=== PATIENT | female | born 1955 | race Caucasian/White ===

== ENCOUNTER → 2016-11-14 | Outpatient (CLI) | payer OTHER ==
[~2016-11-14] MED LIST: ACET-1256 PO; ASPEC81 PO; DICL1GEL12 EXT; DICL1GEL28 EXT; DIPH-416 PO; DOXY50CA PO; EST1 PO; ESTCR PV; FLV1 PO; IMD/2 PO; IPRA1AER2 INH; LPT40 PO; LSN25 PO; MELO15TA4 PO; METH1INJ89 SC; POLY1DRO2 OPB; POLYSOL OPB; POLYSOL4 OPB; POTA10CA28 PO; PRED-301 PO; PRLSR20 PO; STELARA SC; TRAM-10 PO; [UNRECOGNIZED DRUG - CODE] SQ
== END | disposition home or self-care (01) ==
LOC: C.LAB 07:36
PROVIDERS: ATTEND Family Medicine
DX: E55.9 Vitamin D deficiency, unspecified (principal); L40.50 Arthropathic psoriasis, unspecified; Z79.899 Other long term (current) drug therapy

== ENCOUNTER → 2016-11-19 | Outpatient (CLI) | payer OTHER ==
--- NOTE | 2016-11-19 12:20 | DIAGNOSTIC IMAGING REPORT ---
RIGHT HAND 3 VIEWS CLINICAL HISTORY: Psoriatic arthropathy. FINDINGS: 3 views of the right hand are compared to study dated 07/02/2007. The skeletal structures are osteopenic. No fracture is seen. Advanced erosive arthropathy is present involving the interphalangeal joints. This is greatest in the second and third digits, where there is partial bony fusion and subluxation seen at the proximal interphalangeal joints. Mild arthritic change is present at the first and second metacarpophalangeal joints as well as at the first carpal metacarpal articulation. There is degenerative narrowing at the radiocarpal joint. Mild soft tissue edema is present throughout the fingers. IMPRESSION: 1. Osteopenia with advanced erosive osteoarthritic change involving the interphalangeal joints as detailed above. This has significantly progressed from the 2006 examination. 2. Soft tissue swelling is noted in the fingers. 3. No fracture is identified. Electronically signed by: Jame Lopez M.D. 11/19/2016 12:19 PM Dictated Date/Time: 11/19/2016 12:17 PM
--- NOTE | 2016-11-19 12:51 | DIAGNOSTIC IMAGING REPORT ---
LEFT KNEE 3 VIEWS CLINICAL HISTORY: Psoriatic arthropathy. High risk medication. COMPARISON: None FINDINGS: A 2 cm chondroid lesion within the proximal left fibula is likely benign. No fracture or suspicious lesion is present. There is marked narrowing of the patellofemoral compartment, greater laterally. There is minimal narrowing of the medial compartment. There is a possible left knee joint effusion. IMPRESSION: 1. Marked narrowing of the patellofemoral joint space. 2. 2 cm chondroid lesion within the proximal left fibula which is likely benign. 3. Suspected left knee joint effusion. Electronically signed by: Trev Mercado M.D. 11/19/2016 12:50 PM Dictated Date/Time: 11/19/2016 12:48 PM
== END | disposition home or self-care (01) ==
LOC: C.RAD1850 11:16
PROVIDERS: ATTEND Internal Medicine Rheumatology
DX: L40.50 Arthropathic psoriasis, unspecified (principal); M17.9 Osteoarthritis of knee, unspecified; M84.30XA Stress fracture, unspecified site, initial encounter for fracture; Z79.899 Other long term (current) drug therapy; X58.XXXA Exposure to other specified factors, initial encounter; M85.80 Other specified disorders of bone density and structure, unspecified site

== ENCOUNTER → 2017-01-01 | Outpatient (CLI) | payer OTHER ==
--- NOTE | 2017-01-01 15:23 | DIAGNOSTIC IMAGING REPORT ---
LEFT FIFTH TOE 3 VIEWS HISTORY: Left fifth toe pain. COMPARISON: None. FINDINGS: Suboptimal evaluation on the AP and oblique views due to the flexed position of the fifth toe. No definite fracture or dislocation. Soft tissue swelling. No radiopaque foreign bodies. IMPRESSION: Soft tissue swelling. No definite fracture or dislocation within the left fifth toe. Electronically signed by: Yossi Aparicio M.D. 01/01/2017 3:22 PM Dictated Date/Time: 01/01/2017 3:20 PM
--- NOTE | 2017-01-01 15:25 | DIAGNOSTIC IMAGING REPORT ---
LEFT SHOULDER MIN 2 VIEWS ROUTINE CLINICAL HISTORY: Left shoulder pain TRAUMA COMPARISON: None. DISCUSSION: No fractures or dislocations are visualized. There are no visible particular calcifications. There are no erosive or destructive changes. There is mild joint space narrowing. IMPRESSION: No fractures or dislocations identified. Electronically signed by: Dandre Lindsey M.D. 01/01/2017 3:24 PM Dictated Date/Time: 01/01/2017 3:23 PM
--- NOTE | 2017-01-01 15:26 | DIAGNOSTIC IMAGING REPORT ---
SACRUM COCCYX MIN 2 VIEWS CLINICAL HISTORY: Fall with tailbone pain. COMPARISON STUDY: Pelvis 04/03/2016. FINDINGS: No fracture or subluxation within the sacrum or coccyx. Mild degenerative changes within the bilateral sacroiliac joints, unchanged. Presacral soft tissues are intact. IMPRESSION: No fracture or subluxation within the sacrum/coccyx. Electronically signed by: Yossi Aparicio M.D. 01/01/2017 3:25 PM Dictated Date/Time: 01/01/2017 3:23 PM
--- NOTE | 2017-01-01 15:38 | DIAGNOSTIC IMAGING REPORT ---
LUMBAR SPINE 5 VIEWS HISTORY: Fall with low back pain. COMPARISON: None. FINDINGS: There is no fracture. Mild facet degenerative changes. 4 mm of anterolisthesis of L4 on L5. Moderate disc space narrowing at L4-L5. Severe disc space narrowing at L5-S1. Mild facet degenerative changes within the lower lumbar spine. IMPRESSION: No fracture or subluxation within the lumbar spine. Degenerative changes as described above. Electronically signed by: Yossi Aparicio M.D. 01/01/2017 3:36 PM Dictated Date/Time: 01/01/2017 3:34 PM
== END | disposition home or self-care (01) ==
LOC: C.RAD 14:26
PROVIDERS: ATTEND Family Medicine
DX: M54.5 Low back pain (principal); M25.572 Pain in left ankle and joints of left foot; M25.512 Pain in left shoulder

== ENCOUNTER → 2017-03-31 | Outpatient (CLI) | payer OTHER ==
[2017-03-31 09:53] LABS: BLOOD UREA NITROGEN 18 mg/dl (7-18); BUN/CREATININE RATIO 20.5 (10-20); CARBON DIOXIDE 27 mmol/L (21-32); CHLORIDE 108 mmol/L (98-107); CREATININE 0.86 mg/dl (0.60-1.20); GLUCOSE 83 mg/dl (70-99); POTASSIUM 3.8 mmol/L (3.5-5.1); SODIUM 142 mmol/L (136-145)
[2017-03-31 09:56] LABS: ALKALINE PHOSPHATASE 88 U/L (45-117); ALT/SGPT 39 U/L (12-78); AST/SGOT 32 U/L (15-37)
[2017-03-31 10:08] LABS: CALCIUM 8.6 mg/dl (8.5-10.1)
== END | disposition home or self-care (01) ==
LOC: C.LAB 07:45
PROVIDERS: ATTEND Family Medicine
DX: E34.9 Endocrine disorder, unspecified (principal); E87.6 Hypokalemia

== ENCOUNTER → 2017-04-30 | Outpatient (CLI) | payer OTHER ==
--- NOTE | 2017-04-30 14:05 | DIAGNOSTIC IMAGING REPORT ---
LEFT HIP UNILATERAL 2 VIEWS CLINICAL HISTORY: L40.50 Psoriatic [id number] Long-term use of immunosuppressor LEFT HIP PAIN COMPARISON: None. DISCUSSION: No fractures or dislocations are visualized. There are no erosive or destructive changes. The joint space appears well-preserved for age. IMPRESSION: Normal conventional radiographic evaluation of the left hip for age Electronically signed by: Dandre Lindsey M.D. 04/30/2017 2:03 PM Dictated Date/Time: 04/30/2017 2:03 PM
--- NOTE | 2017-04-30 14:05 | DIAGNOSTIC IMAGING REPORT ---
RIGHT HIP UNILATERAL 2 VIEWS CLINICAL HISTORY: L40.50 Psoriatic [id number] Long-term use of immunosuppress Right pain COMPARISON: None. DISCUSSION: Moderate degenerative narrowing right hip joint space. Old healed fracture right pubic ring. Cortical margins appear intact. No evidence for bony destructive process. There is no evidence for soft tissue swelling. IMPRESSION: Findings consistent with moderate degenerative and old posttraumatic change. No acute process. The above report was generated using voice recognition software. It may contain grammatical, syntax or spelling errors. Electronically signed by: eJmal Manning M.D. 04/30/2017 2:04 PM Dictated Date/Time: 04/30/2017 2:03 PM
== END | disposition home or self-care (01) ==
LOC: C.RAD 13:16
PROVIDERS: ATTEND Internal Medicine Rheumatology
DX: L40.50 Arthropathic psoriasis, unspecified (principal); Z79.899 Other long term (current) drug therapy

== ENCOUNTER → 2017-05-19 | Outpatient (CLI) | payer OTHER ==
--- NOTE | 2017-05-20 07:44 | MAMMOGRAPHY REPORT ---
BILATERAL DIGITAL SCREENING MAMMOGRAM TOMOSYNTHESIS WITH CAD: 05/19/2017 CLINICAL HISTORY: Routine screening. Patient has no complaints. TECHNIQUE: Breast tomosynthesis in addition to standard 2D mammography was performed. Current study was also evaluated with a Computer Aided Detection (CAD) system. COMPARISON: Comparison is made to exams dated: 05/16/2016 ultrasound, 05/16/2016 mammogram, 05/03/2015 ma mmogram, 05/02/2014 mammogram, 01/14/2012 mammogram, and 06/19/2010 mammogram - [facility] er. BREAST COMPOSITION: The tissue of both breasts is heterogeneously dense, which may obscure small mas ses. FINDINGS: No new suspicious mass, architectural distortion or cluster of microcalcifications is seen . IMPRESSION: ACR BI-RADS CATEGORY 1: NEGATIVE There is no mammographic evidence of malignancy. A 1 year screening mammogram is recommended. The pa tient will receive written notification of the results. Approximately 10% of breast cancers are not detected with mammography. A negative mammographic report should not delay biopsy if a clinically suggestive mass is present. Wendi Bowers M.D. ay/:05/19/2017 17:48:03 [employer] Worker: Katheryn Gu, [facility] letter sent: Normal 1/2 BI-RADS Code: ACR BI-RADS Category 1: Negative
== END | disposition home or self-care (01) ==
LOC: C.MAMM 12:50
PROVIDERS: ATTEND Obstetrics & Gynecology
DX: Z12.31 Encounter for screening mammogram for malignant neoplasm of breast (principal)

== ENCOUNTER 2017-05-20 08:20 | Inpatient (IN) | payer OTHER ==
[~2017-05-20] VITALS: Ht 165.1 cm; Wt 98.3 kg
[~2017-05-20 08:20] MED LIST changes: -ACET-1256 PO; -ASPEC81 PO; -DICL1GEL12 EXT; -IMD/2 PO; -LPT40 PO; -LSN25 PO; -POLY1DRO2 OPB; -[UNRECOGNIZED DRUG - CODE] SQ
--- NOTE | 2017-05-20 08:47 | DIAGNOSTIC IMAGING REPORT ---
HEAD WITHOUT CONTRAST (CT) CT DOSE: 638.56 mGycm HISTORY: Mental status change rule out stroke TECHNIQUE: Multiaxial CT images of the head were performed without the use of intravenous contrast. A dose lowering technique was utilized adhering to the principles of ALARA. Comparison: None. Findings: The paranasal sinuses and mastoid air cells are clear. The calvarium and skull base are intact. The ventricles and sulci are within normal limits. There is no mass, hematoma, midline shift, or acute infarct. Impression: No acute intracranial abnormality. The above report was generated using voice recognition software. It may contain grammatical, syntax or spelling errors. Electronically signed by: Jemal Manning M.D. 05/20/2017 8:45 AM Dictated Date/Time: 05/20/2017 8:44 AM
[2017-05-20 08:48] LABS: ISTAT CREATININE 0.8 mg/dl (0.6-1.3); ISTAT IONIZED CALCIUM 1.16 mmol/l (1.12-1.32)
[2017-05-20] MEDS ORDERED: SODIUM CHLORIDE 0.9% 1000ML 1,000 ML IV STA (08:49)
[2017-05-20] MEDS ORDERED: ASPIRIN 81 MG CHEW PO STA (08:49)
[2017-05-20 09:14] LABS: INR 0.9 (0.9-1.1); PARTIAL THROMBOPLASTIN RATIO 0.9; PROTHROMBIN TIME (PATIENT) 9.5 SECONDS (9.0-12.0)
[2017-05-20 09:24] LABS: BUN/CREATININE RATIO 22.4 (10-20); CALCIUM 9.1 mg/dl (8.5-10.1); CREATININE 0.84 mg/dl (0.60-1.20); POTASSIUM 3.9 mmol/L (3.5-5.1)
[2017-05-20 09:44] LABS: HEMATOCRIT 46.4 % (37-47); MEAN CELL VOLUME 94.5 fL (80-100); MEAN CORPUSCULAR HGB CONC 33.8 g/dl (32-36); MEAN PLATELET VOLUME 10.1 fL (7.4-10.4); PLATELET COUNT 188 K/uL (130-400); RED BLOOD COUNT 4.91 M/uL (4.2-5.4); WHITE BLOOD COUNT 8.29 K/uL (4.8-10.8)
[2017-05-20] MEDS ORDERED: ESTCR PV (09:46)
[2017-05-20] MEDS ORDERED: [UNRECOGNIZED DRUG - CODE] SQ (09:46)
[2017-05-20] MEDS ORDERED: IMD/2 PO (09:47)
[2017-05-20] MEDS ORDERED: ACET-1256 PO (09:47)
[2017-05-20] MEDS ORDERED: POLY1DRO2 OPB (09:47)
[2017-05-20] MEDS ORDERED: DICL1GEL12 EXT (09:47)
[2017-05-20 10:56] VITALS: O2SAT 99
[2017-05-20 11:30] VITALS: BP 170/103; PULSE 87; TEMP 36.8; Ht 165.1 cm; Wt 98.3 kg
[2017-05-20] MEDS ORDERED: PHARMACIST DISCHARGE MED REC CONSULT PRN (11:30)
[2017-05-20] MEDS ORDERED: ONDANSETRON INJ 2 MG/ML 2 ML VIAL IV PRN (11:30)
--- NOTE | 2017-05-20 13:50 | EMERGENCY ROOM VISIT NOTE ---
History Report prepared by Keri: Sebastien Camacho Under the Supervision of: Dr. Medhat Chaves D.O. First contact with patient: 08:31 Chief Complaint: STROKE SYMPTOMS Stated Complaint: LEG PAIN History of Present Illness The patient is a 61 year old female who presents to the Emergency Room with complaints of resolved right leg weakness starting around 0810 this morning. The patient states that she was at an appointment, and when she went to stand up she could not put any weight on her leg, and she could not stand. The patient states that it felt like a weight, though there was no numbness. She states that she feels like her strength has come back, and it did not feel like it was asleep. The patient states that this has never happened before. The patient denies any headache, though she states that her head did not feel right. The patient states that she has a history of psoriatic arthritis, and sarcoidosis. The patient denies any history of strokes, hypertension, or high cholesterol. The patient additionally states that a few months ago she lost vision in her right eye, though it was from a migraine. Pt denies, change in vision, fevers, chest pain, shortness of breath, nausea, vomiting, new diarrhea , pain with urination, and melena. Source of History: patient Onset: 0810 Position: leg (right) Quality: other (weakness) Timing: resolved Associated Symptoms: No headache, No numbness Review of Systems See HPI for pertinent positives & negatives. A total of 10 systems reviewed and were otherwise negative. Past Medical & Surgical Medical Problems: (1) Asthma, Unspecified (2) Calculus Of Kidney (3) GERD (gastroesophageal reflux disease) (4) H/O hyperparathyroidism (5) Hx of fracture of right hip (6) Hyperparathyroidism, Unspecified (7) Hypertension Nos (8) Idiopathic Scoliosis (9) Leg weakness (10) Lymphedema (11) Migraine (12) Osteoarthritis (13) Pleurisy (14) Psoriatic arthropathy (15) Psoriatic Arthropathy (16) Sarcoidosis (17) Sarcoidosis Surgical Problems: (1) H/O total hysterectomy (2) History of parathyroid surgery (3) S/P appendectomy (4) S/P foot surgery (5) S/P rotator cuff repair Family History Patient reports no known family medical history. Social History Smoking Status: Never Smoker Drug Use: none Marital Status: single Housing Status: unknown Occupation Status: employed Current/Historical Medications Scheduled Acetaminophen (Tylenol), 1,000 MG PO HS Doxycycline Hyclate (Vibramycin), 50 MG PO DAILY AT LUNCH Estradiol (Estradiol), 1 MG PO QAM Estradiol Vaginal (Estrace), 1 APPLN PV 3XWK Folic Acid (Folic Acid), 1 MG PO 6XWK Meloxicam (Mobic), 15 MG PO QPM Methotrexate Sodium (Methotrexate Sodium), 0.7 ML SQ WK Omeprazole (Prilosec), 20 MG PO HS Polyethylene Glycol-Propylene (Systane Gel), 1 DROP OPB HS Potassium Chloride (Micro-K Ext Rel), 20 MEQ PO BID Prednisone (Prednisone), 10 MG PO QAM [Stelara], 1 DOSE SC MONTHLY Scheduled PRN Diclofenac Sodium (Topical) (Voltaren 1% Top Gel), 1 APPLN EXT DAILY PRN for Pain Ipratropium-Albuterol (Combivent Respimat), 1-2 PUFFS INH QID PRN for Shortness of Breath Loperamide Hcl (Imodium), 2 MG PO DIRECTED PRN for PRN Polyethylene Glycol-Propylene (Systane), 1 DROPS OPB TID PRN for PRN Tramadol (Ultram), 50 MG PO Q8H PRN for Pain Allergies Coded Allergies: Adhesives (Verified Allergy, Unknown, ADHESIVE TAPE, 05/20/17) BEE STING (Verified Allergy, Unknown, 05/20/17) Bacitracin (Verified Allergy, Unknown, 05/20/17) Brimonidine (Verified Allergy, Unknown, CONTACT DERMATITIS, 05/20/17) Cyclosporine (Verified Allergy, Unknown, CONTACT DERMATITIS, 05/20/17) Ibuprofen (Verified Allergy, Unknown, 05/20/17) Piroxicam (Verified Allergy, Unknown, 05/20/17) Spironolactone (Verified Allergy, Unknown, 05/20/17) Terfenadine (Verified Allergy, Unknown, 05/20/17) Tobramycin (Verified Allergy, Unknown, 05/20/17) Cefaclor (Verified Adverse Reaction, Intermediate, MOUTH ULCERS- CAN TAKE KEFLEX W/O PROBLEM, 05/20/17) Physical Exam Vital Signs Date Time Temp Pulse Resp B/P (MAP) Pulse Ox O2 Delivery O2 Flow Rate FiO2 05/20/17 09:21 86 16 167/102 98 05/20/17 09:14 91 14 181/105 98 Room Air 05/20/17 08:42 100 05/20/17 08:42 97 23 208/135 100 Room Air 05/20/17 08:24 95 05/20/17 08:23 36.8 93 20 190/103 98 Room Air Physical Exam GENERAL: alert, well appearing, well nourished, no distress, non-toxic EYE EXAM: normal conjunctiva, PERRL and EOM's grossly intact OROPHARYNX: no exudate, no erythema, lips, buccal mucosa, and tongue normal and mucous membranes are moist NECK: supple, no nuchal rigidity, no adenopathy, non-tender LUNGS: Clear to auscultation. Normal chest wall mechanics HEART: no murmurs, S1 normal and S2 normal ABDOMEN: abdomen soft, non-tender, normo-active bowel sounds, no masses, no rebound or guarding. BACK: Back is symmetrical on inspection and there is no deformity, no midline tenderness, no CVA tenderness. SKIN: no rashes and no bruising UPPER EXTREMITIES: upper extremities are grossly normal. LOWER EXTREMITIES: No pitting edema. NEURO EXAM: Normal sensorium, cranial nerves II-XII intact, normal speech, no weakness of arms, no weakness of legs. No drift. Finger to nose intact. Gross sensation intact. Medical Decision & Procedures ER Provider Diagnostic Interpretation: Radiology results as stated below per my review and the radiologist's interpretation: HEAD WITHOUT CONTRAST (CT) CT DOSE: 638.56 mGycm HISTORY: Mental status change rule out stroke TECHNIQUE: Multiaxial CT images of the head were performed without the use of intravenous contrast. A dose lowering technique was utilized adhering to the principles of ALARA. Comparison: None. Findings: The paranasal sinuses and mastoid air cells are clear. The calvarium and skull base are intact. The ventricles and sulci are within normal limits. There is no mass, hematoma, midline shift, or acute infarct. Impression: No acute intracranial abnormality. The above report was generated using voice recognition software. It may contain grammatical, syntax or spelling errors. Electronically signed by: Jemal Manning M.D. 05/20/2017 8:45 AM Dictated Date/Time: 05/20/2017 8:44 AM Laboratory Results 05/20/17 08:25 05/20/17 08:25 Test 05/20/17 08:25 05/20/17 08:26 05/20/17 08:35 Red Blood Count 4.91 M/uL (4.2-5.4) Mean Corpuscular Volume 94.5 fL (80-100) Mean Corpuscular Hemoglobin 32.0 pg (25-34) Mean Corpuscular Hemoglobin Concent 33.8 g/dl (32-36) RDW Standard Deviation 46.2 fL (36.4-46.3) RDW Coefficient of Variation 13.5 % (11.5-14.5) Mean Platelet Volume 10.1 fL (7.4-10.4) Prothrombin Time 9.5 SECONDS (9.0-12.0) Prothromb Time International Ratio 0.9 (0.9-1.1) Activated Partial Thromboplast Time 23.5 SECONDS (21.0-31.0) Partial Thromboplastin Ratio 0.9 Est Creatinine Clear Calc Drug Dose 83.2 ml/min Estimated GFR () 87.6 Estimated GFR (Non- 75.5 BUN/Creatinine Ratio 22.4 (10-20) Calcium Level 9.1 mg/dl (8.5-10.1) Total Bilirubin 0.5 mg/dl (0.2-1) Aspartate Amino Transf (AST/SGOT) 35 U/L (15-37) Alanine Aminotransferase (ALT/SGPT) 41 U/L (12-78) Alkaline Phosphatase 96 U/L (45-117) Total Protein 7.1 gm/dl (6.4-8.2) Albumin 3.5 gm/dl (3.4-5.0) Globulin 3.6 gm/dl (2.5-4.0) Albumin/Globulin Ratio 1.0 (0.9-2) Bedside Glucose 74 mg/dl (70-90) Bedside Hemoglobin 16.0 g/dl (12.0-16.0) Bedside Hematocrit 47 % (37-47) Bedside Sodium 141 mEq/L (135-144) Bedside Potassium 4.0 mEq/L (3.3-5.0) Bedside Chloride 101 mEq/L (101-112) Bedside Total CO2 25 mEq/l (24-31) Anion Gap 19.0 mmol/L (16-25) Bedside Blood Urea Nitrogen 20 mg/dl (7-18) Bedside Creatinine 0.8 mg/dl (0.6-1.3) Bedside Glucose (other) 85 mg/dl (70-99) Bedside Ionized Calcium (Efrain) 1.16 mmol/l (1.12-1.32) Laboratory results per my review. Medications Administered Medications (Trade) Dose Ordered Sig/Joselin Route Start Time Stop Time Status Last Admin Dose Admin Sodium Chloride 1,000 ml @ 999 mls/hr Q1H1M STAT IV 05/20/17 08:49 05/20/17 09:49 DC 05/20/17 08:49 999 MLS/HR Aspirin (Aspirin Chew) 81 mg NOW STAT PO 05/20/17 08:49 05/20/17 08:50 DC 05/20/17 09:10 81 MG ECG Indication: weakness (right leg) Rate (beats per minute): 85 Rhythm: sinus rhythm Findings: no ectopy, other (normal axis) ED Course ED COURSE: Vital signs were reviewed and showed hypertension The patients medical record was reviewed The above diagnostic studies were performed and reviewed. ED treatments and interventions as stated above. 0831: The patient was evaluated in room A10. A complete history and physical examination was performed. 0849: Aspirin Chew 81mg PO, Sodium Chloride 1000 ml @ 999 mls/hr IV 0852: I reevaluated the patient, and I updated her at bedside. She had no focal deficits on reevaluations. 0918: The patient's repeat systolic pressure was 180 0953: I reviewed the patient's case with Dr. Bergman. She will evaluate the patient for further management. 0956: Upon reevaluation, the patient is resting.I discussed my findings with the patient and she understands and agrees with the treatment plan. Based on the patients age, coexisting illnesses, exam and lab findings the decision to treat as an inpatient was made. The patient remained stable while under my care. The patient will be evaluated for further management. Medical Decision Differential Diagnosis includes but is not limited to ischemic Stroke, hemorrhagic stroke, bells palsy, mass, neoplasm, migraine headache, seizure, subarachnoid hemorrhage, TIA, and transient global amnesia. Patient is a 61-year-old female who presents the ER for some onset of right lower extremity weakness without paresthesias. She notes she was unable to ambulate. 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 On my evaluation foreign CT there is no focal deficit. No back pain to explain symptoms. Nursing staff had evaluated her previously and there was a drift in her right lower extremity. Patient notes that the leg feels back to normal. When this event occurred she felt odd in the head. CT head was unremarkable. Remainder labs were benign. On multiple re-evaluations she was at baseline. Allowed permissive hypertension with recent TIA. Aspirin was given. Patient made to internal medicine following updating at bedside. Medication Reconcilliation Current Medication List: was personally reviewed by me Blood Pressure Screening Patient's blood pressure: Elevated blood pressure Blood pressure disposition: Elevated BP felt to be situational Consults Time Called: [phone] Consulting Physician: Dr. Bergman Returned Call: [phone] I reviewed the patient's case with Dr. Bergman. She will evaluate the patient for further management. Impression Primary Impression: TIA (transient ischemic attack) Scribe Attestation The scribe's documentation has been prepared under my direction and personally reviewed by me in its entirety. I confirm that the note above accurately reflects all work, treatment, procedures, and medical decision making performed by me. Departure Information Dispostion Being Evaluated By Hospitalist Referrals Sathya West D.O. (PCP) Patient Instructions My [facility] Problem Qualifiers Primary Impression: TIA (transient ischemic attack) Transient cerebral ischemia type: unspecified Qualified Codes: G45.9 - Transient cerebral ischemic attack, unspecified
[2017-05-20] MEDS ORDERED: METHOTREXATE SODIUM SQ SCH (14:15)
[2017-05-20] MEDS ORDERED: LOPERAMIDE HCL 2 MG CAP PO PRN (14:15)
[2017-05-20] MEDS ORDERED: DICLOFENAC SOD 1% GEL 100 GM TUBE EXT PRN (14:15)
[2017-05-20] MEDS ORDERED: NON-FORMULARY MEDICATION (Polyethylene Glycol-Propylene (Systane) 1 DROPS) OPB PRN (14:15)
[2017-05-20] MEDS ORDERED: IPRATROPIUM BROMIDE/ALBUTEROL respimat INH INH PRN (14:15)
[2017-05-20] MEDS ORDERED: TRAMADOL HCL 50 MG TAB PO PRN (14:15)
--- NOTE | 2017-05-20 15:44 | History and Physical ---
History & Physical Date & Time of Service: May 20, 2017 at 15:15 Chief Complaint: Leg Weakness Primary Care Physician: Sathya West D.O. History of Present Illness This is a 61yo F with a PMH of sarcoidosis, psoriatic arthritis and lymphedema who presented with resolved R leg weakness starting this morning. Patient went to work this morning in a normal state of health for the first few hours. When she stood up from her desk, she noticed a sudden sense of "heaviness" in her R leg and was unable to put weight on her leg without feeling unstable. Denies any pain or paresthesias in the the R leg, just weakness. At this time, patient also endorsed a "funny feeling" in her head that she was unable to explain. Denies headache, lightheadedness, dizziness or confusion, just that her head did not feel normal. After resting for 45 minutes, her R leg weakness completely resolved and she was able to stand up from chair and ambulate to the restroom on her own. Denies any visual changes, facial droop, difficulty speaking, CP, SOB, N/V or weakness of other extremities during the episode. Has never experienced an episode like this before. Denies any personal history of HTN, CVA, HLD or DVT/PE. Patient's mother has a h/o of TIAs and CVA. Of note , patient states that she did experience a temporary episode of complete loss of vision in R eye while at work earlier this year. Went to special events coordinator and was diagnosed with an ocular migraine. Has not happened again since then. Past Medical/Surgical History Medical Problems: (1) Asthma, Unspecified Status: Chronic (2) Calculus Of Kidney Status: Resolved (3) GERD (gastroesophageal reflux disease) Status: Chronic (4) H/O hyperparathyroidism Status: Chronic (5) Hx of fracture of right hip Status: Chronic (6) Hyperparathyroidism, Unspecified Status: Resolved (7) Hypertension Nos Status: Chronic (8) Idiopathic Scoliosis Status: Chronic (9) Lymphedema Status: Chronic (10) Migraine Status: Chronic (11) Osteoarthritis Status: Chronic (12) Pleurisy Status: Resolved (13) Psoriatic arthropathy Status: Chronic (14) Psoriatic Arthropathy Status: Chronic (15) Sarcoidosis Status: Chronic (16) Sarcoidosis Status: Chronic Surgical Problems: (1) H/O total hysterectomy Status: Chronic (2) History of parathyroid surgery Status: Chronic (3) S/P appendectomy Status: Chronic (4) S/P foot surgery Status: Chronic (5) S/P rotator cuff repair Status: Chronic Family History FH: cancer FATHER BROTHER Hypertension MOTHER Stroke MOTHER Social History Smoking Status: Never Smoker Drug Use: none Marital Status: single Housing status: lives alone Occupational Status: employed Immunizations History of Influenza Vaccine: Unknown History of Tetanus Vaccine?: Unknown History of Pneumococcal: Unknown History of Hepatitis B Vaccine: Unknown Multi-Drug Resistant Organisms History of MDRO: No Allergies Coded Allergies: Adhesives (Verified Allergy, Unknown, ADHESIVE TAPE, 05/20/17) BEE STING (Verified Allergy, Unknown, 05/20/17) Bacitracin (Verified Allergy, Unknown, 05/20/17) Brimonidine (Verified Allergy, Unknown, CONTACT DERMATITIS, 05/20/17) Cyclosporine (Verified Allergy, Unknown, CONTACT DERMATITIS, 05/20/17) Ibuprofen (Verified Allergy, Unknown, 05/20/17) Piroxicam (Verified Allergy, Unknown, 05/20/17) Spironolactone (Verified Allergy, Unknown, 05/20/17) Terfenadine (Verified Allergy, Unknown, 05/20/17) Tobramycin (Verified Allergy, Unknown, 05/20/17) Cefaclor (Verified Adverse Reaction, Intermediate, MOUTH ULCERS- CAN TAKE KEFLEX W/O PROBLEM, 05/20/17) Home Medications Scheduled Acetaminophen (Tylenol), 1,000 MG PO HS Doxycycline Hyclate (Vibramycin), 50 MG PO DAILY AT LUNCH Estradiol (Estradiol), 1 MG PO QAM Estradiol Vaginal (Estrace), 1 APPLN PV 3XWK Folic Acid (Folic Acid), 1 MG PO 6XWK Meloxicam (Mobic), 15 MG PO QPM Methotrexate Sodium (Methotrexate Sodium), 0.7 ML SQ WK Omeprazole (Prilosec), 20 MG PO HS Polyethylene Glycol-Propylene (Systane Gel), 1 DROP OPB HS Potassium Chloride (Micro-K Ext Rel), 20 MEQ PO BID Prednisone (Prednisone), 10 MG PO QAM [Stelara], 1 DOSE SC MONTHLY Scheduled PRN Diclofenac Sodium (Topical) (Voltaren 1% Top Gel), 1 APPLN EXT DAILY PRN for Pain Ipratropium-Albuterol (Combivent Respimat), 1-2 PUFFS INH QID PRN for Shortness of Breath Loperamide Hcl (Imodium), 2 MG PO DIRECTED PRN for PRN Polyethylene Glycol-Propylene (Systane), 1 DROPS OPB TID PRN for PRN Tramadol (Ultram), 50 MG PO Q8H PRN for Pain Review of Systems Constitutional- no fever; no weight loss Eyes- no acute visual changes ENT- no sinus drainage; no pharyngitis Pulmonary- no cough, no wheezing, no shortness of breath Cardiac- no chest pain, no palpitations, no orthopnea, no dependent edema GI- no nausea, no vomiting, no diarrhea, no melena, no hematochezia - no dysuria, no hematuria Musculoskeletal- no arthralgias, no myalgias Derm- no rashes, no new skin lesions, no changing skin lesions Hematologic- no unusual bruising, no unusual bleeding Lymphatics- no adenopathy Endocrine- no polyuria or polydipsia; no heat or cold intolerance Neuro- (+) as noted above Psych- no anxiety, no depression Physical Exam Vital Signs Date Time Temp Pulse Resp B/P (MAP) Pulse Ox O2 Delivery O2 Flow Rate FiO2 05/20/17 11:30 36.8 87 16 170/103 Room Air 05/20/17 10:56 92 16 190/100 99 Room Air 05/20/17 10:26 88 20 185/116 96 Room Air 05/20/17 09:21 86 16 167/102 98 05/20/17 09:14 91 14 181/105 98 Room Air 05/20/17 08:42 100 05/20/17 08:42 97 23 208/135 100 Room Air 05/20/17 08:24 95 05/20/17 08:23 36.8 93 20 190/103 98 Room Air General Appearance: WD/WN, no apparent distress Head: normocephalic, atraumatic Eyes: normal inspection, PERRL, EOMI, sclerae normal ENT: normal ENT inspection, hearing grossly normal Neck: supple, no adenopathy, thyroid normal, trachea midline Respiratory/Chest: chest non-tender, lungs clear, normal breath sounds, no respiratory distress Cardiovascular: regular rate, rhythm, no murmur, normal peripheral pulses Abdomen/GI: normal bowel sounds, non tender, soft, no organomegaly Back: normal inspection Extremities/Musculoskelatal: normal inspection, no calf tenderness, normal capillary refill, non-tender, + swelling (Presence of non-pitting edema bilaterally from the waist down.) 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: 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 No abnormalities with gait or cerebellar tests. ), alert, normal mood/affect, oriented x 3 Skin: normal color, warm/dry, no rash Diagnostics Laboratory Results Results Past 24 Hours Test 05/20/17 08:25 05/20/17 08:26 05/20/17 08:35 05/20/17 11:20 Range/Units White Blood Count 8.29 4.8-10.8 K/uL Red Blood Count 4.91 4.2-5.4 M/uL Hemoglobin 15.7 12.0-16.0 g/dL Hematocrit 46.4 37-47 % Mean Corpuscular Volume 94.5 80-100 fL Mean Corpuscular Hemoglobin 32.0 25-34 pg Mean Corpuscular Hemoglobin Concent 33.8 32-36 g/dl RDW Standard Deviation 46.2 36.4-46.3 fL RDW Coefficient of Variation 13.5 11.5-14.5 % Platelet Count 188 130-400 K/uL Mean Platelet Volume 10.1 7.4-10.4 fL Prothrombin Time 9.5 9.0-12.0 SECONDS Prothromb Time International Ratio 0.9 0.9-1.1 Activated Partial Thromboplast Time 23.5 21.0-31.0 SECONDS Partial Thromboplastin Ratio 0.9 Sodium Level 140 136-145 mmol/L Potassium Level 3.9 3.5-5.1 mmol/L Chloride Level 107 98-107 mmol/L Carbon Dioxide Level 27 21-32 mmol/L Anion Gap 6.0 19.0 16-25 mmol/L Blood Urea Nitrogen 19 7-18 mg/dl Creatinine 0.84 0.60-1.20 mg/dl Est Creatinine Clear Calc Drug Dose 83.2 ml/min Estimated GFR () 87.6 Estimated GFR (Non- 75.5 BUN/Creatinine Ratio 22.4 10-20 Random Glucose 82 70-99 mg/dl Calcium Level 9.1 8.5-10.1 mg/dl Total Bilirubin 0.5 0.2-1 mg/dl Aspartate Amino Transf (AST/SGOT) 35 15-37 U/L Alanine Aminotransferase (ALT/SGPT) 41 12-78 U/L Alkaline Phosphatase 96 45-117 U/L Total Protein 7.1 6.4-8.2 gm/dl Albumin 3.5 3.4-5.0 gm/dl Globulin 3.6 2.5-4.0 gm/dl Albumin/Globulin Ratio 1.0 0.9-2 Bedside Glucose 74 70-90 mg/dl Bedside Hemoglobin 16.0 12.0-16.0 g/dl Bedside Hematocrit 47 37-47 % Bedside Sodium 141 135-144 mEq/L Bedside Potassium 4.0 3.3-5.0 mEq/L Bedside Chloride 101 101-112 mEq/L Bedside Total CO2 25 24-31 mEq/l Bedside Blood Urea Nitrogen 20 7-18 mg/dl Bedside Creatinine 0.8 0.6-1.3 mg/dl Bedside Glucose (other) 85 70-99 mg/dl Bedside Ionized Calcium (Efrain) 1.16 1.12-1.32 mmol/l Diagnostic Radiology Ct Head: No acute intracranial abnormality. Normal EKG Impression Assessment and Plan This is a 61yo F with a PMH of sarcoidosis, psoriatic arthritis and lymphedema who presented with resolved R leg weakness starting this morning. R Lower Extremity Weakness: -Sudden onset this morning with resolution in 45 minutes -Initiated stroke protocol to r/o TIA -CT head without any acute abnormalities -Ordered MRI brain, MRA head and neck, Echo with bubble study, CXR -Neuro consulted for recs -Given aspirin in ED. Started on statin. -Hgb a1c and fasting lipid panel ordered for AM -PT/OT/Speech evals ordered per protocol -Neuro checks, stroke education Hypertensive Urgency: -BP of 190/103 on admission. Decreased to 167/102 without intervention in the ED due to TIA r/o -Denies headache, visual changes, nausea/vomiting -Has a h/o HTN years ago but was able to stop medications with significant weight loss -Since regaining the weight in recent years, has only taken Amiloride-HCTZ 5- 50mg tablet 3x/week -Will monitor and make adjustments Sarcoidosis: stable -Follows with out-patient pulm for annual CXR -States that at baseline she experiences SOB with walking -Continue doxycycline and Combivent inhaler Psoriatic Arthritis: -Follows with out-patient rheum -Continue methotrexate, prednisone, meloxicam, stelara. Tramadol PRN. Bilateral lymphedema: -Chronic non-pitting edema from waist down -Equal bilaterally -Currently at baseline DVT Ppx: SCDs Code status: FULL PCP: Luc Dispo: Plan to return home once medically stable ATTENDING ADDENDUM care coordinated with SONALI Ellington please refer to her notes for full details, I agree with her notes patient seen and examined, records reviewed by myself as well on exam, patient seen resting in bed, comfortable states right lower leg weakness has completely resolved denies any symptoms VS noted and reviewed oriented x 3, not in distress, speaks in sentences with no effort nor accessory muscle use normal rate, regular rhythm, no murmurs clear breath sounds bilaterally non distended, soft, nontender no bipedal edema, erythema, warmth no neuro deficits crea 0.84 CT head: no CVA ASSESSMENT/PLAN> RIGHT LOWER LEG WEAKNESS possible TIA - CT Angio ordered started on Aspirin - ff up echo - appreciate Neuro SVC input HYPERTENSIVE URGENCY - will maintain BP on the higher side for today given possible TIA - PRN Clonidine for syst bp > 180 - patient is asymptomatic other diagnoses and plan of care as per SONALI Ellington's notes Parvez Bergman MD Level of Care Telemetry Advanced Directives Existing Living Will: No Existing Power of Department Store Manager: No Resuscitation Status FULL RESUSCITATION VTE Prophylaxis VTE Risk Assessment Done? Y/N: Yes Risk Level: Moderate Given or contraindicated: SCD's Social Service Consult None Apply
--- NOTE | 2017-05-20 16:12 | Neurology Consultation ---
Neurology Consultation Date of Consultation: May 20, 2017. Attending Physician: Parvez Bergman MD Primary Care Physician: Sathya West D.O. Reason for Consultation: TIA History of Present Illness Source: patient Alessandra is a 61 year old female- PMH of sarcoidosis, psoriatic arthritis and lymphedema who presented with resolved R leg weakness starting this morning. She went to work this morning in a normal state of health for the first few hours. When she stood up from her desk, she noticed a sudden sense of "heaviness " in her R leg and was unable to put weight on her leg without feeling unstable. Denies any pain or paresthesias in the the R leg, just weakness a "funny feeling" in her head that she was unable to explain. Denies headache, lightheadedness, dizziness or confusion. After resting for 45 minutes, her R leg weakness completely resolved and she was able to stand up from chair and ambulate to the restroom on her own. Denies any visual changes, facial droop, difficulty speaking, CP, SOB, N/V or weakness of other extremities during the episode. Her mother has a h/o of TIAs and CVA. She states that she did experience a temporary episode of complete loss of vision in R eye while at work earlier this year. Went to electron microscopist and was diagnosed with an ocular migraine. Has not happened again since then. She does states she has some SOB with ambulation on stairs from her sarcoidosis. Past Medical/Surgical History Medical Problems: (1) Asthma, Unspecified Status: Chronic (2) Finger pain, right Status: Acute (3) Hypertension Nos Status: Chronic (4) Idiopathic Scoliosis Status: Chronic (5) Psoriatic Arthropathy Status: Chronic (6) Sarcoidosis Status: Chronic (7) TIA (transient ischemic attack) Status: Acute Social History Drug Use: none Marital Status: single Housing Status: unknown Occupation Status: employed Allergies Coded Allergies: Adhesives (Verified Allergy, Unknown, ADHESIVE TAPE, 05/20/17) BEE STING (Verified Allergy, Unknown, 05/20/17) Bacitracin (Verified Allergy, Unknown, 05/20/17) Brimonidine (Verified Allergy, Unknown, CONTACT DERMATITIS, 05/20/17) Cyclosporine (Verified Allergy, Unknown, CONTACT DERMATITIS, 05/20/17) Ibuprofen (Verified Allergy, Unknown, 05/20/17) Piroxicam (Verified Allergy, Unknown, 05/20/17) Spironolactone (Verified Allergy, Unknown, 05/20/17) Terfenadine (Verified Allergy, Unknown, 05/20/17) Tobramycin (Verified Allergy, Unknown, 05/20/17) Cefaclor (Verified Adverse Reaction, Intermediate, MOUTH ULCERS- CAN TAKE KEFLEX W/O PROBLEM, 05/20/17) Current Inpatient Medications Current Inpatient Medications Medications (Trade) Dose Ordered Sig/Joselin Route Start Time Stop Time Status Last Admin Dose Admin Atorvastatin Calcium (Lipitor Tab) 40 mg QPM PO 05/20/17 21:00 06/19/17 20:59 Aspirin (Ecotrin Tab) 81 mg QAM PO 05/21/17 09:00 06/20/17 08:59 Miscellaneous Information (Pharmacist Discharge Med Rec Consult) 1 ea UD PRN N/A 05/20/17 11:30 06/19/17 11:29 Acetaminophen (Tylenol Tab) 650 mg Q4H PRN PO 05/20/17 11:30 06/19/17 11:29 Ondansetron HCl (Zofran Inj) 4 mg Q6H PRN IV 05/20/17 11:30 06/19/17 11:29 Diclofenac Sodium (Voltaren 1% Top Gel) 1 appln DAILY PRN EXT 05/20/17 14:15 06/19/17 14:14 Doxycycline Hyclate (Vibramycin Cap) 50 mg DAILY PO 05/21/17 09:00 06/20/17 08:59 Estradiol (Estrace Tab) 1 mg QAM PO 05/21/17 09:00 06/20/17 08:59 Folic Acid (Folvite Tab) 1 mg SuMoTuThFrSa@0900 PO 05/21/17 09:00 06/20/17 08:59 Albuterol/ Ipratropium (Combivent Respimat Inh) USE DIRECTED QID PRN INH 05/20/17 14:15 06/19/17 14:14 Loperamide HCl (Imodium Cap) 2 mg 4XDQ3H PRN PO 05/20/17 14:15 06/19/17 14:14 Meloxicam (Mobic Tab) 15 mg QPM PO 05/20/17 21:00 06/19/17 20:59 Potassium Chloride (Klor-Con M10) 20 meq BID PO 05/20/17 21:00 06/19/17 20:59 Prednisone (PredniSONE TAB) 10 mg QAM PO 05/21/17 09:00 06/20/17 08:59 Tramadol HCl (Ultram Tab) 50 mg Q8H PRN PO 05/20/17 14:15 06/19/17 14:14 Pantoprazole Sodium (Protonix Tab) 40 mg HS PO 05/20/17 21:00 06/19/17 20:59 Miscellaneous Information (Order Awaiting Action) 1 ea QS N/A 05/20/17 16:00 06/19/17 15:59 Methotrexate Sodium 17.5 mg/ Syringe 0.7 ml @ 0 mls/hr We@0900 IV 05/27/17 09:00 06/26/17 08:59 Physical Exam Vital Signs (Past 24 Hrs): Date Time Temp Pulse Resp B/P (MAP) Pulse Ox O2 Delivery O2 Flow Rate FiO2 05/20/17 11:30 36.8 87 16 170/103 Room Air 05/20/17 10:56 92 16 190/100 99 Room Air 05/20/17 10:26 88 20 185/116 96 Room Air 05/20/17 09:21 86 16 167/102 98 05/20/17 09:14 91 14 181/105 98 Room Air 05/20/17 08:42 100 05/20/17 08:42 97 23 208/135 100 Room Air 05/20/17 08:24 95 05/20/17 08:23 36.8 93 20 190/103 98 Room Air Physical Exam: Constitutional: appearance nourished, healthy and obese Ears, Nose, Mouth and Throat: mucous membranes moist, no injection and skin normal, eyes normal Cardiovascular: normal S-1 and S-2 and regular rate and rhythm Respiratory: clear to auscultation (CTA) and no rales, rhonchi or wheeze Musculoskeletal: no peripheral edema and good distal pulses, bilateral foot deformities, bilaterally ulnar hand deformities Skin: no stigmata of neurocutaneous disease noted and normal and intact Eyes: extraocular muscles intact (EOMI) and pupils equal, round and reactive to light (PERRL) NEUROLOGIC EXAMINATION: Mental status: Alert and interactive Oriented to full date and location Oriented to person Speech fluent with no evidence of aphasia Cranial Nerves smile eye brow raise symmetric, tongue midline Reflexes: Deep tendon reflexes were symmetrical and graded 2/5. Plantar responses were flexor. Sensory: no deficit to cool or vibration Coordination: finger to nose without bi pass or reaching tremor no cog wheeling Gait/Stance: Posture normal. Gait normal: with steady with steps, base, turning, tandem gait. Motor: Negative for pronator drift of out stretched arms with eyes closed. Strength: biceps triceps hand senior attorney intrinsics 5/5 bilaterally, hip flex ext plantar flex ext Laboratory Results Past 24 Hours: 05/20/17 08:25 05/20/17 08:25 Test 05/20/17 08:25 05/20/17 08:26 05/20/17 08:35 05/20/17 11:20 Red Blood Count 4.91 M/uL (4.2-5.4) Mean Corpuscular Volume 94.5 fL (80-100) Mean Corpuscular Hemoglobin 32.0 pg (25-34) Mean Corpuscular Hemoglobin Concent 33.8 g/dl (32-36) RDW Standard Deviation 46.2 fL (36.4-46.3) RDW Coefficient of Variation 13.5 % (11.5-14.5) Mean Platelet Volume 10.1 fL (7.4-10.4) Prothrombin Time 9.5 SECONDS (9.0-12.0) Prothromb Time International Ratio 0.9 (0.9-1.1) Activated Partial Thromboplast Time 23.5 SECONDS (21.0-31.0) Partial Thromboplastin Ratio 0.9 Est Creatinine Clear Calc Drug Dose 83.2 ml/min Estimated GFR () 87.6 Estimated GFR (Non- 75.5 BUN/Creatinine Ratio 22.4 (10-20) Calcium Level 9.1 mg/dl (8.5-10.1) Total Bilirubin 0.5 mg/dl (0.2-1) Aspartate Amino Transf (AST/SGOT) 35 U/L (15-37) Alanine Aminotransferase (ALT/SGPT) 41 U/L (12-78) Alkaline Phosphatase 96 U/L (45-117) Total Protein 7.1 gm/dl (6.4-8.2) Albumin 3.5 gm/dl (3.4-5.0) Globulin 3.6 gm/dl (2.5-4.0) Albumin/Globulin Ratio 1.0 (0.9-2) Bedside Glucose 74 mg/dl (70-90) Bedside Hemoglobin 16.0 g/dl (12.0-16.0) Bedside Hematocrit 47 % (37-47) Bedside Sodium 141 mEq/L (135-144) Bedside Potassium 4.0 mEq/L (3.3-5.0) Bedside Chloride 101 mEq/L (101-112) Bedside Total CO2 25 mEq/l (24-31) Anion Gap 19.0 mmol/L (16-25) Bedside Blood Urea Nitrogen 20 mg/dl (7-18) Bedside Creatinine 0.8 mg/dl (0.6-1.3) Bedside Glucose (other) 85 mg/dl (70-99) Bedside Ionized Calcium (Efrain) 1.16 mmol/l (1.12-1.32) Imaging CT head- No acute intracranial abnormality. Impression 61 year old female with right leg weakness that resolved in 45 minutes Plan 1. no ischemia seen on CT head 2. MRI brain with and without - not resulted but no obvious ischemia 3. MRA neck no vascular issues in neck 4. MRA brain not done and unable to visualize the left anterior cerebral artery - CTA head ordered 5. continue aspirin 81 mg 6. TTE done but not resulted 7. further recommendations once all images are resulted. I have seen and discussed above patient with Dr Arsenio Ramírez, neurology [facility] reviewed see my dictated note Janessa Ramírez mD
[2017-05-20] MEDS: ACETAMINOPHEN 325 MG TAB PO PRN ×2 (16:36→21:22)
--- NOTE | 2017-05-20 16:37 | DIAGNOSTIC IMAGING REPORT ---
MRI OF THE BRAIN WITHOUT CONTRAST CLINICAL HISTORY: Stroke RIGHT LEG NUMBNESS. HEADACHES. FACIAL DROOP. COMPARISON STUDY: Noncontrast head CT dated 05/20/2017 FINDINGS: Sagittal T1, axial diffusion, proton density and T2 weighted axial, coronal FLAIR, and axial T1-weighted images were acquired. No intra or extra-axial mass lesions are visualized Axial diffusion-weighted images reveal no evidence of acute or subacute infarction. There is no evidence of ventricular dilatation. Proton density T2-weighted and FLAIR images reveal no significant intraparenchymal signal abnormalities. There are no abnormal flow voids. There are minimal inflammatory changes within the mastoids. IMPRESSION: 1. No acute intracranial findings 2. No evidence of intracranial mass on this noncontrast study 3. No evidence of acute or subacute infarction Electronically signed by: Dandre Lindsey M.D. 05/20/2017 4:36 PM Dictated Date/Time: 05/20/2017 4:32 PM
--- NOTE | 2017-05-20 16:42 | DIAGNOSTIC IMAGING REPORT ---
MRA NECK COMBO CLINICAL HISTORY: 61 years-old Female with acute strokelike symptoms and right leg numbness with headaches. COMPARISON STUDY: MRI of the brain of same day, CT head 05/20/2017. TECHNIQUE: Axial 3-D [id number] MR angiography of the neck is performed. Subsequently, following the IV administration of 10 cc of Magnevist coronal MR angiogram of the neck was performed to corroborate the findings. 3-D reformats are created and assessed. All measurements were calculated based on NASCET criteria. FINDINGS: Large [id number] localizer images demonstrate no gross abnormality of the head, neck or chest. There is mild convex right curvature of the midthoracic spine. Per the operating room technologist, the venous structures were unable to be imaged secondary to technical difficulties. Normal branching three-vessel aortic arch is present. Imaged subclavian arteries are patent. The bilateral common and internal carotid arteries are patent without high-grade narrowing, occlusion, dissection or aneurysm. The bilateral vertebral arteries are codominant and widely patent. IMPRESSION: Unremarkable MRA of the neck without evidence of high-grade stenosis, proximal branch occlusion or aneurysm. The above report was generated using voice recognition software. It may contain grammatical, syntax or spelling errors. Electronically signed by: Pee Fitzgerald M.D. 05/20/2017 4:40 PM Dictated Date/Time: 05/20/2017 4:33 PM
[2017-05-20 16:48] VITALS: BP_SYST 165; BP_DIAS 102; BP_DIAS 96; PULSE 88; TEMP 36.4; O2SAT 97
[2017-05-20] MEDS ORDERED: OPTIRAY 320 IV PRN (17:00)
--- NOTE | 2017-05-20 19:01 | PROGRESS NOTE ---
DATE: 05/20/2017 Alessandra 61 years old, is right-handed and is followed by Dr. Sathya West. I have reviewed her history today, performed examination and discussed her case with both Dr. Bergman and Elba Mcgill PA-C. I refer the reader to Elba Mcgill's note. She has had two neurologic episodes in the past year; the first a total of loss of vision in the right eye without accompanying headache that was termed retinal migraine which has not recurred and the second occurring today when her right leg suddenly became weak to the point that she was unable to stand. She denied any pain. No numbness, no tingling. The entire episode lasted about 40 minutes and then cleared completely. At some point, during the development of the symptoms, she developed an odd sensation in her head that she does not describe as headaches and has resolved completely as well. All of this occurs in the setting of asthma, renal calculi, GERD, history of hyperparathyroidism, right hip fracture, hypertension, idiopathic scoliosis, lymphedema, possible migraines, osteoarthritis, pleurisy, psoriatic neuropathy, sarcoidosis apparently inactive and in the setting of a total hysterectomy, parathyroid surgery, appendectomy, foot surgery and rotator cuff repair. FAMILY HISTORY: Noncontributory. SOCIAL HISTORY: As outlined reveals her to be single, nonsmoker, not a consumer of ethanol. MEDICATIONS AT HOME: Include; acetaminophen, doxycycline, estradiol 1 mg daily, folic acid, meloxicam, methotrexate, omeprazole, polyethylene glycol, KCl, prednisone, but no aspirin. ALLERGIES: SHE HAS EXTENSIVE ALLERGIES OUTLINED ON THE EMR. REVIEW OF SYSTEMS: As recorded. PHYSICAL EXAMINATION: As recorded. NEUROLOGIC: Today, neurologically she is absolutely normal. She is awake, alert, oriented in 3 spheres and has normal extraocular movements, normal facial motility and strength. Normal facial sensation. Visual mccloud are full. I do not see any nystagmus. Speech is clear. She has no drift, pronation sign, tremor, tics or choreiform activity. Reflexes are 1+ and symmetrical. Toes are down. No Jamia's signs are seen. Strength is absolutely normal and symmetrical in both lower extremities and sensation is intact to all primary modalities. Official MRI reports are not back on the chart. The CT is negative but to my eye, the MRI of the brain shows no acute infarct, nor does it show evidence for any significant prior vascular events of small vessel type. An MRA is done only of the neck. When one traces the vessels up, it is not clear what the status of her intracranial circulation may be. I specifically refer to the A1 segment on the left and the status of the anterior cerebral arteries. An echo has been done, but it is not reported. At this point, I suspect this has to be considered a TIA versus an atypical migraine; I would favor the former in view of her age and the lack of a clear migrainous history in the past. If so, the prior retinal event may have to be in retrospect considered a potential embolization. Plans are to review the echo and to do a CTA of the intracranial vessels; specifically to look at the status of the left A1 segment and the distribution of both anterior cerebral arteries. This could have been an ischemic event localized purely to the left anterior cerebral artery distribution and I think delineation of this vessel is important, at least clinically. For now, I would simply to go on with the aspirin and I will check on her tomorrow morning. JOE
[2017-05-20] MEDS ORDERED: CLONIDINE HCL 0.1 MG TAB PO PRN (20:00)
[2017-05-20 20:16] VITALS: BP 146/86; PULSE 86; TEMP 37; O2SAT 96
--- NOTE | 2017-05-20 20:50 | DIAGNOSTIC IMAGING REPORT ---
CT ANGIOGRAPHY HEAD COMBO CT DOSE: 1078.31 mGycm CLINICAL HISTORY: Right leg weakness TECHNIQUE: Unenhanced images were obtained the brain. CT angiography was then performed through the injection of 120 cc Optiray 320. MIP imaging was performed. A dose lowering technique was utilized adhering to the principles of ALARA. COMPARISON STUDY: CT scan performed earlier in the day, MRI the brain performed earlier in the day. FINDINGS: No intra or extra-axial mass lesions are visualized. There is no CT evidence of acute cortical infarction. There is no midline shift. There is no acute hemorrhage. Postcontrast images reveal no pathologically enhancing lesions. Angiographic images reveal no major intracranial branch occlusions. There are no lesion suspicious for aneurysm. There is no evidence of dural venous sinus thrombosis. IMPRESSION: Unremarkable CT angiography of the brain. Electronically signed by: Dandre Lindsey M.D. 05/20/2017 8:49 PM Dictated Date/Time: 05/20/2017 8:45 PM
[2017-05-20] MEDS ORDERED: PANTOprazole SOD 40 MG TAB PO SCH (21:00)
[2017-05-20] MEDS ORDERED: MELOXICAM 7.5 MG TAB PO SCH (21:00)
[2017-05-20] MEDS ORDERED: ATORVASTATIN 40 MG TAB PO SCH (21:00)
[2017-05-20] MEDS: POTASSIUM CHLORIDE 10 MEQ TABCR PO SCH (21:16)
[2017-05-21] VITALS (8 sets, daily range): BP systolic 123–163; BP diastolic 80–122; PULSE 76–87; TEMP 36.4–37.1; O2SAT 96–99
[2017-05-21 06:07] LABS: BASO % 0.1 %; BASO ABS # 0.01 K/uL (0-0.2); COMPLETE YES; EOS % 2.2 %; HEMATOCRIT 41.5 % (37-47); IG% 0.3 %; LYMPH % 21.4 %; LYMPH ABS # 1.43 K/uL (1.2-3.4); MEAN CELL VOLUME 93.5 fL (80-100); MEAN CORPUSCULAR HEMOGLOBIN 31.5 pg (25-34); MEAN CORPUSCULAR HGB CONC 33.7 g/dl (32-36); MEAN PLATELET VOLUME 9.7 fL (7.4-10.4); MONO % 16.9 %; NEUT % 59.1 %; PLATELET COUNT 153 K/uL (130-400); RED BLOOD COUNT 4.44 M/uL (4.2-5.4); WHITE BLOOD COUNT 6.68 K/uL (4.8-10.8)
[2017-05-21 06:28] LABS: ESTIMATED AVERAGE GLUCOSE 103 mg/dl; HA1C FLAG Normal (Normal)
[2017-05-21 06:47] LABS: BUN/CREATININE RATIO 21.1 (10-20); CALCIUM 8.3 mg/dl (8.5-10.1); CREATININE 0.72 mg/dl (0.60-1.20); POTASSIUM 3.5 mmol/L (3.5-5.1)
[2017-05-21 06:51] LABS: CHOLESTEROL/HDL RATIO 2.9
[2017-05-21] MEDS: POTASSIUM CHLORIDE 10 MEQ TABCR PO SCH (08:22)
[2017-05-21] MEDS ORDERED: ASPIRIN 81 MG ECTAB PO SCH (09:00)
[2017-05-21] MEDS ORDERED: ESTRADIOL 1 MG TAB PO SCH (09:00)
[2017-05-21] MEDS ORDERED: DOXYCYCLINE HYCLATE 50 MG CAP PO SCH (09:00)
[2017-05-21] MEDS ORDERED: SODIUM CHLORIDE 0.9% 1000ML 1,000 ML IV SCH (12:30)
--- NOTE | 2017-05-21 13:04 | Progress Note ---
Medicine Progress Note Date & Time of Visit: May 21, 2017 at 12:52. (Homa Ellington, P.A.-C.) Subjective Patient seen and examined. States that she is feeling back to normal today. Denies any headache, dizziness, confusion, visual changes, weakness of any extremity, CP, SOB, N/V/D. Has been ambulating on her own without problem and has a regular appetite. Would like to go home today. (Homa Ellington, P.A.-C.) Objective Last 8 Hrs Date Time Temp Pulse Resp B/P (MAP) Pulse Ox O2 Delivery O2 Flow Rate FiO2 05/21/17 12:00 Room Air 05/21/17 11:09 36.4 87 18 123/80 (94) 96 Room Air 05/21/17 10:25 84 05/21/17 08:00 Room Air 05/21/17 08:00 36.5 76 18 128/86 (100) 97 Room Air Physical Exam: General Appearance: WD/WN, no apparent distress Head: normocephalic, atraumatic Eyes: normal inspection, PERRL, EOMI, sclerae normal ENT: normal ENT inspection, hearing grossly normal Neck: supple, no adenopathy, thyroid normal, trachea midline Respiratory/Chest: chest non-tender, lungs clear, normal breath sounds, no respiratory distress Cardiovascular: regular rate, rhythm, no murmur, normal peripheral pulses Abdomen/GI: normal bowel sounds, non tender, soft, no organomegaly Back: normal inspection Extremities/Musculoskelatal: normal inspection, no calf tenderness, normal capillary refill, non-tender, + swelling (Presence of non-pitting edema bilaterally from the waist down.) 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: 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, no motor/sensory deficits, alert, normal mood/affect, oriented x 3 Skin: normal color, warm/dry, no rash Laboratory Results: Last 24 Hours Test 05/21/17 05:27 White Blood Count 6.68 K/uL Red Blood Count 4.44 M/uL Hemoglobin 14.0 g/dL Hematocrit 41.5 % Mean Corpuscular Volume 93.5 fL Mean Corpuscular Hemoglobin 31.5 pg Mean Corpuscular Hemoglobin Concent 33.7 g/dl Platelet Count 153 K/uL Mean Platelet Volume 9.7 fL Neutrophils (%) (Auto) 59.1 % Lymphocytes (%) (Auto) 21.4 % Monocytes (%) (Auto) 16.9 % Eosinophils (%) (Auto) 2.2 % Basophils (%) (Auto) 0.1 % Neutrophils # (Auto) 3.94 K/uL Lymphocytes # (Auto) 1.43 K/uL Monocytes # (Auto) 1.13 K/uL Eosinophils # (Auto) 0.15 K/uL Basophils # (Auto) 0.01 K/uL RDW Standard Deviation 45.8 fL RDW Coefficient of Variation 13.4 % Immature Granulocyte % (Auto) 0.3 % Immature Granulocyte # (Auto) 0.02 K/uL Sodium Level 141 mmol/L Potassium Level 3.5 mmol/L Chloride Level 108 mmol/L Carbon Dioxide Level 27 mmol/L Anion Gap 6.0 mmol/L Blood Urea Nitrogen 15 mg/dl Creatinine 0.72 mg/dl Est Creatinine Clear Calc Drug Dose 96.4 ml/min Estimated GFR () 105.5 Estimated GFR (Non- 91.0 BUN/Creatinine Ratio 21.1 Random Glucose 76 mg/dl Estimated Average Glucose 103 mg/dl Hemoglobin A1c 5.2 % Calcium Level 8.3 mg/dl Total Bilirubin 0.5 mg/dl Direct Bilirubin 0.1 mg/dl Aspartate Amino Transf (AST/SGOT) 36 U/L Alanine Aminotransferase (ALT/SGPT) 38 U/L Alkaline Phosphatase 85 U/L Total Protein 6.1 gm/dl Albumin 3.0 gm/dl Triglycerides Level 97 mg/dl Cholesterol Level 213 mg/dl HDL Cholesterol 73 mg/dl LDL Cholesterol, Calculated 121 mg/dl VLDL Cholesterol, Calculated 19 mg/dl Cholesterol/HDL Ratio 2.9 Diagnostic Imaging: CTA of the brain: IMPRESSION: Unremarkable CT angiography of the brain. Brain MRI: IMPRESSION: 1. No acute intracranial findings 2. No evidence of intracranial mass on this noncontrast study 3. No evidence of acute or subacute infarction Neck MRA: IMPRESSION: Unremarkable MRA of the neck without evidence of high- grade stenosis, proximal branch occlusion or aneurysm. (Homa Ellington ., P.A.-C.) Assessment & Plan This is a 61yo F with a PMH of sarcoidosis, psoriatic arthritis and lymphedema who presented with resolved R leg weakness yesterday morning. R Lower Extremity Weakness: resolved -Initiated stroke protocol to r/o TIA -CT head, MRI brain, CTA head, MRA neck all wnl. -Echo results pending -Neuro on board. Per note, weakness was likely caused by a TIA vs. migrainous event -Hgb a1c and fasting lipid panel wnl -PT/OT/Speech evals completed per protocol -Discharge home on baby aspirin and statin Hypertensive Urgency: resolved -BP of 190/103 on admission. Now 128.86 with clonidine 0.1mg PO Q6h for SBP > 180 -Denies headache, visual changes, nausea/vomiting -Has a h/o HTN years ago but was able to stop medications with significant weight loss -Since regaining the weight in recent years, has only taken Amiloride-HCTZ 5- 50mg tablet 3x/week -Plan to discharge home on Lisinopril 5mg daily -PCP to continue management Sarcoidosis: stable -Follows with out-patient pulm for annual CXR -States that at baseline she experiences SOB with walking -Continue doxycycline and Combivent inhaler Psoriatic Arthritis: -Follows with out-patient rheum -Continue methotrexate, prednisone, meloxicam, stelara. Tramadol PRN. Bilateral lymphedema: -Chronic non-pitting edema from waist down -Equal bilaterally -Currently at baseline DVT Ppx: SCDs Code status: FULL PCP: Jenna Dispo: Plan to return home once medically stable Consultants: Neuro Current Inpatient Medications: Current Inpatient Medications Medications (Trade) Dose Ordered Sig/Joselin Route Start Time Stop Time Status Last Admin Dose Admin Atorvastatin Calcium (Lipitor Tab) 40 mg QPM PO 05/20/17 21:00 06/19/17 20:59 05/20/17 21:17 40 MG Aspirin (Ecotrin Tab) 81 mg QAM PO 05/21/17 09:00 06/20/17 08:59 05/21/17 08:22 81 MG Miscellaneous Information (Pharmacist Discharge Med Rec Consult) 1 ea UD PRN N/A 05/20/17 11:30 06/19/17 11:29 Acetaminophen (Tylenol Tab) 650 mg Q4H PRN PO 05/20/17 11:30 06/19/17 11:29 05/20/17 21:22 650 MG Ondansetron HCl (Zofran Inj) 4 mg Q6H PRN IV 05/20/17 11:30 06/19/17 11:29 Diclofenac Sodium (Voltaren 1% Top Gel) 1 appln DAILY PRN EXT 05/20/17 14:15 06/19/17 14:14 Doxycycline Hyclate (Vibramycin Cap) 50 mg DAILY PO 05/21/17 09:00 06/20/17 08:59 05/21/17 08:21 50 MG Estradiol (Estrace Tab) 1 mg QAM PO 05/21/17 09:00 06/20/17 08:59 05/21/17 08:22 1 MG Folic Acid (Folvite Tab) 1 mg SuMoTuThFrSa@0900 PO 05/21/17 09:00 06/20/17 08:59 05/21/17 08:22 1 MG Albuterol/ Ipratropium (Combivent Respimat Inh) USE DIRECTED QID PRN INH 05/20/17 14:15 06/19/17 14:14 Loperamide HCl (Imodium Cap) 2 mg 4XDQ3H PRN PO 05/20/17 14:15 06/19/17 14:14 Meloxicam (Mobic Tab) 15 mg QPM PO 05/20/17 21:00 06/19/17 20:59 05/20/17 21:18 15 MG Potassium Chloride (Klor-Con M10) 20 meq BID PO 05/20/17 21:00 06/19/17 20:59 05/21/17 08:22 20 MEQ Prednisone (PredniSONE TAB) 10 mg QAM PO 05/21/17 09:00 06/20/17 08:59 05/21/17 08:21 10 MG Tramadol HCl (Ultram Tab) 50 mg Q8H PRN PO 05/20/17 14:15 06/19/17 14:14 Pantoprazole Sodium (Protonix Tab) 40 mg HS PO 05/20/17 21:00 06/19/17 20:59 05/20/17 21:17 40 MG Miscellaneous Information (Order Awaiting Action) 1 ea QS N/A 05/20/17 16:00 06/19/17 15:59 05/20/17 23:11 1 EA Methotrexate Sodium 17.5 mg/ Syringe 0.7 ml @ 0 mls/hr We@0900 IV 05/27/17 09:00 06/26/17 08:59 Ioversol (Optiray 320) 125 ml UD PRN IV 05/20/17 17:00 05/24/17 16:59 Clonidine HCl (Catapres Tab) 0.1 mg Q6H PRN PO 05/20/17 20:00 06/19/17 19:59 Sodium Chloride 1,000 ml @ 100 mls/hr Q10H IV 05/21/17 12:30 06/20/17 12:29 05/21/17 12:49 100 MLS/HR (Homa Ellington ., P.A.-C.) ATTENDING ADDENDUM care coordinated with SONALI Ellington please refer to her notes for full details, I agree with her notes patient seen and examined, records reviewed by myself as well on exam, patient seen resting in bed, in good spirits states she feels fine overall, back to baseline no neuro deficits no other symptoms VS noted and reviewed oriented x 3, not in distress, speaks in sentences with no effort nor accessory muscle use normal rate, regular rhythm, no murmurs clear breath sounds bilaterally non distended, soft, nontender no bipedal edema, erythema, warmth no neuro deficits Hg 14 Crea 0.72 ASSESSMENT/PLAN> POSSIBLE TIA - cleared for d/c by Neuro d/c on Aspirin, Lipitor ff up with Neuro in 4-6 weeks HYPERTENSION - BP fluctuating in AM, systolic 120 at noon, 160s - advised to record BPs at home if persistently > 160s, and/or symptomatic, call PCP immediately other diagnoses and plan of care as per SONALI Ellington's notes Parvez Bergman MD (Parvez Bergman MD)
[2017-05-21] MEDS: ACETAMINOPHEN 325 MG TAB PO PRN (15:29)
--- NOTE | 2017-05-21 15:50 | ECHOCARDIOGRAM REPORT ---
*NOTICE TO RECEIVING [employer] This information is strictly Confidential and protected under [place] law. [place] law prohibits you from making any further disclosure of this information unless further disclosure is expressly permitted by the written consent of the person to whom it pertains or is authorized by law. A general authorization for the release of medical or other information is not sufficient for this purpose. Hospital accepts no responsibility if the information is made available to any other person, INCLUDING THE PATIENT. Interpretation Summary * Name: GENARO SIERRA Study Date: 05/20/2017 01:14 PM BP: 170/103 mmHg * Patient Location: C.2T\S\S244\S\1 HR: 82 * : 1955 (M/d/yyyy) Gender: Female Height: 65 in * Age: 61 yrs Ethnicity: CA Weight: 219 lb * Ordering Physician: Homa Ellington * Referring Physician: Self, Referred * Performed By: Delisa Foster RCS * * Reason For Study: STROKE WORK UP * BSA: 2.1 m2 * -- Conclusions -- * Injection of contrast documented no interatrial shunt. * The interatrial septum is intact with no evidence for an atrial septal defect. * The left ventricle is normal in size. * Ejection Fraction = 50-55%. * The right ventricular systolic function is normal. * The left atrial size is normal. * Right atrial size is normal. * No significant valvular pathology. Procedure Details * A complete two-dimensional transthoracic echocardiogram was performed (2D, M-mode, Doppler and color flow Doppler). Left Ventricle * The left ventricle is normal in size. * There is normal left ventricular wall thickness. * Ejection Fraction = 50-55%. * The left ventricular wall motion is normal. Right Ventricle * The right ventricle is normal size. * The right ventricular systolic function is normal. Atria * The left atrial size is normal. * Right atrial size is normal. * The interatrial septum is intact with no evidence for an atrial septal defect. * Injection of contrast documented no interatrial shunt. Mitral Valve * The mitral valve anatomy is normal. * Significant mitral regurgitation is absent. Tricuspid Valve * The tricuspid valve is normal in structure and function. * Significant tricuspid regurgitation is absent. Aortic Valve * The aortic valve is tricuspid. The leaflet thickness if normal. There is no aortic stenosis, and no significant insufficiency. * The aortic valve opens well. * There is no significant aortic regurgitation. Pulmonic Valve * The pulmonic valve is not well visualized. Great Vessels * The aortic root and proximal ascending aorta are normal sized. Pericardium/Pleural * There is no pericardial effusion. MMode 2D Measurements and Calculations Ao root diam 2.8 cm Ao root area 6.0 cm\S\2 ACS 1.8 cm LA dimension 3.2 cm LA/Ao 1.2 LVAd ap4 26.1 cm\S\2 LVLd ap4 6.9 cm EDV(MOD-sp4) 79.6 ml EDV(sp4-el) 83.6 ml LVAs ap4 17.9 cm\S\2 LVLs ap4 6.0 cm ESV(MOD-sp4) 44.5 ml ESV(sp4-el) 45.7 ml EF(MOD-sp4) 44.1 % EF(sp4-el) 45.4 % LVAd ap2 23.3 cm\S\2 LVLd ap2 6.2 cm EDV(MOD-sp2) 71.6 ml EDV(sp2-el) 74.2 ml LVAs ap2 15.5 cm\S\2 LVLs ap2 5.4 cm ESV(MOD-sp2) 36.2 ml ESV(sp2-el) 37.9 ml EF(MOD-sp2) 49.4 % EF(sp2-el) 48.9 % LVLd %diff -11.12 % EDV(MOD-bp) 80.9 ml LVLs %diff -11.13 % ESV(MOD-bp) 41.3 ml EF(MOD-bp) 48.9 % SV(MOD-sp4) 35.1 ml SI(MOD-sp4) 17.1 ml/m\S\2 SV(MOD-sp2) 35.4 ml SI(MOD-sp2) 17.2 ml/m\S\2 SV(MOD-bp) 39.6 ml SI(MOD-bp) 19.2 ml/m\S\2 SV(sp4-el) 38.0 ml SI(sp4-el) 18.5 ml/m\S\2 SV(sp2-el) 36.3 ml SI(sp2-el) 17.7 ml/m\S\2 Doppler Measurements and Calculations MV E max whit 60.9 cm/sec MV A max whit 63.6 cm/sec MV E/A 0.96 MV P1/2t max whit 69.0 cm/sec MV P1/2t 73.3 msec MVA(P1/2t) 3.0 cm\S\2 MV dec slope 276.0 cm/sec\S\2 MV dec time 0.24 sec Ao V2 max 134.8 cm/sec Ao max PG 7.3 mmHg Ao max PG (full) 3.9 mmHg LV V1 max PG 3.4 mmHg LV V1 max 92.2 cm/sec MR max whit 605.9 cm/sec MR max PG 147.6 mmHg TR max whit 266.0 cm/sec
--- NOTE | 2017-05-21 16:34 | PROGRESS NOTE ---
DATE: 05/21/2017 SUBJECTIVE: Alessandra looks fine. She has not had any more episodes of right eg weakness or right monocular visual loss and the CTA of her brain does show an absence of the left A1 segment and filling of both anterior cerebrals from the right internal carotid artery. Both of her possible embolic events there for seem to have occurred through the right internal carotid, but the vessel itself in the neck looks fine. An echo has been done, but I cannot find the result. She is anxious to go home. I see no reason to hold her, but I would send her home on aspirin with some activity restrictions for the next 2 days and she is in need to follow up in neurology in about 4-6 weeks at which point, hopefully will review the echo and make a decision about whether we would want to go ahead with a Zio patch or CardioNet monitored. Here in the hospital, no atrial fibrillation has been noted, but this is one of the causes of paroxysmal neurologic events. In her case; however, we do not have any documented strokes and even the presumptive retinal ischemia in the last year was not associated with any fixed visual deficits. It is possible therefore the both of these events could even migrainous, but I think this should be a diagnosis of exclusion. JOE
[2017-05-21] MEDS ORDERED: LPT40 PO (17:14)
[2017-05-21] MEDS ORDERED: ASPEC81 PO (17:14)
--- NOTE | 2017-05-21 17:26 | Discharge Instructions ---
Discharge Instructions Date of Service May 21, 2017. Admission Reason for Admission: Leg Weakness Discharge Discharge Diagnosis / Problem: POSSIBLE TRANSIENT ISCHEMIC ATTACK Discharge Goals Goal(s): Diagnostic testing, Therapeutic intervention Activity Recommendations Activity Limitations: as noted below (NO HEAVY EXERTION, DRIVING FOR AT LEAST 2 -3 DAYS) Lifting Limitations: until after follow-up appointment Exercise/Sports Limitations: until after follow-up appointment Driving or Machine Use: resume 3 days after discharge . Instructions / Follow-Up Instructions / Follow-Up PLEASE REVIEW YOUR NEW MEDICATION LIST AND FOLLOW INSTRUCTIONS CAREFULLY. CHECK YOUR BLOOD PRESSURE DAILY BEFORE TAKING LISINOPRIL (BLOOD PRESSURE MEDICATION). DO NOT TAKE LISINOPRIL IF THE TOP NUMBER IS 120 OR BELOW. IF WITH SYMPTOMS OF STROKE NOTED BELOW, CALL 911 IMMEDIATELY. FOLLOW UP WITH PRIMARY CARE PHYSICIAN DR. BARTON (ASSOCIATE OF DR. HENRY) ON THURSDAY MAY 25, 2017 AT 12:[address] FO[address] UP WITH [address]. SANCHEZ IN 4-6 WEEKS. PLEASE CALL HIS OFFICE FOR AN APPOINTMENT. TEL NO. Risk Factors for Stroke: You can reduce your chances of stroke by working with your medical provider to adopt a healthy lifestyle. Some specific ways to lower your chance of stroke are: * If you are a smoker, now is the time to stop smoking cigarettes * If you are diabetic, improve the control of your blood sugars * Avoid excessive amounts of alcohol * Control high blood pressure * Lose weight if you are overweight * Be sure to lead an active lifestyle * Eat a healthy diet low in salt, cholesterol and fat You should know about other risk factors for stroke that you are unable to control. These include: * Age 55 years or older * Male gender * Certain racial groups: , or / * Family History of Stroke, Mini stroke or Heart Attack * Sickle Cell Disease Follow Up: It is important for you to keep your follow up appointments with your medical provider. Current Hospital Diet Patient's current hospital diet: AHA Diet (Heart Healthy) Discharge Diet Recommended Diet: AHA Diet (Heart Healthy) Procedures Procedures Performed: BRAIN MRI, MRA; CT HEAD; ECHO Pending Studies Studies pending at discharge: no Laboratory Results Hemoglobin A1c Test 05/21/17 05:27 Range/Units Estimated Average Glucose 103 mg/dl Hemoglobin A1c 5.2 4.5-5.6 % Lipid Panel Test 05/21/17 05:27 Range/Units Triglycerides Level 97 0-150 mg/dl Cholesterol Level 213 H 0-200 mg/dl HDL Cholesterol 73 mg/dl Cholesterol/HDL Ratio 2.9 LDL Cholesterol, Calculated 121 mg/dl Medical Emergencies . Who to Call and When: Medical Emergencies: Call 911 immediately if you experience any of the following warning signs and symptoms of Stroke: * Sudden numbness or weakness of the face, arm or leg, especially on one side of the body * Sudden confusion, trouble speaking or understanding * Sudden trouble seeing in one or both eyes * Sudden trouble walking, dizziness, loss of balance or coordination * Sudden severe headache with no cause Do not delay calling 911 if you experience any warning signs or symptoms of a stroke. Delay in seeking medical attention may affect what treatments can be given to you. . Non-Emergent Contact Non-Emergency issues call your: Primary Care Provider Call Non-Emergent contact if: you have a fever, you have any medication questions . . "Provider Documentation" section prepared by Parvez Bergman. . Stroke Core Measures Reason no t-PA for Stroke: Treatment not indicated Reason no antithrom by day 2: Treatment provided - N/A Reason no antithrom at D/C: Treatment provided - N/A Reason no statin at D/C: Treatment provided - N/A Reason no anticoag w/a fib: Treatment not indicated VTE Core Measure Inpt VTE Proph given/why not?: SCD's
--- NOTE | 2017-05-21 17:34 | Discharge Summary ---
Discharge Summary Date of Service May 21, 2017. Discharge Summary Admission Date: May 20, 2017 at 10:23 Discharge Date: May 21, 2017 Discharge Disposition: Home Principal Diagnosis: R Lower Extremity Weakness, Resolved, possible TIA Secondary Diagnoses/Problems: Please refer to hospital course below. Procedures: MRI OF THE BRAIN WITHOUT CONTRAST CLINICAL HISTORY: Stroke RIGHT LEG NUMBNESS. HEADACHES. FACIAL DROOP. COMPARISON STUDY: Noncontrast head CT dated 05/20/2017 FINDINGS: Sagittal T1, axial diffusion, proton density and T2 weighted axial, coronal FLAIR, and axial T1-weighted images were acquired. No intra or extra-axial mass lesions are visualized Axial diffusion-weighted images reveal no evidence of acute or subacute infarction. There is no evidence of ventricular dilatation. Proton density T2-weighted and FLAIR images reveal no significant intraparenchymal signal abnormalities. There are no abnormal flow voids. There are minimal inflammatory changes within the mastoids. IMPRESSION: 1. No acute intracranial findings 2. No evidence of intracranial mass on this noncontrast study 3. No evidence of acute or subacute infarction MRA NECK COMBO CLINICAL HISTORY: 61 years-old Female with acute strokelike symptoms and right leg numbness with headaches. COMPARISON STUDY: MRI of the brain of same day, CT head 05/20/2017. TECHNIQUE: Axial 3-D [id number] MR angiography of the neck is performed. Subsequently, following the IV administration of 10 cc of Magnevist coronal MR angiogram of the neck was performed to corroborate the findings. 3-D reformats are created and assessed. All measurements were calculated based on NASCET criteria. FINDINGS: Large qjuss-hh-[id number] localizer images demonstrate no gross abnormality of the head, neck or chest. There is mild convex right curvature of the midthoracic spine. Per the production technologist, the venous structures were unable to be imaged secondary to technical difficulties. Normal branching three-vessel aortic arch is present. Imaged subclavian arteries are patent. The bilateral common and internal carotid arteries are patent without high-grade narrowing, occlusion, dissection or aneurysm. The bilateral vertebral arteries are codominant and widely patent. IMPRESSION: Unremarkable MRA of the neck without evidence of high-grade stenosis, proximal branch occlusion or aneurysm. CT ANGIOGRAPHY HEAD COMBO CT DOSE: 1078.31 mGycm CLINICAL HISTORY: Right leg weakness TECHNIQUE: Unenhanced images were obtained the brain. CT angiography was then performed through the injection of 120 cc Optiray 320. MIP imaging was performed. A dose lowering technique was utilized adhering to the principles of ALARA. COMPARISON STUDY: CT scan performed earlier in the day, MRI the brain performed earlier in the day. FINDINGS: No intra or extra-axial mass lesions are visualized. There is no CT evidence of acute cortical infarction. There is no midline shift. There is no acute hemorrhage. Postcontrast images reveal no pathologically enhancing lesions. Angiographic images reveal no major intracranial branch occlusions. There are no lesion suspicious for aneurysm. There is no evidence of dural venous sinus thrombosis. IMPRESSION: Unremarkable CT angiography of the brain. Echo: Interpretation Summary * Name: GENARO SIERRA Study Date: 05/20/2017 01:14 PM BP: 170/103 mmHg * Patient Location: [facility]\\S\\44\\S\\1 HR: 82 * : 1955 (M/d/yyyy) Gender: Female Height: 65 in * Age: 61 yrs Ethnicity: GA Weight: 219 lb * Ordering Physician: Homa Ellington * Referring Physician: Self, Referred * Performed By: Delisa Foster, [facility] * * Reason For Study: STROKE WORK UP * BSA: 2.1 m2 * -- Conclusions -- * Injection of contrast documented no interatrial shunt. * The interatrial septum is intact with no evidence for an atrial septal defect. * The left ventricle is normal in size. * Ejection Fraction = 50-55%. * The right ventricular systolic function is normal. * The left atrial size is normal. * Right atrial size is normal. * No significant valvular pathology. Consultations: Neurologist Dr. Sanchez Pending Studies/Follow-Up: Please refer to hospital course below. Medication Reconciliation New Medications: Aspirin (Aspirin EC Low Dose) 81 Mg Ectab 81 MG PO QAM for 30 Days, #30 TABS 1 Refill always take with full stomach Atorvastatin (Atorvastatin Calcium) 40 Mg Tab 40 MG PO QPM for 30 Days, #30 TAB 2 Refills Continued Medications: Acetaminophen (Tylenol) 500 Mg Tab 1000 MG PO HS, TAB Diclofenac Sodium (Topical) (Voltaren 1% Top Gel) 1 % Gel 1 APPLN EXT DAILY PRN for Pain Doxycycline Hyclate (Vibramycin) 50 Mg Cap 50 MG PO DAILY AT LUNCH Estradiol (Estradiol) 1 Mg Tab 1 MG PO QAM TAKES 2 TABS ON TUESDAYS AND THURSDAYS Estradiol Vaginal (Estrace) 0.1 Mg/Gm Cre 1 APPLN PV 3XWK Folic Acid (Folic Acid) 1 Mg Tab 1 MG PO 6XWK TAKE DAILY EVERY DAY BUT WED Ipratropium-Albuterol (Combivent Respimat) 1 Aer Aer 1-2 PUFFS INH QID PRN for Shortness of Breath, INH Loperamide Hcl (Imodium) 2 Mg Cap 2 MG PO DIRECTED PRN for PRN, CAP Meloxicam (Mobic) 15 Mg Tab 15 MG PO QPM Methotrexate Sodium (Methotrexate Sodium) 1 Gm/40 Ml Inj 0.7 ML SQ WK WEDNESDAYS Omeprazole (Prilosec) 20 Mg Capcr 20 MG PO HS Polyethylene Glycol-Propylene (Systane) 1 Jessica Jessica 1 DROPS OPB TID PRN for PRN, #30 ML 5 Refills Polyethylene Glycol-Propylene (Systane Gel) 1 Inocencio Inocencio 1 DROP OPB HS Potassium Chloride (Micro-K Ext Rel) 10 Meq Cap 20 MEQ PO BID Prednisone (Prednisone) 5 Mg Tab 10 MG PO QAM, TAB Tramadol (Ultram) 50 Mg Tab 50 MG PO Q8H PRN for Pain, TAB [Stelara] () 1 DOSE SC MONTHLY Admission Information HPI (per Admitting provider): This is a 61yo F with a PMH of sarcoidosis, psoriatic arthritis and lymphedema who presented with resolved R leg weakness starting this morning. Patient went to work this morning in a normal state of health for the first few hours. When she stood up from her desk, she noticed a sudden sense of "heaviness" in her R leg and was unable to put weight on her leg without feeling unstable. Denies any pain or paresthesias in the the R leg, just weakness. At this time, patient also endorsed a "funny feeling" in her head that she was unable to explain. Denies headache, lightheadedness, dizziness or confusion, just that her head did not feel normal. After resting for 45 minutes, her R leg weakness completely resolved and she was able to stand up from chair and ambulate to the restroom on her own. Denies any visual changes, facial droop, difficulty speaking, CP, SOB, N/V or weakness of other extremities during the episode. Has never experienced an episode like this before. Denies any personal history of HTN, CVA, HLD or DVT/PE. Patient's mother has a h/o of TIAs and CVA. Of note , patient states that she did experience a temporary episode of complete loss of vision in R eye while at work earlier this year. 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 Has not happened again since then. Physical Exam (per Admitting): General Appearance: WD/WN, no apparent distress Head: normocephalic, atraumatic Eyes: normal inspection, PERRL, EOMI, sclerae normal ENT: normal ENT inspection, hearing grossly normal Neck: supple, no adenopathy, thyroid normal, trachea midline Respiratory/Chest: chest non-tender, lungs clear, normal breath sounds, no respiratory distress Cardiovascular: regular rate, rhythm, no murmur, normal peripheral pulses Abdomen/GI: normal bowel sounds, non tender, soft, no organomegaly Back: normal inspection Extremities/Musculoskelatal: normal inspection, no calf tenderness, normal capillary refill, non-tender, + swelling (Presence of non-pitting edema bilaterally from the waist down.) 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: coin teller II-XII nml as tested, no motor/sensory deficits (Full ROM and KASSI 5/5 in all extremities. No abnormalities with gait or cerebellar tests. ), alert, normal mood/affect, oriented x 3 Skin: normal color, warm/dry, no rash Hospital Course This is a 61yo F with a PMH of sarcoidosis, psoriatic arthritis and lymphedema who presented with resolved R leg weakness yesterday morning. R Lower Extremity Weakness, Resolved, possible TIA - symptom resolved in the ER -CT head, MRI brain, CTA head, MRA neck all wnl. -Echo no ASD, EF normal -Hgb a1c and fasting lipid panel wnl - Dr. Sanchez consulted weakness was likely caused by a TIA vs. migrainous event per Dr. Sanchez: CTA of her brain does show an absence of the left A1 segment and filling of both anterior cerebrals from the right internal carotid artery. Both of her possible embolic events there for seem to have occurred through the right internal carotid, but the vessel itself in the neck looks fine. - recommend: Aspirin and Statin on discharge ff up with Dr. Sanchez in 4-6 weeks Hypertensive Urgency: resolved -BP of 190/103 on admission. Now 128.86 with clonidine 0.1mg PO Q6h for SBP > 180 -Has a h/o HTN years ago but was able to stop medications with significant weight loss -Since regaining the weight in recent years, has only taken Amiloride-HCTZ 5- 50mg tablet 3x/week - BP fluctuating systolic 120s in the morning 160 in the afternoon - hold off on BP meds at this time given possible TIA episode patient advised to take BP daily and call PCP if persistently > 160 - monitor as outpatient Sarcoidosis: stable -Follows with out-patient pulm for annual CXR -Continue doxycycline and Combivent inhaler Psoriatic Arthritis: -Follows with out-patient rheum -Continue methotrexate, prednisone, meloxicam, stelara. Tramadol PRN. Bilateral lymphedema: -Chronic non-pitting edema from waist down -Equal bilaterally -Currently at baseline Dispo d/c home ff up with PCP in 1 week ff up with Dr. Sanchez in 4-6 weeks Total time spent on discharge = 40 minutes This includes examination of the patient, discharge planning, medication reconciliation, and communication with other providers. Discharge Instructions Discharge Instructions Date of Service May 21, 2017. Admission Reason for Admission: Leg Weakness Discharge Discharge Diagnosis / Problem: POSSIBLE TRANSIENT ISCHEMIC ATTACK Discharge Goals Goal(s): Diagnostic testing, Therapeutic intervention Activity Recommendations Activity Limitations: as noted below (NO HEAVY EXERTION, DRIVING FOR AT LEAST 2 -3 DAYS) Lifting Limitations: until after follow-up appointment Exercise/Sports Limitations: until after follow-up appointment Driving or Machine Use: resume 3 days after discharge . Instructions / Follow-Up Instructions / Follow-Up PLEASE REVIEW YOUR NEW MEDICATION LIST AND FOLLOW INSTRUCTIONS CAREFULLY. CHECK YOUR BLOOD PRESSURE DAILY. IF THE TOP NUMBER IS PERSISTENTLY 160 OR ABOVE , PLEASE CALL YOUR PRIMARY CARE PHYSICIAN. IF WITH SYMPTOMS OF STROKE NOTED BELOW, CALL 911 IMMEDIATELY. FOLLOW UP WITH PRIMARY CARE PHYSICIAN DR. BARTON (ASSOCIATE OF DR. HENRY) ON THURSDAY MAY 25, 2017 AT 12:[address]. FOLLOW UP WITH DR. SANCHEZ IN 4-6 WEEKS. PLEASE CALL HIS OFFICE FOR AN APPOINTMENT. TEL NO. Risk Factors for Stroke: You can reduce your chances of stroke by working with your medical provider to adopt a healthy lifestyle. Some specific ways to lower your chance of stroke are: * If you are a smoker, now is the time to stop smoking cigarettes * If you are diabetic, improve the control of your blood sugars * Avoid excessive amounts of alcohol * Control high blood pressure * Lose weight if you are overweight * Be sure to lead an active lifestyle * Eat a healthy diet low in salt, cholesterol and fat You should know about other risk factors for stroke that you are unable to control. These include: * Age 55 years or older * Male gender * Certain racial groups: , or / * Family History of Stroke, Mini stroke or Heart Attack * Sickle Cell Disease Follow Up: It is important for you to keep your follow up appointments with your medical provider. Current Hospital Diet Patient's current hospital diet: AHA Diet (Heart Healthy) Discharge Diet Recommended Diet: AHA Diet (Heart Healthy) Procedures Procedures Performed: BRAIN MRI, MRA; CT HEAD; ECHO Pending Studies Studies pending at discharge: no Laboratory Results Hemoglobin A1c Test 05/21/17 05:27 Range/Units Estimated Average Glucose 103 mg/dl Hemoglobin A1c 5.2 4.5-5.6 % Lipid Panel Test 05/21/17 05:27 Range/Units Triglycerides Level 97 0-150 mg/dl Cholesterol Level 213 H 0-200 mg/dl HDL Cholesterol 73 mg/dl Cholesterol/HDL Ratio 2.9 LDL Cholesterol, Calculated 121 mg/dl Medical Emergencies . Who to Call and When: Medical Emergencies: Call 911 immediately if you experience any of the following warning signs and symptoms of Stroke: * Sudden numbness or weakness of the face, arm or leg, especially on one side of the body * Sudden confusion, trouble speaking or understanding * Sudden trouble seeing in one or both eyes * Sudden trouble walking, dizziness, loss of balance or coordination * Sudden severe headache with no cause Do not delay calling 911 if you experience any warning signs or symptoms of a stroke. Delay in seeking medical attention may affect what treatments can be given to you. . Non-Emergent Contact Non-Emergency issues call your: Primary Care Provider Call Non-Emergent contact if: you have a fever, you have any medication questions . . "Provider Documentation" section prepared by Parvez Bergman. . Stroke Core Measures Reason no t-PA for Stroke: Treatment not indicated Reason no antithrom by day 2: Treatment provided - N/A Reason no antithrom at D/C: Treatment provided - N/A Reason no statin at D/C: Treatment provided - N/A Reason no anticoag w/a fib: Treatment not indicated VTE Core Measure Inpt VTE Proph given/why not?: SCD's
[2017-05-21] MEDS ORDERED: LISINOPRIL 2.5 MG TAB PO ONE (18:25)
[2017-05-21] MEDS ORDERED: LSN25 PO (18:27)
[2017-05-22] MEDS ORDERED: LISINOPRIL 2.5 MG TAB PO SCH (09:00)
[2017-05-27] MEDS ORDERED: METHOTREXATE SOD IV SCH (09:00)
== END 2017-05-21 19:26 | disposition home or self-care (01) | DRG 69 ==
LOC: EDBD 08:20 → C.EDA 08:21 → C.2T 10:23 → ENRESERV 10:30
PROVIDERS: ADMIT Internal Medicine; ATTEND Internal Medicine
DX: G45.9 Transient cerebral ischemic attack, unspecified (principal); Q28.3 Other malformations of cerebral vessels; G43.909 Migraine, unspecified, not intractable, without status migrainosus; I16.0 Hypertensive urgency; I10 Essential (primary) hypertension; J45.909 Unspecified asthma, uncomplicated; K21.9 Gastro-esophageal reflux disease without esophagitis; D86.9 Sarcoidosis, unspecified; L40.50 Arthropathic psoriasis, unspecified; I89.0 Lymphedema, not elsewhere classified; M19.90 Unspecified osteoarthritis, unspecified site; Z79.1 Long term (current) use of non-steroidal anti-inflammatories (NSAID); Z79.2 Long term (current) use of antibiotics; Z79.52 Long term (current) use of systemic steroids; Z79.891 Long term (current) use of opiate analgesic; Z79.890 Hormone replacement therapy; Z79.899 Other long term (current) drug therapy

== ENCOUNTER → 2017-05-28 | Outpatient (CLI) | payer OTHER ==
[~2017-05-28] MED LIST changes: +ACET-1256 PO; +ASPEC81 PO; +DICL1GEL12 EXT; -DICL1GEL28 EXT; -DIPH-416 PO; +IMD/2 PO; +LPT40 PO; +LSN25 PO; -METH1INJ89 SC; +POLY1DRO2 OPB; -POLYSOL OPB; +[UNRECOGNIZED DRUG - CODE] SQ
--- NOTE | 2017-05-28 15:27 | DIAGNOSTIC IMAGING REPORT ---
CHEST 2 VIEWS ROUTINE CLINICAL HISTORY: D86.9 Sarcoidosis be done just prior to next appt in 6 months sarcoid COMPARISON STUDY: 08/05/2015 FINDINGS: The bones soft tissues and hemidiaphragms are normal. The cardiomediastinal silhouette is normal. The lungs are clear. The pulmonary vasculature is normal. IMPRESSION: Negative chest. The above report was generated using voice recognition software. It may contain grammatical, syntax or spelling errors. Electronically signed by: Jemal Manning M.D. 05/28/2017 3:25 PM Dictated Date/Time: 05/28/2017 3:25 PM
== END | disposition home or self-care (01) ==
LOC: C.RAD 14:58
PROVIDERS: ATTEND Internal Medicine Pulmonary Disease
DX: D86.9 Sarcoidosis, unspecified (principal)

== ENCOUNTER → 2017-06-16 | Outpatient (CLI) | payer OTHER ==
[2017-06-16 10:01] LABS: CHOLESTEROL/HDL RATIO 2.1
== END | disposition home or self-care (01) ==
LOC: C.LAB 07:00
PROVIDERS: ATTEND Internal Medicine
DX: E78.5 Hyperlipidemia, unspecified (principal)

== ENCOUNTER → 2017-06-30 | Outpatient (CLI) | payer OTHER | END | disposition home or self-care (01) | LOC: C.PAPS 08:37 | PROVIDERS: ATTEND Obstetrics & Gynecology | DX: Z12.72 Encounter for screening for malignant neoplasm of vagina (principal); Z90.710 Acquired absence of both cervix and uterus ==

== ENCOUNTER → 2017-07-03 | Outpatient (CLI) | payer OTHER ==
[2017-07-03 09:58] LABS: BASO % 0.4 %; BASO ABS # 0.02 K/uL (0-0.2); COMPLETE YES; EOS % 2.4 %; HEMATOCRIT 45.4 % (37-47); IG% 0.4 %; LYMPH ABS # 1.51 K/uL (1.2-3.4); MEAN CELL VOLUME 95.6 fL (80-100); MEAN CORPUSCULAR HEMOGLOBIN 31.2 pg (25-34); MEAN CORPUSCULAR HGB CONC 32.6 g/dl (32-36); MEAN PLATELET VOLUME 10.2 fL (7.4-10.4); MONO % 13.4 %; NEUT % 55.4 %; PLATELET COUNT 200 K/uL (130-400); RED BLOOD COUNT 4.75 M/uL (4.2-5.4); WHITE BLOOD COUNT 5.39 K/uL (4.8-10.8)
[2017-07-03 10:15] LABS: BLOOD UREA NITROGEN 14 mg/dl (7-18); BUN/CREATININE RATIO 21.4 (10-20); CALCIUM 9.4 mg/dl (8.5-10.1); CARBON DIOXIDE 26 mmol/L (21-32); CHLORIDE 106 mmol/L (98-107); CREATININE 0.63 mg/dl (0.60-1.20); GLUCOSE 83 mg/dl (70-99); POTASSIUM 4.1 mmol/L (3.5-5.1); SODIUM 140 mmol/L (136-145)
== END | disposition home or self-care (01) ==
LOC: C.LAB 07:53
PROVIDERS: ATTEND Internal Medicine
DX: I10 Essential (primary) hypertension (principal)

== ENCOUNTER → 2017-08-06 | Outpatient (CLI) | payer OTHER ==
[2017-08-06 09:37] LABS: HEMATOCRIT 43.6 % (37-47); MEAN CORPUSCULAR HEMOGLOBIN 31.9 pg (25-34); MEAN CORPUSCULAR HGB CONC 33.9 g/dl (32-36); MEAN PLATELET VOLUME 10.1 fL (7.4-10.4); PLATELET COUNT 187 K/uL (130-400); RED BLOOD COUNT 4.64 M/uL (4.2-5.4); WHITE BLOOD COUNT 7.28 K/uL (4.8-10.8)
[2017-08-06 09:56] LABS: ALKALINE PHOSPHATASE 117 U/L (45-117); ALT/SGPT 66 U/L (12-78); AST/SGOT 56 U/L (15-37); BLOOD UREA NITROGEN 16 mg/dl (7-18); BUN/CREATININE RATIO 20.8 (10-20); CALCIUM 8.7 mg/dl (8.5-10.1); CARBON DIOXIDE 28 mmol/L (21-32); CHLORIDE 105 mmol/L (98-107); CHOLESTEROL 153 mg/dl (0-200); CREATININE 0.78 mg/dl (0.60-1.20); GLUCOSE 82 mg/dl (70-99); HDL CHOLESTEROL 76 mg/dl; LDL CHOLESTEROL CALCULATED 55 mg/dl; POTASSIUM 3.8 mmol/L (3.5-5.1); SODIUM 140 mmol/L (136-145); TRIGLYCERIDES 108 mg/dl (0-150); VERY LOW DENSITY LIPOPROT CALC 22 mg/dl
--- NOTE | 2017-08-06 18:49 | DIAGNOSTIC IMAGING REPORT ---
L FOOT MIN 3 VIEWS ROUTINE CLINICAL HISTORY: L FOOT PAIN COMPARISON: None. DISCUSSION: There is a hallux valgus deformity. There are postsurgical changes of a first metatarsal osteotomy. There is a small screw within the third metatarsal head. There is a deformity of the second metatarsal phalangeal joint. There is mild lateral subluxation at this level. There is fusion of the proximal to phalangeal joints of the second and third toes. No acute fractures are visualized. IMPRESSION: 1. No acute fractures 2. Postsurgical changes 3. Hallux valgus deformity 4. Chronic deformity and subluxation of the second metatarsal phalangeal joint Electronically signed by: Dandre Lindsey M.D. 08/06/2017 6:47 PM Dictated Date/Time: 08/06/2017 6:46 PM
== END | disposition home or self-care (01) ==
LOC: C.LAB 07:38
PROVIDERS: ATTEND Internal Medicine
DX: M79.672 Pain in left foot (principal); I10 Essential (primary) hypertension; E78.00 Pure hypercholesterolemia, unspecified; R79.89 Other specified abnormal findings of blood chemistry; Z98.890 Other specified postprocedural states; M20.12 Hallux valgus (acquired), left foot; M21.6X1 Other acquired deformities of right foot

== ENCOUNTER → 2017-09-15 | Outpatient (CLI) | payer OTHER ==
--- NOTE | 2017-09-15 16:16 | DIAGNOSTIC IMAGING REPORT ---
CHEST 2 VIEWS ROUTINE CLINICAL HISTORY: Z01.818 PREOP preoperative COMPARISON STUDY: 05/28/2017 FINDINGS: The bones soft tissues and hemidiaphragms are normal. The cardiomediastinal silhouette is normal. The lungs are clear. The pulmonary vasculature is normal. Minimal chronic interstitial change left base IMPRESSION: No acute process. The above report was generated using voice recognition software. It may contain grammatical, syntax or spelling errors. Electronically signed by: Jemal Manning M.D. 09/15/2017 4:15 PM Dictated Date/Time: 09/15/2017 4:14 PM
[2017-09-15 16:37] LABS: BASO % 0.1 %; BASO ABS # 0.01 K/uL (0-0.2); COMPLETE YES; EOS % 0.4 %; HEMATOCRIT 43.4 % (37-47); IG% 0.4 %; LYMPH % 14.6 %; MEAN CELL VOLUME 96.4 fL (80-100); MEAN CORPUSCULAR HEMOGLOBIN 31.6 pg (25-34); MEAN CORPUSCULAR HGB CONC 32.7 g/dl (32-36); MEAN PLATELET VOLUME 9.9 fL (7.4-10.4); MONO % 8.7 %; NEUT % 75.8 %; PLATELET COUNT 196 K/uL (130-400); WHITE BLOOD COUNT 6.86 K/uL (4.8-10.8)
[2017-09-15 17:08] LABS: BLOOD UREA NITROGEN 14 mg/dl (7-18); BUN/CREATININE RATIO 16.7 (10-20); CALCIUM 8.9 mg/dl (8.5-10.1); CARBON DIOXIDE 30 mmol/L (21-32); CHLORIDE 104 mmol/L (98-107); CREATININE 0.83 mg/dl (0.60-1.20); GLUCOSE 148 mg/dl (70-99); POTASSIUM 4.2 mmol/L (3.5-5.1); SODIUM 136 mmol/L (136-145)
== END | disposition home or self-care (01) ==
LOC: C.RAD 15:47
PROVIDERS: ATTEND Podiatrist
DX: Z01.818 Encounter for other preprocedural examination (principal)

== ENCOUNTER → 2017-10-20 | Outpatient (CLI) | payer OTHER ==
--- NOTE | 2017-10-20 15:06 | DIAGNOSTIC IMAGING REPORT ---
L FOOT MIN 3 VIEWS ROUTINE CLINICAL HISTORY: HALLUX VALGUS OF LEFT FOOT postoperative evaluation COMPARISON: 08/06/2017 DISCUSSION: Unchanging hallux valgus deformity of the first metatarsophalangeal joint. Moderate surrounding soft tissue edematous change. Deformity of the second metatarsophalangeal joint. Partial degenerative subluxation of the bony structures. Pre-existing pin traversing the distal aspect third metatarsal. Generalized degenerative change of the interphalangeal joints. Moderate soft tissue edema about the great toe. IMPRESSION: Generalized degenerative and postoperative change as discussed. No significant change compared to the prior study with the exception of interval removal of the pin the first distal metatarsal. Mild soft tissue edema about the great toe. The above report was generated using voice recognition software. It may contain grammatical, syntax or spelling errors. Electronically signed by: Jemal Manning M.D. 10/20/2017 3:05 PM Dictated Date/Time: 10/20/2017 3:03 PM
== END | disposition home or self-care (01) ==
LOC: C.RAD 14:34
PROVIDERS: ATTEND Podiatrist
DX: M20.12 Hallux valgus (acquired), left foot (principal)

== ENCOUNTER → 2017-10-27 | Outpatient (CLI) | payer OTHER ==
[2017-10-27 16:00] LABS: ALBUMIN 3.6 gm/dl (3.4-5.0); TOTAL PROTEIN 7.2 gm/dl (6.4-8.2)
== END | disposition home or self-care (01) ==
LOC: C.LAB 14:14
PROVIDERS: ATTEND Physician Assistant
DX: Z51.81 Encounter for therapeutic drug level monitoring (principal); Z79.899 Other long term (current) drug therapy

== ENCOUNTER → 2017-11-06 | Outpatient (CLI) | payer OTHER | END | disposition home or self-care (01) | LOC: C.LAB 08:38 | PROVIDERS: ATTEND Internal Medicine | DX: R79.89 Other specified abnormal findings of blood chemistry (principal) ==

== ENCOUNTER → 2018-02-26 | Outpatient (CLI) | payer OTHER ==
[~2018-02-26] MED LIST changes: -ASPEC81 PO; +ASPI-320 PO; +MELO-84 PO; -MELO15TA4 PO
[2018-02-26 09:44] LABS: HEMATOCRIT 42.6 % (37-47); HEMOGLOBIN 14.4 g/dL (12.0-16.0); MEAN CELL VOLUME 92.4 fL (80-100); MEAN CORPUSCULAR HEMOGLOBIN 31.2 pg (25-34); MEAN CORPUSCULAR HGB CONC 33.8 g/dl (32-36); MEAN PLATELET VOLUME 9.7 fL (7.4-10.4); PLATELET COUNT 187 K/uL (130-400); RED CELL DISTRIBUTION WIDTH CV 13.6 % (11.5-14.5); RED CELL DISTRIBUTION WIDTH SD 45.9 fL (36.4-46.3); WHITE BLOOD COUNT 4.73 K/uL (4.8-10.8)
[2018-02-26 10:09] LABS: ALBUMIN 3.4 gm/dl (3.4-5.0); ALKALINE PHOSPHATASE 130 U/L (45-117); ALT/SGPT 45 U/L (12-78); AST/SGOT 46 U/L (15-37); BLOOD UREA NITROGEN 18 mg/dl (7-18); CALCIUM 8.9 mg/dl (8.5-10.1); CARBON DIOXIDE 30 mmol/L (21-32); CREATININE 0.83 mg/dl (0.60-1.20); GLUCOSE 87 mg/dl (70-99); POTASSIUM 4.1 mmol/L (3.5-5.1); SODIUM 140 mmol/L (136-145); TOTAL PROTEIN 7.3 gm/dl (6.4-8.2)
== END | disposition home or self-care (01) ==
LOC: C.LAB 07:37
PROVIDERS: ATTEND Internal Medicine
DX: L40.50 Arthropathic psoriasis, unspecified (principal); Z79.899 Other long term (current) drug therapy; E21.5 Disorder of parathyroid gland, unspecified

== ENCOUNTER → 2018-05-07 | Outpatient (CLI) | payer OTHER | END | disposition home or self-care (01) | LOC: C.LAB 13:54 | PROVIDERS: ATTEND Internal Medicine | DX: E21.5 Disorder of parathyroid gland, unspecified (principal) ==

== ENCOUNTER → 2018-05-25 | Outpatient (CLI) | payer OTHER ==
--- NOTE | 2018-05-26 13:51 | MAMMOGRAPHY REPORT ---
BILATERAL DIGITAL SCREENING MAMMOGRAM TOMOSYNTHESIS WITH CAD: 05/25/2018 CLINICAL HISTORY: Routine screening. Patient has no complaints. TECHNIQUE: The study was acquired using full field digital technology and interpreted from soft copy. Breast tomosynthesis in addition to standard 2D mammography was performed. Current study was also ev aluated with a Computer Aided Detection (CAD) system. COMPARISON: Comparison is made to exams dated: 05/19/2017 mammogram, 05/16/2016 mammogram, 05/13/2016 mamm ogram, 05/03/2015 mammogram, 05/16/2016 ultrasound, and 05/02/2014 mammogram - [facility] er. BREAST COMPOSITION: The tissue of both breasts is heterogeneously dense, which may obscure small mass es. FINDINGS: A circumscribed oval subcentimeter mass in the lateral right breast is stable in size datin g back to at least 2007, therefore considered benign. No new suspicious mass, architectural distortio n or cluster of microcalcifications is seen. IMPRESSION: ACR BI-RADS CATEGORY 1: NEGATIVE There is no mammographic evidence of malignancy. A 1 year screening mammogram is recommended.( 019) The patient will receive written notification of the results. Some breast cancers are not detected with mammography. A negative mammographic report should not yovanny y biopsy if a clinically suggestive mass is present. Wendi Bowers M.D. ay/:05/25/2018 21:42:17 Hydraulic Billet Maker: RT Esha(R)(M), [facility] letter sent: Normal 1/2 BI-RADS Code: ACR BI-RADS Category 1: Negative
== END | disposition home or self-care (01) ==
LOC: C.MAMM 12:53
PROVIDERS: ATTEND Obstetrics & Gynecology
DX: Z12.31 Encounter for screening mammogram for malignant neoplasm of breast (principal)

== ENCOUNTER → 2018-05-28 | Outpatient (CLI) | payer OTHER ==
[2018-05-28 13:03] LABS: BASO % 0.3 %; BASO ABS # 0.02 K/uL (0-0.2); EOS % 1.3 %; EOS ABS # 0.09 K/uL (0-0.5); HEMATOCRIT 47.2 % (37-47); HEMOGLOBIN 15.8 g/dL (12.0-16.0); IG# 0.02 K/uL (0.00-0.02); LYMPH % 12.2 %; LYMPH ABS # 0.83 K/uL (1.2-3.4); MEAN CELL VOLUME 92.5 fL (80-100); MEAN CORPUSCULAR HGB CONC 33.5 g/dl (32-36); MEAN PLATELET VOLUME 10.2 fL (7.4-10.4); MONO ABS # 0.82 K/uL (0.11-0.59); NEUT % 73.9 %; NEUT ABS # 5.03 K/uL (1.4-6.5); PLATELET COUNT 198 K/uL (130-400); RED CELL DISTRIBUTION WIDTH CV 14.4 % (11.5-14.5); RED CELL DISTRIBUTION WIDTH SD 48.4 fL (36.4-46.3); WHITE BLOOD COUNT 6.81 K/uL (4.8-10.8)
[2018-05-28 13:48] LABS: ALBUMIN 3.9 gm/dl (3.4-5.0); ALKALINE PHOSPHATASE 118 U/L (45-117); ALT/SGPT 58 U/L (12-78); AST/SGOT 53 U/L (15-37); BLOOD UREA NITROGEN 20 mg/dl (7-18); CALCIUM 9.2 mg/dl (8.5-10.1); CARBON DIOXIDE 27 mmol/L (21-32); CHOLESTEROL 180 mg/dl (0-200); CREATININE 0.82 mg/dl (0.60-1.20); GLUCOSE 77 mg/dl (70-99); LDL CHOLESTEROL CALCULATED 80 mg/dl; POTASSIUM 3.6 mmol/L (3.5-5.1); SODIUM 136 mmol/L (136-145); TOTAL PROTEIN 8.1 gm/dl (6.4-8.2)
== END | disposition home or self-care (01) ==
LOC: C.LAB 10:35
PROVIDERS: ATTEND Internal Medicine
DX: I10 Essential (primary) hypertension (principal); E78.00 Pure hypercholesterolemia, unspecified; L40.50 Arthropathic psoriasis, unspecified; Z79.899 Other long term (current) drug therapy

== ENCOUNTER 2022-08-29 06:47 | Observation (INO) ==
--- NOTE | 2022-07-30 10:46 | PAT Medication Instructions ---
Medication Instructions Date of Service July 30, 2022 Home Medications Medication Instructions Recorded ipratropium 20 mcg-albuterol 100 1 puff inhalation QID PRN 04/16/21 mcg/actuation mist for inhalation shortness of breath or wheezing #4 (Combivent Respimat) grams oxycodone-acetaminophen 5 mg-325 1 tab PO Q6H PRN pain #15 tabs 05/29/ mg tablet (Percocet) estradiol 1 mg tablet 0.5 mg PO 4XWK #48 tabs 04/11/22 amiloride 5 mg-hydrochlorothiazide 50 mg tablet 1 tab PO QAM artificial tears(hypromellose) 0.3 % eye gel (Systane Gel) 1 dose OPB HS calcium citrate 315 mg calcium-vitamin D3 6.25 mcg (250 unit) tablet (Citracal + Vitamin D Maximum) 1 tab PO QDL doxycycline hyclate 50 mg tablet 50 mg PO QDL metoprolol succinate 25 mg tablet,extended release 24 hr 25 mg PO HS potassium chloride 10 mEq tablet,extended release 2 tab PO BID ascorbic acid (vitamin C) 1,000 mg tablet 1,000 mg PO QAM adalimumab 40 mg/0.4 mL subcutaneous pen kit (Humira(CF) Pen) 40 mg subcut .COMPLEX prednisone 10 mg tablet 10 mg PO QAM tramadol 50 mg tablet 50 mg PO Q8H ipratropium 20 mcg-albuterol 100 mcg/actuation mist for inhalation (Combivent Respimat) 1 puff inhalation QID PRN oxycodone-acetaminophen 5 mg-325 mg tablet (Percocet) 1 tab PO Q6H PRN estradiol 1 mg tablet 0.5 mg PO 4XWK meloxicam 7.5 mg tablet 7.5 mg PO PRN acetaminophen 500 mg capsule 500 mg PO QPM PRN baclofen 10 mg tablet 10 mg PO HS fluconazole 100 mg tablet 100 mg PO DAILY PRN omeprazole 20 mg capsule,delayed release 20 mg PO QAM PRN Continue as directed doxycycline hyclate 50 mg tablet 50 mg PO QDL fluconazole 100 mg tablet 100 mg PO DAILY PRN(if needed) ASK your surgeon for instructions meloxicam 7.5 mg tablet 7.5 mg PO PRN ASK your prescriber and surgeon adalimumab 40 mg/0.4 mL subcutaneous pen kit (Humira(CF) Pen) 40 mg subcut .COMPLEX estradiol 1 mg tablet 0.5 mg PO 4XWK DO NOT take the morning of surgery amiloride 5 mg-hydrochlorothiazide 50 mg tablet 1 tab PO QAM calcium citrate 315 mg calcium-vitamin D3 6.25 mcg (250 unit) tablet (Citracal + Vitamin D Maximum) 1 tab PO QDL potassium chloride 10 mEq tablet,extended release 2 tab PO BID ascorbic acid (vitamin C) 1,000 mg tablet 1,000 mg PO QAM Take morning of surgery With a small sip of water, OTHERWISE NOTHING TO EAT OR DRINK AFTER MIDNIGHT: prednisone 10 mg tablet 10 mg PO QAM tramadol 50 mg tablet 50 mg PO Q8H(if needed) ipratropium 20 mcg-albuterol 100 mcg/actuation mist for inhalation (Combivent Respimat) 1 puff inhalation QID PRN(if needed) oxycodone-acetaminophen 5 mg-325 mg tablet (Percocet) 1 tab PO Q6H PRN(if needed) omeprazole 20 mg capsule,delayed release 20 mg PO QAM PRN(if needed) Take evening before surgery artificial tears(hypromellose) 0.3 % eye gel (Systane Gel) 1 dose OPB HS metoprolol succinate 25 mg tablet,extended release 24 hr 25 mg PO HS potassium chloride 10 mEq tablet,extended release 2 tab PO BID tramadol 50 mg tablet 50 mg PO Q8H(if needed) ipratropium 20 mcg-albuterol 100 mcg/actuation mist for inhalation (Combivent Respimat) 1 puff inhalation QID PRN(if needed) oxycodone-acetaminophen 5 mg-325 mg tablet (Percocet) 1 tab PO Q6H PRN(if needed) acetaminophen 500 mg capsule 500 mg PO QPM PRN(if needed) baclofen 10 mg tablet 10 mg PO HS Other Notes If you have any questions please call us at [phone] or [phone] or [phone] or [phone]
--- NOTE | 2022-08-04 09:22 | Anesthesiology Consultation ---
Date of Service August 04, 2022 Assessment & Plan (1) Encounter for pre-operative examination: Plan - awaiting PCP pre-op evaluation. - IV team. - extremity restrictions: CAN ONLY USE RT ARM; pt has lymphedema left arm and both legs. Pt states understands other extremities may need utilized for lab draws/IV access given right arm being surgical site, states she wants to proceed with right upper extremity surgery. Chart Review Chart Review: Pending: Refer to Additional Notes / Consult section and Patient seen in Pre Admission Testing Teaching & Discussion Pre-Anesthesia Teaching/Discussion Notes: Instructed NPO after midnight before surgery, except medications with 15 cc of water. Medication instructions provided according to the PAT guidelines. History Surgery Operation Date: 08/29/22 10:20 Proposed Procedures p Right Reverse Total Shoulder Arthroplasty - Hilton Crespo DO Height/Weight Height: 5 ft 3 in Weight: 99 kg Allergies Allergy/AdvReac Type Severity Reaction Status Date / Time adhesive Allergy Severe SKIN RASH Verified 07/22/22 13:15 bee venom protein (honey bee) Allergy Severe Anaphylaxis Verified 07/22/22 13:14 bacitracin Allergy Mild RASH Verified 07/22/22 13:14 AROUND FACE brimonidine Allergy Mild CONTACT Verified 07/22/22 13:14 DERMATITIS cyclosporine Allergy Mild CONTACT Verified 07/22/22 13:14 DERMATITIS spironolactone Allergy Mild Hives Verified 07/22/22 13:14 terfenadine Allergy Mild EYE Verified 07/22/22 13:14 SWELLING tobramycin Allergy Mild EYE Verified 07/22/22 13:14 SWELLING cefaclor AdvReac Intermediate MOUTH Verified 07/22/22 13:14 ULCERS- CAN TAKE KEFLEX W/O PROBLEM Medications Home Medications Medication Instructions Recorded Confirmed Last Taken amiloride 5 mg-hydrochlorothiazide 1 tab PO QAM 07/30/18 07/22/22 10/18/20 50 mg tablet artificial tears(hypromellose) 0.3 1 dose OPB HS 07/30/18 07/22/22 10/18/20 % eye gel (Systane Gel) calcium citrate 315 mg 1 tab PO QDL 07/30/18 07/22/22 10/18/20 calcium-vitamin D3 6.25 mcg (250 unit) tablet (Citracal + Vitamin D Maximum) doxycycline hyclate 50 mg tablet 50 mg PO QDL 1007/22/22 10/18/20 metoprolol succinate 25 mg 25 mg PO HS 07/30/18 07/22/22 10/18/20 tablet,extended release 24 hr potassium chloride 10 mEq 2 tab PO BID 07/30/18 07/22/22 10/18/20 tablet,extended release ascorbic acid (vitamin C) 1,000 mg 1,000 mg PO QAM 07/18/19 07/22/22 10/18/20 tablet adalimumab 40 mg/0.4 mL 40 mg subcut .COMPLEX 01/30/20 07/22/22 10/18/20 subcutaneous pen kit (Humira(CF) Pen) prednisone 10 mg tablet 10 mg PO QAM 05/22/20 07/22/22 10/19/20 05:00 tramadol 50 mg tablet 50 mg PO Q8H Pain 04/02/21 07/22/22 Unknown ipratropium 20 mcg-albuterol 100 1 puff inhalation QID PRN 04/16/21 07/22/22 Unknown mcg/actuation mist for inhalation shortness of breath or wheezing #4 (Combivent Respimat) grams oxycodone-acetaminophen 5 mg-325 1 tab PO Q6H PRN pain #15 tabs 05/29/21 07/22/22 Unknown mg tablet (Percocet) estradiol 1 mg tablet 0.5 mg PO 4XWK #48 tabs 04/11/22 07/22/22 Unknown meloxicam 7.5 mg tablet 7.5 mg PO PRN PRN Pain 06/02/22 07/22/22 Unknown acetaminophen 500 mg capsule 500 mg PO QPM PRN Pain 07/22/22 07/22/22 Unknown baclofen 10 mg tablet 10 mg PO HS 07/22/22 07/22/22 Unknown fluconazole 100 mg tablet 100 mg PO DAILY PRN YEAST INFECTION 07/22/22 07/22/22 Unknown omeprazole 20 mg capsule,delayed 20 mg PO QAM PRN Acid Reflux 07/22/22 07/22/22 Unknown release Past Medical History Medical History (Updated 08/04/22 @ 15:34 by Donna Balbuena, [place]) Asthma inhaler daily, last rescue inhaler several days ago; average of several times weekly; pt denies change or worsening Cancer SKIN CANCER-multiple sites: cheeks and arms; s/p excision Chronic asthmatic bronchitis Chronic steroid use Cirrhosis of liver Difficult intravenous access Dry eye syndrome Endometriosis h/o Glaucoma History of amputation of toe Right 4th toe, October 2020 Hyperlipidemia Hypertension controlled, stable per pt Irritable bowel syndrome Kidney stones Limb alert care status CAN ONLY USE RT ARM; pt has lymphedema left arm and both legs Lymphedema CAN ONLY USE RT ARM; pt has lymphedema left arm and both legs Psoriatic arthropathy follows w/ Dr Shearer Sarcoidosis stable-- last visit w/ pulmo 11/2020 Scoliosis Transient ischemic attack (TIA) 05/2017--no deficits, no neurologist, unknown cause Patient denies h/o seizures, heart attack, heart failure, DM, blood clots or blood transfusions. Exercise / Class Metabolic Activity III < 4 Walking/Shop/Light housework (occasional SOB with usual activities; ongoing x several yrs per pt; denies change or worsening; denies chest discomfort) Past Family History Family History Father Renal failure Cancer Mother Acute subdural hematoma Brother Family hx colonic polyps Other No family history of adverse response to anesthesia Past Surgical History Surgical History (Updated 08/04/22 @ 09:33 by Donna Balbuena PA-C) H/O chest tube placement AFTER BRONCHOSCOPY H/O eye surgery RT/LEFT FOR GLAUCOMA History of adenoidectomy History of anesthesia reaction DIFFICULTY BREATHING--had to receive oxygen after general anesthesia, denies re-intubation or unanticipated hospitalization; states was discharged for same day surgery. > 10 yrs ago History of appendectomy History of bronchoscopy History of colonoscopy History of cystoscopy History of esophagogastroduodenoscopy (EGD) History of foot surgery RT/LEFT FOOT SURGERY WITH HARDWARE History of hand surgery LEFT HAND FINGER FUSION History of laparoscopy History of liver biopsy History of Mohs surgery for squamous cell carcinoma of skin [facility] 11/2021 History of shoulder surgery RT SHOULDER History of tonsillectomy History of tooth extraction S/P parathyroidectomy S/P ANDRESSA-BSO LEFT FALLOPIAN TUBE AND OVARY REMOVED Past Anesthesia History No Hx of Anesthesia Complications and Other (DIFFICULTY BREATHING--had to receive oxygen after general anesthesia, denies re-intubation or unanticipated hospitalization; states was discharged for same day surgery. > 10 yrs ago) History of PONV No Hx of PONV and No Hx of Motion Sickness Social History Smoking Status: Never smoker Do You Dip or Chew Tobacco: No Hx Alcohol Use: Yes Alcohol type: wine alcohol intake frequency: holidays/special occasions only Hx Substance Use: No substance use type: does not use Review of Systems Snoring, denies witnessed apneas. Patient denies chest pain, reflux, fever, chills, cough, wheezing, or palpitations. Physical Exam Vital Signs Vitals BP 124/90 P 83 TEMP 98 SP02 96% on RA RESP 18 Physical Full cervical extension range of motion without pain TMD 3.5 finger breadths Mallampati Score 3 Dentition: intact, several crowns; denies caps, implants or bridges, chipped or loose teeth Lungs: normal respiratory effort. Clear throughout to auscultation, no adventitious breath sounds Cardiac: regular rate and rhythm, no murmurs noted Carotid arteries: negative bruit bilat Lab Results Anesthesia Preop Results Results Anesthesia Widget: WBC 8.76 K/ul (4.8-10.8) 08/04/22 Hgb 16.5 g/dl (12.0-16.0) H 08/04/22 Hct 48.9 % (34.1-44.9) H 08/04/22 Plt 188 K/uL (130-400) 08/04/22 Na 139 mmol/L (136-145) 08/04/22 K 3.5 mmol/L (3.5-5.1) 08/04/22 Cl 103 mmol/L (98-107) 08/04/22 CO2 28 mmol/L (21-32) 08/04/22 BUN 29 mg/dl (6-23) H 08/04/22 Creat 0.91 mg/dl (0.6-1.2) 08/04/22 Glucose Level 77 mg/dl (70-99(Fasting)) 08/04/22 PT 10.1 Seconds (9.0-12.0) 08/04/22 PTT 21.9 Seconds (21.0-31.0) 08/04/22 INR 0.9 (0.9-1.1) 08/04/22 Blood Type A Positive 08/04/22 Antibody Screen NEGATIVE 08/04/22 Testing Electrocardiogram Date: 08/04/22 NSR, rate 74 bpm Chest X-Ray Date: 08/04/22 1. No active disease in the chest. 2. There is an age indeterminant compression deformity of T12, which is new from prior studies.
--- NOTE | 2022-08-28 13:01 | History & Physical Report ---
Date of Service August 28, 2022 Assessment & Plan (1) Rotator cuff arthropathy of right shoulder: We will proceed with a right reverse shoulder arthroplasty. Postoperatively she will be placed in a sling and kept overnight in the hospital for postoperative medical management. She plans to use energy physical therapy upon discharge. History of Present Illness Chief Complaint: Cuff tear arthropathy of the right shoulder. Primary Care Provider: Jeniffer Ashraf MD Alessandra is a pleasant 66-year-old female who has been dealing with chronic increasing right shoulder pain. She has a history of a right rotator cuff repair done by Dr. Valero in the past. She had to have a manipulation under anesthesia. Her shoulder has never been good. It has been worsening over the past few years. She has difficulty doing any forward elevation. She has had multiple injections by my partner Dr. Ellington without any relief. X-rays and clinical examination been diagnostic for advanced cuff arthropathy of the right shoulder. After failing conservative treatment, she has elected to proceed with a right reverse shoulder arthroplasty. Allergies Allergy/AdvReac Type Severity Reaction Status Date / Time adhesive Allergy Severe SKIN RASH Verified 07/22/22 13:15 bee venom protein (honey bee) Allergy Severe Anaphylaxis Verified 07/22/22 13:14 bacitracin Allergy Mild RASH Verified 07/22/22 13:14 AROUND FACE brimonidine Allergy Mild CONTACT Verified 07/22/22 13:14 DERMATITIS cyclosporine Allergy Mild CONTACT Verified 07/22/22 13:14 DERMATITIS spironolactone Allergy Mild Hives Verified 07/22/22 13:14 terfenadine Allergy Mild EYE Verified 07/22/22 13:14 SWELLING tobramycin Allergy Mild EYE Verified 07/22/22 13:14 SWELLING cefaclor AdvReac Intermediate MOUTH Verified 07/22/22 13:14 ULCERS- CAN TAKE KEFLEX W/O PROBLEM Home Medications Medication Instructions Recorded Confirmed Type amiloride 5 mg-hydrochlorothiazide 1 tab PO QAM 07/30/18 07/22/22 History 50 mg tablet artificial tears(hypromellose) 0.3 1 dose OPB HS 07/30/18 07/22/22 History % eye gel (Systane Gel) calcium citrate 315 mg 1 tab PO QDL 07/30/18 07/22/22 History calcium-vitamin D3 6.25 mcg (250 unit) tablet (Citracal + Vitamin D Maximum) doxycycline hyclate 50 mg tablet 50 mg PO QDL 07/30/18 07/22/22 History metoprolol succinate 25 mg 25 mg PO HS 07/30/18 07/22/22 History tablet,extended release 24 hr potassium chloride 10 mEq 2 tab PO BID 07/30/18 07/22/22 History tablet,extended release ascorbic acid (vitamin C) 1,000 mg 1,000 mg PO QAM 07/18/19 07/22/22 History tablet adalimumab 40 mg/0.4 mL 40 mg subcut .COMPLEX 01/30/20 07/22/22 History subcutaneous pen kit (Humira(CF) Pen) prednisone 10 mg tablet 10 mg PO QAM 05/22/20 07/22/22 History tramadol 50 mg tablet 50 mg PO Q8H Pain 04/02/21 07/22/22 History ipratropium 20 mcg-albuterol 100 1 puff inhalation QID PRN 04/16/21 07/22/22 Rx mcg/actuation mist for inhalation shortness of breath or wheezing #4 (Combivent Respimat) grams oxycodone-acetaminophen 5 mg-325 1 tab PO Q6H PRN pain #15 tabs 05/29/21 07/22/22 Rx mg tablet (Percocet) estradiol 1 mg tablet 0.5 mg PO 4XWK #48 tabs 04/11/22 07/22/22 Rx meloxicam 7.5 mg tablet 7.5 mg PO PRN PRN Pain 06/02/22 07/22/22 History acetaminophen 500 mg capsule 500 mg PO QPM PRN Pain 07/22/22 07/22/22 History baclofen 10 mg tablet 10 mg PO HS 07/22/22 07/22/22 History fluconazole 100 mg tablet 100 mg PO DAILY PRN YEAST INFECTION 07/22/22 07/22/22 History omeprazole 20 mg capsule,delayed 20 mg PO QAM PRN Acid Reflux 07/22/22 07/22/22 History release Past Med/Surg History Medical History Asthma inhaler daily, last rescue inhaler several days ago; average of several times weekly; pt denies change or worsening Cancer SKIN CANCER-multiple sites: cheeks and arms; s/p excision Chronic asthmatic bronchitis Chronic steroid use Cirrhosis of liver Difficult intravenous access Dry eye syndrome Endometriosis h/o Glaucoma History of amputation of toe Right 4th toe, October 2020 Hyperlipidemia Hypertension controlled, stable per pt Irritable bowel syndrome Kidney stones Limb alert care status CAN ONLY USE RT ARM; pt has lymphedema left arm and both legs Lymphedema CAN ONLY USE RT ARM; pt has lymphedema left arm and both legs Psoriatic arthropathy follows w/ Dr Shearer Sarcoidosis stable-- last visit w/ pulmo 11/2020 Scoliosis Transient ischemic attack (TIA) 05/2017--no deficits, no neurologist, unknown cause Surgical History H/O chest tube placement AFTER BRONCHOSCOPY H/O eye surgery RT/LEFT FOR GLAUCOMA History of adenoidectomy History of anesthesia reaction DIFFICULTY BREATHING--had to receive oxygen after general anesthesia, denies re-intubation or unanticipated hospitalization; states was discharged for same day surgery. > 10 yrs ago History of appendectomy History of bronchoscopy History of colonoscopy History of cystoscopy History of esophagogastroduodenoscopy (EGD) History of foot surgery RT/LEFT FOOT SURGERY WITH HARDWARE History of hand surgery LEFT HAND FINGER FUSION History of laparoscopy History of liver biopsy History of Mohs surgery for squamous cell carcinoma of skin [facility] 11/2021 History of shoulder surgery RT SHOULDER History of tonsillectomy History of tooth extraction S/P parathyroidectomy S/P ANDRESSA-BSO LEFT FALLOPIAN TUBE AND OVARY REMOVED Family History Father Renal failure Cancer Mother Acute subdural hematoma Brother Family hx colonic polyps Other No family history of adverse response to anesthesia Social History Smoking Status: Never smoker Second Hand Exposure: No; Hx Alcohol Use: Yes Alcohol type: wine Hx Substance Use: No Preferred Language: Mohawk Communication Ability: Effective Field Map Technician Required: No Beliefs That Will Affect Care: None Current Living Situation: Alone Feels Safe at Home: Yes Assistive Devices: Glasses and Special Shoe Review of Systems All systems reviewed & are unremarkable except as noted in HPI & below. Physical Exam Physical examination of the right shoulder shows about 20 degrees of forward elevation 20 degrees abduction. She has 3 out of 5 motor strength throughout. She has pain of the glenohumeral joint line.. Constitutional WD/WN, vitals as above Eyes PERRL, conjunctivae normal, anicteric sclerae ENMT external ear and nose normal, oropharynx normal Neck trachea midline, no thyromegaly Respiratory normal respiratory effort, lungs clear to auscultation Cardiovascular RRR, no murmur, no edema Gastrointestinal (Abdomen) normal bowel sounds, soft, nontender, no hepatosplenomegaly Skin no rashes, warm and dry Psychiatric A+Ox3, euthymic affect Results & Data Results & Data Laboratory Results . Diagnostic Findings X-rays of the right shoulder show superior migration of the humeral head in the glenoid with advanced glenohumeral arthritis.. PG Care Time/CCT Total # of Minutes Spent Total Time Spent with Patient: Total time spent is greater than 50% in coordination of care (as documented) at patient's floor/unit and/or counseling patient: Coding Level of Care Code None Diagnoses Rotator cuff arthropathy of right shoulder M12.811
[~2022-08-29 06:47] MED LIST changes: -ACET-1256 PO; +ACETAMINOPHEN 500 MG TAB PO SCH; -ASPI-320 PO; +BUPIVACAINE 0.5 % 5 MG/1 ML PF 10ML VIAL ONE; -DICL1GEL12 EXT; -DOXY50CA PO; -EST1 PO; -ESTCR PV; -FLV1 PO; +GABAPENTIN 300 MG CAP PO SCH; -IMD/2 PO; -IPRA1AER2 INH; -LPT40 PO; +LR 15ML/HR IV SCH; +LR 60ML/HR IV SCH; -LSN25 PO; -MELO-84 PO; +ORTHO JOINT MIX INFIL SCH; -POLY1DRO2 OPB; -POLYSOL4 OPB; -POTA10CA28 PO; -PRED-301 PO; -PRLSR20 PO; -STELARA SC; -TRAM-10 PO; +TRANEXAMIC ACID 1,000 MG **IV Intra-op IV SCH; +TRANEXAMIC ACID 1,000 MG **IV Pre-op IV SCH; -[UNRECOGNIZED DRUG - CODE] SQ; +ceFAZolin 2000MG 2,000 MG/15 ML SYR IV SCH; +dexAMETHasone 4 MG TAB PO SCH
--- NOTE | 2022-08-29 08:00 | History & Physical Bridge Note ---
Date of Service August 29, 2022 History & Physical Bridge Note I have examined the patient, reviewed the History & Physical and in the interval since the performance of the History & Physical I have noted the following changes of clinical significance: no changes noted
[2022-08-29] MEDS ORDERED: fentaNYL citrate 100 MCG/2 ML VIAL ONE (08:03)
[2022-08-29] MEDS ORDERED: DEXAMETHASONE SOD INJ 4 MG/ML VIAL ONE (08:03)
[2022-08-29] MEDS ORDERED: ONDANSETRON INJ 2 MG/ML 2 ML VIAL ONE (08:03)
[2022-08-29] MEDS ORDERED: MIDAZOLAM HCL 1 MG/ML 2ML VIAL ONE (08:03)
[2022-08-29] MEDS ORDERED: PROPOFOL IV EMULSION 10 MG/ML 20 ML VIAL IV ONE (08:03)
[2022-08-29] MEDS ORDERED: PROMETHAZINE HCL 6.25 MG in SODIUM CHLORIDE 0.9% 50 ML IV PRN (08:14)
[2022-08-29] MEDS ORDERED: ATROPINE SULFATE 0.1 MG/ML 10ML SYR IV PRN (08:14)
[2022-08-29] MEDS ORDERED: ALBUTEROL 0.083% NEBU SOLN 3 ML VIAL INH PRN (08:14)
[2022-08-29] MEDS ORDERED: fentaNYL citrate 100 MCG/2 ML VIAL IV PRN (08:14)
[2022-08-29] MEDS ORDERED: ONDANSETRON INJ 2 MG/ML 2 ML VIAL IV PRN ×2 (08:14→11:52)
[2022-08-29] MEDS ORDERED: LABETALOL HCL IV 5 MG/ML 20ML IV PRN (08:14)
[2022-08-29] MEDS ORDERED: ORTHO JOINT ANESTHETIC ONE (08:22)
[2022-08-29] MEDS ORDERED: KETOROLAC TROMETHAMINE 15 MG/ML VIAL IV PRN (08:34)
[2022-08-29] MEDS ORDERED: HYDROCORTISONE SOD SUCCINATE 100 MG/2 ML VIAL ONE (09:13)
[2022-08-29] MEDS ORDERED: NEOSTIGMINE METHYLSULFATE 1 MG/ML 10ML VIAL ONE (09:24)
[2022-08-29] MEDS ORDERED: GLYCOPYRROLATE 0.2 MG/ML VIAL ONE (09:24)
[2022-08-29] MEDS ORDERED: ROCURONIUM BROMIDE 10 MG/ML 5 ML VIAL IV ONE (09:27)
--- NOTE | 2022-08-29 09:55 | Operative Report ---
PG Post Operative Report Pre & Post Diagnosis Operation Date: 08/29/22 09:20 Pre-Op Diagnosis: Cuff tear arthropathy of the right shoulder with tendinopathy long head biceps tendon Post-Op Diagnosis: Cuff tear arthropathy of the right shoulder with tendinopathy long head biceps tendon I identified the patient and participated in the time-out.: Yes Procedure Operation Date: 08/29/22 09:20 Actual Procedures p Right Reverse Total Shoulder Arthroplasty, Uncemented(Right) with open biceps tenodesis as a distinct and separate procedure (modifier 59)- Hilton Crespo DO Surgeon Hilton Crespo DO Director Of Kids Hilton Mcintosh PA-C Estimated Blood Loss 200 Findings Consistent with Post-Op Diagnosis Specimens Right humeral head Description of Procedure A CPT code modifier 59: The long head of the biceps tendon was enlarged and inflamed consistent with tendinopathy. A tenodesis was opted. This was a separate and distinct portion of the procedure. For these reasons, a CPT code modifier 59 will be added to this case. Implants used: I used a [employer]omet Comprehensive reverse total shoulder arthroplasty system with a size 9 press fit micro humeral stem, +6 offset humeral tray and a standard humeral bearing, a 25 mm baseplate with a 6.5 mm central screw and superior and inferior locking screws, and a size 36 mm eccentric glenosphere. Alessandra arrived at [facility] for the above procedure. She was seen in the preoperative holding area and the operative extremity was identified and signed. She was given a preoperative antibiotic, TXA, and an interscalene nerve block. She was taken back to the operating room, laid on table in supine position, and put under general anesthesia. She was then put into the beachchair position. The shoulder was then prepped and draped in sterile fashion. A timeout was done and the patient and the operative extremity was properly identified. A deltopectoral approach was used. Dissection was taken down through the fascia and the deltoid was retracted laterally and the conjoined tendon was retracted medially. The anterior shoulder was exposed. The biceps groove was opened up and the biceps tendon was examined extensively. The biceps tendon demonstrated enlargement and inflammatory changes consistent with longstanding inflammation in the context of osteoarthritis and cuff arthropathy. The long head of the biceps tendon was then tenodesed to the upper border of the pectoralis major. This was a separate and distinct portion of the procedure. The subscapularis was then directly released off the lesser tuberosity with a peel technique. The inferior capsule was released and the humeral head was dislocated. A canal finding reamer was sent down the center of the humeral canal. Sequential reaming up to a size 9 reamer was done. Off that reamer, a proximal humeral resection guide was placed. The proximal humerus was resected at 135 of inclination and 25 of retroversion. Osteophytes were then removed and the glenoid was exposed. Time was spent doing a complete capsular and labral release. The glenoid guide was then placed in the inferior aspect of the glenoid. A 3.2 mm Steinmann pin was then placed into the glenoid vault at 10 of inclination. The glenoid baseplate was then reamed. The final size 25 mm 36 mm baseplate was then impacted in the place. A 6.5 mm central screw was then placed followed by superior and inferior locking screws. A eccentric glenosphere was then impacted into place. Surrounding soft tissues were then injected with 100 cc an orthopedic pain control cocktail. The proximal humerus was then exposed. Sequential broaching of the humerus up to a size 9 broach was done. Off that broach a +6 offset humeral tray was trialed. The shoulder was then reduced, brought through a full range of motion, and felt to be stable. The shoulder was then dislocated and the broach was removed. The final size 9 micro press-fit humeral stem was then impacted into place. A standard humeral bearing was then snapped onto a +6 offset humeral tray. The humeral tray was then impacted onto the humeral stem. The shoulder was once again reduced, brought through a full range of motion, and felt to be stable. The subscapularis was then tenodesed back to the lesser tuberosity with transosseous FiberWire sutures and side to side sutures with the arm in 45 of external rotation. A dilute betadyne lavage was then done for 3 minutes. The joint was then irrigated with normal saline solution. Hemostasis was obtained. The interval was closed with 2-0 Vicryl suture. The skin was then closed with 2-0 Vicryl and becky. A Silverlon dressing was placed and the arm was rested in a regular arm sling. She was then extubated and transferred to a hospital bed. She taken to the postanesthesia care unit in stable condition. She tolerated the procedure well. Hilton Mcintosh PA-C, was present for the entire procedure. He was critical for patient positioning, prepping, draping, retraction exposure, wound closure and application of sterile dressing. I attest to the content of the Intraoperative Record and any orders documented therein. Any exceptions are noted below.
--- NOTE | 2022-08-29 11:12 | XRay Report ---
XR shoulder RT min 2V routine CLINICAL HISTORY: Post shoulder surgery COMPARISON STUDY: Right shoulder 05/18/2010. FINDINGS: Status post reverse right total shoulder arthroplasty. The hardware appears intact. No frac ture or dislocation. Skin becky are in place. IMPRESSION: Status post reverse right total shoulder arthroplasty. No evidence for hardware complica tion. ACT 112: Negative or not required by law. Electronically signed by: Yossi Aparicio M.D. 08/29/2022 11:11 AM
[2022-08-29] MEDS ORDERED: oxyCODONE HCL IR 5 MG TAB (IMMEDIATE RELEASE) PO PRN (11:52)
[2022-08-29] MEDS ORDERED: MAGNESIUM HYDROXIDE SUSP 30 ML UDC PO PRN (11:52)
[2022-08-29] MEDS ORDERED: FLUCONAZOLE 100 MG TAB PO PRN (11:52)
[2022-08-29] MEDS ORDERED: NALOXONE HCL 0.4 MG/1 ML VIAL/CARP IV PRN (11:52)
[2022-08-29] MEDS ORDERED: estradioL 1 MG TAB PO SCH (11:52)
[2022-08-29] MEDS ORDERED: METOCLOPRAMIDE HCL INJ 5 MG/ML 2 ML VIAL IV PRN (11:52)
[2022-08-29] MEDS ORDERED: bisacodyL 10 MG SUPP PR PRN (11:52)
[2022-08-29] MEDS ORDERED: HYDROmorphone INJ 0.5 MG/0.5 ML SYR IV PRN (11:52)
[2022-08-29] MEDS ORDERED: DOXYCYCLINE HYCLATE 50 MG PO SCH (11:52)
--- NOTE | 2022-08-29 12:04 | Anesthesiology Progress Note ---
Date of Service August 29, 2022 Anesthesia Post Procedure Vital Signs Vital Signs: Temp Pulse Pulse Resp BP BP BP 08/29/22 11:55 37.0 C 78 16 152/92 H 08/29/22 11:25 72 20 133/79 08/29/22 11:15 36.2 C L 80 20 144/67 H 08/29/22 11:05 85 18 120/77 08/29/22 10:55 81 19 151/77 H 08/29/22 10:45 86 20 148/81 H 08/29/22 10:35 89 22 170/85 H 08/29/22 10:25 85 20 180/107 H 08/29/22 10:18 36.0 C L 83 18 183/103 H 08/29/22 07:34 36.6 C 89 18 145/106 H 08/29/22 07:34 Pulse Ox O2 Del Method O2 Flow Rate 08/29/22 11:55 94 Nasal Cannula 2 08/29/22 11:25 95 Nasal Cannula 3 08/29/22 11:15 96 Nasal Cannula 3 08/29/22 11:05 94 Nasal Cannula 3 08/29/22 10:55 92 Nasal Cannula 3 08/29/22 10:45 94 Nasal Cannula 2 08/29/22 10:35 95 Oxymask 5 08/29/22 10:25 99 Oxymask 9 08/29/22 10:18 96 Oxymask 9 08/29/22 07:34 97 Room Air 08/29/22 07:34 Room Air Pain Intensity Right Shoulder: Pain Intensity: 6 Transfer of Care Handoff Completed per policy Notes Mental Status: alert / awake / arousable Patient Amnestic to Procedure: Yes Nausea / Vomiting: adequately controlled Pain: adequately controlled Airway Patency, RR, SpO2: stable & adequate BP & HR: stable & adequate Hydration State: stable & adequate Anesthetic Complications: no major complications apparent
[2022-08-29] MEDS: SODIUM CHLORIDE 0.9% 1000ML 1,000 ML IV SCH ×2 (12:35→23:12)
[2022-08-29] MEDS ORDERED: ALBUTEROL HFA 8 GM INHALER INH PRN (12:40)
[2022-08-29] MEDS: KETOROLAC 30 MG/ML VIAL IV SCH ×2 (14:03→17:49)
[2022-08-29] MEDS: ACETAMINOPHEN 500 MG TAB PO SCH ×2 (14:03→22:26)
[2022-08-29] MEDS: IPRATROPIUM BROMIDE HFA INHALER INH SCH ×3 (14:39→22:54)
[2022-08-29] MEDS: ceFAZolin 2000MG 2,000 MG/15 ML SYR IV SCH (16:52)
[2022-08-29] MEDS: DOCUSATE SODIUM 100 MG CAP PO SCH (20:02)
[2022-08-29] MEDS: POTASSIUM CHLORIDE CRTAB 20 MEQ TABCR PO SCH (20:06)
[2022-08-29] MEDS ORDERED: METOPROLOL SUCC 25MG EXT REL TAB PO SCH (21:00)
[2022-08-29] MEDS ORDERED: ARTIFICIAL TEARS OP SCH (21:00)
[2022-08-29] MEDS ORDERED: SENNA 8.6 MG TAB PO SCH (21:00)
[2022-08-29] MEDS ORDERED: BACLOFEN 10 MG TAB PO SCH (21:00)
[2022-08-30] MEDS: KETOROLAC 30 MG/ML VIAL IV SCH ×3 (00:10→06:59)
[2022-08-30] MEDS: ceFAZolin 2000MG 2,000 MG/15 ML SYR IV SCH (00:17)
[2022-08-30] MEDS ORDERED: traMADol HCL 50 MG TABLET PO PRN (08:06)
[2022-08-30] MEDS: POTASSIUM CHLORIDE CRTAB 20 MEQ TABCR PO SCH (08:09)
[2022-08-30] MEDS: ACETAMINOPHEN 500 MG TAB PO SCH (08:09)
--- NOTE | 2022-08-30 08:10 | Orthopedic Progress Note ---
Date of Service August 30, 2022 Assessment & Plan (1) Status post reverse total replacement of right shoulder: Overall she is doing fairly well. She is not having too much pain in the right shoulder. She will be seen by physical therapy today for ambulation and range of motion exercises. Case management will see her today to make sure she is safe for discharge to home. She does live by herself but she may be able to have some help at home. She is orthopedically stable for discharge later today. She will follow-up with orthopedics in 2 weeks. Douglas Aparicio was seen and examined at bedside this morning. Overall she is doing fairly well. She is not having much pain in the right shoulder. She was able to get some sleep last night. She has no complaints.. Review of Systems All systems reviewed & are unremarkable except as noted in HPI & below. Physical Exam On physical examination of the right shoulder, the dressing is clean and dry. She is wearing her sling as instructed. The nerve block is still in effect.. Results & Data Results & Data Laboratory Results . Diagnostic Findings Postoperative x-rays of the right shoulder show the prosthesis to be in anatomic alignment without any evidence of fracture, desiccation, or loosening. PG Care Time/CCT Total # of Minutes Spent Total Time Spent with Patient: Total time spent is greater than 50% in coordination of care (as documented) at patient's floor/unit and/or counseling patient: Coding Level of Care Code 00643 Post Operative Follow-Up Diagnoses Status post reverse total replacement of right shoulder Z96.611
[2022-08-30] MEDS: DOCUSATE SODIUM 100 MG CAP PO SCH (08:11)
--- NOTE | 2022-08-30 08:11 | Discharge Summary ---
Date of Service August 30, 2022 Admission HPI (Per Admitting) Alessandra is a pleasant 66-year-old female who has been dealing with chronic increasing right shoulder pain. She has a history of a right rotator cuff repair done by Dr. Valero in the past. She had to have a manipulation under anesthesia. Her shoulder has never been good. It has been worsening over the past few years. She has difficulty doing any forward elevation. She has had multiple injections by my partner Dr. Ellington without any relief. X-rays and clinical examination been diagnostic for advanced cuff arthropathy of the right shoulder. After failing conservative treatment, she has elected to proceed with a right reverse shoulder arthroplasty. Admission Exam (Per Admitting) Physical examination of the right shoulder shows about 20 degrees of forward elevation 20 degrees abduction. She has 3 out of 5 motor strength throughout. She has pain of the glenohumeral joint line.. Principal Diagnosis Same as "Discharge Diagnosis" noted below under Discharge Instructions. Discharge Exam On physical examination of the right shoulder, the dressing is clean and dry. She is wearing her sling as instructed. The nerve block is still in effect.. Discharge Data Procedures Performed Operation Date: 08/29/22 09:20 Actual Procedures p Right Reverse Total Shoulder Arthroplasty, Uncemented(Right) - Hilton Crespo DO Ordered Studies 08/29/22 05:00 US - OR guided needle placemen Routine Hospital Course (1) Status post reverse total replacement of right shoulder: On August 29, 2022 Alessandra arrived at [facility] and underwent a right reverse shoulder replacement without complication. She had a general anesthetic and a right interscalene nerve block. Postoperatively she was placed in a sling and transferred to the general orthopedic floors. Her hospital course was uneventful. On postop day #1, her vital signs are stable and her pain was well controlled. She was able to participate well with physical therapy doing ambulation and range of motion exercises. She was then discharged home. She will follow with orthopedics in 2 weeks. PG Care Time/CCT Total # of Minutes Spent Total Time Spent with Patient: Total time spent is greater than 50% in coordination of care (as documented) at patient's floor/unit and/or counseling patient: Discharge Plan Discharge Items Patient Disposition: Home - Home Health Services Reason For Visit: Right Shoulder DJD Discharge Diagnosis: Right reverse shoulder replacement Activity: Per Instructions section Non-emergency contact: Surgeon Call non-emergency contact if: your wound has increased redness and your wound has increased drainage Follow-up/Referrals: Jeniffer Ashraf MD [Primary Care Provider] - Diet: Regular Addtl Attending Provider Instructions: Activity and Therapy Recommendations: * If you are using [facility] then therapy will be provided at your home until they feel you have accomplished all of your goals. * If you are using [facility] then Physical Therapy will be provided until they feel you are ready to start Outpatient Physical Therapy. * If you are not using home therapy then Outpatient Physical Therapy should start about 3-5 days from your day of surgery. Therapy will last about 8-12 weeks * Wear your sling for 3 weeks, unless otherwise instructed. You may remove your sling to shower and to dress, but otherwise, you should be in your sling at all times, including while sleeping * The shoulder replacement is very stable and you can use your hand while in the sling * You were shown a series of exercises in the hospital. Do these exercises daily including the exercises you were shown in physical therapy. Medications: * Narcotic You will likely be sent home from the hospital with a prescription for the narcotic pain medication that worked best throughout your stay. * Other medications may be prescribed for specific circumstances. If you have any questions, please call the office at . * Resume previous home medications unless otherwise instructed Dressing Care: Leave the Silverlon dressing in place for 7 days. After 7 days you may remove the dressing. If the incision is not draining then you may leave the becky open to air. If there is a little bit of drainage or if the becky are getting stuck on your clothing then cover the incision with a dry dressing. The becky will be removed at your 2 week follow-up appointment. Showering: You may shower with the Silverlon dressing in place. Do not let the shower spray hit the dressing directly. Pat the Silverlon dressing dry. If the dressing becomes wet underneath, then simply remove the dressing. Keep the incision dry until you are 7 days out from the day of surgery. After 7 days you may remove the Silverlon dressing and shower with the becky exposed. Let soapy water run over the becky and pat them dry. Do not scrub or soak the incision. Things To Watch For: * Drainage from the incision site that occurs more than one week after your surgery. * Increased redness at the incision site. * Fever above 102 degrees Fahrenheit. * Unusual chest pain or shortness of breath. * Call [facility] at with any of the above problems Follow-Up Visit: Follow-up with Dr. Crespo's PA (Hilton Mcintosh) 2-3 weeks after your day of surgery. He will remove your becky and answer any questions. If you have any additional questions or concerns, Dr Crespo is usually in the office at the same time and will be available An appointment was probably scheduled when you signed-up for surgery in the office. If you have any questions call More detailed instructions as well as Frequently Asked Questions were provided in a folder by our office when you signed-up for surgery. Please review these instructions when you get home. If you have any further questions or concerns, please feel free to call the office at [phone] Pending Studies at Discharge: No Stand-Alone Forms: My [facility], Smoking Cessation Medications and DC Order Prescriptions: New oxycodone-acetaminophen 5-325 mg tablet 1 tab PO Q6H PRN (Reason: pain) Qty: 20 0RF Continued Combivent Respimat 20-100 mcg/actuation mist 1 puff inhalation QID PRN (Reason: shortness of breath or wheezing) Qty: 4 5RF Rx Instructions: space evenly during waking hours estradiol 1 mg tablet 0.5 mg PO 4XWK Qty: 48 3RF Rx Instructions: Take 0.5 tab on Thursday, Thursday, Thursday, and Thursday. ascorbic acid (vitamin C) 1,000 mg tablet 1,000 mg PO QAM Humira(CF) Pen 40 mg/0.4 mL pen injector kit 40 mg SQ .COMPLEX Rx Instructions: 40 mg subcut every 2 weeks; amiloride-hydrochlorothiazide 5-50 mg Tablet 1 tab PO QAM potassium chloride 10 mEq Tablet Extended Release 2 tab PO BID metoprolol succinate 25 mg Tablet Extended Release 24 Hr 25 mg PO HS Systane Gel 0.3 % Gel 1 dose OPB HS calcium citrate-vitamin D3 [Citracal + D Maximum] 315-250 mg-unit Tablet 1 tab PO QDL doxycycline hyclate 50 mg Tablet 50 mg PO QDL tramadol 50 mg tablet 50 mg PO Q8H Label Comments: pt states she takes 1-2 tabs daily meloxicam 7.5 mg tablet 7.5 mg PO PRN PRN (Reason: Pain) prednisone 10 mg Tablet 10 mg PO QAM oxycodone-acetaminophen [Percocet] 5-325 mg tablet 1 tab PO Q6H PRN (Reason: pain) Qty: 15 0RF fluconazole 100 mg tablet 100 mg PO DAILY PRN (Reason: YEAST INFECTION) baclofen 10 mg Tablet 10 mg PO HS omeprazole 20 mg Capsule,Delayed Release(Dr/Ec) 20 mg PO QAM PRN (Reason: Acid Reflux) acetaminophen [Tylenol Extra Strength] 500 mg Capsule 500 mg PO QPM PRN (Reason: Pain) Discharge Orders: Discharge Order (Routine); Ordered 08/30/22 Ordered By: Hilton Crespo Admission Data Admit Date/Time: 08/29/22 10:15 Attending Provider: Hilton Crespo Admit Provider: Hilton Crespo Primary Care Provider: Jeniffer Ashraf
[2022-08-30] MEDS ORDERED: MULTIVITAMIN TAB PO SCH (09:00)
[2022-08-30] MEDS ORDERED: predniSONE 10 MG TABLET PO SCH (09:00)
== END 2022-08-30 14:08 | disposition home health service (06) ==
LOC: ASU 06:47 → 3W 06:47

== ENCOUNTER 2023-04-03 10:00 | Observation (INO) ==
--- NOTE | 2023-02-20 15:23 | PAT Medication Instructions ---
Medication Instructions Date of Service February 20, 2023 Home Medications Medication Instructions Recorded ipratropium 20 mcg-albuterol 100 1 puff inhalation QID PRN //21 mcg/actuation mist for inhalation shortness of breath or wheezing #4 (Combivent Respimat) grams oxycodone-acetaminophen 5 mg-325 1 tab PO Q6H PRN pain #20 tabs 11/19/22 mg tablet artificial tears(hypromellose) 0.3 % eye gel (Systane Gel) 1 dose OPB HS calcium citrate 315 mg calcium-vitamin D3 6.25 mcg (250 unit) tablet (Citracal + Vitamin D Maximum) 1 tab PO QPM doxycycline hyclate 50 mg tablet 50 mg PO QPM metoprolol succinate 25 mg tablet,extended release 24 hr 25 mg PO HS potassium chloride 10 mEq tablet,extended release 1 tab PO BID ascorbic acid (vitamin C) 1,000 mg tablet 1,000 mg PO QAM adalimumab 40 mg/0.4 mL subcutaneous pen kit (Humira(CF) Pen) 40 mg subcut Q14D prednisone 10 mg tablet 10 mg PO QAM tramadol 50 mg tablet 50 mg PO Q8H PRN ipratropium 20 mcg-albuterol 100 mcg/actuation mist for inhalation (Combivent Respimat) 1 puff inhalation QID PRN meloxicam 7.5 mg tablet 7.5 mg PO PRN acetaminophen 500 mg capsule 500 mg PO UD PRN baclofen 10 mg tablet 10 mg PO HS fluconazole 100 mg tablet 100 mg PO DAILY PRN omeprazole 20 mg capsule,delayed release 20 mg PO QPM PRN oxycodone-acetaminophen 5 mg-325 mg tablet 1 tab PO Q6H PRN amiloride 5 mg tablet 5 mg PO QAM estradiol 1 mg tablet 0.5 mg PO UD losartan 50 mg tablet 50 mg PO QAM timolol maleate 0.5 % eye drops 1 drp OPL QAM Continue as directed fluconazole 100 mg tablet 100 mg PO DAILY PRN(if needed) ASK your surgeon for instructions meloxicam 7.5 mg tablet 7.5 mg PO PRN ASK your prescriber and surgeon adalimumab 40 mg/0.4 mL subcutaneous pen kit (Humira(CF) Pen) 40 mg subcut Q14D estradiol 1 mg tablet 0.5 mg PO UD DO NOT take the morning of surgery potassium chloride 10 mEq tablet,extended release 1 tab PO BID ascorbic acid (vitamin C) 1,000 mg tablet 1,000 mg PO QAM amiloride 5 mg tablet 5 mg PO QAM losartan 50 mg tablet 50 mg PO QAM Take morning of surgery With a small sip of water, OTHERWISE NOTHING TO EAT OR DRINK AFTER MIDNIGHT: prednisone 10 mg tablet 10 mg PO QAM tramadol 50 mg tablet 50 mg PO Q8H PRN(if needed) ipratropium 20 mcg-albuterol 100 mcg/actuation mist for inhalation (Combivent Respimat) 1 puff inhalation QID PRN(if needed) acetaminophen 500 mg capsule 500 mg PO UD PRN(if needed) oxycodone-acetaminophen 5 mg-325 mg tablet 1 tab PO Q6H PRN(if needed) timolol maleate 0.5 % eye drops 1 drp OPL QAM Take evening before surgery artificial tears(hypromellose) 0.3 % eye gel (Systane Gel) 1 dose OPB HS calcium citrate 315 mg calcium-vitamin D3 6.25 mcg (250 unit) tablet (Citracal + Vitamin D Maximum) 1 tab PO QPM doxycycline hyclate 50 mg tablet 50 mg PO QPM metoprolol succinate 25 mg tablet,extended release 24 hr 25 mg PO HS potassium chloride 10 mEq tablet,extended release 1 tab PO BID tramadol 50 mg tablet 50 mg PO Q8H PRN(if needed) ipratropium 20 mcg-albuterol 100 mcg/actuation mist for inhalation (Combivent Respimat) 1 puff inhalation QID PRN(if needed) baclofen 10 mg tablet 10 mg PO HS omeprazole 20 mg capsule,delayed release 20 mg PO QPM PRN(if needed) oxycodone-acetaminophen 5 mg-325 mg tablet 1 tab PO Q6H PRN(if needed) Other Notes If you have any questions please call us at [phone] or [phone] or [phone] or [phone]
--- NOTE | 2023-03-04 13:06 | Anesthesiology Consultation ---
Date of Service March 04, 2023 Assessment & Plan (1) Encounter for pre-operative examination: - COVID screening: Per assessment on 03/04: No known COVID-19 positive contacts or current COVID-19 related symptoms. Travel screen negative. Patient vaccinated. At surgeon discretion if preop Covid testing being done. - S/P Right reverse TSA (08/29/22): Grade I view, Glidescope#3 "elective", ETT 7.0 + PNB at [facility] - Outpatient joint assessment: Pt currently scheduled for inpatient pathway. If surgeon requests review for outpatient joint pathway, patient is not recommended candidate for outpatient joint program from anesthesia standpoint. - LUE limb restriction (r/t lymphedema) Chart Review Chart Review: Acceptable Risk for Surgery and Patient seen in Pre Admission Testing Teaching & Discussion Pre-Anesthesia Teaching/Discussion Notes: Instructed NPO after midnight before surgery,except medications with 15 cc of water. Medication instructions provided according to the PAT guidelines. History Surgery Operation Date: 04/03/23 13:40 Proposed Procedures p Left Total Shoulder Arthroplasty Reverse - Hilton Crespo, Height/Weight Height: 5 ft 3 in Weight: 102.6 kg Allergies Allergy/AdvReac Type Severity Reaction Status Date / Time adhesive Allergy Severe SKIN RASH Verified 02/19/23 11:50 bee venom protein (honey bee) Allergy Severe ANAPHYLAXIS Verified 03/04/23 13:04 bacitracin Allergy Mild RASH Verified 02/19/23 11:50 AROUND FACE brimonidine Allergy Mild CONTACT Verified 02/19/23 11:50 DERMATITIS cyclosporine Allergy Mild CONTACT Verified 02/19/23 11:50 DERMATITIS spironolactone Allergy Mild Hives Verified 02/19/23 11:50 terfenadine Allergy Mild EYE Verified 02/19/23 11:50 SWELLING tobramycin Allergy Mild EYE Verified 02/19/23 11:50 SWELLING cefaclor AdvReac Intermediate MOUTH Verified 02/19/23 11:50 ULCERS- CAN TAKE KEFLEX W/O PROBLEM Medications Home Medications Medication Instructions Recorded Confirmed Last Taken artificial tears(hypromellose) 0.3 1 dose OPB HS 07/30/18 02/19/23 08/28/22 20:00 % eye gel (Systane Gel) calcium citrate 315 mg 1 tab PO QPM 07/30/18 02/19/23 08/28/22 09:00 calcium-vitamin D3 6.25 mcg (250 unit) tablet (Citracal + Vitamin D Maximum) doxycycline hyclate 50 mg tablet 50 mg PO QPM 07/30/18 02/19/23 08/28/22 12:30 metoprolol succinate 25 mg 25 mg PO HS 07/30/18 02/19/23 08/28/22 18:00 tablet,extended release 24 hr potassium chloride 10 mEq 1 tab PO BID 07/30/18 02/19/23 08/28/22 18:00 tablet,extended release ascorbic acid (vitamin C) 1,000 mg 1,000 mg PO QAM 07/18/19 02/19/23 08/28/22 18:00 tablet adalimumab 40 mg/0.4 mL 40 mg subcut Q14D 01/30/20 02/19/23 08/13/22 10:00 subcutaneous pen kit (Humira(CF) Pen) prednisone 10 mg tablet 10 mg PO QAM 05/22/20 02/19/23 08/29/22 06:00 tramadol 50 mg tablet 50 mg PO Q8H PRN Pain 04/02/21 02/19/23 08/29/22 06:00 ipratropium 20 mcg-albuterol 100 1 puff inhalation QID PRN 04/16/21 02/19/23 08/29/22 06:00 mcg/actuation mist for inhalation shortness of breath or wheezing #4 (Combivent Respimat) grams meloxicam 7.5 mg tablet 7.5 mg PO PRN PRN Pain 06/02/22 02/19/23 08/20/22 acetaminophen 500 mg capsule 500 mg PO UD PRN Pain 07/22/22 02/19/23 08/28/22 22:00 baclofen 10 mg tablet 10 mg PO HS 07/22/22 02/19/23 08/28/22 16:30 fluconazole 100 mg tablet 100 mg PO DAILY PRN YEAST INFECTION 07/22/22 02/19/23 05/27/22 omeprazole 20 mg capsule,delayed 20 mg PO QPM PRN Acid Reflux 07/22/22 02/19/23 08/28/22 18:00 release oxycodone-acetaminophen 5 mg-325 1 tab PO Q6H PRN pain #20 tabs 11/19/22 05/11/23 Unknown mg tablet amiloride 5 mg tablet 5 mg PO QAM 02/19/23 02/19/23 Unknown estradiol 1 mg tablet 0.5 mg PO UD 02/19/23 02/19/23 Unknown losartan 50 mg tablet 50 mg PO QAM 02/19/23 02/19/23 Unknown timolol maleate 0.5 % eye drops 1 drp OPL QAM 02/19/23 02/19/23 Unknown Past Medical History Medical History Asthma Cancer Skin cancer (multiple sites) s/p excision, cheeks and arms Chronic asthmatic bronchitis Chronic steroid use Chronic prednisone 10mg daily r/t psoriatic arthritis Cirrhosis of liver Difficult intravenous access "Wants IV team" Dry eye syndrome Endometriosis Hx Glaucoma Hand arthritis Hyperlipidemia Hypertension Irritable bowel syndrome Kidney stones Limb alert care status LUE restriction (pt has lymphedema left arm and both legs) Lymphedema lymphedema left arm and both legs > therapy Psoriatic arthropathy Follows w/ Dr Shearer Sarcoidosis "Stable" Scoliosis Transient ischemic attack (TIA) 2016 Exercise / Class Metabolic Activity III < 4 Walking/Shop/Light housework Past Family History Family History Father Renal failure Cancer Mother Acute subdural hematoma Brother Family hx colonic polyps Other No family history of adverse response to anesthesia Past Surgical History Surgical History H/O chest tube placement AFTER BRONCHOSCOPY H/O eye surgery RIGHT/LEFT FOR GLAUCOMA History of adenoidectomy History of amputation of toe Right 4th toe, October 2020 History of anesthesia reaction DIFFICULTY BREATHING--had to receive oxygen after general anesthesia, denies re-intubation or unanticipated hospitalization; states was discharged for same day surgery. > 10 yrs ago History of appendectomy History of bronchoscopy History of colonoscopy History of cystoscopy History of esophagogastroduodenoscopy (EGD) History of foot surgery RIGHT/LEFT FOOT SURGERY WITH HARDWARE History of hand surgery LEFT HAND FINGER FUSION History of laparoscopy History of liver biopsy History of Mohs surgery for squamous cell carcinoma of skin [facility] 11/2021 History of shoulder surgery RT SHOULDER History of tonsillectomy History of tooth extraction History of total replacement of right shoulder joint Right reverse TSA (08/29/22): Grade I view, Glidescope#3 "elective", ETT 7.0 + PNB at [facility] S/P parathyroidectomy S/P NADRESSA-BSO LEFT FALLOPIAN TUBE AND OVARY REMOVED Past Anesthesia History No Family Hx of Anesthesia Complications and Other Per records: DIFFICULTY BREATHING--had to receive oxygen after general anesthesia, denies re-intubation or unanticipated hospitalization; states was discharged for same day surgery. > 10 yrs ago History of PONV No Hx of PONV and No Hx of Motion Sickness Social History Smoking Status: Never smoker Do You Dip or Chew Tobacco: No Hx Alcohol Use: No Alcohol type: wine alcohol intake frequency: holidays/special occasions only Hx Substance Use: No substance use type: does not use Review of Systems Patient denies chest pain, shortness of breath, fever, chills, cough, wheezing, palpitations. Physical Exam Vital Signs VITALS BP 146/90 P 85 TEMP SP02 97%RA RESP 16 PHYSICAL Full cervical extension range of motion. Full TMJ range of motion. TMD 3.5 finger breaths Mallampati Score 3 Dentition: missing molars Lungs: clear throughout to auscultation Cardiac: regular rate and rhythm, no murmurs noted Spine: normal Carotid arteries: negative bruit Extremities: no RLE edema, LLE wrapped (r/t lymphedema management per patient) Lab Results Anesthesia Preop Results Results Anesthesia Widget: WBC 7.18 K/ul (4.8-10.8) 03/04/23 Hgb 14.8 g/dl (12.0-16.0) 03/04/23 Hct 43.7 % (37.0-47.0) 03/04/23 Plt 200 K/uL (130-400) 03/04/23 Na 137 mmol/L (136-145) 03/04/23 K 4.8 mmol/L (3.5-5.1) 03/04/23 Cl 106 mmol/L (98-107) 03/04/23 CO2 25 mmol/L (21-32) 03/04/23 BUN 22 mg/dl (6-23) 03/04/23 Creat 0.97 mg/dl (0.6-1.2) 03/04/23 Glucose Level 91 mg/dl (70-99(Fasting)) 03/04/23 PT 10.5 Seconds (9.0-12.0) 03/04/23 PTT 23.6 Seconds (21.0-31.0) 03/04/23 INR 1.0 (0.9-1.1) 03/04/23 Blood Type A Positive 03/04/23 Antibody Screen NEGATIVE 03/04/23 Testing Electrocardiogram Date: 08/04/22 Findings: + NSR @ (74) Chest X-Ray Date: 03/04/23 FINDINGS: Right shoulder arthroplasty is incidentally noted. Lung volumes are normal. Lungs are clear. There is no pneumothorax or pleural effusion. Cardiac size is stable. Mediastinal contours are normal. There is no evidence for pulmonary edema. IMPRESSION: No acute cardiopulmonary findings. No change in appearance of the chest. COVID-19 Risk Screen Screening Information COVID-19 Screen Date: 03/04/23 Exposure 21 Days Family/Household +COVID Last 21 Days: No Exposure 10 Days Any COVID Exposure Last 10 Days: No Symptoms Last 10 Days Experienced COVID Sx Last 10 Days: No + COVID 0-90 Days COVID + in Last 0-90 Days: No
--- NOTE | 2023-04-02 08:00 | History & Physical Report ---
Date of Service April 02, 2023 Assessment & Plan (1) Rotator cuff arthropathy: We will proceed with a left reverse shoulder arthroplasty. Postoperatively she will be placed in a sling and kept overnight in the hospital for postop medical management. She plans to [facility] upon discharge. History of Present Illness Chief Complaint: Cuff tear arthropathy of the left shoulder. Primary Care Provider: Jeniffer Ahsraf MD Alessandra is a pleasant 67-year-old female who has been dealing with chronic bilateral shoulder issues. 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 I did a right reverse shoulder arthroplasty on her 5 months ago in August 2022. She is starting to regain more motion with her right shoulder. Unfortunately, her left shoulder is now giving her increased issues. She has had the pseudoparalysis of her left shoulder for the last 2 months. She is having trouble doing the exercises with physical therapy. She cannot reach light switches anymore or do simple daily activities. X-rays and clinical examination been diagnostic for cuff tear arthropathy of the left shoulder. After failing conservative treatment, she has elected proceed with a left reverse shoulder arthroplasty. Allergies Allergy/AdvReac Type Severity Reaction Status Date / Time adhesive Allergy Severe SKIN RASH Verified 02/19/23 11:50 bee venom protein (honey bee) Allergy Severe ANAPHYLAXIS Verified 03/04/23 13:04 bacitracin Allergy Mild RASH Verified 02/19/23 11:50 AROUND FACE brimonidine Allergy Mild CONTACT Verified 02/19/23 11:50 DERMATITIS cyclosporine Allergy Mild CONTACT Verified 02/19/23 11:50 DERMATITIS spironolactone Allergy Mild Hives Verified 02/19/23 11:50 terfenadine Allergy Mild EYE Verified 02/19/23 11:50 SWELLING tobramycin Allergy Mild EYE Verified 02/19/23 11:50 SWELLING cefaclor AdvReac Intermediate MOUTH Verified 02/19/23 11:50 ULCERS- CAN TAKE KEFLEX W/O PROBLEM Home Medications Medication Instructions Recorded Confirmed Type artificial tears(hypromellose) 0.3 1 dose OPB HS 07/30/18 02/19/23 History % eye gel (Systane Gel) calcium citrate 315 mg 1 tab PO QPM 07/30/18 02/19/23 History calcium-vitamin D3 6.25 mcg (250 unit) tablet (Citracal + Vitamin D Maximum) doxycycline hyclate 50 mg tablet 50 mg PO QPM 07/30/18 02/19/23 History metoprolol succinate 25 mg 25 mg PO HS 07/30/18 02/19/23 History tablet,extended release 24 hr potassium chloride 10 mEq 1 tab PO BID 07/30/18 02/19/23 History tablet,extended release ascorbic acid (vitamin C) 1,000 mg 1,000 mg PO QAM 07/18/19 02/19/23 History tablet adalimumab 40 mg/0.4 mL 40 mg subcut Q14D 01/30/20 02/19/23 History subcutaneous pen kit (Humira(CF) Pen) prednisone 10 mg tablet 10 mg PO QAM 05/22/20 02/19/23 History tramadol 50 mg tablet 50 mg PO Q8H PRN Pain 04/02/21 02/19/23 History ipratropium 20 mcg-albuterol 100 1 puff inhalation QID PRN 04/16/21 02/19/23 Rx mcg/actuation mist for inhalation shortness of breath or wheezing #4 (Combivent Respimat) grams meloxicam 7.5 mg tablet 7.5 mg PO PRN PRN Pain 06/02/22 02/19/23 History acetaminophen 500 mg capsule 500 mg PO UD PRN Pain 07/22/22 02/19/23 History baclofen 10 mg tablet 10 mg PO HS 07/22/22 02/19/23 History fluconazole 100 mg tablet 100 mg PO DAILY PRN YEAST INFECTION 07/22/22 02/19/23 History omeprazole 20 mg capsule,delayed 20 mg PO QPM PRN Acid Reflux 07/22/22 02/19/23 History release oxycodone-acetaminophen 5 mg-325 1 tab PO Q6H PRN pain #20 tabs 08/30/22 02/19/23 Rx mg tablet amiloride 5 mg tablet 5 mg PO QAM 02/19/23 02/19/23 History estradiol 1 mg tablet 0.5 mg PO UD 02/19/23 02/19/23 History losartan 50 mg tablet 50 mg PO QAM 02/19/23 02/19/23 History timolol maleate 0.5 % eye drops 1 drp OPL QAM 02/19/23 02/19/23 History Past Med/Surg History Medical History Asthma Cancer Skin cancer (multiple sites) s/p excision, cheeks and arms Chronic asthmatic bronchitis Chronic steroid use Chronic prednisone 10mg daily r/t psoriatic arthritis Cirrhosis of liver Difficult intravenous access "Wants IV team" Dry eye syndrome Endometriosis Hx Glaucoma Hand arthritis Hyperlipidemia Hypertension Irritable bowel syndrome Kidney stones Limb alert care status LUE restriction (pt has lymphedema left arm and both legs) Lymphedema lymphedema left arm and both legs > therapy Psoriatic arthropathy Follows w/ Dr Shearer Sarcoidosis "Stable" Scoliosis Transient ischemic attack (TIA) 2016 Surgical History H/O chest tube placement AFTER BRONCHOSCOPY H/O eye surgery RIGHT/LEFT FOR GLAUCOMA History of adenoidectomy History of amputation of toe Right 4th toe, October 2020 History of anesthesia reaction DIFFICULTY BREATHING--had to receive oxygen after general anesthesia, denies re-intubation or unanticipated hospitalization; states was discharged for same day surgery. > 10 yrs ago History of appendectomy History of bronchoscopy History of colonoscopy History of cystoscopy History of esophagogastroduodenoscopy (EGD) History of foot surgery RIGHT/LEFT FOOT SURGERY WITH HARDWARE History of hand surgery LEFT HAND FINGER FUSION History of laparoscopy History of liver biopsy History of Mohs surgery for squamous cell carcinoma of skin [facility] 11/2021 History of shoulder surgery RT SHOULDER History of tonsillectomy History of tooth extraction History of total replacement of right shoulder joint Right reverse TSA (08/29/22): Grade I view, Glidescope#3 "elective", ETT 7.0 + PNB at [facility] S/P parathyroidectomy S/P ANDRESSA-BSO LEFT FALLOPIAN TUBE AND OVARY REMOVED Family History Father Renal failure Cancer Mother Acute subdural hematoma Brother Family hx colonic polyps Other No family history of adverse response to anesthesia Social History Smoking Status: Never smoker Second Hand Exposure: No; Do You Dip or Chew Tobacco: No; Hx Alcohol Use: No Hx Substance Use: No Preferred Language: Dutch Communication Ability: Effective Trimmer Machine Required: No Beliefs That Will Affect Care: None marital status: Single Current Living Situation: Alone How many Children do You have: 0 Feels Safe at Home: Yes Assistive Devices: Glasses Review of Systems All systems reviewed & are unremarkable except as noted in HPI & below. Physical Exam On physical examination of left shoulder, she only has about 20 degrees forward elevation 20 degrees of abduction. She has 2 out of 5 motor strength throughout.. Constitutional WD/WN, vitals as above Eyes PERRL, conjunctivae normal, anicteric sclerae ENMT external ear and nose normal, oropharynx normal Neck trachea midline, no thyromegaly Respiratory normal respiratory effort, lungs clear to auscultation Cardiovascular RRR, no murmur, no edema Gastrointestinal (Abdomen) normal bowel sounds, soft, nontender, no hepatosplenomegaly Skin no rashes, warm and dry Psychiatric A+Ox3, euthymic affect Results & Data Results & Data Laboratory Results . Diagnostic Findings X-rays of the left shoulder show signs of cuff tear arthropathy with superior migration of the humeral head on the glenoid and glenohumeral arthritis.. PG Care Time/CCT Total # of Minutes Spent Total Time Spent with Patient: Total time spent is greater than 50% in coordination of care (as documented) at patient's floor/unit and/or counseling patient: Coding Level of Care Code None Diagnoses Rotator cuff arthropathy M12.819
--- NOTE | 2023-04-03 09:57 | History & Physical Bridge Note ---
Date of Service April 03, 2023 History & Physical Bridge Note I have examined the patient, reviewed the History & Physical and in the interval since the performance of the History & Physical I have noted the following changes of clinical significance: no changes noted
[2023-04-03] MEDS ORDERED: fentaNYL citrate PF 100 MCG/2 ML VIAL ONE ×2 (11:44→14:05)
[2023-04-03] MEDS ORDERED: MIDAZOLAM HCL 1 MG/ML 2ML VIAL ONE (11:44)
[2023-04-03] MEDS ORDERED: LIDOCAINE 2% 2 ML VIAL/AMP(20MG/ML) INFIL ONE (11:44)
[2023-04-03] MEDS ORDERED: PROPOFOL IV EMULSION 10 MG/ML 20 ML VIAL IV ONE (11:44)
[2023-04-03] MEDS ORDERED: ORTHO JOINT ANESTHETIC ONE (12:20)
[2023-04-03] MEDS ORDERED: HYDROCORTISONE SOD SUCCINATE 100 MG/2 ML VIAL ONE (12:53)
[2023-04-03] MEDS ORDERED: ONDANSETRON INJ 2 MG/ML 2 ML VIAL ONE (12:53)
[2023-04-03] MEDS ORDERED: ROCURONIUM BROMIDE 10 MG/ML 5 ML VIAL IV ONE (12:53)
[2023-04-03] MEDS ORDERED: SUGAMMADEX SODIUM 200 MG/2 ML VIAL IV ONE (13:19)
--- NOTE | 2023-04-03 13:26 | Operative Report ---
PG Post Operative Report Pre & Post Diagnosis Operation Date: 04/03/23 12:00 Pre-Op Diagnosis: Cuff tear arthropathy of the left shoulder with tendinopathy long head the biceps tendon Post-Op Diagnosis: Cuff tear arthropathy of the left shoulder with tendinopathy long head the biceps tendon I identified the patient and participated in the time-out.: Yes Procedure Operation Date: 04/03/23 12:00 Actual Procedures p Left Reverse Total Shoulder Arthroplasty(Left) with open biceps tenodesis as a distinct and separate procedure (modifier 59)- Hilton Crespo DO Surgeon Hilton Crespo DO Jig [employer] Fixture Builder Apprentice Hilton Mcintosh PA-C Estimated Blood Loss 150 Findings Consistent with Post-Op Diagnosis Specimens Left humeral head Description of Procedure A CPT code modifier 59: The long head of the biceps tendon was enlarged and inflamed consistent with tendinopathy. A tenodesis was opted. This was a separate and distinct portion of the procedure. For these reasons, a CPT code modifier 59 will be added to this case. Implants used: I used a [employer]omet Comprehensive reverse total shoulder arthroplasty system with a size 10 press fit micro humeral stem, a +6 offset humeral tray and a standard humeral bearing, a 25 mm baseplate with a 6.5 mm central screw and superior and inferior locking screws, and a size 36 mm eccentric glenosphere. Alessandra arrived at [facility] for the above procedure. She was seen in the preoperative holding area and the operative extremity was identified and signed. She was given a preoperative antibiotic, TXA, and an interscalene nerve block. She was taken back to the operating room, laid on table in supine position, and put under general anesthesia. She was then put into the beachchair position. The shoulder was then prepped and draped in sterile fashion. A timeout was done and the patient and the operative extremity was properly identified. A deltopectoral approach was used. Dissection was taken down through the fascia and the deltoid was retracted laterally and the conjoined tendon was retracted medially. The anterior shoulder was exposed. The biceps groove was opened up and the biceps tendon was examined extensively. The biceps tendon demonstrated enlargement and inflammatory changes consistent with longstanding inflammation i n the context of osteoarthritis and cuff arthropathy. The long head of the biceps tendon was then tenodesed to the upper border of the pectoralis major. This was a separate and distinct portion of the procedure. The subscapularis was then directly released off the lesser tuberosity with a peel technique. The inferior capsule was released and the humeral head was dislocated. A canal finding reamer was sent down the center of the humeral canal. Sequential reaming up to a size 10 reamer was done. Off that reamer, a proximal humeral resection guide was placed. The proximal humerus was resected at 135 of inclination and 25 of retroversion. Osteophytes were then removed and the glenoid was exposed. Time was spent doing a complete capsular and labral release. The glenoid guide was then placed in the inferior aspect of the glenoid. A 3.2 mm Steinmann pin was then placed into the glenoid vault at 10 of inclination. The glenoid baseplate was then reamed. The final size 25 mm baseplate was then impacted in the place. A 6.5 mm central screw was then placed followed by superior and inferior locking screws. A 36 mm eccentric glenosphere was then impacted into place. Surrounding soft tissues were then injected with 100 cc an orthopedic pain control cocktail. The proximal humerus was then exposed. Sequential broaching of the humerus up to a size 10 broach was done. Off that broach a +6 offset humeral tray was trialed. The shoulder was then reduced, brought through a full range of motion, and felt to be stable. The shoulder was then dislocated and the broach was removed. The final size 10 micro press-fit humeral stem was then impacted into place. A standard humeral bearing was then snapped onto a +6 offset humeral tray. The humeral tray was then impacted onto the humeral stem. The shoulder was once again reduced, brought through a full range of motion, and felt to be stable. The subscapularis was retracted and unable to be repaired. A dilute betadyne lavage was then done for 3 minutes. The joint was then irrigated with normal saline solution. Hemostasis was obtained. The interval was closed with 2-0 Vicryl suture. The skin was then closed with 2-0 Vicryl and becky. A Silverlon dressing was placed and the arm was rested in a regular arm sling. She was then extubated and transferred to a hospital bed. She taken to the postanesthesia care unit in stable condition. She tolerated the procedure well. Hilton Mcintosh PA-C, was present for the entire procedure. He was critical for patient positioning, prepping, draping, retraction exposure, wound closure and application of sterile dressing. I attest to the content of the Intraoperative Record and any orders documented therein. Any exceptions are noted below.
[2023-04-03] MEDS ORDERED: HYDROmorphone INJ 1 MG/ML SYRINGE IV PRN (14:03)
[2023-04-03] MEDS ORDERED: PROMETHAZINE HCL 12.5 MG in SODIUM CHLORIDE 0.9% 50 ML IV PRN (14:03)
[2023-04-03] MEDS ORDERED: ePHEDrine sulfate 50 MG/ML AMP IV PRN (14:03)
[2023-04-03] MEDS ORDERED: ONDANSETRON INJ 2 MG/ML 2 ML VIAL IV PRN ×2 (14:03→15:14)
[2023-04-03] MEDS ORDERED: FLUMAZENIL 0.1 MG/1 ML 10 ML VIAL IV PRN (14:03)
[2023-04-03] MEDS ORDERED: NALOXONE HCL 0.4 MG/1 ML VIAL/CARP IV PRN ×2 (14:03→15:14)
[2023-04-03] MEDS ORDERED: fentaNYL citrate PF 100 MCG/2 ML VIAL IV PRN (14:03)
[2023-04-03] MEDS ORDERED: ATROPINE SULFATE 0.1 MG/ML 10ML SYR IV PRN (14:03)
[2023-04-03] MEDS ORDERED: LABETALOL HCL IV 5 MG/ML 20ML IV PRN (14:03)
--- NOTE | 2023-04-03 14:06 | XRay Report ---
XR shoulder LT min 2V routine HISTORY: 67 years-old Female Post shoulder surgery left shoulder arthroplasty COMPARISON: 03/04/2023 TECHNIQUE: 2 views of the left shoulder FINDINGS: Reverse total joint arthroplasty demonstrates satisfactory alignment. Expected postoperative soft tis rodo swelling with deep tissue air. Overlying skin becky are noted without acute fracture or unexpec cintia opaque foreign body. Moderate degeneration of the AC joint. Cardiomegaly with small left pleural effusion and mild left basilar consolidation. IMPRESSION: Reverse left shoulder arthroplasty with expected postoperative changes. ACT 112: Negative or not required by law. The above report was generated using voice recognition software. It may contain grammatical, syntax o r spelling errors. Electronically signed by: Juan Luis Fitzgerald M.D. 04/03/2023 2:05 PM
--- NOTE | 2023-04-03 14:17 | Anesthesiology Progress Note ---
Date of Service April 03, 2023 Anesthesia Post Procedure Vital Signs Vital Signs: Temp Pulse Pulse Resp BP Pulse Ox O2 Del Method 04/03/23 14:10 77 20 129/69 92 Room Air 04/03/23 14:00 80 24 148/94 H 100 Oxymask 04/03/23 13:50 85 22 147/93 H 93 Oxymask 04/03/23 13:42 36.7 C 85 13 163/94 H 92 Oxymask 04/03/23 10:30 36.6 C 82 20 160/105 H 95 Room Air O2 Flow Rate 04/03/23 14:10 04/03/23 14:00 9 04/03/23 13:50 9 04/03/23 13:42 9 04/03/23 10:30 Pain Intensity Left Shoulder: Pain Intensity: 5 Transfer of Care Handoff Completed per policy Notes Mental Status: alert / awake / arousable Patient Amnestic to Procedure: Yes Nausea / Vomiting: adequately controlled Pain: adequately controlled Airway Patency, RR, SpO2: stable & adequate BP & HR: stable & adequate Hydration State: stable & adequate Anesthetic Complications: no major complications apparent
[2023-04-03] MEDS ORDERED: estradioL 1 MG TAB PO SCH (15:14)
[2023-04-03] MEDS ORDERED: METOCLOPRAMIDE HCL INJ 5 MG/ML 2 ML VIAL IV PRN (15:14)
[2023-04-03] MEDS ORDERED: HYDROmorphone INJ 0.5 MG/0.5 ML SYR IV PRN (15:14)
[2023-04-03] MEDS ORDERED: oxyCODONE HCL IR 5 MG TAB (IMMEDIATE RELEASE) PO PRN (15:14)
[2023-04-03] MEDS ORDERED: bisacodyL 10 MG SUPP PR PRN (15:14)
[2023-04-03] MEDS ORDERED: ADALIMUMAB 40 MG/0.4 ML SQ SCH (15:14)
[2023-04-03] MEDS ORDERED: FLUCONAZOLE 100 MG TAB PO PRN (15:14)
[2023-04-03] MEDS ORDERED: MAGNESIUM HYDROXIDE SUSP 30 ML UDC PO PRN (15:14)
[2023-04-03] MEDS ORDERED: IPRATROPIUM BROMIDE HFA INHALER INH PRN (15:21)
[2023-04-03] MEDS ORDERED: PANTOprazole 40 MG TAB PO PRN (15:29)
[2023-04-03] MEDS ORDERED: ALBUTEROL HFA 8 GM INHALER INH PRN (15:44)
[2023-04-03] MEDS: SODIUM CHLORIDE 0.9% 1000ML 1,000 ML IV SCH (15:46)
[2023-04-03] MEDS: ACETAMINOPHEN 500 MG TAB PO SCH ×2 (16:12→21:57)
[2023-04-03] MEDS: KETOROLAC TROMETHAMINE 15 MG/ML VIAL IV SCH ×2 (16:14→20:22)
[2023-04-03] MEDS: ceFAZolin 2000MG 2,000 MG/15 ML SYR IV SCH (19:40)
[2023-04-03] MEDS: DOCUSATE SODIUM 100 MG CAP PO SCH (20:21)
[2023-04-03] MEDS: POTASSIUM CHLORIDE 10 MEQ TABCR PO SCH (20:22)
[2023-04-03] MEDS ORDERED: SENNA 8.6 MG TAB PO SCH (21:00)
[2023-04-03] MEDS ORDERED: ARTIFICIAL TEARS 0.3% OPB SCH (21:00)
[2023-04-03] MEDS ORDERED: BACLOFEN 10 MG TAB PO SCH (21:00)
[2023-04-03] MEDS ORDERED: METOPROLOL SUCC 25MG EXT REL TAB PO SCH (21:00)
[2023-04-04] MEDS: KETOROLAC TROMETHAMINE 15 MG/ML VIAL IV SCH ×2 (02:18→08:28)
[2023-04-04] MEDS: SODIUM CHLORIDE 0.9% 1000ML 1,000 ML IV SCH (04:34)
[2023-04-04] MEDS: ceFAZolin 2000MG 2,000 MG/15 ML SYR IV SCH (05:02)
[2023-04-04] MEDS: ACETAMINOPHEN 500 MG TAB PO SCH (05:02)
[2023-04-04] MEDS ORDERED: dexAMETHasone 4 MG TAB PO SCH (08:00)
[2023-04-04] MEDS: DOCUSATE SODIUM 100 MG CAP PO SCH (08:24)
[2023-04-04] MEDS: POTASSIUM CHLORIDE 10 MEQ TABCR PO SCH (08:26)
--- NOTE | 2023-04-04 08:45 | Orthopedic Progress Note ---
Date of Service April 04, 2023 Assessment & Plan (1) Status post reverse total replacement of left shoulder: Overall she is doing very well. She is not having much pain in the left shoulder. She will be seen by physical therapy today for ambulation and range of motion exercises. She can be discharged home later today. She will follow- up with orthopedics in 2 weeks. Douglas Aparicio was seen and examined at bedside this morning. Overall she is doing ve ry well. She is not having much pain in the left shoulder. She was able to get some sleep last night. She has no complaints.. Review of Systems All systems reviewed & are unremarkable except as noted in HPI & below. Physical Exam On physical examination of the left shoulder, the dressing is clean and dry. The nerve block is still in effect. She is wearing her sling as instructed.. Results & Data Results & Data Laboratory Results . Diagnostic Findings Postoperative x-rays of the left shoulder show the prosthesis to be in anatomic alignment without any evidence of fracture, desiccation, or loosening.. PG Care Time/CCT Total # of Minutes Spent Total Time Spent with Patient: Total time spent is greater than 50% in coordination of care (as documented) at patient's floor/unit and/or counseling patient: Coding Level of Care Code 82562 Post Operative Follow-Up Diagnoses Status post reverse total replacement of left shoulder Z96.612
--- NOTE | 2023-04-04 08:46 | Discharge Summary ---
Date of Service April 04, 2023 Admission HPI (Per Admitting) Alessandra is a pleasant 67-year-old female who has been dealing with chronic bilateral shoulder issues. 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 I did a right reverse shoulder arthroplasty on her 5 months ago in August 2022. She is starting to regain more motion with her right shoulder. Unfortunately, her left shoulder is now giving her increased issues. She has had the pseudoparalysis of her left shoulder for the last 2 months. She is having trouble doing the exercises with physical therapy. She cannot reach light switches anymore or do simple daily activities. X-rays and clinical examination been diagnostic for cuff tear arthropathy of the left shoulder. After failing conservative treatment, she has elected proceed with a left reverse shoulder arthroplasty. Admission Exam (Per Admitting) On physical examination of left shoulder, she only has about 20 degrees forward elevation 20 degrees of abduction. She has 2 out of 5 motor strength throughout.. Principal Diagnosis Same as "Discharge Diagnosis" noted below under Discharge Instructions. Discharge Exam On physical examination of the left shoulder, the dressing is clean and dry. The nerve block is still in effect. She is wearing her sling as instructed.. Discharge Data Procedures Performed Operation Date: 04/03/23 12:00 Actual Procedures p Left Reverse Total Shoulder Arthroplasty(Left) - Hilton Crespo DO Ordered Studies 04/03/23 05:00 US - OR guided needle placemen Routine Hospital Course (1) Status post reverse total replacement of left shoulder: On April 03, 2023 Alessandra arrived at [facility] and underwent a left reverse shoulder replacement without complication. She had a general anesthetic and a left interscalene nerve block. Postoperatively she was placed in a sling and transferred to the general orthopedic floors. Her hospital course was uneventful. On postop day #1, her vital signs were stable and her pain was well controlled. She was able to participate well with physical therapy doing ambulation and range of motion exercises. She was then discharged home. She will follow-up with orthopedics in 2 weeks. PG Care Time/CCT Total # of Minutes Spent Total Time Spent with Patient: Total time spent is greater than 50% in coordination of care (as documented) at patient's floor/unit and/or counseling patient: Discharge Plan Discharge Items Patient Disposition: Home - Home Health Services Reason For Visit: Left Shoulder Degenerative Joint Disease Discharge Diagnosis: Left reverse shoulder replacement Activity: As commented below Non-emergency contact: Surgeon Call non-emergency contact if: your wound has increased redness and your wound has increased drainage Follow-up/Referrals: Jeniffer Ashraf MD [Primary Care Provider] - Diet: Regular Addtl Attending Provider Instructions: Activity and Therapy Recommendations: * If you are using [facility] then therapy will be provided at your home until they feel you have accomplished all of your goals. * If you are using [facility] then Physical Therapy will be provided until they feel you are ready to start Outpatient Physical Therapy. * If you are not using home therapy then Outpatient Physical Therapy should start about 3-5 days from your day of surgery. Therapy will last about 8-12 weeks * Wear your sling for 3 weeks, unless otherwise instructed. You may remove your sling to shower and to dress, but otherwise, you should be in your sling at all times, including while sleeping * The shoulder replacement is very stable and you can use your hand while in the sling * You were shown a series of exercises in the hospital. Do these exercises daily including the exercises you were shown in physical therapy. Medications: * Narcotic You will likely be sent home from the hospital with a prescription for the narcotic pain medication that worked best throughout your stay. * Other medications may be prescribed for specific circumstances. If you have any questions, please call the office at . * Resume previous home medications unless otherwise instructed Dressing Care: Leave the Silverlon dressing in place for 7 days. After 7 days you may remove the dressing. If the incision is not draining then you may leave the becky open to air. If there is a little bit of drainage or if the becky are getting stuck on your clothing then cover the incision with a dry dressing. The becky will be removed at your 2 week follow-up appointment. Showering: You may shower with the Silverlon dressing in place. Do not let the shower spray hit the dressing directly. Pat the Silverlon dressing dry. If the dressing becomes wet underneath, then simply remove the dressing. Keep the incision dry until you are 7 days out from the day of surgery. After 7 days you may remove the Silverlon dressing and shower with the becky exposed. Let soapy water run over the becky and pat them dry. Do not scrub or soak the incision. Things To Watch For: * Drainage from the incision site that occurs more than one week after your surgery. * Increased redness at the incision site. * Fever above 102 degrees Fahrenheit. * Unusual chest pain or shortness of breath. * Call [facility] at with any of the above problems Follow-Up Visit: Follow-up with Dr. Crespo's PA (Hilton Mcintosh) 2-3 weeks after your day of surgery. He will remove your becky and answer any questions. If you have any additional questions or concerns, Dr Crespo is usually in the office at the same time and will be available An appointment was probably scheduled when you signed-up for surgery in the office. If you have any questions call More detailed instructions as well as Frequently Asked Questions were provided in a folder by our office when you signed-up for surgery. Please review these instructions when you get home. If you have any further questions or concerns, please feel free to call the office at [phone] Pending Studies at Discharge: No Stand-Alone Forms: My [facility] Medications and DC Order Prescriptions: Continued Combivent Respimat 20-100 mcg/actuation mist 1 puff inhalation QID PRN (Reason: shortness of breath or wheezing) Qty: 4 5RF Rx Instructions: space evenly during waking hours ascorbic acid (vitamin C) 1,000 mg tablet 1,000 mg PO QAM Humira(CF) Pen 40 mg/0.4 mL pen injector kit 40 mg SQ Q14D Rx Instructions: 40 mg subcut every 2 weeks; potassium chloride 10 mEq Tablet Extended Release 1 tab PO BID metoprolol succinate 25 mg Tablet Extended Release 24 Hr 37.5 mg PO HS Systane Gel 0.3 % Gel 1 dose OPB HS calcium citrate-vitamin D3 [Citracal + D Maximum] 315-250 mg-unit Tablet 1 tab PO QPM doxycycline hyclate 50 mg Tablet 50 mg PO QPM tramadol 50 mg tablet 50 mg PO Q8H PRN (Reason: Pain) Patient Comments: pt states she takes 1-2 tabs daily meloxicam 7.5 mg tablet 7.5 mg PO PRN PRN (Reason: Pain) prednisone 10 mg Tablet 10 mg PO QAM fluconazole 100 mg tablet 100 mg PO DAILY PRN (Reason: YEAST INFECTION) baclofen 10 mg Tablet 10 mg PO HS omeprazole 20 mg Capsule,Delayed Release(Dr/Ec) 20 mg PO QPM PRN (Reason: Acid Reflux) acetaminophen 500 mg Capsule 500 mg PO UD PRN (Reason: Pain) Patient Comments: USUALLY TAKES TWICE DAILY losartan 50 mg tablet 50 mg PO QAM amiloride 5 mg tablet 5 mg PO QAM timolol maleate 0.5 % drops 1 drp OPL QAM estradiol 1 mg tablet 0.5 mg PO UD Rx Instructions: Take 0.5 tab on Thursday, Thursday, Thursday, and Thursday. oxycodone-acetaminophen 5-325 mg tablet 1 tab PO Q6H PRN (Reason: pain) Qty: 20 0RF Admission Data Admit Date/Time: 04/03/23 13:43 Attending Provider: Hilton Crespo Admit Provider: Hilton Crespo Primary Care Provider: Jeniffer Ashraf
[2023-04-04] MEDS ORDERED: LOSARTAN POTASSIUM 50 MG TAB PO SCH (09:00)
[2023-04-04] MEDS ORDERED: aMILoride HCL 5 MG TAB PO SCH (09:00)
[2023-04-04] MEDS ORDERED: MULTIVITAMIN TAB PO SCH (09:00)
[2023-04-04] MEDS ORDERED: TIMOLOL MALEATE 0.5% OP SOLN 5 ML BTL OP SCH (09:00)
== END 2023-04-04 11:28 | disposition home health service (06) ==
LOC: ASU 10:00 → 3N 10:00

== ENCOUNTER 2023-12-21 07:04 | Observation (INO) ==
--- NOTE | 2023-11-17 10:28 | PAT Medication Instructions ---
Medication Instructions Date of Service November 17, 2023 Home Medications Medication Instructions Recorded ipratropium 20 mcg-albuterol 100 1 puff inhalation QID PRN 04/16/21 mcg/actuation mist for inhalation shortness of breath or wheezing #4 (Combivent Respimat) grams Medication List: artificial tears(hypromellose) 0.3 % eye gel (Systane Gel) 1 dose OPB HS calcium citrate 315 mg calcium-vitamin D3 6.25 mcg (250 unit) tablet (Citracal + Vitamin D Maximum) 1 tab PO QAM doxycycline hyclate 50 mg tablet 50 mg PO QDL metoprolol succinate 25 mg tablet,extended release 24 hr 37.5 mg PO QAM ascorbic acid (vitamin C) 1,000 mg tablet 1,000 mg PO QAM adalimumab 40 mg/0.4 mL subcutaneous pen kit (Humira(CF) Pen) 40 mg subcut Q14D prednisone 10 mg tablet 10 mg PO QAM tramadol 50 mg tablet 50 mg PO TID PRN Pain ipratropium 20 mcg-albuterol 100 mcg/actuation mist for inhalation (Combivent Respimat) 1 puff inhalation QID PRN shortness of breath or wheezing meloxicam 7.5 mg tablet 7.5 mg PO PRN PRN Pain acetaminophen 500 mg capsule 500 mg PO UD PRN Pain baclofen 10 mg tablet 20 mg PO HS fluconazole 100 mg tablet 100 mg PO UD PRN YEAST INFECTION omeprazole 20 mg capsule,delayed release 20 mg PO QPM PRN Acid Reflux amiloride 5 mg tablet 5 mg PO QAM estradiol 1 mg tablet 0 mg PO 4XWK losartan 50 mg tablet 75 mg PO QAM potassium chloride 10 mEq tablet,extended release 10 meq PO UD oxymetazoline 0.05 % nasal spray (Afrin (oxymetazoline)) 1 spray intranasal UD PRN Nasal Congestion polyethylene glycol 400 0.25 % eye drops (Blink Tears) 1 drp ophthalmic (eye) DAILY PRN Dry Eyes MEDICATION INSTRUCTIONS: Continue as directed doxycycline hyclate 50 mg tablet 50 mg PO QDL polyethylene glycol 400 0.25 % eye drops (Blink Tears) 1 drp ophthalmic (eye) DAILY PRN Dry Eyes estradiol 1 mg tablet 0 mg PO 4XWK oxymetazoline 0.05 % nasal spray (Afrin (oxymetazoline)) 1 spray intranasal UD PRN Nasal Congestion fluconazole 100 mg tablet 100 mg PO UD PRN YEAST INFECTION ASK your surgeon for instructions meloxicam 7.5 mg tablet 7.5 mg PO PRN PRN Pain DO NOT take the morning of surgery calcium citrate 315 mg calcium-vitamin D3 6.25 mcg (250 unit) tablet (Citracal + Vitamin D Maximum) 1 tab PO QAM losartan 50 mg tablet 75 mg PO QAM potassium chloride 10 mEq tablet,extended release 10 meq PO UD ascorbic acid (vitamin C) 1,000 mg tablet 1,000 mg PO QAM amiloride 5 mg tablet 5 mg PO QAM Take morning of surgery With a small sip of water, OTHERWISE NOTHING TO EAT OR DRINK AFTER MIDNIGHT: prednisone 10 mg tablet 10 mg PO QAM tramadol 50 mg tablet 50 mg PO TID PRN Pain ipratropium 20 mcg-albuterol 100 mcg/actuation mist for inhalation (Combivent Respimat) 1 puff inhalation QID PRN shortness of breath or wheezing acetaminophen 500 mg capsule 500 mg PO UD PRN Pain metoprolol succinate 25 mg tablet,extended release 24 hr 37.5 mg PO QAM Take evening before surgery baclofen 10 mg tablet 20 mg PO HS artificial tears(hypromellose) 0.3 % eye gel (Systane Gel) 1 dose OPB HS omeprazole 20 mg capsule,delayed release 20 mg PO QPM PRN Acid Reflux tramadol 50 mg tablet 50 mg PO TID PRN Pain ipratropium 20 mcg-albuterol 100 mcg/actuation mist for inhalation (Combivent Respimat) 1 puff inhalation QID PRN shortness of breath or wheezing acetaminophen 500 mg capsule 500 mg PO UD PRN Pain Other Notes CHECK WITH PRESCRIBER FOR INSTRUCTIONS: adalimumab 40 mg/0.4 mL subcutaneous pen kit (Humira(CF) Pen) 40 mg subcut Q14D If you have any questions please call us at [phone] or [phone] or [phone] or [phone]
--- NOTE | 2023-11-24 10:59 | Anesthesiology Consultation ---
Date of Service November 24, 2023 Assessment & Plan (1) Encounter for pre-operative examination: Plan - Case discussed in detail with Dr. Cheema who advised that patient will need a pre-operative evaluation with PCP and recommended obtaining 12/15/23 Dr. Partida office note if available prior to surgery. Patient aware and agreeable. Optimization form to be faxed to PCP. Surgeon's office made aware. - left arm restriction. - chronic daily steroid use: prednisone 10 mg daily. 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 She states that EKG stickers are okay to remain on for monitoring during surgery. H/o cellulitis from extended exposure to adhesive in the past. - IV team. - s/p right reverse TSA (08/29/22): Grade I view, Glidescope#3 "elective", ETT 7.0 + PNB at [facility]. Glidescope also utilized for 04/03/23 left TSA. - Outpatient joint assessment: Patient is currently scheduled for inpatient pathway. If re-evaluated and patient/surgeon requests outpatient pathway, patient is not recommended candidate for outpatient joint program from anesthesia standpoint. Chart Review Chart Review: Pending: Refer to Additional Notes / Consult section and Patient seen in Pre Admission Testing Teaching & Discussion Pre-Anesthesia Teaching/Discussion Notes: Instructed NPO after midnight before surgery, except medications with 15 cc of water. Medication instructions provided according to the PAT guidelines. History Surgery Operation Date: 12/21/23 09:10 Proposed Procedures p Right Total Knee Arthroplasty(Right) - Hilton Crespo, Height/Weight Height: 5 ft 4 in Weight: 111.5 kg Allergies Allergy/AdvReac Type Severity Reaction Status Date / Time adhesive Allergy Severe SKIN Verified 11/10/23 09:33 RASH/"severly allergic" bee venom protein (honey bee) Allergy Severe ANAPHYLAXIS Verified 11/10/23 09:33 bacitracin Allergy Unknown RASH Verified 11/10/23 09:33 AROUND FACE brimonidine Allergy Unknown CONTACT Verified 11/10/23 09:33 DERMATITIS cyclosporine Allergy Unknown CONTACT Verified 11/10/23 09:33 DERMATITIS spironolactone Allergy Unknown Hives Verified 11/10/23 09:33 terfenadine Allergy Unknown EYE Verified 11/10/23 09:33 SWELLING timolol Allergy Unknown contact Verified 11/24/23 11:14 dermatitis tobramycin Allergy Unknown EYE Verified 11/10/23 09:33 SWELLING cefaclor AdvReac Unknown MOUTH Verified 11/10/23 09:33 ULCERS- CAN TAKE KEFLEX W/O PROBLEM Medications Home Medications Medication Instructions Recorded Confirmed Last Taken artificial tears(hypromellose) 0.3 1 dose OPB HS 07/30/18 11/10/23 04/02/23 22:00 % eye gel (Systane Gel) calcium citrate 315 mg 1 tab PO QAM 07/30/18 11/10/23 04/02/23 08:00 calcium-vitamin D3 6.25 mcg (250 unit) tablet (Citracal + Vitamin D Maximum) doxycycline hyclate 50 mg tablet 50 mg PO QDL 07/30/18 11/10/23 04/02/23 12:00 metoprolol succinate 25 mg 37.5 mg PO QAM 07/30/18 11/10/23 04/02/23 22:00 tablet,extended release 24 hr ascorbic acid (vitamin C) 1,000 mg 1,000 mg PO QAM 07/18/19 11/10/23 04/02/23 08:00 tablet adalimumab 40 mg/0.4 mL 40 mg subcut Q14D 01/30/20 11/10/23 03/18/23 subcutaneous pen kit (Humira(CF) Pen) prednisone 10 mg tablet 10 mg PO QAM 05/22/20 11/10/23 04/03/23 06:00 tramadol 50 mg tablet 50 mg PO TID PRN Pain 04/02/21 11/10/23 04/03/23 06:00 ipratropium 20 mcg-albuterol 100 1 puff inhalation QID PRN 04/16/21 11/10/23 04/01/23 mcg/actuation mist for inhalation shortness of breath or wheezing #4 (Combivent Respimat) grams meloxicam 7.5 mg tablet 7.5 mg PO PRN PRN Pain 06/02/22 11/10/23 03/26/23 acetaminophen 500 mg capsule 500 mg PO UD PRN Pain 07/22/22 11/10/23 04/03/23 07:00 baclofen 10 mg tablet 20 mg PO HS 07/22/22 11/10/23 04/02/23 22:00 fluconazole 100 mg tablet 100 mg PO UD PRN YEAST INFECTION 07/22/22 11/10/23 05/27/22 omeprazole 20 mg capsule,delayed 20 mg PO QPM PRN Acid Reflux 07/22/22 11/10/23 04/01/23 08:00 release amiloride 5 mg tablet 5 mg PO QAM 02/19/23 11/10/23 04/02/23 08:00 estradiol 1 mg tablet 0 mg PO 4XWK 02/19/23 11/10/23 04/01/23 losartan 50 mg tablet 75 mg PO QAM 02/19/23 11/10/23 04/02/23 08:00 oxymetazoline 0.05 % nasal spray 1 spray intranasal UD PRN Nasal 11/10/23 11/10/23 Unknown (Afrin (oxymetazoline)) Congestion polyethylene glycol 400 0.25 % eye 1 drp ophthalmic (eye) DAILY PRN 11/10/23 11/10/23 Unknown drops (Blink Tears) Dry Eyes Past Medical History Medical History Contact dermatitis Difficult intravenous access Limb alert care status Cirrhosis of liver Chronic steroid use Chronic asthmatic bronchitis Lymphedema Endometriosis Scoliosis Kidney stones Irritable bowel syndrome Cancer Glaucoma Dry eye syndrome Transient ischemic attack (TIA) Hypertension Hyperlipidemia Asthma Sarcoidosis GERD (gastroesophageal reflux disease) Psoriatic arthropathy Patient denies h/o seizures, heart attack, heart failure, DM, blood clots/DVTs or blood transfusions. Exercise / Class Metabolic Activity III < 4 Walking/Shop/Light housework (ambulates with cane, shortness of breath with usual activities-ongoing x several yrs-worsening with knee pain and reduced physical activity; denies chest discomfort) Past Family History Family History Father Renal failure Cancer Mother Acute subdural hematoma Brother Family hx colonic polyps Other No family history of adverse response to anesthesia Past Surgical History Surgical History H/O hysterectomy with unilateral oophorectomy History of reverse total replacement of left shoulder joint History of total replacement of right shoulder joint History of Mohs surgery for squamous cell carcinoma of skin History of amputation of toe History of esophagogastroduodenoscopy (EGD) History of liver biopsy S/P parathyroidectomy History of anesthesia reaction History of laparoscopy History of hand surgery History of shoulder surgery History of foot surgery History of cystoscopy History of colonoscopy History of appendectomy History of tooth extraction History of adenoidectomy History of tonsillectomy H/O eye surgery H/O chest tube placement History of bronchoscopy Past Anesthesia History No Family Hx of Anesthesia Complications and Other (see above) History of PONV No Hx of PONV and No Hx of Motion Sickness Social History Smoking Status: Never smoker Do You Dip or Chew Tobacco: No Hx Alcohol Use: No Hx Substance Use: No substance use type: does not use Review of Systems Patient denies chest pain, snoring, witnessed apneas, fever, chills, cough, wheezing, or palpitations. Physical Exam Vital Signs Vitals BP 122/80 P 79 TEMP 97.8 SP02 99% on RA RESP 17 Physical Patient resting comfortably in chair in no acute distress, alert and oriented, responding appropriately throughout visit Full cervical extension range of motion without pain TMD 3.5 finger breadths Mallampati Score 2 Dentition: several crowns, denies chipped or loose teeth, caps, implants or bridges Lungs: normal respiratory effort. Good air movement, clear throughout to auscultation, no adventitious breath sounds Cardiac: regular rate and rhythm, no murmurs noted Carotid arteries: negative bruit bilat Lab Results Anesthesia Preop Results Results Anesthesia Widget: WBC 6.50 K/ul (4.8-10.8) 11/24/23 Hgb 14.8 g/dl (12.0-16.0) 11/24/23 Hct 45.5 % (37.0-47.0) 11/24/23 Plt 185 K/uL (130-400) 11/24/23 PT 10.5 Seconds (9.0-12.0) 11/24/23 PTT 24 Seconds (21-31) 11/24/23 INR 1.0 (0.9-1.1) 11/24/23 Blood Type A Positive 11/24/23 Antibody Screen NEGATIVE 11/24/23 Testing Laboratory Results 11/13/23 SODIUM: 141 POTASSIUM: 4.6 CHLORIDE: 104 CO2: 24 BUN: 20 CREATININE: 1 GLUCOSE: 93 Electrocardiogram Date: 11/24/23 NSR, rate 75 bpm Chest X-Ray Date: 03/04/23 No acute cardiopulmonary findings. No change in appearance of the chest.
[~2023-12-21 07:04] MED LIST changes: -ACETAMINOPHEN 500 MG TAB PO SCH; -GABAPENTIN 300 MG CAP PO SCH; -LR 15ML/HR IV SCH; -LR 60ML/HR IV SCH; -ORTHO JOINT MIX INFIL SCH; +ROPIVACAINE 0.5% 5 MG/ML 30 ML VIAL ONE; -TRANEXAMIC ACID 1,000 MG **IV Intra-op IV SCH; -TRANEXAMIC ACID 1,000 MG **IV Pre-op IV SCH; -ceFAZolin 2000MG 2,000 MG/15 ML SYR IV SCH; -dexAMETHasone 4 MG TAB PO SCH
--- OUTSIDE RECORDS SUMMARY | 2023-12-21 07:09 | External Medical Summary | Summary of Care ---
Author Name Unknown Organization [facility] Address [address] [place] [address] Phone [phone] Care Team Providers Care Right Of Way Clearer Name Role Phone Jeniffer Ashraf MD Primary Care Provider [phone] Reason for Visit * Reason Comments Physical-Exam The pt stated she is here for pre-op physical r/t an upcoming R knee replacement at [facility] Encounter Details Date Type Department Care Team (Late st Contact Info) Description 12/02/2023 11:00 AM EST Office Visit General Internal Medicine [facility] [address] [facility] [place] [address] Nimco Reyes MD [address] [place] [address] Preoperative general physical examination*; Simple chronic bronchitis (HCC); Body mass index (BMI) of 40.0 to 44.9 in adult (HCC) Allergies Active Allergy Reactions Criticality Noted Date Comments Adhesive Tape 09/21/2009 Aminoglycosides Low 04/20/2003 tobrex eye gtts-red eyes Red eyes Bee Venom Anaphylaxis High 09/08/2018 Carboxymethylcellulose Low 04/20/2003 alphagan eye gtts-red eyes Eye redness Cefaclor Low 04/20/2003 mouth ulcers Mouth ulcers Lisinopril Cough 11/18/2022 Nsaids Medium 04/20/2003 motrin-blurred vision Other reaction(s): Visual Disturbance Other - Drugs 04/20/2003 feldine-hives Other Allergy (See Comments) 015 Bacitracin eye ointment Spironolactone 04/20/2003 hives documented as of this encounter (statuses as of 12/17/2023) Medications Medication Sig Dispensed Refills Start Date End Date Status VITAMIN C 500 MG PO TABS 1 tab daily 0 Active nystatin-triamcino lone (MYCOLOG) ointment Apply topically to affected area 2 times a day. Apply to rectum 30 g 0 05/17/2015 Active amoxicillin (AMOXIL) 500 MG Capsule Prior to dental work 0 03/26/2017 Active Multiple Minerals-Vitamins (CITRACAL PLUS) Tablet Take 1 Tablet by mouth daily. 0 04/27/2017 Active loperamide (IMODIUM) 2 MG Capsule Take 1 Capsule by mouth 4 times a day as needed for Diarrhea. 30 Cap 0 04/27/2017 Active Polyethyl Glycol-Propyl Glycol 0.4-0.3 % Ophthalmic Solution Instill 2 Drops into both eyes as needed for Dry eyes. 0 Active acetaminophen (TYLENOL) 500 MG Tablet Take 2 Tablets by mouth 2 times a day as needed for Pain. 100 Tab 0 07/07/2017 Active estradiol (ESTRACE) 1 MG Tablet Take 0.5 Tablets by mouth. 0.5 four days per week 0 07/07/2017 Active omeprazole (PRILOSEC) 20 MG CPDRIndications:Ps oriatic arthropathy (HCC) Take 1 Cap by mouth daily. 90 Cap 1 07/09/2017 Active fluconazole (DIFLUCAN) 100 MG Tablet 0 11/03/2017 Active nystatin 475586 UNIT/GM cream APPLY 2-3 TIMES DAILY TO AFFECTED AREA(S). 3 10/29/2017 Active ipratropium-albute rol (COMBIVENT RESPIMAT) 20-100 MCG/ACT InhalerIndications :Sarcoidosis Inhale 1 Puff by mouth 4 times a day as needed for Wheezing. 1 Inhaler 11 11/30/2018 Active Diclofenac Sodium 1 % gel APPLY 2 G TOPICALLY TO AFFECTED AREA 4 TIMES A DAY NEEDED FOR PAIN. NEDEED 300 g 3 01/06/2019 Active magic swizzle (MAGIC MOUTHWASH) 15 MLIndications:Oral ulcer Take 30 mL by mouth 4 times a day. Coat mouth ulcers 120 mL 1 10/04/2019 Active Ergocalciferol 1.25 MG (66175 UT) Oral Capsule (Vitamin D2(Drisdol)) Pt takes this daily, not sure the dose - not this high of a dose , thinks approx 1000mg daily 0 Active Doxycycline Hyclate 50 MG Oral Capsule (Vibramycin)Indica tions:Contact dermatitis, unspecified contact dermatitis type, unspecified trigger Take 1 Capsule by mouth in the morning. 90 Capsule 3 03/24/2023 Active EPINEPHrine 0.3 MG/0.3ML Injection Solution Auto-injector (Autoinjector)Rosanne cations:Toxic effect of venom of bees, unintentional, sequela As needed 1 Each 11 03/24/2023 Active Baclofen 10 MG Oral Tablet (Lioresal)Indicati ons:Strain of neck muscle, initial encounter TAKE ONE TABLET BY MOUTH TWICE A DAY NEEDED FOR MUSCLE SPASM 180 Tablet 1 04/28/2023 Active Metoprolol Succinate ER 25 MG Oral Tablet Extended Release 24 Hour (toPROL XL)Indications:HTN , goal below 140/90 Take 1.5 Tablets by mouth in the morning. 135 Tablet 3 05/14/2023 Active Humira Pen 40 MG/0.4ML Subcutaneous Pen-injector Kit (Adalimumab) Inject 0.4 mL under the skin every 14 days. 6 Each 3 08/29/2023 Active aMILoride HCl 5 MG Oral Tablet (Midamor)Indicatio ns:HTN, goal below 140/90 Take 1 Tablet by mouth in the morning. 90 Tablet 3 09/24/2023 Active predniSONE 10 MG Oral Tablet (Deltasone) TAKE ONE TABLET BY MOUTH EVERY DAY IN THE MORNING 90 Tablet 1 11/19/2023 Active traMADol HCl 50 MG Oral TabletIndications: Psoriatic arthropathy (HCC) Take 1 Tablet by mouth every 8 hours as needed for Pain, Severe. Due 11/29/23 90 Tablet 0 11/27/2023 Active Meloxicam 7.5 MG Oral Tablet (Mobic) TAKE ONE TABLET BY MOUTH EVERY MORNING NEEDED 90 Tablet 1 07/21/2023 4 Discontinued Potassium Chloride ER 10 MEQ Oral Tablet Extended ReleaseIndications :HTN, goal below 140/90 Take 1 Tablet by mouth in the morning. HOLD UNTIL NEXT LABS. 0 09/24/2023 4 Discontinued Losartan Potassium 50 MG Oral Tablet (Cozaar)Indication s:HTN, goal below 140/90 Take 1.5 Tablets by mouth in the morning. 135 Tablet 3 11/04/2023 4 Discontinued documented as of this encounter (statuses as of 12/17/2023) Active Problems Problem Noted Date Diagnosed Date Chronic diarrhea 09/24/2022 Statin intolerance 03/13/2022 Trochanteric bursitis of left hip 02/10/2022 Acquired absence of other toe(s), unspecified si de 04/05/2021 Chronic kidney disease, stage 3a 03/26/2021 Overview: Per CKD protocol Body mass index (BMI) of 40.0 to 44.9 in adult 1 10/20/2019 Overview: Per Obesity protocol Cirrhosis of liver 11/29/2019 Controlled substance agreement signed 11/29/2019 Simple chronic bronchitis 05/31/2019 Arthritis of carpometacarpal (CMC) joint of left thumb 05/09/2019 Generalized osteoarthritis 01/04/2019 Pure hypercholesterolemia 07/07/2017 History of TIA (transient ischemic attack) 05/25 HTN, goal below 140/90 05/25/2017 History of fracture of right hip 04/27/2017 Lymphedema of both lower extremities 04/27/2017 Encounter for long-term (current) use of medicat ions 08/23/2015 Psoriatic arthropathy 07/21/2009 ADVANCE DIRECTIVE INFORMATION 06/25/2009 Overview: No, Advance Directive brochure offered , patient declined. No, Advance Directive brochure offered , patient declined. Migraine H/O hyperparathyroidism Sarcoidosis documented as of this encounter (statuses as of 12/17/2023) Resolved Problems Problem Noted Date Diagnosed Date Resolved Date Cellulitis of left hand 10/03/202209/12 Asthma with severity to be determined 07/21/2009 04/27/2017 Overview: ICD-10 update of inactive term Iatrogenic pneumothorax 07/18/200904/11 Abnormal mammogram 04/20/2003 7 Contact dermatitis 7 Other lymphedema 07/07/2017 Osteoarthrosis, unspecified whether generalized or localized, ankle and foot 04/27/2017 documented as of this encounter (statuses as of 12/17/2023) Immunizations Name Administration Dates Next Due COVID-19 mRNA, LNP-s, No Pre serve, 2-Dose Series (Moderna) 07/29/2021,11/24/2020,11/03/2020 COVID-19, MRNA-LNP, 23-24, P F, 50 MCG/0.5 mL, 12 YRS AND ABOVE, IM (MODERNA-Spikevax) 11/05/2023 Covid-19, Mrna, Lnp-s, Pf, B ivalent, 30 Mcg, IM, 12 yrs and above (Pfizer) 07/28/2022 H1N1 2009 Influenza, IM 08/13/2009 HepA Inact/HepB Recomb>=18yrs old 09/20/2020,05/2020,03/19/2020 PPD 06/24/2017 Pneumococcal Conjugate Vacc, 13 Valent (Prevnar) 10/04/2019 Pneumococcal Polysaccharide PPV23 (Pneumovax) 09/20/2020,07/12/2014 Seasonal Influenza Virus Vac cine, Unspecified Formulation 07/25/2019,08/12/2018,07/22/2018,06/16,07/27/2009 Seasonal Influenza, PF, 6 M & above, IM , (FluLaval or Fluzone) 06/16/2017 Seasonal Influenza, Quadriva lent Hd (Fluzone Hd) 08/14/2023,07/15/2022,08/19/2021 Seasonal Influenza, Quadrivalent, ID 07/15/2022 Seasonal Influenza, Quadriva lent, No Preserve, Mdck 07/22/2018 Seasonal Influenza, Split, I IV3, With Preserve, Inj 07/23/2020,07/25/2019,07/27/2009 TDAP (age 11 and older)(Adacel) 05/31/2013 Zoster Vaccine Recombinant (Shingrix) 07/28/2022 ,04/15/2022 documented as of this encounter Social History Tobacco Use Types Packs/Day Years Used Date Smoking Tobacco: Never Smokeless Tobacco: Never Alcohol Use Standard Drinks/Week Comments No 0 (1 standard drink = 0.6 oz pur e alcohol) Occ PHQ-2 Answer Date Recorded PHQ Adult Total Score 0 12/02/2023 Hunger Vital Sign Answer Date Recorded Within the past 12 months, y ou worried that your food would run out before you got the money to buy more. Never true 07/01/20 22 Within the past 12 months, t he food you bought just didn't last and you didn't have money to get more. Never true 07/01/2022 Sex and Gender Information Value Date Recorded Sex Assigned at Female 05/31/2019 7:30 AM EDT Gender Identity Female 05/31/2019 7:30 AM EDT Sexual Orientation Straight 05/31/2019 7: 30 AM EDT Job Start Date Occupation Industry Not on file Not on file Not on file documented as of this encounter Last Filed Vital Signs Vital Sign Reading Time Taken Comments Blood Pressure 138/82 12/02/2023 10:58 AM EST Pulse 85 12/02/2023 10:58 AM EST Temperature 36.8 C (98.3 F) 12/02/2023 1 0:58 AM EST Respiratory Rate - - Oxygen Saturation 98% 12/02/2023 10: 58 AM EST Inhaled Oxygen Concentration - - Weight 112.8 kg (248 lb 11.2 oz) 2023 10:58 AM EST Height - - Body Mass Index 44.06 09/24/2023 10:31 AM EST documented in this encounter Progress Notes * Nimco Reyes MD - 12/02/2023 11:06 AM EST Images from the original note were not included. Pre-Operative Medical Evaluation Procedure Information Type of Surgery: Right knee replacement Referring Physician / Surgeon: Dr. [place] Aguilar. Date of procedure: 12/21/23 Brief History of Present Illness: Pt with medical problems as listed below has worsening BL knee pain, worse on Rt side, has hx of psoriatic arthrtis. Have done PT All system negative except as per hpi. Medical History Problem List: Cellulitis of left hand (10/03/2022) Chronic diarrhea (09/24/2022) Statin intolerance (03/13/2022) Trochanteric bursitis of left hip (02/10/2022) Acquired absence of other toe(s), unspecified side (HCC) (04/05/2021) Chronic kidney disease, stage 3a (HCC) (03/26/2021) Body mass index (BMI) of 40.0 to 44.9 in adult (HCC) (08/20/2020) Cirrhosis of liver (HCC) (11/29/2019) Controlled substance agreement signed (11/29/2019) Simple chronic bronchitis (HCC) (05/31/2019) Arthritis of carpometacarpal (CMC) joint of left thumb (05/09/2019) Generalized osteoarthritis (01/04/2019) Pure hypercholesterolemia (07/07/2017) History of TIA (transient ischemic attack) (05/25/2017) HTN, goal below 140/90 (05/25/2017) History of fracture of right hip (04/27/2017) Lymphedema of both lower extremities (04/27/2017) Encounter for long-term (current) use of medications (08/23/2015) Psoriatic arthropathy (HCC) (07/21/2009) Asthma with severity to be determined (07/21/2009) Iatrogenic pneumothorax (07/18/2009) ADVANCE DIRECTIVE INFORMATION (06/25/2009) Abnormal mammogram (04/20/2003) Migraine Contact dermatitis Other lymphedema Osteoarthrosis, unspecified whether generalized or localized, ankle and foot H/O hyperparathyroidism Sarcoidosis ([facility]) Current Medications traMADol HCl 50 MG Oral Tablet, 50 mg, Oral, Q8H PRN predniSONE 10 MG Oral Tablet (Deltasone), TAKE ONE TABLET BY MOUTH EVERY DAY IN THE MORNING Losartan Potassium 50 MG Oral Tablet (Cozaar), 75 mg, Oral, Daily(AM) aMILoride HCl 5 MG Oral Tablet (Midamor), 5 mg, Oral, Daily(AM) Humira Pen 40 MG/0.4ML Subcutaneous Pen-injector Kit (Adalimumab), 40 mg, Subcutaneous, Q2 Weeks Meloxicam 7.5 MG Oral Tablet (Mobic), TAKE ONE TABLET BY MOUTH EVERY MORNING NEEDED Metoprolol Succinate ER 25 MG Oral Tablet Extended Release 24 Hour (toPROL XL), 37.5 mg, Oral, Daily(AM) Baclofen 10 MG Oral Tablet (Lioresal), TAKE ONE TABLET BY MOUTH TWICE A DAY NEEDED FOR MUSCLE SPASM Doxycycline Hyclate 50 MG Oral Capsule (Vibramycin), 50 mg, Oral, Daily(AM) EPINEPHrine 0.3 MG/0.3ML Injection Solution Auto-injector (Autoinjector), As needed Ergocalciferol 1.25 MG (97728 UT) Oral Capsule (Vitamin D2(Drisdol)), Pt takes this daily, not surethe dose - not this high of a dose , thinks approx 1000mg daily magic swizzle (MAGIC MOUTHWASH) 15 ML, 30 mL, Oral, QID(AM/NOON/PM/HS) Diclofenac Sodium 1 % gel, 2 g, Topical, QID PRN ipratropium-albuterol (COMBIVENT RESPIMAT) 20-100 MCG/ACT Inhaler, 1 Puff, Inhalation, QID PRN fluconazole (DIFLUCAN) 100 MG Tablet, nystatin 936697 UNIT/GM cream, APPLY 2-3 TIMES DAILY TO AFFECTED AREA(S). omeprazole (PRILOSEC) 20 MG CPDR, 20 mg, Oral, Daily(AM) acetaminophen (TYLENOL) 500 MG Tablet, 1,000 mg, Oral, BID PRN estradiol (ESTRACE) 1 MG Tablet, Take 0.5 Tablets by mouth. 0.5 four days per week Polyethyl Glycol-Propyl Glycol 0.4-0.3 % Ophthalmic Solution, 2 Drop, Both eyes, PRN amoxicillin (AMOXIL) 500 MG Capsule, Prior to dental work loperamide (IMODIUM) 2 MG Capsule, 2 mg, Oral, QID PRN Multiple Minerals-Vitamins (CITRACAL PLUS) Tablet, 1 Tablet, Oral, Daily(AM) nystatin-triamcinolone (MYCOLOG) ointment, Apply topically to affected area 2 times a day. Apply torectum VITAMIN C 500 MG PO TABS, 1 tab daily Allergies: Bee venom, Nsaids, Adhesive tape, Lisinopril, Other - drugs, Other allergy (see comments), Spironolactone, Aminoglycosides, Carboxymethylcellulose, and Cefaclor Past Medical History: has a past medical history of Contact dermatitis, GERD (gastroesophageal reflux disease), H/O hyperparathyroidism, Lymphedema of both lower extremities (04/27/2017), Migraine, Osteoarthrosis, unspecified whether generalized or localized, ankle and foot, Other lymphedema, Psoriatic arthropathy (HCC) (1988), Sarcoidosis, and Simple chronic bronchitis (HCC) (05/31/2019). Past Surgical History: has a past surgical history that includes Total Abd Hysterectomy w/wo Removal of Tube(s) (1995); appendectomy w/other procedure (1970); re-explore parathyroids (1987); repair ruptured rotator cuff, chron; foot/toe surgery nec; Colonoscopy, Diagnostic (Rectum) (08/04/2018); amputation of toe (Right,10/19/2020); EGD, Flexible, Diagnostic (05/29/2020); and IR Biopsy (12/19/2019). Social History: reports that she has never smoked. She has never used smokeless tobacco. She reports that she does not drink alcohol and does not use drugs. Family History: family history includes Arthritis in her father; Cancer in her father; Other in her brother and mother. Anesthesia History Type of Anesthesia: General Endotracheal Anesthesia reaction: No History of surgical complications: None Personal history of venous thromboembolic disease: None Physical Exam Vitals: 12/02/23 1058 Temp: 36.8 C (98.3 F) Pulse: 85 SpO2: 98% BP: 138/82 Blood pressure 138/82, pulse 85, temperature 36.8 C (98.3 F), weight 112.8 kg (248 lb 11.2 oz),SpO2 98%, not currently . HEENT: PERRLA, EOMI, anicteric sclera, b/l tympanic membrane is pearly white, no erythema, no pharyngeal erythema, no lymphadenopathy, neck supple CVS: RRR, no murmurs, rubs or gallops, s1 s 2normal. RESP: clear to auscultation, no wheezing or crackles ABD: soft, NT/ND EXT: no edema, cyanosis, peripheral pulses palpable bilaterally No large joint swelling, no redness, range of motion normal. Skin normal. Gait normal. Mood stable No focal weakness ROM Rt knee painful. Labs reviewed and are significant for: normal labs Hb, PT/INR, CMP EKG by my review is significant for: NSR Surgical Risk Scoring Revised Cardiac Risk Index (RCRI) High-risk type of surgery (examples include vascular and any open intraperitoneal or intrathoracic procedures): 0=No History of ischemic heart disease (history of myocardial infarction or positive exercise test, current compliant of chest pain considered to be secondary to myocardia ischemia, use of nitrate therapy, or ECG with pathological Q waves; do not count prior coronary revascularization procedure unless one of the other criteria for ischemic heart disease is present): 0=No History of heart failure: 0=No History of cerebrovascular disease: 0=No Diabetes mellitus requiring treatment with insulin: 0=No Preoperative serum creatinine >2.0 mg/dL (177 micromol/L): 0=No Pt has revised cardiac index score of: No Risk Factors- 0.4% (95% CI: 0.1-0.8) Screening for Obstructive Sleep Apnea (STOP-BANG) Do you Snore loudly? 0=No Do you often feel Tired, Fatigued, or Sleep? 0=No Has anyone Observed you Stop Breathing or Choking/Gasping during sleep? 0=No Do you have or are you being treated for High Blood Pressure? 1=Yes BMI over 35? 1=Yes Age older than 50? 1=Yes Neck size large? (For males - 17 inches or larger, For females - 16 inches or larger) 0=No Male? 0=No Score 0-2:low risk DARRIN, 3-4: intermediate risk of DARRIN, 5-8: high risk DARRIN 3 Assessment and Plan Preoperative general physical examination (Primary) Clinically stable, intermediate risk for sxal complications. Hold Mobic, ASA, Nsaids 5 to 7 days before surgery. NPO after midnight. Simple chronic bronchitis (HCC) Stable. Body mass index (BMI) of 40.0 to 44.9 in adult (HCC) Functional Assessment They are able to walk up a flight of stairs, walk two blocks at a moderate pace, do heavy house work like vacuuming, and grocery shop. The patient's functional status is good (greater than 4 METS). 1 MET: 4 METs: 4-10 METs: Can take care of self, such as eat, dress or use the toilet. Can walk to block or go up a flight of steps. Can do heavy house work. Surgical Risk Assessment Patient is indeterminate medical risk for the listed procedure. Medication adjustments: Continue bp meds perioperatively. Avoid any ASA, Mobic, Nsaids a week prior to the procedure. Additional consults or testing: None documented in this encounter Nursing Notes * Pillo Perez LPN - 12/02/2023 10:58 AM EST Chief Complaint Patient presents with Physical-Exam The pt stated she is here for pre-op physical r/t an upcoming R knee replacement at [facility] documented in this encounter Plan of Treatment Upcoming Encounters Date Type Department Care Team (Late st Contact Info) Description 03/25/2024 9:40 AM EDT Office Visit General Internal Medicine [facility] [address] [facility] [place], [place] [address] Jeniffer Ashraf MD [address] [facility] [place] [address] 05/19/2024 10:40 AM EDT Office Visit Rheumatology [facility] [address] [place] [address] Hilton Bhatt MD [address] [place] [address] Scheduled Procedures Name Priority Associated Diagnoses Date/Ti me COLONOSCOPY FLEXIBLE PROXIMA L DIAGNOSTIC Recall Encounter for screening colonoscopy Health Maintenance Due Date Last Done Comments Cologuard 2001 Sigmoidoscopy 2001 Fecal Occult Blood Test 09/26/2017 09/26/2016 DTaP,Tdap,and Td Vaccines (2 - Td or Tdap) 05/31/2023 05/31/2013 Mammogram 01/20/2024 01/19/2023, 01/10, 10/09/2021, Additional history exists GFR 05/13/2024 11/13/2023, 07/13, 12/09/2022, Additional history exists Albumin/Creatinine Ratio 09/24/2024 023, 12/09/2022, 04/16/2021 CKD PHOS USE SMARTSET [id number] 11/13/2024 02/11/2023, 08/04/2022, 04/16/2021 CKD HGB USE SMARTSET 96296 11/24/202411/24, 08/05/2023, 08/05/2023, Additional history exists Depression Screening 12/02/2024 12/02/2023 O2 ASSESSMENT COMPLETED IN PAST YEAR FOR COPD 12/02/2024 12/02/2023 Pneumococcal Vaccine: 65+ Years (4 of 4 - PPSV23 or PCV20) 09/20/2025 09/20/2020, 10/04/2019, 07/12/2014 Diabetes Screening 11/13/2026 11/13/2023, 1 , 12/09/2022, Additional history exists Colonoscopy 08/04/2028 08/04/2018 Colorectal Cancer Screening 08/04/2028 Lipid Panel 11/13/2028 11/13/2023, 11/13, 10/29/2021, Additional history exists DXA Scan 11/30/2030 11/30/2023, 12/2021, 11/14/2021, Additional history exists Hepatitis B Completed 09/20/2020, 05/2020, 03/19/2020 Zoster Vaccines Completed 07/28/2022, 04/15/2022 Influenza Vaccine (FLU shot) Completed 12/2022, 07/15/2022, 07/15/2022, Additional history exists COVID-19 Vaccine Completed 11/05/2023, , 07/29/2021, Additional history exists GARDASIL-HPV IMMUNIZATION SERIES Aged Out No longer eligible based on patient's age to complete this topic MENINGOCOCCAL (MENACTRA/MENVEO) Aged Out No longer eligible based on patient's age to complete this topic documented as of this encounter Medical Devices Not on filedocumented as of this encounter Visit Diagnoses Diagnosis Preoperative general physical examination- Primary Other specified pre-operative examination Simple chronic bronchitis (HCC) Simple chronic bronchitis Body mass index (BMI) of 40.0 to 44.9 in adult (HCC) documented in this encounter Advance Directives Latest Code Status on File Code Status Date Activated Date Inactivated Comments Full Code 07/18/2009 3:48 PM 07/21/2009 4:16 PM This order reflects the patients wishes and were consensually agreed upon. Question Answer Comments Discussion of Advance Directives occurred with: Patient/Family Does the patient have a Living Will? No Does the patient have Health Care Power of Golf Ball Cover Treater? No Care Teams Right Of Way Clearer Relationship Specialty Start Date End Date Jeniffer Ashraf MD [address] [place] [address], [place] [address] PCP - General Internal Medicine 08/08/21 documented as of this encounter
--- OUTSIDE RECORDS SUMMARY | 2023-12-21 07:09 | External Medical Summary | Summary of Care ---
Author Name Unknown Organization [facility] Address [address] [place] [address] Phone [phone] Care Team Providers Care Sales Utility Representative Name Role Phone Jeniffer Ashraf MD Primary Care Provider [phone] Reason for Visit * Reason Comments Physical-Exam The pt stated she is here for pre-op physical r/t an upcoming R knee replacement at [facility] Encounter Details Date Type Department Care Team (Late st Contact Info) Description 12/02/2023 11:00 AM EST Office Visit General Internal Medicine [facility] [address] [facility] [place] [address] Nimco Reyes MD 200 [facility] [place] [address] Preoperative general physical examination*; Simple chronic bronchitis [...] 100 MG Tablet 0 11/03/2017 Active nystatin 105850 UNIT/GM cream APPLY 2-3 TIMES DAILY TO [...] mL 1 10/04/2019 Active Ergocalciferol 1.25 MG (04741 UT) Oral Capsule (Vitamin D2(Drisdol)) Pt takes [...] localized, ankle and foot H/O hyperparathyroidism Sarcoidosis ([facility]) Current Medications traMADol HCl 50 MG Oral [...] Auto-injector (Autoinjector), As needed Ergocalciferol 1.25 MG (00420 UT) Oral Capsule (Vitamin D2(Drisdol)), Pt takes this daily, not surethe dose - not this high of a dose , thinks approx 1000mg daily magic swizzle (MAGIC MOUTHWASH) 15 ML, 30 mL, Oral, QID(AM/NOON/PM/HS) Diclofenac Sodium 1 % gel, 2 g, Topical, QID PRN ipratropium-albuterol (COMBIVENT RESPIMAT) 20-100 MCG/ACT Inhaler, 1 Puff, Inhalation, QID PRN fluconazole (DIFLUCAN) 100 MG Tablet, nystatin 091608 UNIT/GM cream, APPLY 2-3 TIMES DAILY TO [...] r/t an upcoming R knee replacement at [facility] documented in this encounter Plan of Treatment Upcoming Encounters Date Type Department Care Team (Late st Contact Info) Description 03/25/2024 9:40 AM EDT Office Visit General Internal Medicine [facility] 200 [facility] [place], [place] [address] Jeniffer sAhraf MD [address] [facility] [place] [address] 05/19/2024 10:40 AM EDT Office Visit Rheumatology [facility] [address] [place] [address] Hilton Bhatt MD [address] [place] [address] Scheduled Procedures Name Priority Associated Diagnoses Date/Ti [...] 023, 12/09/2022, 04/16/2021 CKD PHOS USE SMARTSET [id number] 11/13/2024 02/11/2023, 08/04/2022, 04/16/2021 CKD HGB USE SMARTSET 85200 11/24/202411/24, 08/05/2023, 08/05/2023, Additional history exists Depression [...] the patient have Health Care Power of Egg Separator? No Care Teams Sales Utility Representative Relationship Specialty Start Date End Date Jeniffer Ashraf MD [address] [place] [address], [place] [address] PCP - General Internal Medicine 08/08/21 documented as of this encounter
--- OUTSIDE RECORDS SUMMARY | 2023-12-21 07:09 | External Medical Summary | Summary of Care ---
Author Name Unknown Organization [facility] Address [address] [place] [address] Phone [phone] Care Team Providers Care President Of The [place] Name Role Phone Jeniffer Ashraf MD Primary Care Provider [phone] Reason for Visit * Reason Onset Date Comments pre-op exam 12/01/2023 Encounter Details Date Type Department Care Team (Late st Contact Info) Description 12/01/2023 Telephone General Internal Medicine [facility] [address] [facility] [place] [address] Jeniffer Ashraf MD [address] [place] [address] pre-op exam Allergies Active Allergy Reactions Criticality Noted Date [...] as of this encounter (statuses as of 12/16/2023) Medications Medication Sig Dispensed Refills Start Date End Date Status VITAMIN C 500 MG PO TABS 1 tab daily 0 Active nystatin-triamcinolo ne (MYCOLOG) ointment Apply topically to affected area [...] 0 07/07/2017 Active omeprazole (PRILOSEC) 20 MG CPDRIndications:Psor iatic arthropathy (HCC) Take 1 Cap by mouth daily. 90 Cap 1 07/09/2017 Active fluconazole (DIFLUCAN) 100 MG Tablet 0 11/03/2017 Active nystatin 375546 UNIT/GM cream APPLY 2-3 TIMES DAILY TO AFFECTED AREA(S). 3 10/29/2017 Active ipratropium-albutero l (COMBIVENT RESPIMAT) 20-100 MCG/ACT InhalerIndications:S arcoidosis Inhale 1 Puff by mouth 4 times [...] mL 1 10/04/2019 Active Ergocalciferol 1.25 MG (43437 UT) Oral Capsule (Vitamin D2(Drisdol)) Pt takes this daily, not sure the dose - not this high of a dose , thinks approx 1000mg daily 0 Active Doxycycline Hyclate 50 MG Oral Capsule (Vibramycin)Indicati ons:Contact dermatitis, unspecified contact dermatitis type, unspecified trigger Take 1 Capsule by mouth in the morning. 90 Capsule 3 03/24/2023 Active EPINEPHrine 0.3 MG/0.3ML Injection Solution Auto-injector (Autoinjector)Indica tions:Toxic effect of venom of bees, unintentional, sequela As needed 1 Each 11 03/24/2023 Active Baclofen 10 MG Oral Tablet (Lioresal)Indication s:Strain of neck muscle, initial encounter TAKE ONE TABLET BY MOUTH TWICE A DAY NEEDED FOR MUSCLE SPASM 180 Tablet 1 04/28/2023 Active Metoprolol Succinate ER 25 MG Oral Tablet Extended Release 24 Hour (toPROL XL)Indications:HTN, goal below 140/90 Take 1.5 Tablets by mouth in the morning. 135 Tablet 3 05/14/2023 Active Humira Pen 40 MG/0.4ML Subcutaneous Pen-injector Kit (Adalimumab) Inject 0.4 mL under the skin every 14 days. 6 Each 3 08/29/2023 Active aMILoride HCl 5 MG Oral Tablet (Midamor)Indications :HTN, goal below 140/90 Take 1 Tablet by mouth in the morning. 90 Tablet 3 09/24/2023 Active predniSONE 10 MG Oral Tablet (Deltasone) TAKE ONE TABLET BY MOUTH EVERY DAY IN THE MORNING 90 Tablet 1 11/19/2023 Active traMADol HCl 50 MG Oral TabletIndications:Ps oriatic arthropathy (HCC) Take 1 Tablet by mouth every 8 hours as needed for Pain, Severe. Due 11/29/23 90 Tablet 0 11/27/2023 Active documented as of this encounter (statuses as of 12/16/2023) Active Problems Problem Noted Date Diagnosed Date [...] as of this encounter (statuses as of 12/16/2023) Resolved Problems Problem Noted Date Diagnosed Date Resolved Date Cellulitis of left hand 10/03/202209/12 Asthma with severity to be determined 07/21/2009 04/27/2017 Overview: ICD-10 update of inactive term Iatrogenic pneumothorax 07/18/200904/11 Abnormal mammogram 04/20/2003 7 Contact dermatitis 7 Other lymphedema 07/07/2017 Osteoarthrosis, unspecified whether generalized or localized, ankle and foot 04/27/2017 documented as of this encounter (statuses as of 12/16/2023) Immunizations Name Administration Dates Next Due COVID-19 [...] on file documented as of this encounter Miscellaneous Notes * Telephone Encounter - RosasChantale LPN - 12/01/2023 9:17 AM EST Received fax from [facility] pre-anesthesia testing. Patient is tentatively scheduled for right total knee replacement with Dr. Crespo on 12/21/23. She has pre admission appointment on 11/24/23 andreported worsening of chronic dyspnea related to orthopedic dysfunction and reduced physical activity. Patient will need to schedule pre op appointment. Please assist. documented in this encounter Plan of Treatment Upcoming Encounters Date Type Department Care Team (Late st Contact Info) Description 03/25/2024 9:40 AM EDT Office Visit General Internal Medicine [facility] [address] [facility] [place] [address] Jeniffer Ashraf MD [address] [facility] [place] [address] 05/19/2024 10:40 AM EDT Office Visit Rheumatology [place] [id number] [employer] [place] [address] Hilton Bhatt MD [address] [place] [address] Scheduled Procedures Name Priority Associated Diagnoses Date/Ti [...] 023, 12/09/2022, 04/16/2021 CKD PHOS USE SMARTSET 48153 11/13/2024 02/0 11/2023, 08/04/2022, 04/16/2021 CKD HGB USE SMARTSET 68787 11/24/202411/24, 08/05/2023, 08/05/2023, Additional history exists Depression [...] Not on filedocumented as of this encounter Advance Directives Latest Code Status on File Code Status Date Activated Date Inactivated Comments Full Code 07/18/2009 3:48 PM 07/21/2009 4:16 PM This order reflects the patients wishes and were consensually agreed upon. Question Answer Comments Discussion of Advance Directives occurred with: Patient/Family Does the patient have a Living Will? No Does the patient have Health Care Power of Receiving Room Clerk? No Care Teams President Of The [place] Relationship Specialty Start Date End Date Jeniffer Ashraf MD [address] [facility] [place] [address] PCP - General Internal Medicine 08/08/21 documented as of this encounter
--- OUTSIDE RECORDS SUMMARY | 2023-12-21 07:10 | External Medical Summary | Summary of Care ---
Author Name Unknown Organization [facility] Address [address] [place] [address] Phone [phone] Care Team Providers Care Lock Technician Name Role Phone Jeniffer Ashraf MD Primary Care Provider [phone] Reason for Visit * Reason Comments eRx-Medication Refill Encounter Details Date Type Department Care Team (Late st Contact Info) Description 12/13/2023 Refill General Internal Medicine [facility] [address] [facility] [place] [address] Jeniffer Ashraf MD [address] [place] [address] Allergies Active Allergy Reactions Criticality Noted Date [...] as of this encounter (statuses as of 12/14/2023) Medications Medication Sig Dispensed Refills Start Date [...] 100 MG Tablet 0 11/03/2017 Active nystatin 182978 UNIT/GM cream APPLY 2-3 TIMES DAILY TO [...] mL 1 10/04/2019 Active Ergocalciferol 1.25 MG (95947 UT) Oral Capsule (Vitamin D2(Drisdol)) Pt takes [...] Due 11/29/23 90 Tablet 0 11/27/2023 Active Losartan Potassium 50 MG Oral Tablet (Cozaar)Indication s:HTN, goal below 140/90 Take 1.5 Tablets by mouth in the morning. 135 Tablet 3 12/05/2023 Active Meloxicam 7.5 MG Oral Tablet (Mobic) TAKE ONE TABLET BY MOUTH EVERY MORNING NEEDED 90 Tablet 1 12/14/2023 Active Meloxicam 7.5 MG Oral Tablet (Mobic) TAKE ONE TABLET BY MOUTH EVERY MORNING NEEDED 90 Tablet 1 07/21/2023 4 Discontinued documented as of this encounter (statuses as of 12/14/2023) Active Problems Problem Noted Date Diagnosed Date [...] as of this encounter (statuses as of 12/14/2023) Resolved Problems Problem Noted Date Diagnosed Date Resolved Date Cellulitis of left hand 10/03/202209/12 Asthma with severity to be determined 07/21/2009 04/27/2017 Overview: ICD-10 update of inactive term Iatrogenic pneumothorax 07/18/200904/11 Abnormal mammogram 04/20/2003 7 Contact dermatitis 7 Other lymphedema 07/07/2017 Osteoarthrosis, unspecified whether generalized or localized, ankle and foot 04/27/2017 documented as of this encounter (statuses as of 12/14/2023) Immunizations Name Administration Dates Next Due COVID-19 [...] encounter Miscellaneous Notes * Telephone Encounter - Doron Goldstein RPh - 12/14/2023 3:15 PM ESTSigned Prescriptions: Disp Refills Meloxicam 7.5 MG Oral Tablet (Mobic) 90 Tab*1 Sig: TAKE ONE TABLET BY MOUTH EVERY MORNING NEEDEDAuthorizing Provider: Marcelo ASHRAF User: HERMILA GOLDSTEIN THEW documented in this encounter Plan of Treatment Upcoming Encounters Date Type Department Care Team (Late st Contact Info) Description 03/25/2024 9:40 AM EDT Office Visit General Internal Medicine [facility] [address] [place] [address] Jeniffer Ashraf MD [address] [facility] [place] [address] 05/19/2024 10:40 AM EDT Office Visit Rheumatology [address] [place], [place] [address] Hilton Bhatt MD [facility] [place], [place] [address] Scheduled Procedures Name Priority Associated Diagnoses Date/Ti [...] 023, 12/09/2022, 04/16/2021 CKD PHOS USE SMARTSET 37695 11/13/20240 11/2023, 08/04/2022, 04/16/2021 CKD HGB USE SMARTSET 71296 11/24/202411/24, 08/05/2023, 08/05/2023, Additional history exists Depression [...] Additional history exists Hepatitis B Completed 09/20/2020, 070 05/2020, 03/19/2020 Zoster Vaccines Completed 07/28/2022, 04/15/2022 [...] the patient have Health Care Power of Thread Winder Automatic? No Care Teams Lock Technician Relationship Specialty Start Date End Date Jeniffer Ashraf MD [address] [facility] [place] [address] PCP - General Internal Medicine 08/08/21 documented as of this encounter
--- OUTSIDE RECORDS SUMMARY | 2023-12-21 07:10 | External Medical Summary | Summary of Care ---
Author Name Unknown Organization [facility] Address [address] [place] [address] Phone [phone] Care Team Providers Care Web Marketing Manager Name Role Phone Jeniffer Ashraf MD Primary Care Provider [phone] Reason for Visit * Reason Comments eRx-Medication Refill Encounter Details Date Type Department Care Team (Late st Contact Info) Description 12/05/2023 Refill General Internal Medicine [facility] [address] [facility] [address] Jeniffer Ashraf MD [address] [place] [address] HTN, goal below 140/90 Allergies Active Allergy Reactions Criticality Noted Date [...] as of this encounter (statuses as of 12/05/2023) Medications Medication Sig Dispensed Refills Start Date [...] 100 MG Tablet 0 11/03/2017 Active nystatin 681851 UNIT/GM cream APPLY 2-3 TIMES DAILY TO [...] mL 1 10/04/2019 Active Ergocalciferol 1.25 MG (81458 UT) Oral Capsule (Vitamin D2(Drisdol)) Pt takes [...] the morning. 135 Tablet 3 05/14/2023 Active Meloxicam 7.5 MG Oral Tablet (Mobic) TAKE ONE TABLET BY MOUTH EVERY MORNING NEEDED 90 Tablet 1 07/21/2023 Active Humira Pen 40 MG/0.4ML Subcutaneous Pen-injector [...] the morning. 135 Tablet 3 12/05/2023 Active Losartan Potassium 50 MG Oral Tablet (Cozaar)Indication s:HTN, goal below 140/90 Take 1.5 Tablets by mouth in the morning. 135 Tablet 3 11/04/2023 4 Discontinued documented as of this encounter (statuses as of 12/05/2023) Active Problems Problem Noted Date Diagnosed Date [...] as of this encounter (statuses as of 12/05/2023) Resolved Problems Problem Noted Date Diagnosed Date Resolved Date Cellulitis of left hand 10/03/202209/12 Asthma with severity to be determined 07/21/2009 04/27/2017 Overview: ICD-10 update of inactive term Iatrogenic pneumothorax 07/18/200904/11 Abnormal mammogram 04/20/2003 7 Contact dermatitis 7 Other lymphedema 07/07/2017 Osteoarthrosis, unspecified whether generalized or localized, ankle and foot 04/27/2017 documented as of this encounter (statuses as of 12/05/2023) Immunizations Name Administration Dates Next Due COVID-19 [...] encounter Miscellaneous Notes * Telephone Encounter - Kai Allen [facility] - 12/05/2023 3:02 PM ESTSigned Prescriptions: Disp Refills Losartan Potassium 50 MG Oral Tablet (Coza*135 Ta*3 Sig: Take 1.5 Tablets by mouth in the morning.Authorizing Provider: Marcelo ASHRAF User: KAI ALLEN NN documented in this encounter Plan of Treatment Upcoming Encounters Date Type Department Care Team (Late st Contact Info) Description 02/09/2024 10:40 AM EDT Office Visit Gastroenterology, [facility] [address] [facility] [place] [address] Pamela Hammond DO 03/25/2024 9:40 AM EDT Office Visit General Internal Medicine [facility] [address] [place] [address] Jeniffer Ashraf MD [address] [facility] [place] [address] 05/19/2024 10:40 AM EDT Office Visit Rheumatology [place] [address] [place] [address] Hilton Bhatt MD [facility] [employer] [facility] [place] [address] Scheduled Procedures Name Priority Associated Diagnoses Date/Ti me COLONOSCOPY FLEXIBLE PROXIMA L DIAGNOSTIC Recall Encounter for screening colonoscopy Health Maintenance Due Date Last Done Comments Cologuard 2001 Sigmoidoscopy 2001 Fecal Occult Blood Test 09/26/2017 09/26/2016 DTaP,Tdap,and Td Vaccines (2 - Td or Tdap) 05/31/2023 05/31/2013 Mammogram 01/20/2024 01/19/2023, 04/, 10/09/2021, Additional history exists GFR 05/13/2024 11/13/2023, 07/13, 12/09/2022, Additional history exists Albumin/Creatinine Ratio 09/24/2024 023, 12/09/2022, 04/16/2021 CKD PHOS USE SMARTSET 72668 11/13/202411/2023, 08/04/2022, 04/16/2021 CKD HGB USE SMARTSET 45631 11/24/202411/24, 08/05/2023, 08/05/2023, Additional history exists Depression Screening 12/02/2024 12/02/2023 O2 ASSESSMENT COMPLETED IN PAST YEAR FOR COPD 12/02/2024 12/02/2023 Pneumococcal Vaccine: 65+ Years (4 of 4 - PPSV23 or PCV20) 09/20/2025 09/20/2020, 10/04/2019, 07/12/2014 Diabetes Screening 11/13/2026 11/13/2023, 1 , 12/09/2022, Additional history exists Colonoscopy 08/04/2028 08/04/2018 Colorectal Cancer Screening 08/04/2028 Lipid Panel 11/13/2028 11/13/2023, 11/13, 10/29/2021, Additional history exists DXA Scan 11/14/2028 11/14/2021, 12/2021, 10/02/2016 Hepatitis B Completed 09/20/2020, 05/2020, 03/19/2020 Zoster [...] as of this encounter Visit Diagnoses Diagnosis HTN, goal below 140/90 Unspecified essential hypertension documented in this encounter Advance Directives Latest Code Status on File Code Status Date Activated Date Inactivated Comments Full Code 07/18/2009 3:48 PM 07/21/2009 4:16 PM This order reflects the patients wishes and were consensually agreed upon. Question Answer Comments Discussion of Advance Directives occurred with: Patient/Family Does the patient have a Living Will? No Does the patient have Health Care Power of Technology Assistant? No Care Teams Web Marketing Manager Relationship Specialty Start Date End Date Jeniffer Ashraf MD [address] [place] [address] PCP - General Internal Medicine 08/08/21 documented as of this encounter
[2023-12-21] MEDS ORDERED: MIDAZOLAM HCL 1 MG/ML 2ML VIAL ONE (07:35)
[2023-12-21] MEDS ORDERED: fentaNYL citrate PF 100 MCG/2 ML VIAL ONE (07:35)
[2023-12-21] MEDS: LR 500ML BOLUS, THEN 15ML/HR IV SCH (07:44)
[2023-12-21] MEDS: GABAPENTIN 300 MG CAP PO SCH (07:45)
[2023-12-21] MEDS: ACETAMINOPHEN 500 MG TAB PO SCH ×2 (07:45→13:33)
[2023-12-21] MEDS: FAMOTIDINE 20 MG TAB PO SCH (07:45)
[2023-12-21] MEDS: dexAMETHasone**PF** 10 MG/ML VIAL IV SCH (07:45)
[2023-12-21] MEDS: LR 60ML/HR IV SCH (07:46)
--- NOTE | 2023-12-21 08:07 | History & Physical Bridge Note ---
Date of Service December 21, 2023 History & Physical Bridge Note I have examined the patient, reviewed the History & Physical and in the interval since the performance of the History & Physical I have noted the following changes of clinical significance: no changes noted
[2023-12-21] MEDS ORDERED: KETAMINE HCL 10MG/ML SYR ONE (08:34)
[2023-12-21] MEDS ORDERED: DexMEDEtomidine HCL IV 100 MCG/ML VIAL IV ONE (08:34)
[2023-12-21] MEDS ORDERED: fentaNYL citrate PF 100 MCG/2 ML VIAL IV PRN (08:40)
[2023-12-21] MEDS ORDERED: ePHEDrine sulfate 50 MG/ML AMP IV PRN (08:40)
[2023-12-21] MEDS ORDERED: ATROPINE SULFATE 0.1 MG/ML 10ML SYR IV PRN (08:40)
[2023-12-21] MEDS ORDERED: ONDANSETRON INJ 2 MG/ML 2 ML VIAL IV PRN ×2 (08:40→11:57)
[2023-12-21] MEDS: TRANEXAMIC ACID 1,000 MG **IV Pre-op IV SCH (08:43)
[2023-12-21] MEDS: ceFAZolin 2000MG 2,000 MG/15 ML SYR IV SCH ×2 (09:02→17:10)
[2023-12-21] MEDS ORDERED: PHENYLEPHRINE HCL 10 MG/ML VIAL ONE (09:10)
[2023-12-21] MEDS ORDERED: PHENYLEPHRINE 100MCG/ML 10ML SYR IV ONE (09:10)
[2023-12-21] MEDS ORDERED: ONDANSETRON INJ 2 MG/ML 2 ML VIAL ONE (09:10)
[2023-12-21] MEDS ORDERED: PROPOFOL IV EMULSION 10 MG/ML 20 ML VIAL IV ONE (09:10)
[2023-12-21] MEDS ORDERED: ePHEDrine sulfate 50 MG/5 ML SYR ONE (09:23)
[2023-12-21] MEDS: ROPIV 0.5% 246mg, Ketorolac 30mg, EPINEPHrine 0.5mg in NSS INFIL SCH (09:31)
[2023-12-21] MEDS: TRANEXAMIC ACID 1,000 MG **IV Intra-op IV SCH (10:03)
--- NOTE | 2023-12-21 10:07 | Operative Report ---
PG Post Operative Report Pre & Post Diagnosis Operation Date: 12/21/23 09:00 Pre-Op Diagnosis: Degenerative Joint Disease Right Knee Post-Op Diagnosis: Degenerative Joint Disease Right Knee I identified the patient and participated in the time-out.: Yes Procedure Operation Date: 12/21/23 09:00 Actual Procedures p Right Total Knee Arthroplasty(Right) - Hilton Crespo DO Surgeon Hilton Crespo DO Phone Technician Hilton Mcintosh PA-C Estimated Blood Loss 30 Findings Consistent with Post-Op Diagnosis Specimens Right femoral and tibial bone Description of Procedure Implants used: I used a Ruddy Persona total knee arthroplasty system with a size 5 standard PS femur, D tibia, 31 oval patella, and a size 12 CPS polyethylene bearing. All components were cemented in place with Biomet cement. Alessandra arrived [facility] for the above procedure. She was seen in the preoperative holding area and the operative extremity was identified and signed. She was given a preoperative antibiotic, TXA, a spinal anesthetic and an adductor nerve block. She was taken back to the operating room and laid on the table in supine position. She was given basic sedation. The operative knee was then prepped and draped in sterile fashion. A timeout was done, and the patient and the operative extremity was properly identified. A midline incision was made directly over the patella. Dissection was taken down to the extensor mechanism. A medial parapatellar arthrotomy was used. The medial retinaculum was released and the fat pad was mostly excised. The knee was flexed and the ACL, PCL, and meniscus were removed. A drill was sent down the center of the femoral canal followed by an intramedullary noemí. Off that noemí a distal femoral cutting block was placed. 9 mm was resected off the distal femur at 5 of valgus. A posterior referencing AP sizing guide was then placed on the distal femur. The femur measured to be a size 5. 2 drill holes were placed in 3 of external rotation. A 4-in-1 cutting block was then impacted into place. Anterior, posterior, and chamfer cuts were then made. The proximal tibia was then exposed. An external tibial alignment guide was placed. A tibial cut guide was then anchored in place and the proximal tibia was then resected. The posterior aspect of the knee was then opened up and any additional meniscus fragments and osteophytes were removed. The tibia measured to be a size D. The tibial plate was then placed in the appropriate rotation and the tibia was drilled and punched. Trial components were then placed. I used a size 12 CPS polyethylene insert. The knee was brought through a full range of motion and felt to be stable. The peg holes for the femoral component were then drilled. The patella was then everted and 9 mm was resected off the posterior aspect of the patella. The patella measured to be a size 31 oval. 3 peg holes were then drilled. A trial patella was placed. The knee was once again brought through a full range of motion and felt to be stable. Trial components were then removed. The surrounding soft tissues were injected with 100 cc of an orthopedic pain control cocktail. All components were then cemented into place with Biomet cement. The final polyethylene insert was then snapped into place. Once cement was dry the tourniquet was deflated. Hemostasis was obtained. A dilute betadyne lavage was then done for 3 minutes. The joint was then irrigated with normal saline solution. The medial parapatellar arthrotomy was then closed with #1 Vicryl suture. The skin was closed with 2-0 Vicryl, 3-0V lock suture, and becky. A soft compressive dressing was placed. She was then transferred to a hospital bed and taken to the postanesthesia care unit in stable condition. She tolerated the procedure well. Hilton Mcintosh PA-C, was present for the entire procedure. He was critical for patient positioning, prepping, draping, retraction exposure, wound closure and application of sterile dressing. I attest to the content of the Intraoperative Record and any orders documented therein. Any exceptions are noted below.
[2023-12-21] MEDS: MEPERIDINE HCL 25 MG/ML CARP/VIAL IV ONE (11:18)
--- NOTE | 2023-12-21 11:23 | Anesthesiology Progress Note ---
Date of Service December 21, 2023 Anesthesia Post Procedure Vital Signs Vital Signs: Temp Pulse Pulse Resp BP Pulse Ox O2 Del Method 12/21/23 11:05 36.4 C L 82 18 124/74 100 Room Air 12/21/23 10:55 78 16 111/67 98 Room Air 12/21/23 10:45 82 22 124/62 97 Oxymask 12/21/23 10:35 72 16 117/67 97 Oxymask 12/21/23 10:27 36.8 C 85 16 125/70 100 Oxymask 12/21/23 07:37 36.5 C 88 22 158/91 H 96 Room Air O2 Flow Rate 12/21/23 11:05 12/21/23 10:55 12/21/23 10:45 3 12/21/23 10:35 6 12/21/23 10:27 6 12/21/23 07:37 Notes Mental Status: alert / awake / arousable Patient Amnestic to Procedure: Yes Nausea / Vomiting: adequately controlled Pain: adequately controlled Airway Patency, RR, SpO2: stable & adequate BP & HR: stable & adequate Hydration State: stable & adequate Neuraxial Anesthesia: was administered and sensory block is resolving Anesthetic Complications: no major complications apparent
--- NOTE | 2023-12-21 11:46 | XRay Report ---
RIGHT KNEE 2 VIEWS History: Right total knee arthroplasty. Degenerative arthritis. Postop. FINDINGS: The patient is status post a right total knee arthroplasty. The hardware is intact. No frac ture or dislocation. Skin becky are in place. IMPRESSION: Right total knee arthroplasty. No evidence for hardware complication. ACT 112: Negative or not required by law. Electronically signed by: Yossi Aparicio M.D. 12/21/2023 11:44 AM
[2023-12-21] MEDS ORDERED: bisacodyL 10 MG SUPP PR PRN (11:57)
[2023-12-21] MEDS ORDERED: PANTOprazole 40 MG TAB PO PRN (11:57)
[2023-12-21] MEDS ORDERED: METOCLOPRAMIDE HCL INJ 5 MG/ML 2 ML VIAL IV PRN (11:57)
[2023-12-21] MEDS ORDERED: HYDROmorphone INJ 0.5 MG/0.5 ML SYR IV PRN (11:57)
[2023-12-21] MEDS ORDERED: NALOXONE HCL 0.4 MG/1 ML VIAL/CARP IV PRN (11:57)
[2023-12-21] MEDS ORDERED: MAGNESIUM HYDROXIDE SUSP 30 ML UDC PO PRN (11:57)
[2023-12-21] MEDS ORDERED: FLUCONAZOLE 100 MG TAB PO PRN (11:57)
[2023-12-21] MEDS ORDERED: IPRATROPIUM BROMIDE/ALBUTEROL respimat INH INH PRN (11:57)
[2023-12-21] MEDS ORDERED: IPRATROPIUM BROMIDE HFA INHALER INH PRN (12:15)
[2023-12-21] MEDS ORDERED: ALBUTEROL HFA 8 GM INHALER INH PRN (12:15)
[2023-12-21] MEDS: SODIUM CHLORIDE 0.9% 1,000 ML IV SCH (12:51)
[2023-12-21] MEDS: KETOROLAC TROMETHAMINE 15 MG/ML VIAL IV SCH (12:51)
[2023-12-21] MEDS: estradioL 1 MG TAB PO SCH (13:33)
[2023-12-21] MEDS: oxyCODONE HCL IR 5 MG TAB (IMMEDIATE RELEASE) PO PRN (17:45)
[2023-12-21] MEDS: MEPERIDINE HCL 25 MG/ML CARP/VIAL ONE (19:37)
[2023-12-21] MEDS: ORTHO JOINT ANESTHETIC ONE (19:37)
[2023-12-21] MEDS: DOCUSATE SODIUM 100 MG CAP PO SCH (20:32)
[2023-12-21] MEDS: BACLOFEN 20 MG TAB PO SCH (20:33)
[2023-12-21] MEDS: SENNA 8.6 MG TAB PO SCH (20:33)
[2023-12-21] MEDS: ASPIRIN 81 MG ECTAB PO SCH (20:33)
[2023-12-21] MEDS: ARTIFICIAL TEARS OP SCH (20:34)
[2023-12-22] MEDS: aMILoride HCL 5 MG TAB PO SCH (08:09)
[2023-12-22] MEDS: METOPROLOL SUCC 25MG EXT REL TAB PO SCH (08:09)
[2023-12-22] MEDS: predniSONE 10 MG TABLET PO SCH (08:09)
[2023-12-22] MEDS: LOSARTAN POTASSIUM 25 MG TAB PO SCH (08:09)
[2023-12-22] MEDS: MULTIVITAMIN TAB PO SCH (08:10)
--- NOTE | 2023-12-22 11:01 | Orthopedic Progress Note ---
Date of Service December 22, 2023 Assessment & Plan (1) Status post right knee replacement: Overall, she is doing quite well today with good pain control. She will work with physical therapy later this morning to work on ambulation and range of motion exercises. She is on aspirin for DVT prophylaxis. At this point, she wishes to discuss with case management the possibility of being discharged to a acute rehabilitation center due to her fell and that she would not be able to do her ADLs on her own. Will have case management work on getting her placement. She is orthopedically stable for discharge. Discharge order will be placed once final arrangements are made for post discharge. Subjective . Alessandra was seen and evaluated at bedside this morning resting comfortably in no apparent distress. She states that her pain is well-controlled to the rig ht knee. She has been up and out of bed with no significant issues. She has yet to be seen by physical therapy. She denies any other concerns today. Review of Systems All systems reviewed & are unremarkable except as noted in HPI & below. Physical Exam . On physical examination of the right knee, dressings are clean, dry, intact. Her leg is out in full extension. She has active plantarflexion dorsiflexion of the right ankle. +2 DP and PT pulses. Less than 2-second capillary refill. Normal sensation. Neurovascular intact. Results & Data Results & Data Laboratory Results . Diagnostic Findings . Postoperative x-rays of the right knee show prosthesis to be in anatomical alignment with no signs of fracture complication or loosening. PG Care Time/CCT Total # of Minutes Spent Total Time Spent with Patient: Total time spent is greater than 50% in coordination of care (as documented) at patient's floor/unit and/or counseling patient: Coding Level of Care Code 92295 Post Operative Follow-Up Diagnoses Status post right knee replacement Z96.651
--- NOTE | 2023-12-22 13:25 | Discharge Summary ---
Date of Service December 22, 2023 Principal Diagnosis Same as "Discharge Diagnosis" noted below under Discharge Instructions. Discharge Exam . On physical examination of the right knee, dressings are clean, dry, intact. Her leg is out in full extension. She has active plantarflexion dorsiflexion of the right ankle. +2 DP and PT pulses. Less than 2-second capillary refill. Normal sensation. Neurovascular intact. Discharge Data Procedures Performed Operation Date: 12/21/23 09:00 Actual Procedures p Right Total Knee Arthroplasty(Right) - Hilton Crespo DO Ordered Studies 12/21/23 05:00 US - OR guided needle placemen Routine Hospital Course (1) Status post right knee replacement: On December 21, 2023 Alessandra arrived at [facility] and underwent a right total knee arthroplasty performed by Dr. Crespo without complications. She had a spinal anesthetic. Postoperatively, she was started on aspirin for DVT prophylaxis and transferred to the general orthopedic floor in stable condition. Her hospital course was uneventful. On postoperative day #1, her vital signs were stable and her pain was well-controlled. She participated well with physical therapy working on ambulation and range of motion exercises. She was then discharged to [facility] in stable condition. She will follow-up with orthopedics in 2 weeks for postoperative care. PG Care Time/CCT Total # of Minutes Spent Total Time Spent with Patient: Total time spent is greater than 50% in coordination of care (as documented) at patient's floor/unit and/or counseling patient: Discharge Plan Discharge Items Patient Disposition: Transfer Inpatient Rehab Fac Reason For Visit: Degenerative Joint Disease Right Knee Discharge Diagnosis: Same Activity: Per Instructions section Non-emergency contact: Surgeon Call non-emergency contact if: your temperature is above 101.5, your wound has increased redness, your wound has increased drainage and your wound pain has increased Follow-up/Referrals: Jeniffer Ashraf MD [Primary Care Provider] - Diet: Regular Addtl Attending Provider Instructions: Activity and Therapy Recommendations: * If you are using [facility] then therapy will be provided at your home until they feel you have accomplished all of your goals. * If you are using [facility] then Physical Therapy will be provided until they feel you are ready to start Outpatient Physical Therapy. * If you are not using home therapy then Outpatient Physical Therapy should start about 3-5 days from your day of surgery. Therapy will last about 6-10 weeks * It is important not to put a pillow under your knee when you are relaxing or sleeping. It is just as important to make sure you are getting your knee perfectly straight as it is to regain your knee bend. * You were shown a series of exercises in the hospital. Do these exercises three times each day including the exercises you were shown in physical therapy. * Get up and walk several times each day. For the first four weeks, try not to stand or walk for more than one hour at a time. If you do stand or walk for more than one hour, you will not hurt anything, but your leg will likely swell. * As you feel comfortable, you may change from the walker or crutches to a cane and then to independent walking. Medications: * Narcotic You will likely be sent home from the hospital with a prescription for the narcotic pain medication that worked best throughout your stay. * Cefadroxil -take the antibiotic twice a day for 10 days to help prevent infe * Aspirin Most patients will be required to take Aspirin 81mg twice a day for 6 weeks after surgery. This is obtained [id number] and a prescription is not necessary. * Other medications may be prescribed for specific circumstances. If you have any questions, please call the office at . * Resume previous home medications unless otherwise instructed TEDs/Elastic Stockings: The white elastic stockings help limit swelling and prevent blood clots from forming in your legs.~ The more you wear them, the more they work. Wear them for six weeks. Dressing Care: The dressing can be changed after physical therapy on postop day #1. Daily dry dressing changes for a few days, especially if the incision is still draining some. If the incision is not draining then you may leave the becky open to air. If there is a little bit of drainage or if the becky are getting stuck on your clothing then cover the incision with a dry dressing. The becky will be removed at your 2 week follow-up appointment. Showering: You may shower 5 days from the day of surgery as long as the incision is no longer draining. You may shower with the becky exposed. Let soapy water run over the becky and pat them dry. Do not scrub or soak the incision. Things To Watch For: * Drainage from the incision site that occurs more than one week after your surgery. * Increased redness at the incision site. * Fever above 102 degrees Fahrenheit. * Unusual chest pain or shortness of breath. * Call [facility] at with any of the above problems Follow-Up Visit: Follow-up with Dr. Crespo's PA (Hilton Mcintosh) 2-3 weeks after your day of surgery. He will remove your becky and answer any questions. If you have any additional questions or concerns, Dr Crespo is usually in the office at the same time and will be available An appointment was probably scheduled when you signed-up for surgery in the office. If you have any questions call Office Instructions: More detailed instructions as well as Frequently Asked Questions were provided in a folder by our office when you signed-up for surgery. Please review these instructions when you get home. If you have any further questions or concerns, please feel free to call the office at [phone] Pending Studies at Discharge: No Stand-Alone Forms: My [facility] Skilled Items Patient informed of condition?: Yes DNR: No Discharge Level of Care: Acute rehab Communicable Disease: No Discharge Prognosis: Stable Lines: None Urinary Catheter: No Medications and DC Order Prescriptions: New aspirin 81 mg Tablet,Delayed Release (Dr/Ec) 81 mg PO BID Qty: 0 0RF oxycodone 5 mg Tablet 5 mg PO Q6 PRN (Reason: pain) Qty: 30 0RF cefadroxil 500 mg capsule 500 mg PO BID 10 Days Qty: 20 0RF Continued Combivent Respimat 20-100 mcg/actuation mist 1 puff inhalation QID PRN (Reason: shortness of breath or wheezing) Qty: 4 5RF Rx Instructions: space evenly during waking hours ascorbic acid (vitamin C) 1,000 mg tablet 1,000 mg PO QAM Humira(CF) Pen 40 mg/0.4 mL pen injector kit 40 mg SQ Q14D Rx Instructions: 40 mg subcut every 2 weeks; metoprolol succinate 25 mg Tablet Extended Release 24 Hr 37.5 mg PO QAM Systane Gel 0.3 % Gel 1 dose OPB HS calcium citrate-vitamin D3 [Citracal + D Maximum] 315-250 mg-unit Tablet 1 tab PO QAM doxycycline hyclate 50 mg Tablet 50 mg PO QDL prednisone 10 mg Tablet 10 mg PO QAM Blink Tears 0.25 % Drops 1 drp OPHTHALMIC (EYE) DAILY PRN (Reason: Dry Eyes) oxymetazoline [Afrin (oxymetazoline)] 0.05 % Cromona,Non-Aerosol 1 spray INTRANASAL UD PRN (Reason: Nasal Congestion) fluconazole 100 mg tablet 100 mg PO UD PRN (Reason: YEAST INFECTION) baclofen 10 mg Tablet 20 mg PO HS omeprazole 20 mg Capsule,Delayed Release(Dr/Ec) 20 mg PO QPM PRN (Reason: Acid Reflux) Patient Comments: take like 3 x per week. acetaminophen 500 mg Capsule 500 mg PO UD PRN (Reason: Pain) Patient Comments: usually take every eight hours. losartan 50 mg tablet 75 mg PO QAM Patient Comments: losartan potassium amiloride 5 mg tablet 5 mg PO QAM estradiol 1 mg tablet 0 mg PO 4XWK Patient Comments: thu, thu, thu, sun. Rx Instructions: Take 0.5 tab on Thursday, Thursday, Thursday, and Thursday. Discontinued tramadol 50 mg tablet 50 mg PO TID PRN (Reason: Pain) Patient Comments: usually take 3 x per day. meloxicam 7.5 mg tablet 7.5 mg PO PRN PRN (Reason: Pain) Patient Comments: take every day Discharge Orders: Discharge Order (Routine); Ordered 12/22/23 Ordered By: Juan Luis Smith/Other Patient Handouts: Knee Replacement Total Dc Admission Data Admit Date/Time: 12/21/23 10:33 Attending Provider: Hilton Crespo Admit Provider: Hilton Crespo Primary Care Provider: Jeniffer Ashraf Other Providers: [facility] Other Interventions: Discharge Summary Assessment (RN) Last Done: 12/22/23 09:06
== END 2023-12-22 16:19 ==
LOC: 3E 07:04 → ASU 07:04
DX: E66.01 Morbid (severe) obesity due to excess calories; Z91.048 Other nonmedicinal substance allergy status; M17.0 Bilateral primary osteoarthritis of knee; Z68.41 Body mass index [BMI] 40.0-44.9, adult; K21.9 Gastro-esophageal reflux disease without esophagitis; Z88.8 Allergy status to other drugs, medicaments and biological substances; I10 Essential (primary) hypertension; J42 Unspecified chronic bronchitis; Z91.030 Bee allergy status; K74.60 Unspecified cirrhosis of liver; E78.5 Hyperlipidemia, unspecified; Z79.899 Other long term (current) drug therapy; Z86.73 Personal history of transient ischemic attack (TIA), and cerebral infarction without residual deficits; H40.9 Unspecified glaucoma; D86.9 Sarcoidosis, unspecified

== ENCOUNTER 2024-07-04 06:39 | Observation (INO) ==
--- NOTE | 2024-06-02 13:35 | PAT Medication Instructions ---
Medication Instructions Date of Service June 02, 2024 Home Medications Medication Instructions Recorded ipratropium 20 mcg-albuterol 100 1 puff inhalation QID PRN 04/16/ mcg/actuation mist for inhalation shortness of breath or wheezing #4 (Combivent Respimat) grams aspirin 81 mg tablet,delayed 81 mg PO BID #0 tabs 12/22/23 release oxycodone 5 mg tablet 5 mg PO Q6 PRN pain #30 tabs 12/22/23 calcium citrate 315 mg calcium-vitamin D3 6.25 mcg (250 unit) tablet (Citracal + Vitamin D Maximum) 1 tab PO QAM doxycycline hyclate 50 mg tablet 50 mg PO QDL metoprolol succinate 25 mg tablet,extended release 24 hr 37.5 mg PO PM ascorbic acid (vitamin C) 1,000 mg tablet 1,000 mg PO QAM adalimumab 40 mg/0.4 mL subcutaneous pen kit (Humira(CF) Pen) 40 mg subcut Q14D prednisone 10 mg tablet 10 mg PO QAM ipratropium 20 mcg-albuterol 100 mcg/actuation mist for inhalation (Combivent Respimat) 1 puff inhalation QID PRN acetaminophen 500 mg capsule 1,000 mg PO Q8H baclofen 10 mg tablet 20 mg PO HS fluconazole 100 mg tablet 100 mg PO UD PRN omeprazole 20 mg capsule,delayed release 20 mg PO QPM PRN amiloride 5 mg tablet 5 mg PO QAM estradiol 1 mg tablet 0 mg PO 4XWK losartan 50 mg tablet 50 mg PO QAM oxymetazoline 0.05 % nasal spray (Afrin (oxymetazoline)) 1 spray intranasal UD PRN polyethylene glycol 400 0.25 % eye drops (Blink Tears) 1 drp ophthalmic (eye) DAILY PRN aspirin 81 mg tablet,delayed release 81 mg PO BID oxycodone 5 mg tablet 5 mg PO Q6 PRN cholecalciferol (vitamin D3) 25 mcg (1,000 unit) tablet (Vitamin D3) 25 mcg PO DAILY meloxicam 15 mg tablet 15 mg PO QAM tramadol 50 mg tablet 50 mg PO TID Continue as directed doxycycline hyclate 50 mg tablet 50 mg PO QDL fluconazole 100 mg tablet 100 mg PO UD PRN(if needed) oxymetazoline 0.05 % nasal spray (Afrin (oxymetazoline)) 1 spray intranasal UD PRN(if needed) polyethylene glycol 400 0.25 % eye drops (Blink Tears) 1 drp ophthalmic (eye) DAILY PRN(if needed) ASK your surgeon for instructions meloxicam 15 mg tablet 15 mg PO QAM ASK your prescriber and surgeon adalimumab 40 mg/0.4 mL subcutaneous pen kit (Humira(CF) Pen) 40 mg subcut Q14D estradiol 1 mg tablet 0 mg PO 4XWK aspirin 81 mg tablet,delayed release 81 mg PO BID DO NOT take the morning of surgery calcium citrate 315 mg calcium-vitamin D3 6.25 mcg (250 unit) tablet (Citracal + Vitamin D Maximum) 1 tab PO QAM ascorbic acid (vitamin C) 1,000 mg tablet 1,000 mg PO QAM losartan 50 mg tablet 50 mg PO QAM cholecalciferol (vitamin D3) 25 mcg (1,000 unit) tablet (Vitamin D3) 25 mcg PO DAILY Take morning of surgery With a small sip of water, OTHERWISE NOTHING TO EAT OR DRINK AFTER MIDNIGHT: prednisone 10 mg tablet 10 mg PO QAM ipratropium 20 mcg-albuterol 100 mcg/actuation mist for inhalation (Combivent Respimat) 1 puff inhalation QID PRN(if needed) acetaminophen 500 mg capsule 1,000 mg PO Q8H amiloride 5 mg tablet 5 mg PO QAM oxycodone 5 mg tablet 5 mg PO Q6 PRN(if needed) tramadol 50 mg tablet 50 mg PO TID Take evening before surgery metoprolol succinate 25 mg tablet,extended release 24 hr 37.5 mg PO PM ipratropium 20 mcg-albuterol 100 mcg/actuation mist for inhalation (Combivent Respimat) 1 puff inhalation QID PRN(if needed) acetaminophen 500 mg capsule 1,000 mg PO Q8H baclofen 10 mg tablet 20 mg PO HS omeprazole 20 mg capsule,delayed release 20 mg PO QPM PRN(if needed) oxycodone 5 mg tablet 5 mg PO Q6 PRN(if needed) tramadol 50 mg tablet 50 mg PO TID Other Notes If you have any questions please call us at [phone] or [phone] or [phone] or [phone]
--- NOTE | 2024-06-14 12:09 | Anesthesiology Consultation ---
Date of Service June 14, 2024 Assessment & Plan (1) Encounter for pre-operative examination: - 06/15/24 PCP pre-operative evaluation. - left arm restriction-patient states only right arm can be used due to lymphedema in left arm and both legs. - chronic daily steroid use: prednisone 10 mg daily. 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 She states that EKG stickers are okay to remain on for monitoring during surgery. H/o cellulitis from extended exposure to adhesive in the past. - IV team. - awareness with right TKA: patient states that she would still prefer to have neuraxial anesthesia with sedation vs general anesthesia for upcoming left TKA. - s/p right reverse TSA (08/29/22): Grade I view, Glidescope#3 "elective", ETT 7.0 + PNB at [facility]. Glidescope also utilized for 04/03/23 left TSA. - Outpatient joint assessment: Patient is currently scheduled for inpatient pathway. If re-evaluated and patient/surgeon requests outpatient pathway, patient is not recommended candidate for outpatient joint program from anesthesia standpoint. Chart Review Chart Review: Pending: Refer to Additional Notes / Consult section and Patient seen in Pre Admission Testing Teaching & Discussion Pre-Anesthesia Teaching/Discussion Notes: Instructed NPO after midnight before surgery, except medications with 15 cc of water. Medication instructions provided according to the PAT guidelines. History Surgery Operation Date: 07/04/24 07:15 Proposed Procedures p Left Total Knee Arthroplasty - Hilton Crespo, Height/Weight Height: 5 ft 4 in Weight: 116 kg Allergies Allergy/AdvReac Type Severity Reaction Status Date / Time adhesive Allergy Severe SKIN Verified 05/30/24 10:23 RASH/"severly allergic" bee venom protein (honey bee) Allergy Severe ANAPHYLAXIS Verified 05/30/24 10:23 bacitracin Allergy Unknown RASH Verified 05/30/24 10:23 AROUND FACE brimonidine Allergy Unknown CONTACT Verified 05/30/24 10:23 DERMATITIS cyclosporine Allergy Unknown CONTACT Verified 05/30/24 10:23 DERMATITIS spironolactone Allergy Unknown Hives Verified 05/30/24 10:23 terfenadine Allergy Unknown EYE Verified 05/30/24 10:23 SWELLING timolol Allergy Unknown contact Verified 05/30/24 10:23 dermatitis tobramycin Allergy Unknown EYE Verified 05/30/24 10:23 SWELLING cefaclor AdvReac Unknown MOUTH Verified 05/30/24 10:23 ULCERS- CAN TAKE KEFLEX W/O PROBLEM Medications Home Medications Medication Instructions Recorded Confirmed Last Taken artificial tears(hypromellose) 0.3 1 dose OPB HS 07/30/18 05/30/24 04/02/23 22:00 % eye gel (Systane Gel) calcium citrate 315 mg 1 tab PO QAM 07/30/18 05/30/24 12/20/23 12:00 calcium-vitamin D3 6.25 mcg (250 unit) tablet (Citracal + Vitamin D Maximum) doxycycline hyclate 50 mg tablet 50 mg PO QDL 07/30/18 05/30/24 12/20/23 metoprolol succinate 25 mg 37.5 mg PO PM 07/30/18 05/30/24 12/21/23 05:00 tablet,extended release 24 hr ascorbic acid (vitamin C) 1,000 mg 1,000 mg PO QAM 07/18/19 05/30/24 12/20/23 17:00 tablet adalimumab 40 mg/0.4 mL 40 mg subcut Q14D 01/30/20 05/30/24 12/09/23 08:00 subcutaneous pen kit (Humira(CF) Pen) prednisone 10 mg tablet 10 mg PO QAM 05/22/20 05/30/24 12/21/23 05:00 ipratropium 20 mcg-albuterol 100 1 puff inhalation QID PRN 04/16/21 05/30/24 04/01/23 mcg/actuation mist for inhalation shortness of breath or wheezing #4 (Combivent Respimat) grams acetaminophen 500 mg capsule 1,000 mg PO Q8H Pain 07/22/22 05/30/24 04/03/23 07:00 baclofen 10 mg tablet 20 mg PO HS 07/22/22 05/30/24 12/20/23 19:00 fluconazole 100 mg tablet 100 mg PO UD PRN YEAST INFECTION 07/22/22 05/30/24 05/27/22 omeprazole 20 mg capsule,delayed 20 mg PO QPM PRN Acid Reflux 07/22/22 05/30/24 12/20/23 19:00 release amiloride 5 mg tablet 5 mg PO QAM 02/19/23 05/30/24 12/20/23 09:00 estradiol 1 mg tablet 0 mg PO 4XWK 02/19/23 05/30/24 12/20/23 09:00 losartan 50 mg tablet 50 mg PO QAM 02/19/23 05/30/24 12/21/23 05:00 oxymetazoline 0.05 % nasal spray 1 spray intranasal UD PRN Nasal 11/10/23 05/30/24 Unknown (Afrin (oxymetazoline)) Congestion polyethylene glycol 400 0.25 % eye 1 drp ophthalmic (eye) DAILY PRN 11/10/23 05/30/24 Unknown drops (Blink Tears) Dry Eyes aspirin 81 mg tablet,delayed 81 mg PO BID #0 tabs 12/22/23 05/30/24 Unknown release oxycodone 5 mg tablet 5 mg PO Q6 PRN pain #30 tabs 12/22/23 05/30/24 Unknown cholecalciferol (vitamin D3) 25 25 mcg PO DAILY 05/30/24 05/30/24 Unknown mcg (1,000 unit) tablet (Vitamin D3) meloxicam 15 mg tablet 15 mg PO QAM 05/30/24 05/30/24 Unknown tramadol 50 mg tablet 50 mg PO TID 05/30/24 05/30/24 Unknown Past Medical History Medical History (Updated 06/14/24 @ 16:05 by Donna Balbuena PA-C) Asthma controlled, stable per pt; last rescue inhaler use 1 month ago Cancer Skin cancer (multiple sites) s/p excision, cheeks and arms Chronic steroid use Chronic prednisone 10mg daily r/t psoriatic arthritis Cirrhosis of liver Contact dermatitis "ongoing all my life/controlled." Difficult intravenous access "Wants IV team" Dry eye syndrome Glaucoma History of anesthesia complications awareness with right TKA History of endometriosis Hx of transient ischemic attack (TIA) 2017, no residual effects Hyperlipidemia Hypertension controlled, stable per pt Irritable bowel syndrome Kidney stones current/dormant for yrs. Limb alert care status LUE restriction (pt has lymphedema left arm and both legs) Lymphedema lymphedema left arm and both legs > therapy Sarcoidosis "Stable" Scoliosis Patient denies h/o seizures, heart attack, heart failure, DM, blood clots/DVTs or blood transfusions. Exercise / Class Metabolic Activity III < 4 Walking/Shop/Light housework (chronic shortness of breath with usual activities-denies change or worsening; denies chest discomfort) Past Family History Family History Father Renal failure Cancer Mother Acute subdural hematoma Brother Family hx colonic polyps Other No family history of adverse response to anesthesia Past Surgical History Surgical History H/O chest tube placement AFTER BRONCHOSCOPY H/O eye surgery RIGHT/LEFT FOR GLAUCOMA H/O hysterectomy with unilateral oophorectomy left fallopian tube and ovary removed-pt unsure if right fallopian tube remains History of adenoidectomy History of amputation of toe Right 4th toe, October 2020 History of anesthesia reaction DIFFICULTY BREATHING--had to receive oxygen after general anesthesia, denies re-intubation or unanticipated hospitalization; states was discharged for same day surgery. > 10 yrs ago History of appendectomy History of bronchoscopy History of colonoscopy History of cystoscopy History of esophagogastroduodenoscopy (EGD) History of foot surgery RIGHT/LEFT FOOT SURGERY WITH HARDWARE History of hand surgery LEFT HAND FINGER FUSION History of laparoscopy History of liver biopsy History of Mohs surgery for squamous cell carcinoma of skin [facility] 11/2021 History of reverse total replacement of left shoulder joint March 2023. History of shoulder surgery RT SHOULDER History of tonsillectomy History of tooth extraction History of total knee replacement right History of total replacement of right shoulder joint Right reverse TSA (08/29/22): Grade I view, Glidescope#3 "elective", ETT 7.0 + PNB at [facility] S/P parathyroidectomy Past Anesthesia History No Family Hx of Anesthesia Complications and Other (see above) History of PONV No Hx of PONV and No Hx of Motion Sickness Social History Smoking Status: Never smoker Do You Dip or Chew Tobacco: No Hx Alcohol Use: No Hx Substance Use: No substance use type: does not use Review of Systems Patient denies chest pain, snoring, witnessed apneas, reflux, fever, chills, cough, wheezing, or palpitations. Physical Exam Vital Signs Vitals BP 143/83 P 85 TEMP 97.5 SP02 96% on RA RESP 18 Physical Patient resting comfortably in chair in no acute distress, alert and oriented, responding appropriately throughout visit Full cervical extension range of motion without pain TMD 3.5 finger breadths Mallampati Score 2 Dentition: intact, denies chipped or loose teeth, caps/crowns, implants or bridges Lungs: normal respiratory effort. Good air movement, clear throughout to auscultation, no adventitious breath sounds Cardiac: regular rate and rhythm, no murmurs noted Carotid arteries: negative bruit bilat Lab Results Anesthesia Preop Results Results Anesthesia Widget: WBC 8.74 K/ul (4.8-10.8) 06/14/24 Hgb 14.2 g/dl (12.0-16.0) 06/14/24 Hct 44.7 % (37.0-47.0) 06/14/24 Plt 208 K/uL (130-400) 06/14/24 Na 138 mmol/L (136-145) 06/14/24 K 4.7 mmol/L (3.5-5.1) 06/14/24 Cl 103 mmol/L (98-107) 06/14/24 CO2 28 mmol/L (21-32) 06/14/24 BUN 24 mg/dl (6-23) H 06/14/24 Creat 1.09 mg/dl (0.6-1.2) 06/14/24 Glucose Level 98 mg/dl (70-99(Fasting)) 06/14/24 PT 10.3 Seconds (9.0-12.0) 06/14/24 PTT 23 Seconds (21-31) 06/14/24 INR 0.9 (0.9-1.1) 06/14/24 Blood Type A Positive 06/14/24 Antibody Screen NEGATIVE 06/14/24 Testing Electrocardiogram Date: 11/24/23 NSR, rate 75 bpm Chest X-Ray Date: 06/14/24 No acute process of the chest.
--- NOTE | 2024-07-04 06:21 | History & Physical Bridge Note ---
Date of Service July 04, 2024 History & Physical Bridge Note I have examined the patient, reviewed the History & Physical and in the interval since the performance of the History & Physical I have noted the following changes of clinical significance: no changes noted
[~2024-07-04 06:39] MED LIST changes: -BUPIVACAINE 0.5 % 5 MG/1 ML PF 10ML VIAL ONE
--- OUTSIDE RECORDS SUMMARY | 2024-07-04 06:43 | External Medical Summary | Summary of Care ---
Author Name Unknown Organization [facility] Address [address] [place] [address] Phone [phone] Care Team Providers Care Booth Manager Name Role Phone Jeniffer Ashraf MD Primary Care Provider [phone] Encounter Details Date Type Department Care Team (Late st Contact Info) Description 06/16/2024 Orders Only General Internal Medicine [facility] [address] [facility] [place] [address] Jeniffer Ashraf MD [address] [place] [address] Allergies Active Allergy Reactions Criticality Noted Date Comments Adhesive Tape 09/21/2009 Aminoglycosides Low 04/20/2003 tobrex eye gtts-red eyes Red eyes Bacitracin 05/19/2024 Bee Venom Anaphylaxis High 09/08/2018 Carboxymethylcellulose Low 04/20/2003 alphagan eye gtts-red eyes Eye redness Cefaclor Low 04/20/2003 mouth ulcers Mouth ulcers Lisinopril Cough 11/18/2022 Nsaids Medium 04/20/2003 motrin-blurred vision Other reaction(s): Visual Disturbance Other - Drugs 04/20/2003 feldine-hives Other Allergy (See Comments) 015 Bacitracin eye ointment Spironolactone 04/20/2003 hives Timolol 05/19/2024 Other Reaction(s): Eye swelling documented as of this encounter (statuses as of 06/16/2024) Medications Medication Sig Dispensed Refills Start Date End Date Status VITAMIN C 500 MG PO TABS 1 tab daily Active nystatin-triamcinolo ne (MYCOLOG) ointment Apply topically to affected area 2 times a day. Apply to rectum 30 g 0 05/17/2015 Active amoxicillin (AMOXIL) 500 MG Capsule Prior to dental work 03/26/2017 Active Multiple Minerals-Vitamins (CITRACAL PLUS) Tablet Take 1 Tablet by mouth daily. 04/27/2017 Active loperamide (IMODIUM) 2 MG Capsule Take 1 Capsule by mouth 4 times a day as needed for Diarrhea. 30 Cap 04/27/2017 Active Polyethyl Glycol-Propyl Glycol 0.4-0.3 % Ophthalmic Solution Instill 2 Drops into both eyes as needed for Dry eyes. Active acetaminophen (TYLENOL) 500 MG Tablet Take 2 Tablets by mouth 2 times a day as needed for Pain. 100 Tab 07/07/2017 Active estradiol (ESTRACE) 1 MG Tablet Take 0.5 Tablets by mouth. 0.5 four days per week 07/07/2017 Active omeprazole (PRILOSEC) 20 MG CPDRIndications:Psor iatic arthropathy (HCC) Take 1 Cap by mouth daily. 90 Cap 1 07/09/2017 Active fluconazole (DIFLUCAN) 100 MG Tablet 11/03/2017 Active nystatin 752104 UNIT/GM cream APPLY 2-3 TIMES DAILY TO [...] mouth ulcers 120 mL 1 10/04/2019 Active EPINEPHrine 0.3 MG/0.3ML Injection Solution Auto-injector (Autoinjector)Indica tions:Toxic effect of venom of bees, unintentional, sequela As needed 1 Each 11 03/24/2023 Active Baclofen 10 MG Oral Tablet (Lioresal)Indication s:Strain of neck muscle, initial encounter TAKE ONE TABLET BY MOUTH TWICE A DAY NEEDED FOR MUSCLE SPASM 180 Tablet 1 04/28/2023 Active Humira Pen 40 MG/0.4ML Subcutaneous Pen-injector Kit (Adalimumab) Inject 0.4 mL under the skin every 14 days. 6 Each 3 08/29/2023 Active aMILoride HCl 5 MG Oral Tablet (Midamor)Indications :HTN, goal below 140/90 Take 1 Tablet by mouth in the morning. 90 Tablet 3 09/24/2023 Active Meloxicam 7.5 MG Oral Tablet (Mobic) TAKE ONE TABLET BY MOUTH EVERY MORNING NEEDED 90 Tablet 1 12/14/2023 Active Doxycycline Hyclate 50 MG Oral Capsule (Vibramycin)Indicati ons:Contact dermatitis, unspecified contact dermatitis type, unspecified trigger TAKE ONE CAPSULE BY MOUTH EVERY MORNING 90 Capsule 3 02/29/2024 Active Losartan Potassium 50 MG Oral Tablet (Cozaar)Indications: HTN, goal below 140/90 Take 1.5 Tablets by mouth in the morning. 04/12/2024 Active traMADol HCl 50 MG Oral TabletIndications:Ps oriatic arthropathy (HCC) Take 1 Tablet by mouth in the morning and 1 Tablet at noon and 1 Tablet in the evening. 90 Tablet 06/01/2024 Active Metoprolol Succinate ER 25 MG Oral Tablet Extended Release 24 Hour (toPROL XL)Indications:HTN, goal below 140/90 TAKE 1 & 1/2 TABLETS BY MOUTH EVERY MORNING 135 Tablet 3 06/01/2024 Active predniSONE 10 MG Oral Tablet (Deltasone) TAKE ONE TABLET BY MOUTH EVERY MORNING 90 Tablet 1 06/09/2024 Active Vitamin D-3 25 MCG (1000 UT) Oral Capsule Take 1 Capsule by mouth in the morning. 06/15/2024 Active documented as of this encounter (statuses as of 06/16/2024) Active Problems Problem Noted Date Diagnosed Date Atherosclerosis of aorta 06/15/2024 Chronic diarrhea 09/24/2022 Statin intolerance 03/13/2022 Trochanteric bursitis of left hip 02/10/2022 Acquired absence of other toe(s), unspecified si de 04/05/2021 CKD (chronic kidney disease) stage 2, GFR 60-89 ml/min 03/26/2021 Overview: Per CKD protocol Body mass [...] as of this encounter (statuses as of 06/16/2024) Resolved Problems Problem Noted Date Diagnosed Date Resolved Date Cellulitis of left hand 10/03/202209/12 Asthma with severity to be determined 07/21/2009 04/27/2017 Overview: ICD-10 update of inactive term Iatrogenic pneumothorax 07/18/200904/11 Abnormal mammogram 04/20/2003 7 Contact dermatitis 7 Other lymphedema 07/07/2017 Osteoarthrosis, unspecified whether generalized or localized, ankle and foot 04/27/2017 documented as of this encounter (statuses as of 06/16/2024) Immunizations Name Administration Dates Next Due COVID-19 [...] lent, No Preserve, Mdck 07/22/2018 Seasonal Influenza, Trivalen t, (IIV3), with Preserv, (Fluzone) 07/23/2020,07/25/2019,07/27/2009 TDAP, Age 7 and older, IM (Adacel) 05/31/2013 Zoster Vaccine Recombinant (Shingrix) 07/28/2022 ,04/15/2022 [...] money to get more. Never true 07/01/2022 Utilities Answer Date Recorded Do you have trouble paying y our heating, water, or electric bill? (Adult - for ages 18 years and over) Not on file 03/29/2024 Is your family able to pay t he heat, water, or electric bill? (Household - for ages 0-17 years) Not on file 03/29/2024 Does your family have access to good internet? (Household - for ages 0-17 years) Not on file 03/29/2024 Social Connections Answer Date Recorded How often do you feel lonely or isolated from those around you? (Adult - for ages 18 years and over) Not on file 03/29/2024 Sex and Gender Information Value Date Recorded Sex Assigned at Female 05/31/2019 7:30 AM EDT Gender Identity Female 05/31/2019 7:30 AM EDT Sexual Orientation Straight 05/31/2019 7: 30 AM EDT Job Start Date Occupation Industry Not on file Not on file Not on file documented as of this encounter Plan of Treatment Upcoming Encounters Date Type Department Care Team (Late st Contact Info) Description 10/13/2024 1:00 PM EST Office Visit General Internal Medicine [facility] 200 [facility] [place] [address] Jeniffer Ashraf MD 200 [facility] [place] [address] 05/19/2025 1:40 PM EDT Office Visit Rheumatology [facility] [address] [facility] [place] [address] Hilton Bhatt MD [address] [place] [address] Scheduled Procedures Name Priority Associated Diagnoses Date/Ti me COLONOSCOPY FLEXIBLE PROXIMA L DIAGNOSTIC Recall Encounter for screening colonoscopy Health Maintenance Due Date Last Done Comments Cologuard 2001 Sigmoidoscopy 2001 Fecal Occult Blood Test 09/26/2017 09/26/2016 Adult Wellness Visit 2022 DTap/Tdap Vaccines (2 - Td or Tdap) 05/31/2023 05/31/2013 Mammogram 01/20/2024 01/19/2023, 01/10, 10/09/2021, Additional history exists COVID-19 Vaccine ( season) 2024 11/05/2023, 07/28/2022, 07/29/2021, Additional history exists Influenza Vaccine (FLU shot) (#1) 2024 08/14/2023, 07/15/2022, 07/15/2022, Additional history exists Depression Screening 12/02/2024 12/02/2023 GFR 12/29/2024 06/14/2024, 12/11, 12/23/2023, Additional history exists O2 ASSESSMENT COMPLETED IN PAST YEAR FOR COPD 06/15/2025 06/15/2024 Pneumococcal Vaccine: 65+ Years (4 of 4 - PPSV23 or PCV20) 09/20/2025 09/20/2020, 10/04/2019, 07/12/2014 Albumin/Creatinine Ratio 09/24/2026 023, 12/09/2022, 04/16/2021 Diabetes Screening 12/29/2026 06/14/2024, 0 12/30/2023, 12/23/2023, Additional history exists Colonoscopy 08/04/2028 08/04/2018 Colorectal Cancer Screening 08/04/2028 DXA Scan 11/30/2030 11/30/2023, 11/12, 11/14/2021, Additional history exists Hepatitis B Vaccine Completed 09/20/2020, 04/18/2020, 03/19/2020 Zoster Vaccines Completed 07/28/2022, 04/15/2022 HPV (Gardasil) Vaccine Aged Out No lo nger eligible based on patient's age to complete this topic MENINGOCOCCAL (MENACTRA/MENVEO) Aged Out No longer eligible based on patient's age to complete this topic documented as of this encounter Medical Devices Not on filedocumented as of this encounter Procedures Procedure Name Priority Date/Time Associated Diagnosis Comments XR CHEST 2 VIEWS Routine 06/14/2024 CHEMISTRY-OUTSIDE Routine 06/14/2024 documented in this encounter Results * CHEMISTRY-OUTSIDE (06/14/2024) Not all results display below - see scan for full detail OUTSIDE LAB (SEE SCANNED REPORT) Comment:SCAN INCLUDES - PT I NR, PTT, BMP, CBCD CREATININE-OUTSID E LAB 1.09 0.6 - 1.2 MG/DL OUTSIDE LAB (SEE SCANNED REPORT) EGFR-OUTSIDE LAB 52.5 ML/MIN OUT SIDE LAB (SEE SCANNED REPORT) POTASSIUM-OUTSIDE LAB 4.7 3.5 - 5.1 MMOL/L OUTSIDE LAB (SEE SCANNED REPORT) GLUCOSE-OUTSIDE LAB 98 70 - 99 MG/DL OUTSIDE LAB (SEE SCANNED REPORT) HOURS FASTING OUTSID E LAB (SEE SCANNED REPORT) TRIGLYCERIDES-OUT SIDE LAB OUTSIDE LAB (SEE SCANNED REPORT) CHOLESTEROL-OUTSI DE LAB OUTSIDE LAB (SEE SCANNED REPORT) HDL-OUTSIDE LAB OUTS ANIKET LAB (SEE SCANNED REPORT) CHOL/HDL RATIO-OUTSIDE LAB OUTSIDE LA B (SEE SCANNED REPORT) LDL (CALCULATED)-OUTS ANIKET LAB OUTSIDE LAB (SEE SCANNED REPORT) LDL (DIRECT MEASURE)-OUTSIDE LAB OUTSIDE LAB (SEE SCANNED REPORT) HEMOGLOBIN, [id number] LAB OUTSIDE LAB (SEE SCANNED REPORT) PHOSPHORUS-OUTSID E LAB OUTSIDE LAB (SEE SCANNED REPORT) PTH-OUTSIDE LAB OUTS ANIKET LAB (SEE SCANNED REPORT) MICROALBUMIN RATIO-OUTSIDE LAB OUTSIDE LA B (SEE SCANNED REPORT) PROTEIN, UA-OUTSIDE LAB OUTSIDE LAB (SEE SCANNED REPORT) HGB 14.2 12.0 - 16.0 G/DL OUTSIDE LAB (SEE SCANNED REPORT) 06/14/2024 Hilton Crespo DO LABORATORY OUTSIDE LAB (SEE SCANNED REPORT) * XR CHEST 2 VIEWS (06/14/2024) Anatomical Region Laterality Modality Chest Other 06/14/2024 Hilton Crespo DO RADIOLOGY (RAD [employer]less Post NERAL) documented in this encounter Advance Directives * Full Code (Latest Code Status on File) Date Activated Date Inactivated Comments 07/18/2009 3:48 PM 07/21/2009 4:16 PM This order reflects the patients wishes and were consensually agreed upon. Question Answer Comments Discussion of Advance Directives occurred with: Patient/Family Does the patient have a Living Will? No Does the patient have Health Care Power of Attor shae? No Care Teams Booth Manager Relationship Specialty Start Date End Date Jeniffer Ashraf MD [address] [facility] [place] [address] PCP - General Internal Medicine 08/08/21 documented as of this encounter
--- OUTSIDE RECORDS SUMMARY | 2024-07-04 06:43 | External Medical Summary | Summary of Care ---
Author Name Unknown Organization [facility] Address [address] [place] [address] Phone [phone] Care Team Providers Care Powersaw Supervisor Name Role Phone Violetta Ashraf MD Primary Care Provider [phone] Reason for Visit * Reason Onset Date Comments Medication Refill 06/29/2024 Encounter Details Date Type Department Care Team (Late st Contact Info) Description 06/29/2024 Refill General Internal Medicine [facility] 200 [facility] [place] [address] Violetta Ashraf MD [address] [place] [address] Psoriatic arthropathy (HCC) Allergies Active Allergy Reactions Criticality Noted [...] as of this encounter (statuses as of 06/30/2024) Medications Medication Sig Dispensed Refills Start Date End Date Status VITAMIN C 500 MG PO TABS 1 tab daily Active nystatin-triamcino lone (MYCOLOG) ointment Apply topically [...] week 07/07/2017 Active omeprazole (PRILOSEC) 20 MG CPDRIndications:Ps oriatic arthropathy (HCC) Take 1 Cap by mouth daily. 90 Cap 1 07/09/2017 Active fluconazole (DIFLUCAN) 100 MG Tablet 11/03/2017 Active nystatin 263803 UNIT/GM cream APPLY 2-3 TIMES DAILY TO [...] by mouth in the morning. 04/12/2024 Active Metoprolol Succinate ER 25 MG Oral Tablet Extended Release 24 Hour (toPROL XL)Indications:HTN , goal below 140/90 TAKE 1 & 1/2 TABLETS BY MOUTH EVERY MORNING 135 Tablet 3 06/01/2024 Active predniSONE 10 MG Oral Tablet (Deltasone) TAKE ONE TABLET BY MOUTH EVERY MORNING 90 Tablet 1 06/09/2024 Active Vitamin D-3 25 MCG (1000 UT) Oral Capsule Take 1 Capsule by mouth in the morning. 06/15/2024 Active traMADol HCl 50 MG Oral TabletIndications: Psoriatic arthropathy (HCC) Take 1 Tablet by mouth in the morning and 1 Tablet at noon and 1 Tablet in the evening. 90 Tablet 06/30/2024 Active traMADol HCl 50 MG Oral TabletIndications: Psoriatic arthropathy (HCC) Take 1 Tablet by mouth in the morning and 1 Tablet at noon and 1 Tablet in the evening. 90 Tablet 06/01/2024 4 Discontinue d(Refill) documented as of this encounter (statuses as of 06/30/2024) Active Problems Problem Noted Date Diagnosed Date Body mass index (BMI) of 45.0 to 49.9 in adult 0 06/20/2024 Overview: Per Obesity protocol - Per Obesity protocol Atherosclerosis of aorta 06/15/2024 Chronic diarrhea 09/24/2022 Statin intolerance 03/13/2022 Trochanteric bursitis of left hip 02/10/2022 Acquired absence of other toe(s), unspecified si de 04/05/2021 CKD (chronic kidney disease) stage 2, GFR 60-89 ml/min 03/26/2021 Overview: Per CKD protocol Cirrhosis of liver 11/29/2019 Controlled substance [...] as of this encounter (statuses as of 06/30/2024) Resolved Problems Problem Noted Date Diagnosed Date Resolved Date Cellulitis of left hand 10/03/202209/12 Body mass index (BMI) of 40. 0 to 44.9 in adult 08/20/2020 06/23/2024 Overview: Per Obesity protocol Asthma with severity to be determined 07/21/2009 04/27/2017 Overview: ICD-10 update of inactive term Iatrogenic pneumothorax 07/18/200904/11 Abnormal mammogram 04/20/2003 7 Contact dermatitis 7 Other lymphedema 07/07/2017 Osteoarthrosis, unspecified whether generalized or localized, ankle and foot 04/27/2017 documented as of this encounter (statuses as of 06/30/2024) Immunizations Name Administration Dates Next Due COVID-19 [...] encounter Miscellaneous Notes * Telephone Encounter - Violetta Ashraf MD - 06/30/2024 1:50 PM EDTSigned Prescriptions: Disp Refills traMADol HCl 50 MG Oral Tablet 90 Tab*0 Sig: Take 1 Tablet by mouth in the morning and 1 Tablet at noon and 1 Tablet in the evening. Authorizing Provider: VIOLETTA ASHRAF * Telephone Encounter - Jem Wood [facility] - 06/30/2024 12:42 PM EDT Pending Prescriptions: Disp Refills traMADol HCl 50 MG Oral Tablet 90 Tab*0 Sig: Take 1 Tablet by mouth in the morning and 1 Tablet at noon and 1 Tablet in the evening. * Telephone Encounter - Jem Wood [facility] - 06/30/2024 12:41 PM EDT I have reviewed the patients controlled substance dispensing history in the Prescription Drug Monitoring Program in compliance with the [facility] regulations before prescribing a controlled substance. PDMP checked on 06/30/2024. Pending Prescriptions: Disp Refills traMADol HCl 50 MG Oral Tablet 90 Tab*0 Sig: Take 1 Tablet by mouth in the morning and 1 Tablet at noon and 1 Tablet in the evening. Last Visit: 06/15/2024 (in office), 10/03/2022 (telemedicine) Next Visit: 10/13/2024 Date medication was last filled: 06/01/24 Date medication is due for refill: 06/30/24 Pharmacy: [facility] [id number] Is this request for a controlled substance? Yes and Urine Drug Screen was completed Toxicology results: Results for orders placed or performed in visit on 09/24/23 PAIN MANAGEMENT DRUG PANEL, URINE W/ INTERPRETATION Result Value Compliance Interpretation Based on the medication information provided: The presence of tramadol and o-desmethyltramadol is CONSISTENT with tramadol use. Amphetamines Screen, U Refer to confirmation results (A) Benzodiazepines Screen, U Negative Cannabinoids Screen, U Negative Cocaine Metabolite Screen, U Negative Fentanyl Screen, U Negative Hydrocodone Screen, U Negative Methadone Metabolite Screen, U Negative Morphine/Codeine Screen, U Negative Oxycodone Screen, U Negative Valid Interpretation Normal Creatinine, U 314 Narrative Cutoff Concentrations: Drug Level Amphetamines 500 ng/mL Benzodiazepines 100 ng/mL Cannabinoids 50 ng/mL Cocaine Metabolite 150 ng/mL Fentanyl 1 ng/mL Hydrocodone / Hydromorphone 300 ng/mL Methadone Metabolite 100 ng/mL Morphine / Codeine 300 ng/mL Oxycodone / Oxymorphone 100 ng/mL Screening results are presumptive and can only be used for medical purposes. Confirmatory testing is available upon request. Please approve if appropriate. Thanks, Jem Wood, PharmD Clinical Pharmacist [facility] ([facility]) [phone] 06/30/2024, 12:42 PM documented in this encounter Plan of Treatment Upcoming Encounters Date Type Department Care Team (Late st Contact Info) Description 10/13/2024 1:00 PM EST Office Visit General Internal Medicine [facility] [address] [facility] [place] [address] Violetta Ashraf MD [address] [facility] [place] [address] 05/19/2025 1:40 PM EDT Office Visit Rheumatology [place] [id number] [place] [address] Hilton Bhatt MD [address] [place] [address] Scheduled Procedures Name Priority Associated Diagnoses Date/Ti [...] history exists Depression Screening 12/02/2024 12/02/2023 GFR 06/14/2025 06/14/2024, 12/11, 12/23/2023, Additional history exists O2 ASSESSMENT COMPLETED IN PAST YEAR FOR COPD 06/15/2025 06/15/2024 Pneumococcal Vaccine: 65+ Years (4 of 4 - PPSV23 or PCV20) 09/20/2025 09/20/2020, 10/04/2019, 07/12/2014 Albumin/Creatinine Ratio 09/24/2026 023, 12/09/2022, 04/16/2021 Diabetes Screening 06/14/2027 06/14/2024, 0 12/30/2023, 12/23/2023, Additional history exists [...] as of this encounter Visit Diagnoses Diagnosis Psoriatic arthropathy (HCC) Psoriatic arthropathy documented in this encounter Advance Directives * [...] Power of Attor shae? No Care Teams Powersaw Supervisor Relationship Specialty Start Date End Date Violetta Ashraf MD [address] [place] [address] PCP - General Internal Medicine 08/08/21 documented as of this encounter
--- OUTSIDE RECORDS SUMMARY | 2024-07-04 06:44 | External Medical Summary | Summary of Care ---
Author Name Unknown Organization [facility] Address [address] [place] [address] Phone [phone] Care Team Providers Care Supervisor Slate Splitting Name Role Phone Jeniffer Ashraf MD Primary Care Provider [phone] Reason for Visit * Reason Onset Date Comments FYI 06/15/2024 Encounter Details Date Type Department Care Team (Late st Contact Info) Description 06/15/2024 Telephone General Internal Medicine [facility] [address] [facility] [place] [address] Jeniffer Ashraf MD [address] [place] [address] FYI Allergies Active Allergy Reactions Criticality Noted Date [...] as of this encounter (statuses as of 06/15/2024) Medications Medication Sig Dispensed Refills Start Date [...] (DIFLUCAN) 100 MG Tablet 11/03/2017 Active nystatin 001460 UNIT/GM cream APPLY 2-3 TIMES DAILY TO [...] as of this encounter (statuses as of 06/15/2024) Active Problems Problem Noted Date Diagnosed Date [...] as of this encounter (statuses as of 06/15/2024) Resolved Problems Problem Noted Date Diagnosed Date Resolved Date Cellulitis of left hand 10/03/202209/12 Asthma with severity to be determined 07/21/2009 04/27/2017 Overview: ICD-10 update of inactive term Iatrogenic pneumothorax 07/18/200904/11 Abnormal mammogram 04/20/2003 7 Contact dermatitis 7 Other lymphedema 07/07/2017 Osteoarthrosis, unspecified whether generalized or localized, ankle and foot 04/27/2017 documented as of this encounter (statuses as of 06/15/2024) Immunizations Name Administration Dates Next Due COVID-19 [...] encounter Miscellaneous Notes * Telephone Encounter - Brandee Martinez OSA - 06/15/2024 4:01 PM EDT Notes faxed to [facility] [phone] documented in this encounter Plan of Treatment Upcoming Encounters Date Type Department Care Team (Late st Contact Info) Description 10/13/2024 1:00 PM EST Office Visit General Internal Medicine [facility] [place] [address] [facility] [place] [address] Jeniffer Ashraf MD [address] [facility] [place] [place] [address] 05/19/2025 1:40 PM EDT Office Visit Rheumatology [facility] [address] [place] [address] Hilton Bhatt MD [address] [place] [address] Scheduled Procedures Name Priority Associated Diagnoses Date/Ti me COLONOSCOPY FLEXIBLE PROXIMA L DIAGNOSTIC Recall Encounter for screening colonoscopy Health Maintenance Due Date Last Done Comments Cologuard 2001 Sigmoidoscopy 2001 Fecal Occult Blood Test 09/26/2017 09/26/2016 Adult Wellness Visit 2022 DTap/Tdap Vaccines (2 - Td or Tdap) 05/31/2023 05/31/2013 Mammogram 01/20/2024 01/19/2023, 01/10, 10/09/2021, Additional history exists COVID-19 Vaccine ( - 2022- season) 2024 11/05/2023, 07/28/2022, 07/29/2021, Additional history exists Influenza Vaccine (FLU shot) (#1) 2024 08/14/2023, 07/15/2022, 07/15/2022, Additional history exists Depression Screening 12/02/2024 12/02/2023 GFR 12/29/2024 12/30/2023, 12/10, 11/13/2023, Additional history exists O2 ASSESSMENT COMPLETED IN PAST YEAR FOR COPD 06/15/2025 06/15/2024 Pneumococcal Vaccine: 65+ Years (4 of 4 - PPSV23 or PCV20) 09/20/2025 09/20/2020, 10/04/2019, 07/12/2014 Albumin/Creatinine Ratio 09/24/2026 023, 12/09/2022, 04/16/2021 Diabetes Screening 12/29/2026 12/30/2023, 0 12/23/2023, 11/13/2023, Additional history exists Colonoscopy 08/04/2028 08/04/2018 Colorectal Cancer Screening 08/04/2028 Lipid Panel 11/13/2028 11/13/2023, 11/13, 10/29/2021, Additional history exists DXA Scan 11/30/2030 11/30/2023, 11/12, 11/14/2021, Additional [...] filedocumented as of this encounter Advance Directives * Full Code [...] Power of Attor shae? No Care Teams Supervisor Slate Splitting Relationship Specialty Start Date End Date Jeniffer Ashraf MD [address] [facility] [place] [address] PCP - General Internal Medicine 08/08/21 documented as of this encounter
--- OUTSIDE RECORDS SUMMARY | 2024-07-04 06:44 | External Medical Summary | Summary of Care ---
Author Name Unknown Organization [facility] Address [address] [place] [address] Phone [phone] Care Team Providers Care Career Manager Name Role Phone Jeniffer Ashraf MD Primary Care Provider [phone] Reason for Visit * Reason Comments pre-op exam Encounter Details Date Type Department Care Team (Late st Contact Info) Description 06/15/2024 3:00 PM EDT Office Visit General Internal Medicine [address] [place] [address] Becca Charlton MD [address] [facility] [place] [address] Preoperative general physical examination*; Psoriatic arthropathy (HCC); Arthritis of left knee; Status post right knee replacement; HTN, goal below 140/90; Pure hypercholesterolemia; CKD (chronic kidney disease) stage 2, GFR 60-89 ml/min; Lymphedema of both lower extremities; Body mass index (BMI) of 40.0 to 44.9 in adult (HCC); H/O hyperparathyroidism; History of TIA (transient ischemic attack); Statin intolerance; Sarcoidosis (HCC); Encounter for screening mammogram for breast cancer; Cirrhosis of liver without ascites, unspecified hepatic cirrhosis type (HCC); Elevated BUN; Atherosclerosis of aorta (HCC) Allergies Active Allergy Reactions Criticality Noted [...] (DIFLUCAN) 100 MG Tablet 11/03/2017 Active nystatin 970610 UNIT/GM cream APPLY 2-3 TIMES DAILY TO [...] 04/12/2024 Active traMADol HCl 50 MG Oral TabletIndications: [...] by mouth in the morning. 06/15/2024 Active Ergocalciferol 1.25 MG (15679 UT) Oral Capsule (Vitamin D2(Drisdol)) Pt takes this daily, not sure the dose - not this high of a dose , thinks approx 1000mg daily 4 Discontinue d(Medicatio n/Dose Changed) Aspirin 81 MG Oral Tablet Delayed Release (Aspirin 81) Take 1 Tablet by mouth in the morning. 4 Discontinue d(Patient preference/ discontinua tion) documented as of this encounter (statuses as [...] Date Smoking Tobacco: Never Smokeless Tobacco: Never Tobacco Cessation:Counseling Given: Not Answered Alcohol Use Standard Drinks/Week Comments No 0 [...] Sign Reading Time Taken Comments Blood Pressure 132/80 06/15/2024 2:55 PM EDT Pulse 80 06/15/2024 3:40 PM EDT Temperature 36.5 C (97.7 F) 06/15/2024 2:55 PM ED T Respiratory Rate - - Oxygen Saturation 98% 06/15/2024 2:55 PM EDT Inhaled Oxygen Concentration - - Weight 116.1 kg (255 lb 14.4 oz) 06/15/2024 2:55 PM EDT Height 160 cm (5' 2.99") 06/15/2024 2:55 PM EDT Body Mass Index 45.34 06/15/2024 2:55 PM EDT documented in this encounter Progress Notes * Becca Charlton MD - 06/15/2024 3:03 PM EDT SUBJECTIVE: Alessandra Pink is a 68 year old female. Chief Complaint Patient presents with pre-op exam Nursing Notes: Diya Madden, VIDA 06/15/24 1457 Signed Patient presents today for pre-operative exam. She is scheduled for left knee replacement on 07/04/24. She denies any concerns today. She is hopeful that her back pain resolves with her knee replacement. She states she had an EKG in December prior to right knee surgery and provider is okay with using thatfor clearance. She also had a chest x-ray recently. Declined flu vaccine today, would like to get closer to July. HPI: Patient presents Is being seen for preoperative evaluation at the request of Dr. Crespo Procedure and Date of surgery:left TKR 07/04/24 Wt Readings from Last 5 Encounters: 06/15/24 116.1 kg (255 lb 14.4 oz) 05/19/24 117 kg (258 lb) 04/12/24 114.7 kg (252 lb 14.4 oz) 01/07/24 113.2 kg (249 lb 8 oz) 12/02/23 112.8 kg (248 lb 11.2 oz) BP Readings from Last 6 Encounters: 06/15/24 132/80 04/12/24 136/92 01/07/24 132/72 12/02/23 138/82 11/19/23 120/80 09/24/23 142/90 I have reviewed the patient's medications and allergies, past medical, surgical, social and family history, updating these as appropriate. See Histories section of the electronic medical record for adisplay of this information. PMH- Psoriatic Arthritis, Sarcoidosis, bilateral lower extremity edema, Hyperlipidemia, HTN,CKD 3 ,obesity, Cirrhosis , history of hyperparathyroidism, history of fracture of the right hip with right hip replacement, history of TIA, statin intolerance, long-term use of pain medications-tramadol, dermatitis face , chr diarrhea Saw Ivette 09/03 US RUQ 07/04-1. Hepatic cirrhosis without sonographic mass identified. 2. Mildly thickened gallbladder is likely secondary to cirrhosis unless there are clinical signs ofcholecystitis. EKG-11/24/2023-NSR at 75 bpm, no abnormalities. Labs- december 2023-normal coags, CBC, BMP except BUN , cr 1, GFR 60, K 4.4 06/14/2024--labs [facility]--nml CBC,coags, BMP ex BUN 24 and CXR-no acute, aorta, chr comp deformity with kyphosis TL jn Had night right knee replacement 12/21/23-was at rehab as she lives alone. Will be going to rehab after surgery. Saw PCP in April, losartan dose was increased, no follow-up labs orders seen Constitutional: no weight loss, no weakness and no fatigue Eyes: no worsening of vision ENT: no hearing loss, no congestion, no runny nose, no sore throat, no tinnitus. No dental problems Resp: no cough, no sputum, no wheezing, no SOB and no hemoptysis Cardiac: no chest pain, no orthopnea, no dyspnea on exertion, no PND, no edema, no claudication andno palpitations GI: no pain, no heartburn,soft stools 3/d, no constipation, no blood/melena, no nausea, no vomiting Musculoskeletal: no other significant pain. : no dysuria, no incontinence Neuro: no weakness, no falling, no numbness or tingling and no vertigo Heme: no fever, no chills, no sweats, no bleeding/bruising, no weight loss and no swollen nodes Endo: no unplanned weight change, no excessive thirst and no excessive urination Skin: no rash, no itching Sleep ROS:unknown snoring,no apnoea/xs daytime sleepiness. Prefers flu vaccine in jul . Immunization History Administered Date(s) Administered COVID-19 mRNA, LNP-s, No Preserve, 2-Dose Series (Moderna) 11/03/2020, 11/24/2020, 07/29/2021 COVID-19, MRNA-LNP, 23-24, PF, 50 MCG/0.5 mL, 12 YRS AND ABOVE, IM (MODERNA- Spikevax) 11/05/2023 Covid-19, Mrna, Lnp-s, Pf, Bivalent, 30 Mcg, IM, 12 yrs and above (Pfizer) 07/28/2022 H1N1 2009 Influenza, IM 08/13/2009 HepA Inact/HepB Recomb>=18yrs old 03/19/2020, 04/18/2020, 09/20/2020 PPD 06/24/2017 Pneumococcal Conjugate Vacc, 13 Valent (Prevnar) 10/04/2019 Pneumococcal Polysaccharide PPV23 (Pneumovax) 07/12/2014, 09/20/2020 Seasonal Influenza Virus Vaccine, Unspecified Formulation 07/27/2009, 06/16/2017, 07/22/2018, 08/12/2018, 07/25/2019 Seasonal Influenza, PF, 6 M & above, IM , (FluLaval or Fluzone) 06/16/2017 Seasonal Influenza, Quadrivalent Hd (Fluzone Hd) 08/19/2021, 07/15/2022, 08/14/2023 Seasonal Influenza, Quadrivalent, ID 07/15/2022 Seasonal Influenza, Quadrivalent, No Preserve, Mdck 07/22/2018 Seasonal Influenza, Trivalent, (IIV3), with Preserv, (Fluzone) 07/27/2009, 07/25/2019, 07/23/2020 TDAP, Age 7 and older, IM (Adacel) 05/31/2013 Zoster Vaccine Recombinant (Shingrix) 04/15/2022, 07/28/2022 Results for orders placed or performed in visit on 12/30/23 CBC Result Value Ref Range WBC 9.52 4.00 - 10.80 K/uL RBC 4.53 3.85 - 5.15 M/uL HGB 13.8 12.0 - 15.3 g/dL HCT 44.8 36.0 - 45.2 % MCV 98.9 81.5 - 97.5 fL MCH 30.5 27.0 - 34.0 pg MCHC 30.8 32.0 - 36.0 g/dL RDW 13.5 11.5 - 15.5 % PLT 277 140 - 400 K/uL MPV 9.5 6.6 - 11.1 fL BASIC METABOLIC PANEL Result Value Ref Range BUN 23 (H) 6 - 20 mg/dL Creatinine 1.0 0.5 - 1.0 mg/dL Estimated Glomerular Filtration Rate 60 >=60 mL/min Sodium 138 135 - 146 mmol/L Potassium 4.4 3.5 - 5.1 mmol/L Chloride 103 98 - 107 mmol/L CO2 23 22 - 32 mmol/L Anion Gap 12 7 - 15 mmol/L Glucose 77 70 - 120 mg/dL Calcium 9.2 8.4 - 10.2 mg/dL Hemoglobin AIC Results: No results found for: "HEMOGLOBIN A1C" ALT Results: Lab Results Component Value Date/Time ALT - [facility] 21 11/13/2023 11:35 AM ALT - [facility] 20 08/05/2023 10:52 AM ALT - [facility] 20 12/09/2022 10:18 AM ALT - [facility] 39 (H) 10/17/2020 03:16 PM ALT - [facility] 53 (H) 06/20/2009 12:26 PM [facility] 27 08/14/2021 12:00 AM [facility] 39 04/16/2021 12:00 AM [facility] 30 02/08/2021 12:00 AM Patient Active Problem List Diagnosis ADVANCE DIRECTIVE INFORMATION Psoriatic arthropathy (HCC) Migraine H/O hyperparathyroidism Encounter for long-term (current) use of medications Sarcoidosis (HCC) History of fracture of right hip Lymphedema of both lower extremities History of TIA (transient ischemic attack) HTN, goal below 140/90 Pure hypercholesterolemia Generalized osteoarthritis Arthritis of carpometacarpal (CMC) joint of left thumb Simple chronic bronchitis (HCC) Cirrhosis of liver (HCC) Controlled substance agreement signed Body mass index (BMI) of 40.0 to 44.9 in adult (HCC) Chronic kidney disease, stage 3a (HCC) Acquired absence of other toe(s), unspecified side (HCC) Trochanteric bursitis of left hip Statin intolerance Chronic diarrhea Current Outpatient Medications Medication Sig Dispense Refill VITAMIN C 500 MG PO TABS 1 tab daily nystatin-triamcinolone (MYCOLOG) ointment Apply topically to affected area 2 times a day. Apply to rectum 30 g 0 amoxicillin (AMOXIL) 500 MG Capsule Prior to dental work Multiple Minerals-Vitamins (CITRACAL PLUS) Tablet Take 1 Tablet by mouth daily. loperamide (IMODIUM) 2 MG Capsule Take 1 Capsule by mouth 4 times a day as needed for Diarrhea. 30 Cap 0 Polyethyl Glycol-Propyl Glycol 0.4-0.3 % Ophthalmic Solution Instill 2 Drops into both eyes as needed for Dry eyes. acetaminophen (TYLENOL) 500 MG Tablet Take 2 Tablets by mouth 2 times a day as needed for Pain. 100Tab 0 estradiol (ESTRACE) 1 MG Tablet Take 0.5 Tablets by mouth. 0.5 four days per week omeprazole (PRILOSEC) 20 MG CPDR Take 1 Cap by mouth daily. 90 Cap 1 fluconazole (DIFLUCAN) 100 MG Tablet nystatin 716899 UNIT/GM cream APPLY 2-3 TIMES DAILY TO AFFECTED AREA(S). 3 ipratropium-albuterol (COMBIVENT RESPIMAT) 20-100 MCG/ACT Inhaler Inhale 1 Puff by mouth 4 times a day as needed for Wheezing. 1 Inhaler 11 Diclofenac Sodium 1 % gel APPLY 2 G TOPICALLY TO AFFECTED AREA 4 TIMES A DAY NEEDED FOR PAIN. ASNEDEED 300 g 3 magic swizzle (MAGIC MOUTHWASH) 15 ML Take 30 mL by mouth 4 times a day. Coat mouth ulcers 120 mL 1 Ergocalciferol 1.25 MG (71887 UT) Oral Capsule (Vitamin D2(Drisdol)) Pt takes this daily, not sure the dose - not this high of a dose , thinks approx 1000mg daily EPINEPHrine 0.3 MG/0.3ML Injection Solution Auto-injector (Autoinjector) As needed 1 Each 11 Baclofen 10 MG Oral Tablet (Lioresal) TAKE ONE TABLET BY MOUTH TWICE A DAY NEEDED FOR MUSCLE SPASM 180 Tablet 1 Humira Pen 40 MG/0.4ML Subcutaneous Pen-injector Kit (Adalimumab) Inject 0.4 mL under the skin every 14 days. 6 Each 3 aMILoride HCl 5 MG Oral Tablet (Midamor) Take 1 Tablet by mouth in the morning. 90 Tablet 3 Meloxicam 7.5 MG Oral Tablet (Mobic) TAKE ONE TABLET BY MOUTH EVERY MORNING NEEDED 90 Tablet 1 Aspirin 81 MG Oral Tablet Delayed Release (Aspirin 81) Take 1 Tablet by mouth in the morning. Doxycycline Hyclate 50 MG Oral Capsule (Vibramycin) TAKE ONE CAPSULE BY MOUTH EVERY MORNING 90 Capsule 3 Losartan Potassium 50 MG Oral Tablet (Cozaar) Take 1.5 Tablets by mouth in the morning. traMADol HCl 50 MG Oral Tablet Take 1 Tablet by mouth in the morning and 1 Tablet at noon and 1 Tablet in the evening. 90 Tablet 0 Metoprolol Succinate ER 25 MG Oral Tablet Extended Release 24 Hour (toPROL XL) TAKE 1 & 1/2 TABLETS BY MOUTH EVERY MORNING 135 Tablet 3 predniSONE 10 MG Oral Tablet (Deltasone) TAKE ONE TABLET BY MOUTH EVERY MORNING 90 Tablet 1 No current facility-administered medications for this visit. Past Medical History: Diagnosis Date Contact dermatitis GERD (gastroesophageal reflux disease) H/O hyperparathyroidism Lymphedema of both lower extremities 04/27/2017 Migraine Osteoarthrosis, unspecified whether generalized or localized, ankle and foot Other lymphedema Psoriatic arthropathy (HCC) 1988 Sarcoidosis Simple chronic bronchitis (HCC) 05/31/2019 Past Surgical History: Procedure Laterality Date AMPUTATION OF TOE Right 10/19/2020 Right 4th due to ulcer APPENDECTOMY W/OTHER PROCEDURE 1970 COLONOSCOPY, DIAGNOSTIC (RECTUM) 08/04/2018 normal bx, repeat 10 yrs/[facility] EGD, FLEXIBLE, DIAGNOSTIC 05/29/2020 [place] / [facility] FOOT/TOE SURGERY NEC IR BIOPSY 12/19/2019 [place] ARTHRP KNE CONDYLE&PLATU MEDIAL&LAT COMPARTMENTS Right RE-EXPLORE PARATHYROIDS 1987 REPAIR RUPTURED ROTATOR CUFF, CHRON Dr Johnson TOTAL ABD HYSTERECTOMY W/WO REMOVAL OF TUBE(S) 1995 Review of patient's allergies indicates: Allergen Reactions Bee Venom Anaphylaxis Nsaids motrin-blurred vision Other reaction(s): Visual Disturbance Adhesive Tape Bacitracin Lisinopril Cough Other - Drugs feldine-hives Other Allergy (See Comments) Bacitracin eye ointment Spironolactone hives Timolol Other Reaction(s): Eye swelling Aminoglycosides tobrex eye gtts-red eyes Red eyes Carboxymethylcellulose alphagan eye gtts-red eyes Eye redness Cefaclor mouth ulcers Mouth ulcers Family History Problem Relation Name Age of Onset Other (Other) Mother Head trauma from fall Other (Other) Brother bone cancer Arthritis Father ? RA Cancer Father prostate Social History Tobacco Use Smoking status: Never Smokeless tobacco: Never Vaping Use Vaping status: Never Used Substance Use Topics Alcohol use: No Comment: Occ Drug use: No OBJECTIVE: BP 132/80 | Pulse 103 | Temp 36.5 C (97.7 F) | Ht 1.6 m (5' 2.99") | Wt 116.1 kg (255 lb 14.4 oz) | SpO2 98% | BMI 45.34 kg/m | BSA 2.27 m PHYSICAL EXAM: General: alert, healthy, no distress, well nourished and well developed, sev truncal obesity Head: Normocephalic, atraumatic Eye Exam: PERRLA, EOMI, Conjunctiva are pink and non-injected, sclera clear Ears: External ears normal, Canal Obscured by cerumen Nose: no mucosal erythema, no mucosal edema, no purulent discharge Oropharynx: no exudate and no erythema, uvula flush with OP Neck: supple, no adenopathy, no JVD, thyroid normal size, non-tender, without nodularity Lymph: No palpable lymphadenopathy. Heart: regular Rhythm and rate, no murmurs. Lungs: lungs clear to auscultation Abdomen: soft, non-tender, normal bowel sounds, no masses or organomegaly, no bruits Extremities: chr lymphedema, no clubbing, no cyanosis Neuro Exam: alert & oriented x 3 with fluent speech, no focal motor deficits, gait normal Skin: skin color, texture, turgor are normal Tiny patches psoriasis legs ASSESSMENT/PLAN: Preoperative general physical examination (Primary) Psoriatic arthropathy (HCC) Arthritis of left knee Status post right knee replacement HTN, goal below 140/90 Pure hypercholesterolemia CKD (chronic kidney disease) stage 2, GFR 60-89 ml/min Lymphedema of both lower extremities Body mass index (BMI) of 40.0 to 44.9 in adult (HCC) H/O hyperparathyroidism History of TIA (transient ischemic attack) Statin intolerance Sarcoidosis (HCC) Encounter for screening mammogram for breast cancer - MAMMOGRAM SCREENING MICHAEL BILATERAL; Future; Expected date: 10/12/2024 Cirrhosis of liver without ascites, unspecified hepatic cirrhosis type (HCC) Elevated BUN Atherosclerosis of aorta (HCC) Patient is at low risk For perioperative cardiac event and may undergo the proposed surgery under noninvasive cardiac monitoring. HOLD ARELIS santo 1 wk before surgery Took Humira today Adv to drink 8-10 cups water daily May try metamucil to bulk stools, she is hesitant. States Has orders from anesthesia on what meds to take day of surgery To get TDap at pharmacy. Follow-up: Return if symptoms worsen or fail to improve. | Check-out note: Fax note [facility] [phone] Cc - referring provider.. (This note was completed using the dictation program Fluency Direct. As such, there may be misspellings, word substitutions, or other variations that should not change the essence of the clinical content of this encounter note. If there is need for further clarification, please direct questions to the provider listed above.) Patient and / caregiver verbalize understanding of above instructions and agrees with plan of care. Becca Charlton MD 06/15/2024 documented in this encounter Nursing Notes * Diya Madden CMA - 06/15/2024 2:52 PM EDT Patient presents today for pre-operative exam. She is scheduled for left knee replacement on 07/04/24. She denies any concerns today. She is hopeful that her back pain resolves with her knee replacement. She states she had an EKG in December prior to right knee surgery and provider is okay with using thatfor clearance. She also had a chest x-ray recently. Declined flu vaccine today, would like to get closer to July. documented in this encounter Plan of Treatment Upcoming Encounters Date Type Department Care Team (Late st Contact Info) Description 10/13/2024 1:00 PM EST Office Visit General Internal Medicine [facility] [address] [facility] [place] [address] Jeniffer Ashraf MD [address] [facility] [place] [id number] 05/19/2025 1:40 PM EDT Office Visit Rheumatology [place] [address] [address] [place] [address] Hilton Bhatt MD [address] [place] [address] Scheduled Orders Name Type Priority Associated Diagnoses Orde r Schedule MAMMOGRAM SCREENING MICHAEL BILATERAL Medical Imaging Routine Encounter for screening mammogram for breast cancer Expected: 10/12/2024, Expires: 07/15/2025 Scheduled Procedures Name Priority Associated Diagnoses Date/Ti [...] physical examination- Primary Other specified pre-operative examination Psoriatic arthropathy (HCC) Psoriatic arthropathy Arthritis of left knee Unspecified arthropathy, lower leg Status post right knee replacement HTN, goal below 140/90 Unspecified essential hypertension Pure hypercholesterolemia CKD (chronic kidney disease) stage 2, GFR 60-89 ml/min Chronic kidney disease, Stage II (mild) Lymphedema of both lower extremities Body mass index (BMI) of 40.0 to 44.9 in adult (HCC) H/O hyperparathyroidism Personal history of other endocrine, metabolic, and immunity disorders History of TIA (transient ischemic attack) Transient ischemic attack (TIA), and cerebral infarction without residual deficits Statin intolerance Other drug allergy Sarcoidosis (HCC) Sarcoidosis Encounter for screening mammogram for breast cancer Cirrhosis of liver without ascites, unspecified hepatic cirrhosis type (HCC) Elevated BUN Other abnormal blood chemistry Atherosclerosis of aorta (HCC) Atherosclerosis of aorta documented in this encounter Advance Directives * [...] Power of Attor shae? No Care Teams Career Manager Relationship Specialty Start Date End Date Jeniffer Ashraf MD [address] [facility] [place] [address] PCP - General Internal Medicine 08/08/21 documented as of this encounter
[2024-07-04] MEDS ORDERED: fentaNYL citrate PF 100 MCG/2 ML VIAL ONE (06:54)
[2024-07-04] MEDS ORDERED: PROPOFOL IV EMULSION 10 MG/ML 20 ML VIAL IV ONE ×2 (06:54→10:34)
[2024-07-04] MEDS ORDERED: ONDANSETRON INJ 2 MG/ML 2 ML VIAL ONE (06:54)
[2024-07-04] MEDS ORDERED: LIDOCAINE 2% 2 ML VIAL/AMP(20MG/ML) INFIL ONE (06:54)
[2024-07-04] MEDS ORDERED: MIDAZOLAM HCL 1 MG/ML 2ML VIAL ONE ×2 (06:54→07:11)
[2024-07-04] MEDS ORDERED: PHENYLEPHRINE HCL 10 MG/ML VIAL ONE (07:11)
[2024-07-04] MEDS: LR 500ML BOLUS, THEN 15ML/HR IV SCH (07:25)
[2024-07-04] MEDS: LR 60ML/HR IV SCH (07:26)
[2024-07-04] MEDS: FAMOTIDINE 20 MG TAB PO SCH (07:36)
[2024-07-04] MEDS: GABAPENTIN 300 MG CAP PO SCH (07:36)
[2024-07-04] MEDS: dexAMETHasone**PF** 10 MG/ML VIAL IV SCH (07:37)
[2024-07-04] MEDS: ACETAMINOPHEN 500 MG TAB PO SCH (07:37)
[2024-07-04] MEDS ORDERED: KETOROLAC 30 MG/ML VIAL IV PRN (07:40)
[2024-07-04] MEDS ORDERED: ONDANSETRON INJ 2 MG/ML 2 ML VIAL IV PRN ×2 (07:40→09:39)
[2024-07-04] MEDS ORDERED: ATROPINE SULFATE 0.1 MG/ML 10ML SYR IV PRN (07:40)
[2024-07-04] MEDS ORDERED: ePHEDrine sulfate 50 MG/ML AMP IV PRN (07:40)
[2024-07-04] MEDS ORDERED: HYDROmorphone INJ 1 MG/ML SYRINGE IV PRN ×2 (07:40→09:39)
[2024-07-04] MEDS: TRANEXAMIC ACID 1,000 MG **IV Pre-op IV SCH (07:55)
[2024-07-04] MEDS: ceFAZolin 2000MG 2,000 MG/15 ML SYR IV SCH ×2 (08:06→15:31)
[2024-07-04] MEDS: ROPIV 0.5% 246mg, Ketorolac 30mg, EPINEPHrine 0.5mg in NSS INFIL SCH (08:38)
[2024-07-04] MEDS: ORTHO JOINT ANESTHETIC ONE (08:38)
[2024-07-04] MEDS: TRANEXAMIC ACID 1,000 MG **IV Intra-op IV SCH (08:56)
--- NOTE | 2024-07-04 09:06 | Operative Report ---
PG Post Operative Report Pre & Post Diagnosis Operation Date: 07/04/24 08:00 Pre-Op Diagnosis: Left Knee Degenerative Joint Disease Post-Op Diagnosis: Left Knee Degenerative Joint Disease I identified the patient and participated in the time-out.: Yes Procedure Operation Date: 07/04/24 08:00 Actual Procedures p Left Total Knee Arthroplasty(Left) - Hilton Crespo DO Surgeon Hilton Crespo DO Dental Aide Brandee Meza PA-C Estimated Blood Loss 30 Findings Consistent with Post-Op Diagnosis Specimens Left femoral and tibial bone Description of Procedure Implants used: I used a Ruddy Persona total knee arthroplasty system with a size 5 standard PS femur, D tibia, 28 oval patella, and a size 12 CPS polyethylene bearing. All components were cemented in place with Biomet cement. Alessandra arrived [facility] for the above procedure. She was seen in the preoperative holding area and the operative extremity was identified and signed. She was given a preoperative antibiotic, TXA, a spinal anesthetic and an adductor nerve block. She was taken back to the operating room and laid on the table in supine position. She was given basic sedation. The operative knee was then prepped and draped in sterile fashion. A timeout was done, and the patient and the operative extremity was properly identified. A midline incision was made directly over the patella. Dissection was taken down to the extensor mechanism. A medial parapatellar arthrotomy was used. The medial retinaculum was released and the fat pad was mostly excised. The knee was flexed and the ACL, PCL, and meniscus were removed. A drill was sent down the center of the femoral canal followed by an intramedullary noemí. Off that noemí a distal femoral cutting block was placed. 9 mm was resected off the distal femur at 5 of valgus. A posterior referencing AP sizing guide was then placed on the distal femur. The femur measured to be a size 5. 2 drill holes were placed in 3 of external rotation. A 4-in-1 cutting block was then impacted into place. Anterior, posterior, and chamfer cuts were then made. The proximal tibia was then exposed. An external tibial alignment guide was placed. A tibial cut guide was then anchored in place and the proximal tibia was then resected. The posterior aspect of the knee was then opened up and any additional meniscus fragments and osteophytes were removed. The tibia measured to be a size D. The tibial plate was then placed in the appropriate rotation and the tibia was drilled and punched. Trial components were then placed. I used a size 12 CPS polyethylene insert. The knee was brought through a full range of motion and felt to be stable. The peg holes for the femoral component were then drilled. The patella was then everted and 9 mm was resected off the posterior aspect of the patella. The patella measured to be a size 28 oval. 3 peg holes were then drilled. A trial patella was placed. The knee was once again brought through a full range of motion and felt to be stable. Trial components were then removed. The surrounding soft tissues were injected with 100 cc of an orthopedic pain control cocktail. All components were then cemented into place with Biomet cement. The final polyethylene insert was then snapped into place. Once cement was dry the tourniquet was deflated. Hemostasis was obtained. A dilute betadyne lavage was then done for 3 minutes. The joint was then irrigated with normal saline solution. The medial parapatellar arthrotomy was then closed with #1 Vicryl suture. The skin was closed with 2-0 Vicryl, 3-0V lock suture, and becky. A soft compressive dressing was placed. She was then transferred to a hospital bed and taken to the postanesthesia care unit in stable condition. She tolerated the procedure well. Brandee Meza PA-C, was present for the entire procedure. He was critical for patient positioning, prepping, draping, retraction exposure, wound closure and application of sterile dressing. I attest to the content of the Intraoperative Record and any orders documented therein. Any exceptions are noted below.
[2024-07-04] MEDS ORDERED: MAGNESIUM HYDROXIDE SUSP 30 ML UDC PO PRN (09:39)
[2024-07-04] MEDS ORDERED: HYDROmorphone INJ 0.5 MG/0.5 ML SYR IV PRN (09:39)
[2024-07-04] MEDS ORDERED: METOCLOPRAMIDE HCL INJ 5 MG/ML 2 ML VIAL IV PRN (09:39)
[2024-07-04] MEDS ORDERED: bisacodyL 10 MG SUPP PR PRN (09:39)
[2024-07-04] MEDS ORDERED: NALOXONE HCL 0.4 MG/1 ML VIAL/CARP IV PRN (09:39)
[2024-07-04] MEDS ORDERED: IPRATROPIUM BROMIDE/ALBUTEROL respimat INH INH PRN (09:43)
[2024-07-04] MEDS ORDERED: ALBUTEROL HFA 8 GM INHALER INH PRN (10:04)
[2024-07-04] MEDS ORDERED: IPRATROPIUM BROMIDE HFA INHALER INH PRN (10:04)
[2024-07-04] MEDS ORDERED: PANTOprazole 40 MG TAB PO PRN (10:09)
[2024-07-04] MEDS ORDERED: ARTIFICIAL TEARS OP PRN (10:09)
--- NOTE | 2024-07-04 10:10 | XRay Report ---
XR knee LT 1 or 2V routine HISTORY: 68 years-old Female Surgical Post Op COMPARISON: 02/23/2024 TECHNIQUE: 2 views of the left knee FINDINGS: Total joint arthroplasty with patellar resurfacing. Anterior skin becky with expected postoperative soft tissue swelling and deep tissue air. Unchanged likely benign sclerotic focus of the left fibula r head. IMPRESSION: Total joint arthroplasty with expected postoperative changes. ACT 112: Negative or not required by law. The above report was generated using voice recognition software. It may contain grammatical, syntax o r spelling errors. Electronically signed by: Juan Luis Fitzgerald M.D. 07/04/2024 10:09 AM
[2024-07-04] MEDS: MEPERIDINE HCL 50 MG/ML CARP IV ONE (10:26)
--- NOTE | 2024-07-04 10:46 | Anesthesiology Progress Note ---
Date of Service July 04, 2024 Anesthesia Post Procedure Vital Signs Vital Signs: Temp Pulse Pulse Resp BP Pulse Ox O2 Del Method 07/04/24 10:40 76 17 148/78 H 93 Room Air 07/04/24 10:30 79 15 127/77 93 Room Air 07/04/24 10:20 36.4 C L 74 18 135/67 95 Room Air 07/04/24 10:10 75 20 137/87 97 Room Air 07/04/24 10:00 71 20 141/74 H 99 Oxymask 07/04/24 09:55 72 20 127/69 96 Oxymask 07/04/24 09:45 36.1 C L 77 18 121/69 97 Oxymask 07/04/24 07:17 36.6 C 87 18 153/86 H 98 Room Air O2 Flow Rate 07/04/24 10:40 07/04/24 10:30 07/04/24 10:20 07/04/24 10:10 07/04/24 10:00 3 07/04/24 09:55 6 07/04/24 09:45 6 07/04/24 07:17 Transfer of Care Handoff Completed per policy Notes Mental Status: alert / awake / arousable Patient Amnestic to Procedure: Yes Nausea / Vomiting: adequately controlled Pain: adequately controlled Airway Patency, RR, SpO2: stable & adequate BP & HR: stable & adequate Hydration State: stable & adequate Neuraxial Anesthesia: was administered and sensory block is resolving Anesthetic Complications: no major complications apparent
[2024-07-04] MEDS: SODIUM CHLORIDE 0.9% 1,000 ML IV SCH (11:17)
[2024-07-04] MEDS: MEPERIDINE HCL 25 MG/ML CARP/VIAL ONE (11:18)
[2024-07-04] MEDS: KETOROLAC TROMETHAMINE 15 MG/ML VIAL IV SCH (11:34)
[2024-07-04] MEDS: estradioL 1 MG TAB PO SCH (12:39)
[2024-07-04] MEDS ORDERED: ASPIRIN 81 MG ECTAB PO SCH (21:00)
[2024-07-04] MEDS: oxyCODONE HCL IR 5 MG TAB (IMMEDIATE RELEASE) PO PRN (21:37)
[2024-07-04] MEDS: METOPROLOL SUCC 25MG EXT REL TAB PO SCH (21:37)
[2024-07-04] MEDS: SENNA 8.6 MG TAB PO SCH (21:38)
[2024-07-04] MEDS: DOCUSATE SODIUM 100 MG CAP PO SCH (21:38)
[2024-07-04] MEDS: BACLOFEN 20 MG TAB PO SCH (21:38)
[2024-07-04] MEDS: ARTIFICIAL TEARS OP OINT 3.5 GM TUBE OP SCH (22:18)
[2024-07-04] MEDS: ACETAMINOPHEN 1,000 MG/100 ML VIAL IV PRN (23:56)
--- OUTSIDE RECORDS SUMMARY | 2024-07-05 05:40 | External Medical Summary | Summary of Care ---
Author Name Unknown Organization [facility] Address [address] [place] [address] Phone [phone] Care Team Providers Care Clinical Radiologist Name Role Phone Violetta Ashraf MD Primary Care Provider [phone] Reason for Visit * Reason Comments eRx-Medication Refill Encounter Details Date Type Department Care Team (Late st Contact Info) Description 07/02/2024 Refill General Internal Medicine [facility] [address] [place] [address] Violetta Ashraf MD [address] [place] [address] Allergies Active Allergy Reactions Criticality Noted Date [...] as of this encounter (statuses as of 07/04/2024) Medications Medication Sig Dispensed Refills Start Date [...] (DIFLUCAN) 100 MG Tablet 11/03/2017 Active nystatin 217339 UNIT/GM cream APPLY 2-3 TIMES DAILY TO [...] bees, unintentional, sequela As needed 1 Each 03/24/2023 Active Baclofen 10 MG Oral Tablet [...] the morning. 90 Tablet 3 09/24/2023 Active Doxycycline Hyclate 50 MG Oral Capsule [...] in the evening. 90 Tablet 06/30/2024 Active Meloxicam 7.5 MG Oral Tablet (Mobic) TAKE ONE TABLET BY MOUTH EVERY MORNING NEEDED 90 Tablet 1 07/04/2024 Active Meloxicam 7.5 MG Oral Tablet (Mobic) TAKE ONE TABLET BY MOUTH EVERY MORNING NEEDED 90 Tablet 1 12/14/2023 4 Discontinued documented as of this encounter (statuses as of 07/04/2024) Active Problems Problem Noted Date Diagnosed Date [...] as of this encounter (statuses as of 07/04/2024) Resolved Problems Problem Noted Date Diagnosed Date [...] as of this encounter (statuses as of 07/04/2024) Immunizations Name Administration Dates Next Due COVID-19 [...] encounter Miscellaneous Notes * Telephone Encounter - Romeo Corcoran RP - 07/04/2024 7:43 AM EDTSigned Prescriptions: Disp Refills Meloxicam 7.5 MG Oral Tablet (Mobic) 90 Tab*1 Sig: TAKE ONE TABLET BY MOUTH EVERY MORNING NEEDEDAuthorizing Provider: VIOLETTA ASHRAFOrdercamila User: ROMEO BEY documented in this encounter Plan of Treatment Upcoming Encounters Date Type Department Care Team (Late st Contact Info) Description 10/13/2024 1:00 PM EST Office Visit General Internal Medicine [facility] [address] [place] [address] Violetta Ashraf MD [address] [place] [address] 05/19/2025 1:40 PM EDT Office Visit Rheumatology [place] [id number] [place], [place] [address] Hilton Bhatt MD [address] [place], [place] [address] Scheduled Procedures Name Priority Associated Diagnoses Date/Ti [...] Power of Attor shae? No Care Teams Clinical Radiologist Relationship Specialty Start Date End Date Violetta Ashraf MD [address] [facility] [place] [address] PCP - General Internal Medicine 08/08/21 documented as of this encounter
--- NOTE | 2024-07-05 07:02 | Orthopedic Progress Note ---
Date of Service July 05, 2024 Assessment & Plan (1) Status post left knee replacement: Overall she is doing very well. She is not having much pain in the left knee. She will be seen by physical therapy today for ambulation and range of motion exercises. The nursing staff can change her dressing after physical therapy. She is on aspirin for DVT prophylaxis. [facility] today if a bed becomes available. Douglas Aparicio was seen and examined at bedside this morning. Overall she is doing fairly well. She is not having much pain in the left knee. She has been up and ambulating to the bathroom. She has no complaints.. Review of Systems All systems reviewed & are unremarkable except as noted in HPI & below. Physical Exam On physical examination of the left knee, the dressing is clean and dry. Her leg is out full extension. She has active dorsiflexion plantarflexion of her left ankle.. Results & Data Results & Data Laboratory Results . Diagnostic Findings Postoperative x-rays of the left knee show the prosthesis to be in anatomic alignment without any evidence of fracture complication, or loosening.. PG Care Time/CCT Total # of Minutes Spent Total Time Spent with Patient: Total time spent is greater than 50% in coordination of care (as documented) at patient's floor/unit and/or counseling patient: Coding Level of Care Code 91693 Post Operative Follow-Up Diagnoses Status post left knee replacement Z96.652
[2024-07-05] MEDS: MULTIVITAMIN TAB PO SCH (08:53)
[2024-07-05] MEDS: CHOLECALCIFEROL 25 MCG (1000 UNITS) TAB PO SCH (08:54)
[2024-07-05] MEDS: predniSONE 10 MG TABLET PO SCH (08:54)
[2024-07-05] MEDS: CALCIUM 600MG + VIT D 400 IU TAB PO SCH (08:54)
[2024-07-05] MEDS: ASCORBIC ACID 500 MG TAB PO SCH (08:55)
[2024-07-05] MEDS: dexAMETHasone 4 MG TAB PO SCH (08:55)
[2024-07-05] MEDS: aMILoride HCL 5 MG TAB PO SCH (09:00)
[2024-07-05] MEDS: LOSARTAN POTASSIUM 50 MG TAB PO SCH (09:01)
[2024-07-05] MEDS ORDERED: LOPERAMIDE HCL 2 MG CAP PO PRN (13:13)
[2024-07-05 19:52] VITALS: O2SAT 96
[2024-07-05] MEDS: ASPIRIN 81 MG ECTAB PO SCH (19:54)
[2024-07-06 07:14] VITALS: BP 123/72; PULSE 72; RESP 18; TEMP 98.1
== END 2024-07-06 12:46 ==
LOC: 3E 06:39 → ASU 06:39

== ENCOUNTER 2024-10-03 05:52 | Inpatient (IN) ==
--- OUTSIDE RECORDS SUMMARY | 2024-10-03 06:08 | External Medical Summary | Summary of Care ---
Author Name Unknown Organization [facility] Address [address] [place] [address] Phone [phone] Care Team Providers Care Lithographing Machine Operator Name Role Phone Violetta Ashraf MD Primary Care Provider Reason for Visit * Reason Onset Date Comments Medication Refill 09/28/2024 Encounter Details Date Type Department Care Team (Late st Contact Info) Description 09/28/2024 Refill General Internal Medicine [facility] [address] [facility] [place] [address] Violetta Ashraf MD [address] [place] [address] Psoriatic arthropathy (HCC) Allergies Active Allergy Reactions [...] as of this encounter (statuses as of 09/30/2024) Medications VITAMIN C 500 MG PO TABS 1 tab daily Active nystatin-triamci nolone (MYCOLOG) ointment Apply topically to affected area 2 times a day. Apply to rectum 30 g 0 5 Active amoxicillin (AMOXIL) 500 MG Capsule Prior to dental work 7 Active Multiple Minerals-Vitamin s (CITRACAL PLUS) Tablet Take 1 Tablet by mouth daily. 7 Active loperamide (IMODIUM) 2 MG Capsule Take 1 Capsule by mouth 4 times a day as needed for Diarrhea. 30 Cap 7 Active Polyethyl Glycol-Propyl Glycol 0.4-0.3 % Ophthalmic Solution Instill 2 Drops into both eyes as needed for Dry eyes. Active acetaminophen (TYLENOL) 500 MG Tablet Take 2 Tablets by mouth 2 times a day as needed for Pain. 100 Tab 7 Active estradiol (ESTRACE) 1 MG Tablet Take 0.5 Tablets by mouth. 0.5 four days per week 7 Active omeprazole (PRILOSEC) 20 MG CPDRIndications: Psoriatic arthropathy (HCC) Take 1 Cap by mouth daily. 90 Cap 1 7 Active fluconazole (DIFLUCAN) 100 MG Tablet 8 Active nystatin 837159 UNIT/GM cream APPLY 2-3 TIMES DAILY TO AFFECTED AREA(S). 3 8 Active ipratropium-albu terol (COMBIVENT RESPIMAT) 20-100 MCG/ACT InhalerIndicatio ns:Sarcoidosis Inhale 1 Puff by mouth 4 times a day as needed for Wheezing. 1 Inhaler 11 9 Active Diclofenac Sodium 1 % gel APPLY 2 G TOPICALLY TO AFFECTED AREA 4 TIMES A DAY NEEDED FOR PAIN. NEDEED 300 g 3 9 Active magic swizzle (MAGIC MOUTHWASH) 15 MLIndications:Or al ulcer Take 30 mL by mouth 4 times a day. Coat mouth ulcers 120 mL 1 9 Active EPINEPHrine 0.3 MG/0.3ML Injection Solution Auto-injector (Autoinjector)In dications:Toxic effect of venom of bees, unintentional, sequela As needed 1 Each 11 3 Active Baclofen 10 MG Oral Tablet (Lioresal)Indica tions:Strain of neck muscle, initial encounter TAKE ONE TABLET BY MOUTH TWICE A DAY NEEDED FOR MUSCLE SPASM 180 Tablet 1 3 Active aMILoride HCl 5 MG Oral Tablet (Midamor)Indicat ions:HTN, goal below 140/90 Take 1 Tablet by mouth in the morning. 90 Tablet 3 3 Active Doxycycline Hyclate 50 MG Oral Capsule (Vibramycin)Rosanne cations:Contact dermatitis, unspecified contact dermatitis type, unspecified trigger TAKE ONE CAPSULE BY MOUTH EVERY MORNING 90 Capsule 3 4 Active Losartan Potassium 50 MG Oral Tablet (Cozaar)Indicati ons:HTN, goal below 140/90 Take 1.5 Tablets by mouth in the morning. 4 Active predniSONE 10 MG Oral Tablet (Deltasone) TAKE ONE TABLET BY MOUTH EVERY MORNING 90 Tablet 1 4 Active Vitamin D-3 25 MCG (1000 UT) Oral Capsule Take 1 Capsule by mouth in the morning. 4 Active Meloxicam 7.5 MG Oral Tablet (Mobic) TAKE ONE TABLET BY MOUTH EVERY MORNING NEEDED 90 Tablet 1 4 Active Oyster Shell Calcium/D 500-5 MG-MCG Oral Tablet 1 tab, Oral, Daily, 0 Refill(s) 4 Active Metoprolol Succinate ER 25 MG Oral Tablet Extended Release 24 Hour (toPROL XL)Indications:H TN, goal below 140/90 every evening. 4 Active Ferrous Sulfate 325 (65 Fe) MG Oral Tablet (Feosol) Take 1 Tablet by mouth in the morning. 4 Active Humira (2 Pen) 40 MG/0.4ML Subcutaneous Pen-injector Kit (Adalimumab) Inject 0.4 mL under the skin every 14 days. 6 Each 3 4 Active traMADol HCl 50 MG Oral TabletIndication s:Psoriatic arthropathy (HCC) Take 1 Tablet by mouth in the morning and 1 Tablet at noon and 1 Tablet in the evening. 90 Tablet 4 Active traMADol HCl 50 MG Oral TabletIndication s:Psoriatic arthropathy (HCC) Take 1 Tablet by mouth in the morning and 1 Tablet at noon and 1 Tablet in the evening. 90 Tablet 4 09/28/20 24 Discontin ued(Refil l) documented as of this encounter (statuses as of 09/30/2024) Active Problems Problem Noted Date Diagnosed Date Status post total left knee replacement 07/20/20 24 Body mass index (BMI) of 45.0 to [...] of medicat ions 08/23/2015 Psoriatic arthropathy 07/21/2009 Migraine H/O hyperparathyroidism Sarcoidosis documented as of this encounter (statuses as of 09/30/2024) Resolved Problems Problem Noted Date Diagnosed Date Resolved Date Cellulitis of left hand 10/03/202209/12 Body mass index (BMI) of 40. 0 to 44.9 in adult 08/20/2020 06/23/2024 Overview: Per Obesity protocol Asthma with severity to be determined 07/21/2009 04/27/2017 Overview (01/21/2016): ICD-10 update of inactive term Iatrogenic pneumothorax 07/18/200904/11 ADVANCE DIRECTIVE INFORMATION 06/25/2009 08/15/2024 Overview (07/18/2009): No, Advance Directive brochure offered , patient declined. No, Advance Directive brochure offered , patient declined. Abnormal mammogram 04/20/2003 7 Contact dermatitis 7 Other lymphedema 07/07/2017 Osteoarthrosis, unspecified whether generalized or localized, ankle and foot 04/27/2017 documented as of this encounter (statuses as of 09/30/2024) Immunizations Name Administration Dates Next Due COVID-19 mRNA, LNP-s, No Pre serve, 2-Dose Series (Moderna) 07/29/2021,11/24/2020,11/03/2020 COVID-19, MRNA-LNP, PF, 50 M CG/0.5 mL, 12 YRS AND ABOVE, IM (MODERNA-Spikevax) 11/05/2023 Covid-19, Mrna, Lnp-s, Pf, B ivalent, 30 Mcg, IM, 12 yrs and above (Pfizer) 07/28/2022 H1N1 2009 Influenza, IM 08/13/2009 HepA Inact/HepB Recomb>=18yrs old 09/20/2020,05/2020,03/19/2020 PPD 06/24/2017 Pneumococcal Conjugate Vacc, 13 Valent (Prevnar) 10/04/2019 Pneumococcal Polysaccharide PPV23 (Pneumovax) 09/20/2020,07/12/2014 Seasonal Influenza Vac., MDV , IM, 0.5 mL (Fluzone) 07/23/2020,07/25/2019,07/27/2009 Seasonal Influenza Virus Vac cine, Unspecified Formulation 07/25/2019,08/12/2018,07/22/2018,06/16,07/27/2009 Seasonal Influenza, High Dos e, Trivalent, PF, IM (Fluzone HD) 07/20/2024 Seasonal Influenza, PF, 6 M & above, IM , (FluLaval or Fluzone) 06/16/2017 Seasonal Influenza, Quadriva lent Hd (Fluzone Hd) 08/14/2023,07/15/2022,08/19/2021 Seasonal Influenza, Quadrivalent, ID 07/15/2022 Seasonal Influenza, Quadriva lent, No Preserve, Mdck 07/22/2018 TDAP, Age 7 and older, IM (Adacel) [...] years and over) Not on file 03/29/2024 Comments No Sex and Gender Information Value Date Recorded Sex Assigned at Female 05/31/2019 7:30 AM EDT Legal Sex Female 5:48 AM EST Gender Identity Female 05/31/2019 7:30 AM EDT Sexual Orientation Straight 05/31/2019 7: 30 AM EDT Occupation Industry Job Start Date Job End Date Not on file Not on file Not on file Not on file documented as of this encounter Miscellaneous Notes * Telephone Encounter - Violetta Ashraf MD - 09/30/2024 3:18 PM ESTSigned Prescriptions: Disp Refills traMADol HCl 50 MG Oral Tablet 90 Tab*0 Sig: Take 1 Tablet by mouth in the morning and 1 Tablet at noon and 1 Tablet in the evening. Authorizing Provider: VIOLETTA ASHRAF * Telephone Encounter - Allie Miller RP - 09/29/2024 9:41 AM ESTPending Prescriptions: Disp Refills traMADol HCl 50 MG Oral Tablet 90 Tab*0 Sig: Take 1 Tablet by mouth in the morning and 1 Tablet at noon and 1 Tablet in the evening. * Telephone Encounter - Allie Miller RPh - 09/29/2024 9:40 AM EST I have reviewed the patients controlled substance dispensing history in the Prescription Drug Monitoring Program in compliance with the [facility] regulations before prescribing a controlled substance. PDMP checked on 09/29/2024. Pending Prescriptions: Disp Refills traMADol HCl 50 MG Oral Tablet 90 Tab*0 Sig: Take 1 Tablet by mouth in the morning and 1 Tablet at noon and 1 Tablet in the evening. Last Visit: 07/20/2024 (in office), 10/03/2022 (telemedicine) Next Visit: 10/13/2024 Date medication was last filled: 09/02/24 Date medication is due for refill: 10/01/24 Pharmacy: [facility] [id number] Is this request for a controlled substance? Yes and Urine Drug Screen Not completed Toxicology results: Results for orders placed [...] available upon request. Please approve if appropriate. Allie Oquendo PharmD Clinical Pharmacist [facility] ([facility]) [phone] 09/29/2024, 9:40 AM documented in this encounter Plan of Treatment Upcoming Encounters Date Type Department Care Team (Late st Contact Info) Description 10/13/2024 1:00 PM EST Office Visit General Internal Medicine [facility] [address] [facility] [place] [address] Violetta Ashraf MD [address] [facility] [place] [address] 05/19/2025 1:40 PM EDT Office Visit Rheumatology [place] [address] [place], [place] [address] Hilton Bhatt MD [address] [place], [place] [address] Scheduled Procedures Name Priority Associated Diagnoses Date/Ti [...] 2024 11/05/2023, 07/28/2022, 07/29/2021, Additional history exists Depression Screening 12/02/2024 12/02/2023 O2 ASSESSMENT COMPLETED IN PAST YEAR FOR COPD 06/15/2025 06/15/2024 GFR 07/14/2025 07/14/2024, 06/13, 06/14/2024, Additional history exists Pneumococcal Vaccine: 65+ Years (4 of 4 - PPSV23 or PCV20) 09/20/2025 09/20/2020, 10/04/2019, 07/12/2014 Albumin/Creatinine Ratio 09/24/2026 023, 12/09/2022, 04/16/2021 Diabetes Screening 07/14/2027 07/14/2024, 0 07/07/2024, 06/14/2024, Additional history exists Colonoscopy 08/04/2028 08/04/2018 Colorectal Cancer Screening 08/04/2028 DXA Scan 11/30/2030 11/30/2023, 11/12, 11/14/2021, Additional history exists Hepatitis B Vaccine Completed 09/20/2020, 04/18/2020, 03/19/2020 Zoster Vaccines Completed 07/28/2022, 04/15/2022 Influenza Vaccine (FLU shot) Completed 06/2024, 08/14/2023, 07/15/2022, Additional history exists HPV (Gardasil) Vaccine Aged Out No lo [...] Power of Attor shae? No Care Teams Lithographing Machine Operator Relationship Specialty Start Date End Date Violetta Ashraf MD [address] [place] [address] PCP - General Internal Medicine 08/08/21 documented as of this encounter
--- NOTE | 2024-10-03 06:33 | Emergency Department Note ---
Impression & Plan Bilateral buttock pain, Ambulatory dysfunction, Closed wedge compression fracture of T12 vertebra, Morbid obesity, Lumbar canal stenosis ED Provider Note NAME: GENARO SIERRA AGE: 69 SEX: F : 1955 ARRIVES VIA: Ambulance INFORMANT: Patient, ED PROVIDER(S): Nic Gilbert MD CHIEF COMPLAINT: Buttock pain MEDICAL DECISION MAKING: patient presents due to concern for bilateral buttock pain and difficulty with ambulation. IV was established and blood work was obtained. Patient had already taken Tylenol and tramadol this morning. Patient was ordered IV methylprednisolone lidocaine patch as well as IV morphine. Patient also did have CBC BMP ordered and was ordered lumbar x-rays. Patient's lumbar x-ray does show concern for new thoracic compression fracture from comparison. The patient did not have midline pain. Patient with a normal white count H&H and platelet count kidney function unremarkable but prerenal azotemia noted. Upon reassessment the patient had mild improvement in her symptoms was up and ambulatory. After subsequent reassessment patient was concerned that she was still having pain. Patient was ordered additional IV morphine. Given the patient's T12 wedge deformity I did speak with the on-call campaign specialist Dr. Chong who did not think that this would be the likely cause of her symptoms and this is likely chronic. He did state that if the patient was admitted for pain control he recommended lumbar and thoracic spine MRIs. Patient was up and ambulatory but was having significant pain to where she felt she could not go home. Given these concerns I did speak the on-call hospital service Negra Alvarado PA-C and the patient was admitted by Dr. Vazquez. The MRI reports deferred for review from the inpatient service further discussion with spine. Of note the findings that show chronic severe T12 compression fracture with 90% loss of vertebral body and 6 mm of retropulsion. Patient also with T11 compression fracture. Lumbar spine MRI shows severe canal stenosis with moderate bilateral neuroforaminal stenosis. Discussion w/ other healthcare providers: Sweetie Alvarado PA-C and Dr. Vazquez inpatient medicine service Dr. Chong spine surgery Prior /Outside records reviewed: none Differential diagnosis: Musculoskeletal, disc herniation, fracture, sprain, strain, cord compression, discitis, sciatica, cauda equina, infection, renal colic, as well as other pathologies were considered. Diagnostics, as interpreted by me: ECG: None Cardiac monitoring: An order was placed for continuous cardiac monitoring. The monitor shows a rate of 85 with sinus rhythm. Patient was placed on pulse oximetry Medical decision rules: None Imaging studies: I informally interpreted the patient's lumbar spine x-ray does show wedge deformity of T12 with formal report to follow. HPI: Patient presents due to concern for bilateral buttock pain. The patient reports that she began having some left-sided buttock pain about a month ago after doing some cleaning. Patient states that she did see a Dr. Campbell through the [facility] orthopedics office on Thursday at which point the patient did have hip and pelvis x-rays which were unremarkable. Patient states that she has developed some right sided buttock pain since it began on the left side. The patient states that she has been continuing to progress from a knee replacement completed by Dr. Crespo about 3 months ago. The patient states that initially when she had the left-sided buttock pain she that was secondary to her piriformis and does try to do some stretching. The patient is unable to see a therapist for another week. Patient denies any chest pains or shortness of breath. No bowel or bladder incontinence or retention. Patient denies any radiation of pain down the legs. Patient states though that she has had increasing difficulty with ambulation secondary to the buttock pain. PAST MEDICAL HISTORY: See Below PAST SURGICAL HISTORY: See Below SOCIAL HISTORY: See Below HOME MEDICATIONS: See Below ALLERGIES: See Below VITALS: See Below PHYSICAL EXAMINATION: GENERAL: NAD, non-toxic. Wearing glasses. BMI of 47. EYE EXAM: Normal conjunctiva. PERRL, no anisocoria and EOM's grossly intact w/o pain. OROPHARYNX: Moist mucus membranes, grossly normal dentition. NECK: Trachea midline, no stridor. Supple, no nuchal rigidity, no adenopathy, non-tender. No signs of meningismus. FROM of the neck with good chin to chest and neck extension. LUNGS: Clear to auscultation. Normal chest wall mechanics. HEART: NSR, no MRG. ABDOMEN: Abdomen soft, non-tender, no masses, no rebound or guarding. BACK: No CVA TTP. SKIN: No rashes and no bruising. UPPER EXTREMITIES: Upper extremities are grossly normal. LOWER EXTREMITIES: Grossly normal, no edema. NEURO EXAM: A&O x3, cranial nerves II-XII grossly intact, normal speech, moves all 4 extremities. Past Med/Surg History Problem List (Updated 10/03/24 @ 13:43 by Nic Gilbert MD) Lumbar canal stenosis (Acute) Morbid obesity (Acute) Closed wedge compression fracture of T12 vertebra (Acute) Ambulatory dysfunction (Acute) Ambulatory dysfunction Bilateral buttock pain (Acute) Status post left knee replacement Status post right knee replacement Osteoarthritis of right knee Status post reverse total replacement of left shoulder (~03/2023) Rotator cuff arthropathy Glenohumeral arthritis Hand arthritis Status post reverse total replacement of right shoulder (~08/2022) Lumbar spondylosis Left knee DJD Encounter for pre-operative examination Cirrhosis Arthritis of knee, left History of squamous cell carcinoma Chronic asthmatic bronchitis Encounter for screening colonoscopy H/O total hysterectomy (Chronic) S/P rotator cuff repair (Chronic) History of parathyroid surgery (Chronic) S/P foot surgery (Chronic) S/P appendectomy (Chronic) Osteoarthritis (Chronic) Leg weakness GERD (gastroesophageal reflux disease) (Chronic) resolved Hx of fracture of right hip (Chronic) Lymphedema (Chronic) Sarcoidosis (Chronic) H/O hyperparathyroidism (Chronic) Migraine (Chronic) Psoriatic arthropathy (Chronic) Follows w/ Dr Shearer Medical History History of anesthesia complications awareness with right TKA Hx of transient ischemic attack (TIA) 2017, no residual effects History of endometriosis Contact dermatitis "ongoing all my life/controlled." Difficult intravenous access "Wants IV team" Limb alert care status LUE restriction (pt has lymphedema left arm and both legs) Cirrhosis of liver Chronic steroid use Chronic prednisone 10mg daily r/t psoriatic arthritis Lymphedema lymphedema left arm and both legs > therapy Scoliosis Kidney stones current/dormant for yrs. Irritable bowel syndrome Cancer Skin cancer (multiple sites) s/p excision, cheeks and arms Glaucoma Dry eye syndrome Hypertension controlled, stable per pt Hyperlipidemia Asthma controlled, stable per pt; last rescue inhaler use 1 month ago Sarcoidosis "Stable" Surgical History History of total knee replacement right H/O hysterectomy with unilateral oophorectomy left fallopian tube and ovary removed-pt unsure if right fallopian tube remains History of reverse total replacement of left shoulder joint March 2023. History of total replacement of right shoulder joint Right reverse TSA (08/29/22): Grade I view, Glidescope#3 "elective", ETT 7.0 + PNB at [facility] History of Mohs surgery for squamous cell carcinoma of skin [facility] 11/2021 History of amputation of toe Right 4th toe, October 2020 History of esophagogastroduodenoscopy (EGD) History of liver biopsy S/P parathyroidectomy History of anesthesia reaction DIFFICULTY BREATHING--had to receive oxygen after general anesthesia, denies re-intubation or unanticipated hospitalization; states was discharged for same day surgery. > 10 yrs ago History of laparoscopy History of hand surgery LEFT HAND FINGER FUSION History of shoulder surgery RT SHOULDER History of foot surgery RIGHT/LEFT FOOT SURGERY WITH HARDWARE History of cystoscopy History of colonoscopy History of appendectomy History of tooth extraction History of adenoidectomy History of tonsillectomy H/O eye surgery RIGHT/LEFT FOR GLAUCOMA H/O chest tube placement AFTER BRONCHOSCOPY History of bronchoscopy Family History Father Renal failure Cancer Mother Acute subdural hematoma Brother Family hx colonic polyps Other No family history of adverse response to anesthesia Social History Smoking Status: Never smoker Second Hand Exposure: No; Do You Dip or Chew Tobacco: No; Hx Alcohol Use: No Hx Substance Use: No Preferred Language: Croatian Communication Ability: Effective 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 Beliefs That Will Affect Care: None marital status: Single Current Living Situation: Alone How many Children do You have: 0 Feels Safe at Home: Yes Assistive Devices: Glasses Allergies Allergies Allergy/AdvReac Type Severity Reaction Status Date / Time adhesive Allergy Severe SKIN Verified 08/30/24 13:00 RASH/"severly allergic" bee venom protein (honey bee) Allergy Severe ANAPHYLAXIS Verified 08/30/24 13:00 chlorhexidine Allergy Mild Rash Verified 08/30/24 13:00 bacitracin Allergy Unknown RASH Verified 08/30/24 13:00 AROUND FACE brimonidine Allergy Unknown CONTACT Verified 08/30/24 13:00 DERMATITIS cyclosporine Allergy Unknown CONTACT Verified 08/30/24 13:00 DERMATITIS spironolactone Allergy Unknown Hives Verified 08/30/24 13:00 terfenadine Allergy Unknown EYE Verified 08/30/24 13:00 SWELLING timolol Allergy Unknown contact Verified 08/30/24 13:00 dermatitis tobramycin Allergy Unknown EYE Verified 08/30/24 13:00 SWELLING cefaclor AdvReac Unknown MOUTH Verified 08/30/24 13:00 ULCERS- CAN TAKE KEFLEX W/O PROBLEM Home Meds Home Medications Medication Instructions Recorded Confirmed artificial tears(hypromellose) 0.3 1 dose OPB HS 07/30/18 10/03/24 % eye gel (Systane Gel) calcium 315 mg (as 1 tab PO QAM 07/30/18 10/03/24 citrate)-vitamin D3 6.25 mcg (250 unit) tablet (Citracal + Vitamin D Maximum) doxycycline hyclate 50 mg tablet 50 mg PO QDL 07/30/18 10/03/24 metoprolol succinate 25 mg 37.5 mg PO PM 07/30/18 10/03/24 tablet,extended release 24 hr ascorbic acid (vitamin C) 1,000 mg 1,000 mg PO QAM 07/18/19 10/03/24 tablet adalimumab 40 mg/0.4 mL 40 mg subcut Q14D 01/30/20 10/03/24 subcutaneous pen kit (Humira(CF) Pen) prednisone 10 mg tablet 10 mg PO QAM 05/22/20 10/03/24 acetaminophen 500 mg capsule 1,000 mg PO Q8H Pain 07/22/22 10/03/24 baclofen 10 mg tablet 20 mg PO HS 07/22/22 10/03/24 fluconazole 100 mg tablet 100 mg PO UD PRN YEAST INFECTION 07/22/22 10/03/24 omeprazole 20 mg capsule,delayed 20 mg PO QPM PRN Acid Reflux 07/22/22 10/03/24 release amiloride 5 mg tablet 5 mg PO QAM 02/19/23 10/03/24 estradiol 1 mg tablet 0.5 mg PO 4XWK 02/19/23 10/03/24 losartan 50 mg tablet 50 mg PO QAM 02/19/23 10/03/24 oxymetazoline 0.05 % nasal spray 1 spray intranasal UD PRN Nasal 11/10/23 10/03/24 (Afrin (oxymetazoline)) Congestion polyethylene glycol 400 0.25 % eye 1 drp ophthalmic (eye) DAILY PRN 11/10/23 10/03/24 drops (Blink Tears) Dry Eyes cholecalciferol (vitamin D3) 25 25 mcg PO DAILY 05/30/24 10/03/24 mcg (1,000 unit) tablet (Vitamin D3) meloxicam 15 mg tablet 15 mg PO QAM 05/30/24 10/03/24 tramadol 50 mg tablet 50 mg PO TID 05/30/24 10/03/24 Previous Rx's Medication Instructions Recorded ipratropium 20 mcg-albuterol 100 1 puff inhalation QID PRN 04/16/21 mcg/actuation mist for inhalation shortness of breath or wheezing #4 (Combivent Respimat) grams aspirin 81 mg tablet,delayed 81 mg PO BID 42 days #0 tabs 07/04/24 release lidocaine 5 % topical patch 1 patch topical DAILY PRN pain #15 10/03/24 ea prednisone 20 mg tablet See Rx Instructions .Route 10/03/24 .COMPLEX 5 days #7 tabs Results & Data (ED) Vital Signs Vital Signs - 24 hr 10/03/24 05:46 10/03/24 06:03 10/03/24 07:55 Temperature 36.8 C Temperature Source Oral Pulse Rate 89 89 Pulse Rate [Apical] 73 Pulse Rhythm Regular Pulse Strength Normal Respiratory Rate 18 18 Respiratory Effort / Characteristics Non-Labored Spontaneous Non-Labored Spontaneous Respiratory Depth Normal Normal Respiratory Pattern Regular Blood Pressure 164/92 H Blood Pressure [Right Arm] 159/83 H Blood Pressure Mean 116 Blood Pressure Mean [Right Arm] 108 Blood Pressure Position Lying Blood Pressure Position [Right Arm] Sitting Pulse Oximetry 98 94 Oxygen Delivery Method Room Air Room Air Sepsis Recent Fever Within 48 Hours No Sepsis New/Unexplained Change in Mental Status No Sepsis Action Taken by Nursing No Action Required 10/03/24 09:03 10/03/24 11:38 Temperature Temperature Source Pulse Rate Pulse Rate [Apical] 74 81 Pulse Rhythm Pulse Strength Respiratory Rate 18 22 Respiratory Effort / Characteristics Non-Labored Spontaneous Non-Labored Spontaneous Respiratory Depth Normal Normal Respiratory Pattern Regular Blood Pressure Blood Pressure [Right Arm] 127/87 161/98 H Blood Pressure Mean Blood Pressure Mean [Right Arm] 100 119 Blood Pressure Position Blood Pressure Position [Right Arm] Sitting Pulse Oximetry 92 93 Oxygen Delivery Method Room Air Room Air Sepsis Recent Fever Within 48 Hours Sepsis New/Unexplained Change in Mental Status Sepsis Action Taken by Long-Term Medications Current Medication List: was personally reviewed by me Laboratory Data Attestation: I reviewed the patient's lab results. 10/03/24 07:15 10/03/24 07:15 Lab Results 10/03/24 Range/Units 07:15 WBC 8.80 (4.8-10.8) K/ul RBC 4.81 (4.20-5.40) M/uL Hgb 12.4 (12.0-16.0) g/dl Hct 39.9 (37.0-47.0) % MCV 83.0 (80.0-100.0) fL MCH 25.8 (25.0-34.0) pg MCHC 31.1 L (32.0-36.0) g/dL RDW Std Deviation 42.6 (36.4-46.3) fL RDW Coeff of Kimo 14.2 (11.5-14.5) % Plt Count 193 (130-400) K/uL MPV 9.5 (9.4-12.4) fL Immature Gran % (Auto) 1.1 % Neut % (Auto) 84.6 % Lymph % (Auto) 5.6 % Hamilton % (Auto) 7.8 % Eos % (Auto) 0.6 % Baso % (Auto) 0.3 % Neut # (Auto) 7.44 H (1.40-6.50) K/uL Lymph # (Auto) 0.49 L (1.20-3.40) K/uL Hamilton # (Auto) 0.69 H (0.11-0.59) K/uL Eos # (Auto) 0.05 (0.00-0.50) K/uL Baso # (Auto) 0.03 (0.00-0.20) K/uL Immature Gran # (Auto) 0.10 (0.01-0.20) K/uL Sodium 140 (136-145) mmol/L Potassium 4.4 (3.5-5.1) mmol/L Chloride 108 H (98-107) mmol/L Carbon Dioxide 25 (21-32) mmol/L Anion Gap 7 (3-11) BUN 25 H (6-23) mg/dl Creatinine 0.99 (0.6-1.2) mg/dl Est Cr Clr Drug Dosing 68.3 ml/min eGFR 62.11 BUN/Creatinine Ratio 25.3 H (10-20) Glucose 106 H (70-99(Fasting)) mg/dl Calcium 9.2 (8.6-10.3) mg/dl Administered Medications Discontinued Medications Lidocaine (Lidocaine 5% 1 Patch) 1 patch TD NOW STA Stop: 10/03/24 06:50 Last Admin: 10/03/24 07:28 Dose: 1 patch Documented By: CC Lorazepam (Lorazepam 2 Mg/1 Ml Vial) 0.5 mg IV NOW STA Stop: 10/03/24 11:34 Last Admin: 10/03/24 12:07 Dose: 0.5 mg Documented By: [facility] Methylprednisolone (Methylprednisolone 125 Mg/2 Ml Vial) 125 mg IV NOW STA Stop: 10/03/24 06:49 Last Admin: 10/03/24 07:28 Dose: 125 mg Documented By: CC Morphine Sulfate (Morphine Sulfate 4 Mg/Ml 1 Ml Carp\\Vial) 4 mg IV NOW STA Stop: 10/03/24 06:49 Last Admin: 10/03/24 07:27 Dose: 4 mg Documented By: CC Morphine Sulfate (Morphine Sulfate 4 Mg/Ml 1 Ml Carp\\Vial) 4 mg IV NOW STA Stop: 10/03/24 09:28 Last Admin: 10/03/24 09:37 Dose: 4 mg Documented By: CC Imaging Data Radiologist's Impression: Lumbar Spine X-Ray 10/03/24 06:48 EXAM: XR lumbar spine 2-3V CLINICAL HISTORY: B/L BUTTOCK PAIN-NO TRAUMA JMT TECHNIQUE: X-ray images of the lumbar spine were obtained in anteroposterior (AP), LS spot and lateral projections. COMPARISON: 05/29/2021 CT, 09/24/2018 CR FINDINGS: Alignment: Lumbar spine alignment is normal. Minimal posterior dislocation of L3 over L4. Mild anterior dislocation of L4 over L5. No abnormal curvature, such as scoliosis or lordosis. Facet joints and sacroiliac joints appear normal. Vertebral Bodies: Osteophytosis, and endplate sclerosis of the lumbar vertebrae.No evidence of compression deformity seen. T12 more than 50% anterior wedging. Intervertebral Disc Spaces: Reduced disc space between L3-L4, L4-L5, and L5-S1. Soft Tissues: Paraspinal soft tissues are of normal thickness. No evidence of paraspinal soft tissue swelling or mass effect. Additional Findings: No other significant abnormalities noted. IMPRESSION: 1. T12 more than 50% anterior wedging, new finding. 2. Grade 1 retrolisthesis L3 over L4, stable. 3. Grade 1 anterolisthesis L4 over L5, stable. 4. Moderate degenerative mainly lower lumbar spondylosis, stable, MRI lumbar spine is advised. Disclaimer: A subtle bone abnormality or fracture may not be readily apparent on X-rays, thus clinical correlation and further imaging including follow-up CT, MRI, or follow-up X-rays are advised as needed. Electronically signed by Ramonita Luna 10-03-2024 09:04 AM Lumbar Spine MRI 10/03/24 10:48 MR lumbar spine wo con CLINICAL HISTORY: buttock pain, T12 frx, amb dysfunction TECHNIQUE: Multiplanar sequences through the lumbar spine were obtained, without intravenous contrast. Comparison: Comparison is made to lumbar spine radiographs 10/03/2024 FINDINGS: T12 compression fracture is seen with approximately 6 mm retropulsion. Grade 1 anterolisthesis of L4-L5 is seen. L1-L2: No significant abnormality. L2-L3: No significant abnormality. L3-L4: Broad-based posterior disc bulge and prominent extradural fat is seen with mild right and moderate left neural foraminal stenosis. L4-L5: Prominent extradural fat and broad-based disc bulge is seen with severe canal stenosis, AP diameter 4 mm, and moderate bilateral neural foraminal stenosis. L5-S1: Prominent extradural fat and broad-based disc bulge is seen with severe canal stenosis, AP diameter 3 mm, and mild bilateral neural foraminal stenosis. The spinal ligaments are intact, without evidence of disruption or abnormal signal intensity. The spinal cord is normal in signal intensity and there is no evidence of cord contusion. There is no evidence of an extradural, intradural, extramedullary or intramedullary lesion. Visualized soft tissues are normal. IMPRESSION: 1. Multilevel degenerative changes extradural fat with up to severe canal stenosis, AP diameter 3 mm and moderate bilateral neuroforaminal stenosis. 2. Vertebral plana of T12 with approximately 6 mm retropulsion. ACT 112: Negative or not required by law. Electronically signed by: John Leigh M.D. 10/03/2024 1:00 PM Thoracic Spine MRI 10/03/24 10:48 MRI OF THE THORACIC SPINE WITHOUT CONTRAST CLINICAL HISTORY: buttock pain, T12 frx, amb dysfunction COMPARISON: Lumbar spine radiographs performed earlier today. Chest CT September 12, 2019. Chest radiograph June 14, 2024. TECHNIQUE: Utilizing a 1.5 Nia magnet and dedicated coil, multiplanar, multiecho imaging of the thoracic spine was performed without IV contrast. FINDINGS: Mild dextroscoliosis of the thoracic spine is noted. A chronic T12 compression fracture with 90% loss of vertebral body height is similar to chest radiograph of June 14, 2024. 6 mm of retropulsion at the superior endplate results in moderate central canal stenosis. This indents the ventral aspect of the cord. There is no cord signal abnormality. T11 compression fracture involving the superior endplate with 20% loss of vertebral body height is also chronic. No marrow edema is present. There are no acute thoracic spine fractures. No suspicious marrow replacement is present. Thoracic cord signal and caliber are normal. There is no intracanalicular mass or fluid collection. Paravertebral soft tissues are unremarkable. There is mild multilevel facet arthrosis. Minimal endplate osteophytosis is present. There are no large disc herniations. There is prominent epidural fat within the canal. IMPRESSION: 1. Chronic severe T12 compression fracture with 90% loss of vertebral body and 6 mm of retropulsion which results in moderate central canal stenosis. 2. Chronic mild T11 compression fracture. 3. No acute thoracic spine fractures. 4. Normal thoracic cord signal and caliber. 5. Mild dextroscoliosis of the thoracic spine. ACT 112: Negative or not required by law. Electronically signed by: Trev Mercado M.D. 10/03/2024 1:35 PM Discharge Plan Visit Data Chief Complaint: Back Injury/Pain Stated Complaint: LOW BACK PAIN SINCE THURSDAY ED Provider: Nic Gilbert Discharge Problem: Bilateral buttock pain, Ambulatory dysfunction, Closed wedge compression fracture of T12 vertebra, Morbid obesity, Lumbar canal stenosis Patient Disposition: Home - Self-Care Discharge Instructions Sarah/Other Patient Handouts: ED [facility] Back Pain Activity Restrictions/Additional Instructions: Please return to the emergency department if you have worsening or recurrent symptoms not amenable to at-home treatment. Please call for a follow-up appointment with her primary care physician. Please take your medications as prescribed. If you have other concerns and/or complaints please feel free to also call your primary care physician's office or return the ED for further evaluation, management, and treatment. Take your medications as prescribed. You may take tylenol 650 mg every 6 hours as needed for pain/fever unless told by your physician to not take it or have liver problems. If you still have discomfort you may take the tramadol medication. Please be advised that these medications can make you sleepy, and can cause breathing issues. Do not use if you require your full attention. Do not use if you have a seizure disorder. Take only as prescribed. Please take your steroids preferably in the morning and with food as they may cause some upset stomach and cause you to be very awake and alert. If you are taking ASA/Plavix please take Nexium during the course of your steroids to help avoid GI upset/gastritis/GI bleeding. You have been examined and treated today on an emergency basis only. This is not a substitute for, or an effort to provide, complete comprehensive medical care. It is impossible to recognize and treat all injuries or illnesses in a single emergency department visit. It is therefore important that you follow up closely with [facility], your PCP, and/or your specialist(s). Call as soon as possible for an appointment. Interventions: ED Discharge Assessment Last Done: 10/03/24 12:43 Forms Stand Alone Forms: My [facility], Important Visit Information Prescriptions Prescriptions: New lidocaine 5 % adhesive patch,medicated 1 patch TOP DAILY PRN (Reason: pain) Qty: 15 0RF Rx Instructions: leave on most painful area for 12 hrs prednisone 20 mg tablet See Rx Instructions .ROUTE .COMPLEX 5 Days Qty: 7 0RF Rx Instructions: Please take 2 tablets the first day, 2 tablets the second day, 1 tablet the third day, 1 tablet the 4th day, 1/2 tablet the 5th day. No Action Combivent Respimat 20-100 mcg/actuation mist 1 puff inhalation QID PRN (Reason: shortness of breath or wheezing) Qty: 4 5RF Rx Instructions: space evenly during waking hours ascorbic acid (vitamin C) 1,000 mg tablet 1,000 mg PO QAM Humira(CF) Pen 40 mg/0.4 mL pen injector kit 40 mg SQ Q14D Rx Instructions: 40 mg subcut every 2 weeks; metoprolol succinate 25 mg Tablet Extended Release 24 Hr 37.5 mg PO PM Systane Gel 0.3 % Gel 1 dose OPB HS calcium citrate-vitamin D3 [Citracal + D Maximum] 315-250 mg-unit Tablet 1 tab PO QAM doxycycline hyclate 50 mg Tablet 50 mg PO QDL prednisone 10 mg Tablet 10 mg PO QAM Blink Tears 0.25 % Drops 1 drp OPHTHALMIC (EYE) DAILY PRN (Reason: Dry Eyes) oxymetazoline [Afrin (oxymetazoline)] 0.05 % [place],Non-Aerosol 1 spray INTRANASAL UD PRN (Reason: Nasal Congestion) fluconazole 100 mg tablet 100 mg PO UD PRN (Reason: YEAST INFECTION) baclofen 10 mg Tablet 20 mg PO HS omeprazole 20 mg Capsule,Delayed Release(Dr/Ec) 20 mg PO QPM PRN (Reason: Acid Reflux) Patient Comments: take like 3 x per week. acetaminophen 500 mg Capsule 1,000 mg PO Q8H Patient Comments: usually take every eight hours. losartan 50 mg tablet 50 mg PO QAM Patient Comments: losartan potassium amiloride 5 mg tablet 5 mg PO QAM estradiol 1 mg tablet 0.5 mg PO [id number] Patient Comments: mon, thu, thu, sun. Rx Instructions: Take 0.5 tab on Thursday, Thursday, Thursday, and Thursday. meloxicam 15 mg Tablet 15 mg PO QAM tramadol 50 mg Tablet 50 mg PO TID cholecalciferol (vitamin D3) [Vitamin D3] 25 mcg (1,000 unit) Tablet 25 mcg PO DAILY aspirin 81 mg Tablet,Delayed Release (Dr/Ec) 81 mg PO BID 42 Days Qty: 0 0RF Patient Comments: not currently taking 05/30/24 Referrals Referrals: Jeniffer Ashraf MD [Primary Care Provider] - Discharge Problem: Closed wedge compression fracture of T12 vertebra Qualifiers: Encounter type: subsequent encounter Fracture healing: with routine healing Q ualified Code(s): S22.080D - Wedge compression fracture of T11-T12 vertebra, subsequent encounter for fracture with routine healing Lumbar canal stenosis Qualifiers: Neurogenic claudication status: unspecified Qualified Code(s): M48.061 - Spinal stenosis, lumbar region without neurogenic claudication
[2024-10-03] MEDS: MoRPHine SULFATE 4 MG/ML 1 ML CARP\\VIAL IV STA ×2 (07:27→09:37)
[2024-10-03] MEDS: LIDOCAINE 5% 1 PATCH TD STA (07:28)
[2024-10-03] MEDS: methylPREDNISolone 125 MG/2 ML VIAL IV STA (07:28)
[2024-10-03 07:41] LABS: Basophils # (auto) 0.03 K/uL (0.00-0.20); Basophils % (auto) 0.3 %; Eosinophils # (auto) 0.05 K/uL (0.00-0.50); Eosinophils % (auto) 0.6 %; Hematocrit (blood only) 39.9 % (37.0-47.0); Hemoglobin 12.4 g/dl (12.0-16.0); Immature Granulocytes % (auto) 1.1 %; Lymphocytes # (auto) 0.49 K/uL (1.20-3.40); Lymphocytes % (auto) 5.6 %; Mean Corpuscular Hemoglobin 25.8 pg (25.0-34.0); Mean Corpuscular Hgb Conc 31.1 g/dL (32.0-36.0); Mean Platelet Volume 9.5 fL (9.4-12.4); Monocytes # (auto) 0.69 K/uL (0.11-0.59); Monocytes % (auto) 7.8 %; Neutrophils # (auto) 7.44 K/uL (1.40-6.50); Neutrophils % (auto) 84.6 %; Platelet Count 193 K/uL (130-400); RDW Coefficient of Variation 14.2 % (11.5-14.5); RDW Standard Deviation 42.6 fL (36.4-46.3); Red Blood Count 4.81 M/uL (4.20-5.40)
[2024-10-03 07:43] LABS: BUN Creatinine Ratio 25.3 (10-20); Calcium 9.2 mg/dl (8.6-10.3); Creatinine Clr Calc Pharmacy 68.3 ml/min; Potassium 4.4 mmol/L (3.5-5.1)
--- NOTE | 2024-10-03 09:05 | XRay Report ---
EXAM: XR lumbar spine 2-3V CLINICAL HISTORY: B/L BUTTOCK PAIN-NO TRAUMA JMT TECHNIQUE: X-ray images of the lumbar spine were obtained in anteroposterior (AP), LS spot and lateral projections. COMPARISON: 05/29/2021 CT, 09/24/2018 CR FINDINGS: Alignment: Lumbar spine alignment is normal. Minimal posterior dislocation of L3 over L4. Mild anterior dislocation of L4 over L5. No abnormal curvature, such as scoliosis or lordosis. Facet joints and sacroiliac joints appear normal. Vertebral Bodies: Osteophytosis, and endplate sclerosis of the lumbar vertebrae.No evidence of compression deformity seen. T12 more than 50% anterior wedging. Intervertebral Disc Spaces: Reduced disc space between L3-L4, L4-L5, and L5-S1. Soft Tissues: Paraspinal soft tissues are of normal thickness. No evidence of paraspinal soft tissue swelling or mass effect. Additional Findings: No other significant abnormalities noted. IMPRESSION: 1. T12 more than 50% anterior wedging, new finding. 2. Grade 1 retrolisthesis L3 over L4, stable. 3. Grade 1 anterolisthesis L4 over L5, stable. 4. Moderate degenerative mainly lower lumbar spondylosis, stable, MRI lumbar spine is advised. Disclaimer: A subtle bone abnormality or fracture may not be readily apparent on X-rays, thus clinical correlation and further imaging including follow-up CT, MRI, or follow-up X-rays are advised as needed. Electronically signed by Ramonita Luna 10-03-2024 09:04 AM
--- NOTE | 2024-10-03 11:28 | History & Physical Report ---
Date of Service October 03, 2024 Assessment & Plan (1) Bilateral buttock pain: (2) Ambulatory dysfunction: (3) Status post left knee replacement: (4) Psoriatic arthropathy: (5) Chronic steroid use: (6) Lymphedema: Plan This is a 69-year-old female who has a significant past medical history of rheumatoid arthritis, psoriatic arthropathy on Humira and chronic prednisone therapy, sarcoidosis, history of TIA with statin intolerance, chronic bilateral lymphedema, HLD, chronic bronchitis, cirrhosis and history of migraine who presents to ED secondary to severe bilateral buttock pain for several weeks. #Bilateral Buttock Pain #Ambulatory dysfunction admit to med/surg obtain thoracic and lumbar spine MRI, will prescribe IV ativan pre treatment due to claustrophobia consult orthopedic spine --Spine XR: pain control with Oxy IR, scheduled APAP, lidocaine patch, heat/ice, gabapentin BID PT/OT #Rheumatoid arthritis #Psoriatic Arthopath #correction steroid user follows Dr. Shearer, on q2wk Humira and daily prednisone #Recent L TKA in July by Dr. Crespo doing well from a post op standpoint regarding this surgery #Chronic b/l lymphedema continue biweekly tubigrip dressings #HTN chronic, stable continue losartan an metoprolol DVT ppx: SQ Lovenox BID FULL CODE PCP: Jeniffer Ashraf Dispo: admit to med/surg, lives alone, may need rehab Pt was seen and examined in collaboration with Dr. Vazquez, please see addendum I spent a total of 60 minutes reviewing notes, outpatient records, labs, medication, coordinating, documenting and providing care for this patient excluding time spent in the performance of separately billed services. History of Present Illness Chief Complaint: Bilateral buttock pain x several weeks. Primary Care Provider: Jeniffer Ashraf MD This is a 69-year-old female who has a significant past medical history of rheumatoid arthritis, psoriatic arthropathy on Humira and chronic prednisone therapy, sarcoidosis, history of TIA with statin intolerance, chronic bilateral lymphedema, HLD, chronic bronchitis, cirrhosis and history of migraine who presents to ED secondary to severe bilateral buttock pain for several weeks. Of significance in July patient underwent a left knee arthroplasty by Dr. Crespo. She tolerated the procedure well and did not have any postoperative complications. She was tolerating physical therapy and was not requiring any assistance with ambulation. She states ever since the surgery she had some left buttock pain. She chalked it up to her chronic piriformis issue or possibly a sciatic issue. She did bring it up to orthopedics who agreed and felt it was musculoskeletal. Unfortunately her symptoms and pain progressed. She also developed pain in the right buttock region. She is now requiring assistance with a walker. She has constant pain and is worse with movement and sitting. She denies any radicular symptoms, saddle anesthesia, bowel or bladder incontinence. She denies any worsened low back pain. She reports chronic low back pain, but denies any change. She also denies any recent fall or trauma. She does state that she was trying to wash her floors and was bending over and ever since then is when she developed pain in the right buttock as well. she was seen in the orthopedic clinic on 09/30 and was prescribed physical therapy. Due to's the severity of pain and limitations with a holiday she opted to present to ED. She does have chronic bilateral lymphedema for which she is also receiving lymphedema therapy twice a week. She has Tubigrip's in place. She denies any fever, chills, sweats, lightheadedness, dizziness, chest pain, shortness breath, nausea, vomiting or abdominal pain. She does have chronic loose stool and her last bowel movement was this morning. Her appetite has been well but due to her lack of mobility she has been having difficulty obtaining food. Allergies Allergy/AdvReac Type Severity Reaction Status Date / Time adhesive Allergy Severe SKIN Verified 08/30/24 13:00 RASH/"severly allergic" bee venom protein (honey bee) Allergy Severe ANAPHYLAXIS Verified 08/30/24 13:00 chlorhexidine Allergy Mild Rash Verified 08/30/24 13:00 bacitracin Allergy Unknown RASH Verified 08/30/24 13:00 AROUND FACE brimonidine Allergy Unknown CONTACT Verified 08/30/24 13:00 DERMATITIS cyclosporine Allergy Unknown CONTACT Verified 08/30/24 13:00 DERMATITIS spironolactone Allergy Unknown Hives Verified 08/30/24 13:00 terfenadine Allergy Unknown EYE Verified 08/30/24 13:00 SWELLING timolol Allergy Unknown contact Verified 08/30/24 13:00 dermatitis tobramycin Allergy Unknown EYE Verified 08/30/24 13:00 SWELLING cefaclor AdvReac Unknown MOUTH Verified 08/30/24 13:00 ULCERS- CAN TAKE KEFLEX W/O PROBLEM Home Medications Medication Instructions Recorded Confirmed Type artificial tears(hypromellose) 0.3 1 dose OPB HS 07/30/18 10/03/24 History % eye gel (Systane Gel) calcium 315 mg (as 1 tab PO QAM 07/30/18 10/03/24 History citrate)-vitamin D3 6.25 mcg (250 unit) tablet (Citracal + Vitamin D Maximum) doxycycline hyclate 50 mg tablet 50 mg PO QDL 07/30/18 10/03/24 History metoprolol succinate 25 mg 37.5 mg PO PM 07/30/18 10/03/24 History tablet,extended release 24 hr ascorbic acid (vitamin C) 1,000 mg 1,000 mg PO QAM 07/18/19 10/03/24 History tablet adalimumab 40 mg/0.4 mL 40 mg subcut Q14D 01/30/20 10/03/24 History subcutaneous pen kit (Humira(CF) Pen) prednisone 10 mg tablet 10 mg PO QAM 05/22/20 10/03/24 History ipratropium 20 mcg-albuterol 100 1 puff inhalation QID PRN 04/16/21 10/03/24 Rx mcg/actuation mist for inhalation shortness of breath or wheezing #4 (Combivent Respimat) grams acetaminophen 500 mg capsule 1,000 mg PO Q8H Pain 07/22/22 10/03/24 History baclofen 10 mg tablet 20 mg PO HS 07/22/22 10/03/24 History fluconazole 100 mg tablet 100 mg PO UD PRN YEAST INFECTION 07/22/22 10/03/24 History omeprazole 20 mg capsule,delayed 20 mg PO QPM PRN Acid Reflux 07/22/22 10/03/24 History release amiloride 5 mg tablet 5 mg PO QAM 02/19/23 10/03/24 History estradiol 1 mg tablet 0.5 mg PO 4XWK 02/19/23 10/03/24 History losartan 50 mg tablet 50 mg PO QAM 02/19/23 10/03/24 History oxymetazoline 0.05 % nasal spray 1 spray intranasal UD PRN Nasal 11/10/23 10/03/24 History (Afrin (oxymetazoline)) Congestion polyethylene glycol 400 0.25 % eye 1 drp ophthalmic (eye) DAILY PRN 11/10/23 10/03/24 History drops (Blink Tears) Dry Eyes cholecalciferol (vitamin D3) 25 25 mcg PO DAILY 05/30/24 10/03/24 History mcg (1,000 unit) tablet (Vitamin D3) meloxicam 15 mg tablet 15 mg PO QAM 05/30/24 10/03/24 History tramadol 50 mg tablet 50 mg PO TID 05/30/24 10/03/24 History aspirin 81 mg tablet,delayed 81 mg PO BID 42 days #0 tabs 07/04/24 10/03/24 Rx release lidocaine 5 % topical patch 1 patch topical DAILY PRN pain #15 10/03/24 Rx ea prednisone 20 mg tablet See Rx Instructions .Route 10/03/24 Rx .COMPLEX 5 days #7 tabs Past Med/Surg History Problem List (Updated 10/03/24 @ 11:39 by Sweetie Evans PA-C) Ambulatory dysfunction Bilateral buttock pain (Acute) Status post left knee replacement Status post right knee replacement Osteoarthritis of right knee Status post reverse total replacement of left shoulder (~03/2023) Rotator cuff arthropathy Glenohumeral arthritis Hand arthritis Status post reverse total replacement of right shoulder (~08/2022) Lumbar spondylosis Left knee DJD Encounter for pre-operative examination Cirrhosis Arthritis of knee, left History of squamous cell carcinoma Chronic asthmatic bronchitis Encounter for screening colonoscopy H/O total hysterectomy (Chronic) S/P rotator cuff repair (Chronic) History of parathyroid surgery (Chronic) S/P foot surgery (Chronic) S/P appendectomy (Chronic) Osteoarthritis (Chronic) Leg weakness GERD (gastroesophageal reflux disease) (Chronic) resolved Hx of fracture of right hip (Chronic) Lymphedema (Chronic) Sarcoidosis (Chronic) H/O hyperparathyroidism (Chronic) Migraine (Chronic) Psoriatic arthropathy (Chronic) Follows w/ Dr Shearer Medical History History of anesthesia complications awareness with right TKA Hx of transient ischemic attack (TIA) 2017, no residual effects History of endometriosis Contact dermatitis "ongoing all my life/controlled." Difficult intravenous access "Wants IV team" Limb alert care status LUE restriction (pt has lymphedema left arm and both legs) Cirrhosis of liver Chronic steroid use Chronic prednisone 10mg daily r/t psoriatic arthritis Lymphedema lymphedema left arm and both legs > therapy Scoliosis Kidney stones current/dormant for yrs. Irritable bowel syndrome Cancer Skin cancer (multiple sites) s/p excision, cheeks and arms Glaucoma Dry eye syndrome Hypertension controlled, stable per pt Hyperlipidemia Asthma controlled, stable per pt; last rescue inhaler use 1 month ago Sarcoidosis "Stable" Surgical History History of total knee replacement right H/O hysterectomy with unilateral oophorectomy left fallopian tube and ovary removed-pt unsure if right fallopian tube remains History of reverse total replacement of left shoulder joint March 2023. History of total replacement of right shoulder joint Right reverse TSA (08/29/22): Grade I view, Glidescope#3 "elective", ETT 7.0 + PNB at [facility] History of Mohs surgery for squamous cell carcinoma of skin [facility] 11/2021 History of amputation of toe Right 4th toe, October 2020 History of esophagogastroduodenoscopy (EGD) History of liver biopsy S/P parathyroidectomy History of anesthesia reaction DIFFICULTY BREATHING--had to receive oxygen after general anesthesia, denies re-intubation or unanticipated hospitalization; states was discharged for same day surgery. > 10 yrs ago History of laparoscopy History of hand surgery LEFT HAND FINGER FUSION History of shoulder surgery RT SHOULDER History of foot surgery RIGHT/LEFT FOOT SURGERY WITH HARDWARE History of cystoscopy History of colonoscopy History of appendectomy History of tooth extraction History of adenoidectomy History of tonsillectomy H/O eye surgery RIGHT/LEFT FOR GLAUCOMA H/O chest tube placement AFTER BRONCHOSCOPY History of bronchoscopy Family History Father Renal failure Cancer Mother Acute subdural hematoma Brother Family hx colonic polyps Other No family history of adverse response to anesthesia Social History Smoking Status: Never smoker Second Hand Exposure: No; Do You Dip or Chew Tobacco: No; Hx Alcohol Use: No Hx Substance Use: No Preferred Language: Swedish Communication Ability: Effective Import Coordinator Required: No Beliefs That Will Affect Care: None marital status: Single Current Living Situation: Alone How many Children do You have: 0 Feels Safe at Home: Yes Assistive Devices: Glasses Review of Systems Review of Systems: All systems reviewed & are unremarkable except as noted in HPI & below Physical Exam Physical Exam: Constitutional: WD/WN, Obese, F, vitals as above, NAD but appears in pain, sitting up in bed, pleasant, conversing easily Head: Normocephalic, Atraumatic Eyes: PERRL, conjunctivae normal, anicteric sclerae ENMT: external ear and nose normal, oropharynx normal Neck: trachea midline, no thyromegaly normal visual inspection Respiratory: normal respiratory effort, lungs clear to auscultation, no wheeze, rales, rhonchi. Normal insp/exp effort, no accessory muscle use Cardiovascular: RRR, no murmur, no edema Vessels: no JVD or carotid bruit Chest: normal inspection of chest Abdomen: normal bowel sounds, soft, nontender, no hepatosplenomegaly Musculoskeletal: no cyanosis or clubbing, arom x 4, LTKA incision well healed, no vertebral tenderness or pinpoint low back discomfort Skin: no rashes, warm and dry normal turgor Neurologic: no face palsy, no dysarthria CN's II-XI intact bilaterally and moves all extremities Psychiatric: A+Ox3, euthymic affect Results & Data Results & Data Vital Signs (Past 12 Hours) Vital Signs Temp Pulse Pulse Resp BP BP Pulse Ox 10/03/24 09:03 74 18 127/87 92 10/03/24 07:55 73 18 159/83 H 94 10/03/24 06:03 89 10/03/24 05:46 36.8 C 89 18 164/92 H 98 O2 Del Method 10/03/24 09:03 Room Air 10/03/24 07:55 Room Air 10/03/24 06:03 10/03/24 05:46 Room Air Laboratory Results I have independently reviewed and interpreted patient's admitting labs including CBC, BMP. Diagnostic Findings Lumbar Spine X-Ray 10/03/24 06:48 EXAM: XR lumbar spine 2-3V CLINICAL HISTORY: B/L BUTTOCK PAIN-NO TRAUMA JMT TECHNIQUE: X-ray images of the lumbar spine were obtained in anteroposterior (AP), LS spot and lateral projections. COMPARISON: 05/29/2021 CT, 09/24/2018 CR FINDINGS: Alignment: Lumbar spine alignment is normal. Minimal posterior dislocation of L3 over L4. Mild anterior dislocation of L4 over L5. No abnormal curvature, such as scoliosis or lordosis. Facet joints and sacroiliac joints appear normal. Vertebral Bodies: Osteophytosis, and endplate sclerosis of the lumbar vertebrae.No evidence of compression deformity seen. T12 more than 50% anterior wedging. Intervertebral Disc Spaces: Reduced disc space between L3-L4, L4-L5, and L5-S1. Soft Tissues: Paraspinal soft tissues are of normal thickness. No evidence of paraspinal soft tissue swelling or mass effect. Additional Findings: No other significant abnormalities noted. IMPRESSION: 1. T12 more than 50% anterior wedging, new finding. 2. Grade 1 retrolisthesis L3 over L4, stable. 3. Grade 1 anterolisthesis L4 over L5, stable. 4. Moderate degenerative mainly lower lumbar spondylosis, stable, MRI lumbar spine is advised. Disclaimer: A subtle bone abnormality or fracture may not be readily apparent on X-rays, thus clinical correlation and further imaging including follow-up CT, MRI, or follow-up X-rays are advised as needed. Electronically signed by Ramonita Luna 10-03-2024 09:04 AM Medications Administered Medication List Discontinued Medications Lidocaine (Lidocaine 5% 1 Patch) 1 patch TD NOW STA Stop: 10/03/24 06:50 Last Admin: 10/03/24 07:28 Dose: 1 patch Documented By: CC Methylprednisolone (Methylprednisolone 125 Mg/2 Ml Vial) 125 mg IV NOW STA Stop: 10/03/24 06:49 Last Admin: 10/03/24 07:28 Dose: 125 mg Documented By: CC Morphine Sulfate (Morphine Sulfate 4 Mg/Ml 1 Ml Carp\\Vial) 4 mg IV NOW STA Stop: 10/03/24 06:49 Last Admin: 10/03/24 07:27 Dose: 4 mg Documented By: CC Morphine Sulfate (Morphine Sulfate 4 Mg/Ml 1 Ml Carp\\Vial) 4 mg IV NOW STA Stop: 10/03/24 09:28 Last Admin: 10/03/24 09:37 Dose: 4 mg Documented By: CC COVID-19 Results Results COVID-19 Adm Lab Results: RBC 4.81 M/uL (4.20-5.40) 10/03/24 WBC 8.80 K/ul (4.8-10.8) 10/03/24 Hgb 12.4 g/dl (12.0-16.0) 10/03/24 Hct 39.9 % (37.0-47.0) 10/03/24 Plt Count 193 K/uL (130-400) 10/03/24 Neutrophils (%) (Auto) 84.6 % 10/03/24 Lymphocytes (%) (Auto) 5.6 % 10/03/24 Monocytes # (Auto) 0.69 K/uL (0.11-0.59) H 10/03/24 Eosinophils # (Auto) 0.05 K/uL (0.00-0.50) 10/03/24 Immature Granulocyte % (Auto) 1.1 % 10/03/24 Neutrophils # (Auto) 7.44 K/uL (1.40-6.50) H 10/03/24 Lymphocytes # (Auto) 0.49 K/uL (1.20-3.40) L 10/03/24 Monocytes # (Auto) 0.69 K/uL (0.11-0.59) H 10/03/24 Eosinophils # (Auto) 0.05 K/uL (0.00-0.50) 10/03/24 Basophils # (Auto) 0.03 K/uL (0.00-0.20) 10/03/24 Immature Granulocyte # (Auto) 0.10 K/uL (0.01-0.20) 4 Na 140 mmol/L (136-145) 10/03/24 K 4.4 mmol/L (3.5-5.1) 10/03/24 Cl 108 mmol/L (98-107) H 10/03/24 CO2 25 mmol/L (21-32) 10/03/24 Anion Gap 7 (3-11) 10/03/24 BUN 25 mg/dl (6-23) H 10/03/24 Creatinine 0.99 mg/dl (0.6-1.2) 10/03/24 BUN/Creatinine Ratio 25.3 (10-20) H 10/03/24 Glucose Level 106 mg/dl (70-99(Fasting)) H 10/03/24 Ca 9.2 mg/dl (8.6-10.3) 10/03/24 Code Status & VTE Plan Code Status FULL CODE VTE Prophylaxis Plan VTE Prophylaxis will be ordered: Yes Supervising Physician Co-Signing Physician Notes Patient seen and examined Due to worsening pain and ambulatory dysfunction, get MRI thoracolumbar for better assessment Follow up ortho spine eval Pain control. Agree with plans as detailed by Sweetie Evans PA-C I spent a total of 40minutes coordinating, documenting and providing care for this patient excluding time spent in performance of separately billed services
[2024-10-03] MEDS: LORazepam 2 MG/1 ML VIAL IV STA (12:07)
--- NOTE | 2024-10-03 13:01 | Magnetic Resonance Report ---
MR lumbar spine wo con CLINICAL HISTORY: buttock pain, T12 frx, amb dysfunction TECHNIQUE: Multiplanar sequences through the lumbar spine were obtained, without intravenous contrast . Comparison: Comparison is made to lumbar spine radiographs 10/03/2024 FINDINGS: T12 compression fracture is seen with approximately 6 mm retropulsion. Grade 1 anterolisthesis of L4- L5 is seen. L1-L2: No significant abnormality. L2-L3: No significant abnormality. L3-L4: Broad-based posterior disc bulge and prominent extradural fat is seen with mild right and mode rate left neural foraminal stenosis. L4-L5: Prominent extradural fat and broad-based disc bulge is seen with severe canal stenosis, AP joel meter 4 mm, and moderate bilateral neural foraminal stenosis. L5-S1: Prominent extradural fat and broad-based disc bulge is seen with severe canal stenosis, AP joel meter 3 mm, and mild bilateral neural foraminal stenosis. The spinal ligaments are intact, without evidence of disruption or abnormal signal intensity. The spi nal cord is normal in signal intensity and there is no evidence of cord contusion. There is no eviden ce of an extradural, intradural, extramedullary or intramedullary lesion. Visualized soft tissues are normal. IMPRESSION: 1. Multilevel degenerative changes extradural fat with up to severe canal stenosis, AP diameter 3 mm and moderate bilateral neuroforaminal stenosis. 2. Vertebral plana of T12 with approximately 6 mm retropulsion. ACT 112: Negative or not required by law. Electronically signed by: John Leigh M.D. 10/03/2024 1:00 PM
--- NOTE | 2024-10-03 13:37 | Magnetic Resonance Report ---
MRI OF THE THORACIC SPINE WITHOUT CONTRAST CLINICAL HISTORY: buttock pain, T12 frx, amb dysfunction COMPARISON: Lumbar spine radiographs performed earlier today. Chest CT September 12, 2019. Chest radio graph June 14, 2024. TECHNIQUE: Utilizing a 1.5 Nia magnet and dedicated coil, multiplanar, multiecho imaging of the th oracic spine was performed without IV contrast. FINDINGS: Mild dextroscoliosis of the thoracic spine is noted. A chronic T12 compression fracture wit h 90% loss of vertebral body height is similar to chest radiograph of June 14, 2024. 6 mm of retr opulsion at the superior endplate results in moderate central canal stenosis. This indents the ventra l aspect of the cord. There is no cord signal abnormality. T11 compression fracture involving the sup erior endplate with 20% loss of vertebral body height is also chronic. No marrow edema is present. Th ere are no acute thoracic spine fractures. No suspicious marrow replacement is present. Thoracic cord signal and caliber are normal. There is no intracanalicular mass or fluid collection. Paravertebral soft tissues are unremarkable. There is mild multilevel facet arthrosis. Minimal endplate osteophytos is is present. There are no large disc herniations. There is prominent epidural fat within the canal. IMPRESSION: 1. Chronic severe T12 compression fracture with 90% loss of vertebral body and 6 mm of retropulsion w hich results in moderate central canal stenosis. 2. Chronic mild T11 compression fracture. 3. No acute thoracic spine fractures. 4. Normal thoracic cord signal and caliber. 5. Mild dextroscoliosis of the thoracic spine. ACT 112: Negative or not required by law. Electronically signed by: Trev Mercado M.D. 10/03/2024 1:35 PM
[2024-10-03] MEDS ORDERED: IPRATROPIUM BROMIDE/ALBUTEROL respimat INH INH PRN (14:02)
[2024-10-03] MEDS ORDERED: POLYETHYLENE (MIRALAX) 17 GM PACK PO PRN (14:02)
[2024-10-03] MEDS ORDERED: FAMOTIDINE 20 MG TAB PO PRN (14:02)
[2024-10-03] MEDS ORDERED: ACETAMINOPHEN 325 MG TAB PO PRN (14:02)
[2024-10-03] MEDS ORDERED: ONDANSETRON INJ 2 MG/ML 2 ML VIAL IV PRN (14:02)
[2024-10-03] MEDS ORDERED: ALBUTEROL HFA 8 GM INHALER INH PRN (14:16)
[2024-10-03] MEDS ORDERED: IPRATROPIUM BROMIDE HFA INHALER INH PRN (14:16)
[2024-10-03] MEDS: ACETAMINOPHEN 500 MG TAB PO SCH (14:26)
[2024-10-03] MEDS: LIDOCAINE 5% 1 PATCH TD ONE (14:26)
[2024-10-03] MEDS: oxyCODONE HCL IR 5 MG TAB (IMMEDIATE RELEASE) PO PRN (14:26)
[2024-10-03] MEDS ORDERED: OXYMETAZOLINE 0.05% 30 ML BTL PRN (17:50)
[2024-10-03] MEDS: OXYMETAZOLINE 0.05% 30 ML BTL NAE ONE (18:04)
[2024-10-03] MEDS: METOPROLOL SUCC 25MG EXT REL TAB PO SCH (20:52)
[2024-10-03] MEDS: DOCUSATE SODIUM 100 MG CAP PO SCH (20:52)
[2024-10-03] MEDS: GABAPENTIN 300 MG CAP PO SCH (20:52)
[2024-10-03] MEDS ORDERED: MELATONIN 3 MG TAB PO PRN (21:00)
[2024-10-03] MEDS: BACLOFEN 20 MG TAB PO SCH (21:02)
[2024-10-03] MEDS: ENOXAPARIN INJ 40 MG/0.4 ML SYR SQ SCH (22:18)
[2024-10-04] MEDS: ARTIFICIAL TEARS OPB PRN (05:36)
[2024-10-04 07:24] LABS: Hematocrit (blood only) 36.8 % (37.0-47.0); Hemoglobin 11.6 g/dl (12.0-16.0); Mean Corpuscular Hemoglobin 25.8 pg (25.0-34.0); Mean Corpuscular Hgb Conc 31.5 g/dL (32.0-36.0); Mean Platelet Volume 9.5 fL (9.4-12.4); Platelet Count 212 K/uL (130-400); RDW Coefficient of Variation 14.1 % (11.5-14.5); RDW Standard Deviation 41.6 fL (36.4-46.3); Red Blood Count 4.49 M/uL (4.20-5.40)
[2024-10-04 07:40] LABS: BUN Creatinine Ratio 28.6 (10-20); Magnesium 1.9 mg/dl (1.7-2.4); Potassium 4.4 mmol/L (3.5-5.1)
[2024-10-04] MEDS: LOSARTAN POTASSIUM 50 MG TAB PO SCH (08:02)
[2024-10-04] MEDS: CHOLECALCIFEROL 25 MCG (1000 UNITS) TAB PO SCH (08:02)
[2024-10-04] MEDS: ASCORBIC ACID 500 MG TAB PO SCH (08:03)
[2024-10-04] MEDS: MELOXICAM 7.5 MG TAB PO SCH (08:03)
[2024-10-04] MEDS: CALCIUM 600MG + VIT D 400 IU TAB PO SCH (08:03)
[2024-10-04] MEDS: predniSONE 10 MG TABLET PO SCH (08:03)
[2024-10-04] MEDS: aMILoride HCL 5 MG TAB PO SCH (08:04)
[2024-10-04] MEDS: LIDOCAINE 5% 1 PATCH TD SCH (08:04)
--- NOTE | 2024-10-04 09:02 | Orthopedic Consultation ---
Date of Consultation October 04, 2024 Assessment & Plan (1) Lumbar canal stenosis: MRIs of the thoracic and lumbar spine available for review. They demonstrate old compression fractures T11 and T12. I do not believe this is contributing to her current limitations. More importantly she has severe spinal stenosis L4-5 secondary to spondylolisthesis and multilevel lumbar epidural lipomatosis most impressive extending from L3-S1. This is creating significant neural canal compression. At this point she would like to avoid any surgical invention. We will have her assessed with physical therapy and Occupational Therapy and ideally a candidate for rehab placement. Will also ask for the assistance of interventional pain management for either injections or medical contribution. Lastly I will obtain an MRI of the pelvis to rule out occult fracture contributing to this presentation. History of Present Illness Reason for Consultation: Severe bilateral buttock pain with inability ambulate Attending Physician: Lance Cai MD History of Present Illness This is a very pleasant 69-year-old female presents with marked client status over the past several weeks. She is been doing well after her total knee arthroplasty on the left. But has noticed significant bilateral buttock pain with any weightbearing standing and walking. She is undergone a course of therapy which failed to provide improvement. She denies any numbness or tingling into the lower extremities. She does have known lymphedema creating some pre-existing sensory deficits. She states that her ambulation has been infected for years and has not been able to tolerate steps for some time. She denies any specific back pain at this point. Allergies Allergy/AdvReac Type Severity Reaction Status Date / Time adhesive Allergy Severe SKIN Verified 08/30/24 13:00 RASH/"severly allergic" bee venom protein (honey bee) Allergy Severe ANAPHYLAXIS Verified 08/30/24 13:00 chlorhexidine Allergy Mild Rash Verified 08/30/24 13:00 bacitracin Allergy Unknown RASH Verified 08/30/24 13:00 AROUND FACE brimonidine Allergy Unknown CONTACT Verified 08/30/24 13:00 DERMATITIS cyclosporine Allergy Unknown CONTACT Verified 08/30/24 13:00 DERMATITIS spironolactone Allergy Unknown Hives Verified 08/30/24 13:00 terfenadine Allergy Unknown EYE Verified 08/30/24 13:00 SWELLING timolol Allergy Unknown contact Verified 08/30/24 13:00 dermatitis tobramycin Allergy Unknown EYE Verified 08/30/24 13:00 SWELLING cefaclor AdvReac Unknown MOUTH Verified 08/30/24 13:00 ULCERS- CAN TAKE KEFLEX W/O PROBLEM Home Medications Medication Instructions Recorded Confirmed Type artificial tears(hypromellose) 0.3 1 dose OPB HS 07/30/18 10/03/24 History % eye gel (Systane Gel) calcium 315 mg (as 1 tab PO QAM 07/30/18 10/03/24 History citrate)-vitamin D3 6.25 mcg (250 unit) tablet (Citracal + Vitamin D Maximum) doxycycline hyclate 50 mg tablet 50 mg PO QDL 07/30/18 10/03/24 History metoprolol succinate 25 mg 37.5 mg PO PM 07/30/18 10/03/24 History tablet,extended release 24 hr ascorbic acid (vitamin C) 1,000 mg 1,000 mg PO QAM 07/18/19 10/03/24 History tablet adalimumab 40 mg/0.4 mL 40 mg subcut Q14D 01/30/20 10/03/24 History subcutaneous pen kit (Humira(CF) Pen) prednisone 10 mg tablet 10 mg PO QAM 05/22/20 10/03/24 History ipratropium 20 mcg-albuterol 100 1 puff inhalation QID PRN 04/16/21 10/03/24 Rx mcg/actuation mist for inhalation shortness of breath or wheezing #4 (Combivent Respimat) grams acetaminophen 500 mg capsule 1,000 mg PO Q8H Pain 07/22/22 10/03/24 History baclofen 10 mg tablet 20 mg PO HS 07/22/22 10/03/24 History fluconazole 100 mg tablet 100 mg PO UD PRN YEAST INFECTION 07/22/22 10/03/24 History omeprazole 20 mg capsule,delayed 20 mg PO QPM PRN Acid Reflux 07/22/22 10/03/24 History release amiloride 5 mg tablet 5 mg PO QAM 02/19/23 10/03/24 History estradiol 1 mg tablet 0.5 mg PO 4XWK 02/19/23 10/03/24 History losartan 50 mg tablet 50 mg PO QAM 02/19/23 10/03/24 History oxymetazoline 0.05 % nasal spray 1 spray intranasal UD PRN Nasal 11/10/23 10/03/24 History (Afrin (oxymetazoline)) Congestion polyethylene glycol 400 0.25 % eye 1 drp ophthalmic (eye) DAILY PRN 11/10/23 10/03/24 History drops (Blink Tears) Dry Eyes cholecalciferol (vitamin D3) 25 25 mcg PO DAILY 05/30/24 10/03/24 History mcg (1,000 unit) tablet (Vitamin D3) meloxicam 15 mg tablet 15 mg PO QAM 05/30/24 10/03/24 History tramadol 50 mg tablet 50 mg PO TID 05/30/24 10/03/24 History aspirin 81 mg tablet,delayed 81 mg PO BID 42 days #0 tabs 07/04/24 10/03/24 Rx release lidocaine 5 % topical patch 1 patch topical DAILY PRN pain #15 10/03/24 Rx ea prednisone 20 mg tablet See Rx Instructions .Route 10/03/24 Rx .COMPLEX 5 days #7 tabs Patient History Medical History History of anesthesia complications awareness with right TKA Hx of transient ischemic attack (TIA) 2016, no residual effects History of endometriosis Contact dermatitis "ongoing all my life/controlled." Difficult intravenous access "Wants IV team" Limb alert care status LUE restriction (pt has lymphedema left arm and both legs) Cirrhosis of liver Chronic steroid use Chronic prednisone 10mg daily r/t psoriatic arthritis Lymphedema lymphedema left arm and both legs > therapy Scoliosis Kidney stones current/dormant for yrs. Irritable bowel syndrome Cancer Skin cancer (multiple sites) s/p excision, cheeks and arms Glaucoma Dry eye syndrome Hypertension controlled, stable per pt Hyperlipidemia Asthma controlled, stable per pt; last rescue inhaler use 1 month ago Sarcoidosis "Stable" Surgical History History of total knee replacement right H/O hysterectomy with unilateral oophorectomy left fallopian tube and ovary removed-pt unsure if right fallopian tube remains History of reverse total replacement of left shoulder joint March 2023. History of total replacement of right shoulder joint Right reverse TSA (08/29/22): Grade I view, Glidescope#3 "elective", ETT 7.0 + PNB at [facility] History of Mohs surgery for squamous cell carcinoma of skin [facility] 11/2021 History of amputation of toe Right 4th toe, October 2020 History of esophagogastroduodenoscopy (EGD) History of liver biopsy S/P parathyroidectomy History of anesthesia reaction DIFFICULTY BREATHING--had to receive oxygen after general anesthesia, denies re-intubation or unanticipated hospitalization; states was discharged for same day surgery. > 10 yrs ago History of laparoscopy History of hand surgery LEFT HAND FINGER FUSION History of shoulder surgery RT SHOULDER History of foot surgery RIGHT/LEFT FOOT SURGERY WITH HARDWARE History of cystoscopy History of colonoscopy History of appendectomy History of tooth extraction History of adenoidectomy History of tonsillectomy H/O eye surgery RIGHT/LEFT FOR GLAUCOMA H/O chest tube placement AFTER BRONCHOSCOPY History of bronchoscopy Family History Father Renal failure Cancer Mother Acute subdural hematoma Brother Family hx colonic polyps Other No family history of adverse response to anesthesia Social History Smoking Status: Never smoker Second Hand Exposure: No; Do You Dip or Chew Tobacco: No; Hx Alcohol Use: No Hx Substance Use: No Preferred Language: Gibraltarian Communication Ability: Effective 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 She is negative logroll. There is some tenderness palpation of the bilateral IT bands. Results & Data Vital Signs (Past 12 Hours) Vital Signs Temp Pulse Resp BP Pulse Ox O2 Del Method 10/04/24 08:00 36.7 C 81 17 136/77 92 Room Air (1) Lumbar canal stenosis Neurogenic claudication status: unspecified Qualified Code(s): M48.061 - Spinal stenosis, lumbar region without neurogenic claudication
[2024-10-04] MEDS: DOXYCYCLINE HYCLATE 50 MG CAP PO SCH (10:50)
[2024-10-04] MEDS: LORazepam 0.5 MG TAB PO STA (12:14)
[2024-10-04] MEDS: traMADol HCL 50 MG TABLET PO SCH (13:42)
--- NOTE | 2024-10-04 14:23 | Magnetic Resonance Report ---
MR pelvis wo con CLINICAL HISTORY: pain TECHNIQUE: Multiplanar multisequence images were obtained of the pelvis with and without the administ ration of contrast. COMPARISON: Comparison is made to lower extremity MRI 07/16/2011 FINDINGS: Bowel: Unremarkable. Lymph nodes: Unremarkable. Bladder: Unremarkable. Reproductive organs: Unremarkable. Vessels: Unremarkable. Abdominal wall: Unremarkable. Bones: Bony edema and a fracture line are seen in the left hemisacrum. The fracture line appears to c ontact the left first neural foramen. There is mild right sacral edema as well. IMPRESSION: Findings compatible with a sacral insufficiency fracture on the left which may involve the first neur al foramen. There is associated marrow edema. ACT 112: Negative or not required by law. Electronically signed by: John Leigh M.D. 10/04/2024 2:21 PM
--- NOTE | 2024-10-04 15:41 | Hospitalist Progress Note ---
Date of Service October 04, 2024 Assessment & Plan (1) Bilateral buttock pain: (2) Ambulatory dysfunction: (3) Status post left knee replacement: (4) Psoriatic arthropathy: (5) Chronic steroid use: (6) Lymphedema: Plan This is a 69-year-old female who has a significant past medical history of rheumatoid arthritis, psoriatic arthropathy on Humira and chronic prednisone therapy, sarcoidosis, history of TIA with statin intolerance, chronic bilateral lymphedema, HLD, chronic bronchitis, cirrhosis and history of migraine who presents to ED secondary to severe bilateral buttock pain for several weeks. Bilateral Buttock Pain Ambulatory dysfunction - has been getting intravenous morphine and oral oxycodone to control pain Was using Ultram as an outpatient and wanted to have that for better control of pain thoracic and lumbar MRI have been noted and was evaluated by orthopedic surgeon Pelvis MRI showed sacral insufficiency fracture on the left which may involve the first neuroforamen with associated edema Further recommendation from the orthopedic surgeon pending -pain control with Ultram, scheduled APAP, lidocaine patch, heat/ice, gabapentin BID -PT/OT #Rheumatoid arthritis #Psoriatic Arthopath #retirement steroid user follows Dr. Shearer, on q2wk Humira and daily prednisone Doubt any exacerbation of rheumatoid and/or psoriatic arthropathy #Recent L TKA in July by Dr. Crespo Doing well from a post op standpoint regarding this surgery #Chronic b/l lymphedema Continue biweekly tubigrip dressings #HTN chronic, stable continue losartan an metoprolol Morbid obesity evidenced by a BMI of 47 DVT ppx: SQ Lovenox BID FULL CODE PCP: Jeniffer Ashraf Dispo: admit to med/surg, lives alone, may need rehab Admission and Anticipated Discharge Date Admission Date: October 03, 2024 Subjective 10/04/2024 The patient was seen and examined in medical floor She has been complaining of severe back pain without radiation Denies any problem with urination or bowel habit Will have MRI of the lower lumbar spine this afternoon Review of Systems Review of Systems: All systems reviewed and are unremarkable except as noted below Physical Exam Physical Exam: Lying in bed without any acute distress Constitutional: well developed, well nourished, + ill appearing and + morbidly obese Eyes: PERRL, conjunctivae normal, anicteric sclerae ENMT: external ear and nose normal, oropharynx normal Neck: trachea midline, no thyromegaly Respiratory: no respiratory distress Auscultation: lungs clear to auscultation bilaterally and + diminished lung sounds Cardiovascular: Rate/Rhythm: regular rate and regular rhythm; not tachycardic Heart Sounds: normal S1 and normal S2; no murmur Extremities: + edema ( Trace edema bilaterally) Gastrointestinal (Abdomen): Inspection/Auscultation: normal bowel sounds; abdomen not distended Percussion/Palpation: abdomen soft; abdomen nontender Musculoskeletal: Localized tenderness lower back without any acute arthritis involving any other joint Neurologic: normal touch/pain/proprioception and moves all extremities; no focal motor deficits Lymphatic: no cervical or axillary lymphadenopathy Results & Data Results & Data Vital Signs (Past 12 Hours) Vital Signs Temp Pulse Resp BP Pulse Ox O2 Del Method 10/04/24 15:09 36.8 C 89 16 106/62 98 Room Air 10/04/24 08:00 Room Air 10/04/24 08:00 36.7 C 81 17 136/77 92 Room Air Laboratory Results Short CBC 10/04/24 Range/Units 06:54 WBC 11.60 H (4.8-10.8) K/ul Hgb 11.6 L (12.0-16.0) g/dl Hct 36.8 L (37.0-47.0) % Plt Count 212 (130-400) K/uL BMP 10/04/24 06:54 Sodium 138 Potassium 4.4 Chloride 106 Carbon Dioxide 25 BUN 28 H Creatinine 0.98 Glucose 109 H Calcium 9.0 Medications Administered Current Inpatient Medications Acetaminophen (Acetaminophen 500 Mg Tab) 1,000 mg PO Q8 [facility] Stop: 11/02/24 14:29 Last Admin: 10/04/24 13:42 Dose: 1,000 mg Albuterol (Albuterol Hfa 8 Gm Inhaler) 1 puffs INH Q6H PRN; Protocol PRN Reason: SOB/WHEEZING Stop: 11/02/24 14:15 Amiloride HCl (Amiloride Hcl 5 Mg Tab) 5 mg PO QAM [facility] Stop: 11/03/24 08:59 Last Admin: 10/04/24 08:04 Dose: 5 mg Artificial Tears (Artificial Tears) 1 drops OPB QID PRN; Protocol PRN Reason: Dryness Stop: 11/02/24 14:10 Last Admin: 10/04/24 05:36 Dose: 1 drops Ascorbic Acid (Ascorbic Acid 500 Mg Tab) 1,000 mg PO QAM [facility] Stop: 11/03/24 08:59 Last Admin: 10/04/24 08:03 Dose: 1,000 mg Baclofen (Baclofen 20 Mg Tab) 20 mg PO HS [facility] Stop: 11/02/24 20:59 Last Admin: 10/03/24 21:02 Dose: 20 mg Calcium/Vitamin D (Calcium 600mg + Vit D 400 Iu Tab) 1 tab PO QAM [facility] Stop: 11/03/24 08:59 Last Admin: 10/04/24 08:03 Dose: 1 tab Docusate Sodium (Docusate Sodium 100 Mg Cap) 100 mg PO BID [facility] Stop: 11/02/24 20:59 Last Admin: 10/04/24 08:05 Dose: 100 mg Doxycycline Hyclate (Doxycycline Hyclate 50 Mg Cap) 50 mg PO QDL [facility] Stop: 11/03/24 11:29 Last Admin: 10/04/24 10:50 Dose: 50 mg Enoxaparin Sodium (Enoxaparin Inj 40 Mg/0.4 Ml Syr) 40 mg SQ Q12H [facility] Stop: 11/02/24 21:59 Last Admin: 10/04/24 10:50 Dose: 40 mg Famotidine (Famotidine 20 Mg Tab) 20 mg PO DAILY PRN PRN Reason: Heartburn Stop: 11/02/24 14:01 Gabapentin (Gabapentin 300 Mg Cap) 300 mg PO BID [facility] Stop: 11/02/24 20:59 Last Admin: 10/04/24 08:05 Dose: 300 mg Ipratropium Picacho (Ipratropium Picacho Hfa Inhaler) 1 puffs INH Q6H PRN; Protocol PRN Reason: SOB/WHEEZING Stop: 11/02/24 14:15 Lidocaine (Lidocaine 5% 1 Patch) 2 patch [facility] Stop: 11/03/24 08:59 Last Admin: 10/04/24 08:04 Dose: 2 patch Losartan Potassium (Losartan Potassium 50 Mg Tab) [facility] [place]: 11/03/24 08:59 Last Admin: 10/04/24 08:02 Dose: 50 mg Melatonin (Melatonin 3 Mg Tab) 6 mg PO HS PRN PRN Reason: Sleep Stop: 11/02/24 20:59 Meloxicam (Meloxicam 7.5 Mg Tab) 15 mg PO QAM [facility] Stop: 11/03/24 08:59 Last Admin: 10/04/24 08:03 Dose: 15 mg Metoprolol Succinate (Metoprolol Succ 25mg Ext Rel Tab) 37.5 mg PO PM [facility] Stop: 11/02/24 20:59 Last Admin: 10/03/24 20:52 Dose: 37.5 mg Miscellaneous (Remove Lidoderm Patch) 2 each N/A DAILY@2100 [facility] Stop: 11/03/24 20:59 Ondansetron HCl (Ondansetron Inj 2 Mg/Ml 2 Ml Vial) 4 mg IV Q6H PRN PRN Reason: Nausea Stop: 11/02/24 14:01 Oxymetazoline HCl (Oxymetazoline 0.05% 30 Ml Btl) 1 sprays NA Q12H PRN PRN Reason: Nasal Congestion Stop: 11/02/24 17:49 Polyethylene Glycol (Polyethylene (Miralax) 17 Gm Pack) 17 gm PO DAILY PRN PRN Reason: Constipation Stop: 11/02/24 14:01 Prednisone (Prednisone 10 Mg Tablet) 10 mg PO QAM [facility] Stop: 11/03/24 08:59 Last Admin: 10/04/24 08:03 Dose: 10 mg Tramadol HCl (Tramadol Hcl 50 Mg Tablet) 50 mg PO TID [facility] Stop: 11/03/24 13:59 Last Admin: 10/04/24 13:42 Dose: 50 mg Vitamin D (Cholecalciferol 25 Mcg (1000 Units) Tab) 25 mcg PO DAILY [facility] Stop: 11/03/24 08:59 Last Admin: 10/04/24 08:02 Dose: 25 mcg
[2024-10-04] MEDS: oxyCODONE HCL IR 5 MG TAB (IMMEDIATE RELEASE) PO STA (19:56)
[2024-10-05] MEDS: oxyCODONE HCL IR 5 MG TAB (IMMEDIATE RELEASE) PO STA (02:34)
--- NOTE | 2024-10-05 10:58 | Orthopedic Progress Note ---
Date of Service October 05, 2024 Assessment & Plan (1) Sacral insufficiency fracture: Plan: MRI of the pelvis confirms sacral insufficiency fracture. This is consistent with her pain patterns. I discussed with the patient the fracture and these typically heal over time. This may take several weeks. Rehab is reasonable. She can continue with transfers and ambulation as tolerated. Admission and Anticipated Discharge Date Admission Date: October 03, 2024 Subjective Patient continues to struggle with pelvic pain. She is tolerated physical therapy but noting significant discomfort. She denies any leg pain at this time. Physical Exam Physical Exam: Patient is currently bed. She is neurologically intact. Results & Data Vital Signs (Past 12 Hours) Vital Signs Temp Pulse Resp BP Pulse Ox O2 Del Method 10/05/24 07:30 36.5 C 75 16 116/62 93 Room Air 10/04/24 23:58 36.9 C 104 H 18 127/75 95 Room Air Queries Orthopedic Spine Obesity: Yes Vertebral Fracture Secondary to Osteoporosis: Yes
[2024-10-05] MEDS ORDERED: MoRPHine SULFATE 4 MG/ML 1 ML CARP\\VIAL IV PRN (11:00)
[2024-10-05] MEDS: oxyCODONE HCL IR 5 MG TAB (IMMEDIATE RELEASE) PO PRN (12:31)
--- NOTE | 2024-10-05 13:00 | Hospitalist Progress Note ---
Date of Service October 05, 2024 Assessment & Plan (1) Bilateral buttock pain: Plan: Secondary to left sacral insufficiency fracture Conservative management with physical therapy and pain control Appreciate Ortho input and recommendation Started with oral oxycodone and intravenous morphine during Likely discharge tomorrow to [facility] on oral oxycodone (2) Ambulatory dysfunction: (3) Status post left knee replacement: (4) Psoriatic arthropathy: (5) Chronic steroid use: (6) Lymphedema: Plan This is a 69-year-old female who has a significant past medical history of rheumatoid arthritis, psoriatic arthropathy on Humira and chronic prednisone therapy, sarcoidosis, history of TIA with statin intolerance, chronic bilateral lymphedema, HLD, chronic bronchitis, cirrhosis and history of migraine who presents to ED secondary to severe bilateral buttock pain for several weeks. Bilateral Buttock Pain Ambulatory dysfunction - has been getting intravenous morphine and oral oxycodone to control pain Was using Ultram as an outpatient and wanted to have that for better control of pain thoracic and lumbar MRI have been noted and was evaluated by orthopedic surgeon Pelvis MRI showed sacral insufficiency fracture on the left which may involve the first neuroforamen with associated edema Further recommendation from the orthopedic surgeon pending -pain control with Ultram, scheduled APAP, lidocaine patch, heat/ice, gabapentin BID -PT/OT recommended rehab - Ultram is not controlling her pain- she used to take Ultram and oxycodone as an outpatient given by her PCP for exacerbation of pain. 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 Crespo Doing well from a post op standpoint regarding this surgery #Chronic b/l lymphedema Continue biweekly tubigrip dressings #HTN chronic, stable continue losartan an metoprolol Morbid obesity evidenced by a BMI of 47 DVT ppx: SQ Lovenox BID FULL CODE PCP: Jeniffer Ashraf Dispo: admit to med/surg, lives alone, may need rehab Admission and Anticipated Discharge Date Admission Date: October 03, 2024 Subjective 10/04/2024 The patient was seen and examined in medical floor She has been complaining of severe back pain without radiation Denies any problem with urination or bowel habit Will have MRI of the lower lumbar spine this afternoon 10/05/2024 The patient was seen and examined in medical floor She has been complaining of severe pain in her pelvis area and has been having problem with physical therapy She has been taking Ultram 50 mg 3 times daily as needed for pain control but pain is not controlled with that She denies any other symptoms Review of Systems Review of Systems: All systems reviewed and are unremarkable except as noted below Physical Exam Physical Exam: Lying in bed without any acute distress Constitutional: well developed, well nourished, + ill appearing and + morbidly obese Eyes: PERRL, conjunctivae normal, anicteric sclerae ENMT: external ear and nose normal, oropharynx normal Neck: trachea midline, no thyromegaly Respiratory: no respiratory distress Auscultation: lungs clear to auscultation bilaterally and + diminished lung sounds Cardiovascular: Rate/Rhythm: regular rate and regular rhythm; not tachycardic Heart Sounds: normal S1 and normal S2; no murmur Extremities: + edema ( Trace edema bilaterally) Gastrointestinal (Abdomen): Inspection/Auscultation: normal bowel sounds; abdomen not distended Percussion/Palpation: abdomen soft; abdomen nontender Musculoskeletal: Pain in the pelvis with movements of the lower extremities Neurologic: normal touch/pain/proprioception and moves all extremities; no focal motor deficits Lymphatic: no cervical or axillary lymphadenopathy Results & Data Results & Data Vital Signs (Past 12 Hours) Vital Signs Temp Pulse Resp BP Pulse Ox O2 Del Method 10/05/24 07:30 36.5 C 75 16 116/62 93 Room Air Medications Administered Current Inpatient Medications Acetaminophen (Acetaminophen 500 Mg Tab) 1,000 mg PO Q8 [facility] Stop: 11/02/24 14:29 Last Admin: 10/05/24 05:40 Dose: 1,000 mg Albuterol (Albuterol Hfa 8 Gm Inhaler) 1 puffs INH Q6H PRN; Protocol PRN Reason: SOB/WHEEZING Stop: 11/02/24 14:15 Amiloride HCl (Amiloride Hcl 5 Mg Tab) 5 mg PO QAM [facility] Stop: 11/03/24 08:59 Last Admin: 10/05/24 09:49 Dose: 5 mg Artificial Tears (Artificial Tears) 1 drops OPB QID PRN; Protocol PRN Reason: Dryness Stop: 11/02/24 14:10 Last Admin: 10/05/24 05:41 Dose: 1 drops Ascorbic Acid (Ascorbic Acid 500 Mg Tab) 1,000 mg PO QAM [facility] Stop: 11/03/24 08:59 Last Admin: 10/05/24 09:49 Dose: 1,000 mg Baclofen (Baclofen 20 Mg Tab) 20 mg PO HS [facility] Stop: 11/02/24 20:59 Last Admin: 10/04/24 21:08 Dose: 20 mg Calcium/Vitamin D (Calcium 600mg + Vit D 400 Iu Tab) [facility] Stop: 11/03/24 08:59 Last Admin: 10/05/24 09:50 Dose: 1 tab Docusate Sodium (Docusate Sodium 100 Mg Cap) 100 mg PO BID [facility] Stop: 11/02/24 20:59 Last Admin: 10/05/24 09:50 Dose: Not Given Doxycycline Hyclate (Doxycycline Hyclate 50 Mg Cap) 50 mg PO QDL [facility] Stop: 11/03/24 11:29 Last Admin: 10/05/24 12:31 Dose: 50 mg Enoxaparin Sodium (Enoxaparin Inj 40 Mg/0.4 Ml Syr) 40 mg SQ Q12H [facility] Stop: 11/02/24 21:59 Last Admin: 10/05/24 09:51 Dose: 40 mg Famotidine (Famotidine 20 Mg Tab) 20 mg PO DAILY PRN PRN Reason: Heartburn Stop: 11/02/24 14:01 Gabapentin (Gabapentin 300 Mg Cap) 300 mg PO BID [facility] Stop: 11/02/24 20:59 Last Admin: 10/05/24 09:50 Dose: 300 mg Ipratropium [place] (Ipratropium [place] Hfa Inhaler) 1 puffs INH Q6H PRN; Protocol PRN Reason: SOB/WHEEZING Stop: 11/02/24 14:15 Lidocaine (Lidocaine 5% 1 Patch) 2 patch TD [facility] Stop: 11/03/24 08:59 Last Admin: 10/05/24 09:50 Dose: 2 patch Losartan Potassium (Losartan Potassium 50 Mg Tab) [facility] Stop: 11/03/24 08:59 Last Admin: 10/05/24 09:51 Dose: 50 mg Melatonin (Melatonin 3 Mg Tab) 6 mg PO HS PRN PRN Reason: Sleep Stop: 11/02/24 20:59 Meloxicam (Meloxicam 7.5 Mg Tab) 15 mg PO QAM [facility] Stop: 11/03/24 08:59 Last Admin: 10/05/24 09:51 Dose: 15 mg Metoprolol Succinate (Metoprolol Succ 25mg Ext Rel Tab) 37.5 mg PO PM [facility] Stop: 11/02/24 20:59 Last Admin: 10/04/24 21:08 Dose: 37.5 mg Miscellaneous (Remove Lidoderm Patch) 2 each N/A DAILY@2100 [facility] Stop: 11/03/24 20:59 Last Admin: 10/04/24 22:24 Dose: Not Given Morphine Sulfate (Morphine Sulfate 4 Mg/Ml 1 Ml Carp\Vial) 4 mg IV Q4H PRN PRN Reason: Pain Stop: 10/19/24 10:59 Ondansetron HCl (Ondansetron Inj 2 Mg/Ml 2 Ml Vial) 4 mg IV Q6H PRN PRN Reason: Nausea Stop: 11/02/24 14:01 Oxycodone HCl (Oxycodone Hcl Ir 5 Mg Tab (Immediate Release)) 5 mg PO Q4H PRN PRN Reason: Pain Stop: 10/19/24 10:59 Last Admin: 10/05/24 12:31 Dose: 5 mg Oxymetazoline HCl (Oxymetazoline 0.05% 30 Ml Btl) 1 sprays NA Q12H PRN PRN Reason: Nasal Congestion Stop: 11/02/24 17:49 Polyethylene Glycol (Polyethylene (Miralax) 17 Gm Pack) 17 gm PO DAILY PRN PRN Reason: Constipation Stop: 11/02/24 14:01 Prednisone (Prednisone 10 Mg Tablet) 10 mg PO QAM [facility] Stop: 11/03/24 08:59 Last Admin: 10/05/24 09:51 Dose: 10 mg Vitamin D (Cholecalciferol 25 Mcg (1000 Units) Tab) 25 mcg PO DAILY [facility] Stop: 11/03/24 08:59 Last Admin: 10/05/24 09:50 Dose: 25 mcg
[2024-10-05 15:50] VITALS: RESP 18
[2024-10-06 08:24] LABS: Creatinine Clr Calc Pharmacy 69.7 ml/min
--- NOTE | 2024-10-06 14:38 | Hospitalist Progress Note ---
Date of Service October 06, 2024 Assessment & Plan (1) Bilateral buttock pain: Plan: Secondary to left sacral insufficiency fracture Conservative management with physical therapy and pain control Appreciate Ortho input and recommendation Started with oral oxycodone and intravenous morphine during Likely discharge tomorrow to [facility] on oral oxycodone She will need oxycodone 7.5 mg Q4 hourly as needed for pain control She will be discharged to [facility] to continue physical therapy this afternoon (2) Ambulatory dysfunction: (3) Status post left knee replacement: (4) Psoriatic arthropathy: (5) Chronic steroid use: (6) Lymphedema: Plan This is a 69-year-old female who has a significant past medical history of rheumatoid arthritis, psoriatic arthropathy on Humira and chronic prednisone therapy, sarcoidosis, history of TIA with statin intolerance, chronic bilateral lymphedema, HLD, chronic bronchitis, cirrhosis and history of migraine who presents to ED secondary to severe bilateral buttock pain for several weeks. Bilateral Buttock Pain Ambulatory dysfunction - has been getting intravenous morphine and oral oxycodone to control pain Was using Ultram as an outpatient and wanted to have that for better control of pain thoracic and lumbar MRI have been noted and was evaluated by orthopedic surgeon Pelvis MRI showed sacral insufficiency fracture on the left which may involve the first neuroforamen with associated edema Further recommendation from the orthopedic surgeon pending -pain control with Ultram, scheduled APAP, lidocaine patch, heat/ice, gabapentin BID -PT/OT recommended rehab - Ultram is not controlling her pain- she used to take Ultram and oxycodone as an outpatient given by her PCP for exacerbation of pain. 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 Crespo Doing well from a post op standpoint regarding this surgery #Chronic b/l lymphedema Continue biweekly tubigrip dressings #HTN chronic, stable continue losartan an metoprolol Morbid obesity evidenced by a BMI of 47 DVT ppx: SQ Lovenox BID FULL CODE PCP: Jeniffer Ashraf Dispo: admit to med/surg, lives alone, may need rehab Admission and Anticipated Discharge Date Admission Date: October 03, 2024 Subjective 10/04/2024 The patient was seen and examined in medical floor She has been complaining of severe back pain without radiation Denies any problem with urination or bowel habit Will have MRI of the lower lumbar spine this afternoon 10/05/2024 The patient was seen and examined in medical floor She has been complaining of severe pain in her pelvis area and has been having problem with physical therapy She has been taking Ultram 50 mg 3 times daily as needed for pain control but pain is not controlled with that She denies any other symptoms 10/06/2024 The patient was seen and examined in medical floor She has been having pain with activity and asking for more pain medications Denies any other significant symptoms She will be discharged to [facility] this afternoon Review of Systems Review of Systems: All systems reviewed and are unremarkable except as noted below Physical Exam Physical Exam: Lying in bed without any acute distress Constitutional: well developed, well nourished, + ill appearing and + morbidly obese Eyes: PERRL, conjunctivae normal, anicteric sclerae ENMT: external ear and nose normal, oropharynx normal Neck: trachea midline, no thyromegaly Respiratory: no respiratory distress Auscultation: lungs clear to auscultation bilaterally and + diminished lung sounds Cardiovascular: Rate/Rhythm: regular rate and regular rhythm; not tachycardic Heart Sounds: normal S1 and normal S2; no murmur Extremities: + edema ( Trace edema bilaterally) Gastrointestinal (Abdomen): Inspection/Auscultation: normal bowel sounds; abdomen not distended Percussion/Palpation: abdomen soft; abdomen nontender Neurologic: normal touch/pain/proprioception and moves all extremities; no focal motor deficits Lymphatic: no cervical or axillary lymphadenopathy Results & Data Results & Data Vital Signs (Past 12 Hours) Vital Signs Temp Pulse Resp BP Pulse Ox O2 Del Method 10/06/24 07:23 36.7 C 82 18 118/73 95 Room Air Laboratory Results [facility] 10/06/24 07:31 Creatinine 0.97 Medications Administered Current Inpatient Medications Acetaminophen (Acetaminophen 500 Mg Tab) 1,000 mg PO Q8 [facility] Stop: 11/02/24 14:29 Last Admin: 10/06/24 14:08 Dose: 1,000 mg Albuterol (Albuterol Hfa 8 Gm Inhaler) 1 puffs INH Q6H PRN; Protocol PRN Reason: SOB/WHEEZING Stop: 11/02/24 14:15 Amiloride HCl (Amiloride Hcl 5 Mg Tab) 5 mg PO QAM [facility] Stop: 11/03/24 08:59 Last Admin: 10/06/24 07:56 Dose: 5 mg Artificial Tears (Artificial Tears) 1 drops OPB QID PRN; Protocol PRN Reason: Dryness Stop: 11/02/24 14:10 Last Admin: 10/06/24 09:20 Dose: 1 drops Ascorbic Acid (Ascorbic Acid 500 Mg Tab) 1,000 mg PO QAM [facility] Stop: 11/03/24 08:59 Last Admin: 10/06/24 07:56 Dose: 1,000 mg Baclofen (Baclofen 20 Mg Tab) 20 mg PO HS [facility] Stop: 11/02/24 20:59 Last Admin: 10/05/24 19:59 Dose: 20 mg Calcium/Vitamin D (Calcium 600mg + Vit D 400 Iu Tab) [facility] [place] Stop: 11/03/24 08:59 Last Admin: 10/06/24 07:56 Dose: 1 tab Docusate Sodium (Docusate Sodium 100 Mg Cap) 100 mg PO BID [facility] Stop: 11/02/24 20:59 Last Admin: 10/06/24 08:02 Dose: 100 mg Doxycycline Hyclate (Doxycycline Hyclate 50 Mg Cap) 50 mg PO QDL [facility] Stop: 11/03/24 11:29 Last Admin: 10/06/24 10:36 Dose: 50 mg Enoxaparin Sodium (Enoxaparin Inj 40 Mg/0.4 Ml Syr) 40 mg SQ Q12H [facility] Stop: 11/02/24 21:59 Last Admin: 10/06/24 09:20 Dose: 40 mg Famotidine (Famotidine 20 Mg Tab) 20 mg PO DAILY PRN PRN Reason: Heartburn Stop: 11/02/24 14:01 Gabapentin (Gabapentin 300 Mg Cap) 300 mg PO BID [facility] Stop: 11/02/24 20:59 Last Admin: 10/06/24 07:55 Dose: 300 mg Ipratropium [place] (Ipratropium [place] Hfa Inhaler) 1 puffs INH Q6H PRN; Protocol PRN Reason: SOB/WHEEZING Stop: 11/02/24 14:15 Lidocaine (Lidocaine 5% 1 Patch) 2 patch TD [facility] Stop: 11/03/24 08:59 Last Admin: 10/06/24 07:56 Dose: 2 patch Losartan Potassium (Losartan Potassium 50 Mg Tab) 50 mg PO [facility] Stop: 11/03/24 08:59 Last Admin: 10/06/24 07:55 Dose: 50 mg Melatonin (Melatonin 3 Mg Tab) 6 mg PO HS PRN PRN Reason: Sleep Stop: 11/02/24 20:59 Meloxicam (Meloxicam 7.5 Mg Tab) 15 mg PO [facility] Stop: 11/03/24 08:59 Last Admin: 10/06/24 07:56 Dose: 15 mg Metoprolol Succinate (Metoprolol Succ 25mg Ext Rel Tab) 37.5 mg PO PM [facility] Stop: 11/02/24 20:59 Last Admin: 10/05/24 20:00 Dose: 37.5 mg Miscellaneous (Remove Lidoderm Patch) 2 each N/A DAILY@2100 [facility] Stop: 11/03/24 20:59 Last Admin: 10/05/24 20:01 Dose: 2 each Morphine Sulfate (Morphine Sulfate 4 Mg/Ml 1 Ml Carp\Vial) 4 mg IV Q4H PRN PRN Reason: Pain Stop: 10/19/24 10:59 Ondansetron HCl (Ondansetron Inj 2 Mg/Ml 2 Ml Vial) 4 mg IV Q6H PRN PRN Reason: Nausea Stop: 11/02/24 14:01 Oxycodone HCl (Oxycodone Hcl Ir 5 Mg Tab (Immediate Release)) 5 mg PO Q4H PRN PRN Reason: Pain Stop: 10/19/24 10:59 Last Admin: 10/06/24 12:42 Dose: 5 mg Oxymetazoline HCl (Oxymetazoline 0.05% 30 Ml Btl) 1 sprays NA Q12H PRN PRN Reason: Nasal Congestion Stop: 11/02/24 17:49 Polyethylene Glycol (Polyethylene (Miralax) 17 Gm Pack) 17 gm PO DAILY PRN PRN Reason: Constipation Stop: 11/02/24 14:01 Prednisone (Prednisone 10 Mg Tablet) 10 mg PO [facility] Stop: 11/03/24 08:59 Last Admin: 10/06/24 07:55 Dose: 10 mg Vitamin D (Cholecalciferol 25 Mcg (1000 Units) Tab) 25 mcg PO DAILY [facility] Stop: 11/03/24 08:59 Last Admin: 10/06/24 07:56 Dose: 25 mcg
[2024-10-06 14:41] VITALS: BP 134/79; PULSE 89; TEMP 98.8; O2SAT 96
--- NOTE | 2024-10-07 08:53 | Discharge Summary ---
Date of Service October 07, 2024 Admission HPI Per Admitting Provider This is a 69-year-old female who has a significant past medical history of rheumatoid arthritis, psoriatic arthropathy on Humira and chronic prednisone therapy, sarcoidosis, history of TIA with statin intolerance, chronic bilateral lymphedema, HLD, chronic bronchitis, cirrhosis and history of migraine who presents to ED secondary to severe bilateral buttock pain for several weeks. Of significance in July patient underwent a left knee arthroplasty by Dr. Crespo. She tolerated the procedure well and did not have any postoperative complications. She was tolerating physical therapy and was not requiring any assistance with ambulation. She states ever since the surgery she had some left buttock pain. She chalked it up to her chronic piriformis issue or possibly a sciatic issue. She did bring it up to orthopedics who agreed and felt it was musculoskeletal. Unfortunately her symptoms and pain progressed. She also developed pain in the right buttock region. She is now requiring assistance with a walker. She has constant pain and is worse with movement and sitting. She denies any radicular symptoms, saddle anesthesia, bowel or bladder incontinence. She denies any worsened low back pain. She reports chronic low back pain, but denies any change. She also denies any recent fall or trauma. She does state that she was trying to wash her floors and was bending over and ever since then is when she developed pain in the right buttock as well. she was seen in the orthopedic clinic on 09/30 and was prescribed physical therapy. Due to's the severity of pain and limitations with a holiday she opted to present to ED. She does have chronic bilateral lymphedema for which she is also receiving lymphedema therapy twice a week. She has Tubigrip's in place. She denies any fever, chills, sweats, lightheadedness, dizziness, chest pain, shortness breath, nausea, vomiting or abdominal pain. She does have chronic loose stool and her last bowel movement was this morning. Her appetite has been well but due to her lack of mobility she has been having difficulty obtaining food. Admission Exam Per Admitting Provider Physical Exam: Constitutional: WD/WN, Obese, F, vitals as above, NAD but appears in pain, sitting up in bed, pleasant, conversing easily Head: Normocephalic, Atraumatic Eyes: PERRL, conjunctivae normal, anicteric sclerae ENMT: external ear and nose normal, oropharynx normal Neck: trachea midline, no thyromegaly normal visual inspection Respiratory: normal respiratory effort, lungs clear to auscultation, no wheeze, rales, rhonchi. Normal insp/exp effort, no accessory muscle use Cardiovascular: RRR, no murmur, no edema Vessels: no JVD or carotid bruit Chest: normal inspection of chest Abdomen: normal bowel sounds, soft, nontender, no hepatosplenomegaly Musculoskeletal: no cyanosis or clubbing, arom x 4, LTKA incision well healed, no vertebral tenderness or pinpoint low back discomfort Skin: no rashes, warm and dry normal turgor Neurologic: no face palsy, no dysarthria CN's II-XI intact bilaterally and moves all extremities Psychiatric: A+Ox3, euthymic affect Principal Diagnosis Bilateral buttock pain likely secondary to left sacral insufficiency fracture, controlled rheumatoid arthritis and psoriatic arthropathy, bilateral lymphedema Discharge Exam Lying in bed without any acute distress Constitutional well developed, well nourished, + ill appearing and + morbidly obese Eyes PERRL, conjunctivae normal, anicteric sclerae ENMT external ear and nose normal, oropharynx normal Neck trachea midline, no thyromegaly Respiratory no respiratory distress Auscultation: lungs clear to auscultation bilaterally and + diminished lung sounds Cardiovascular Rate/Rhythm: regular rate and regular rhythm; not tachycardic Heart Sounds: normal S1 and normal S2; no murmur Extremities: + edema ( Trace edema bilaterally) Gastrointestinal (Abdomen) Inspection/Auscultation: normal bowel sounds; abdomen not distended Percussion/Palpation: abdomen soft; abdomen nontender Neurologic normal touch/pain/proprioception and moves all extremities; no focal motor deficits Lymphatic no cervical or axillary lymphadenopathy Discharge Data Allergies Allergy/AdvReac Type Severity Reaction Status Date / Time adhesive Allergy Severe SKIN Verified 08/30/24 13:00 RASH/"severly allergic" bee venom protein (honey bee) Allergy Severe ANAPHYLAXIS Verified 08/30/24 13:00 chlorhexidine Allergy Mild Rash Verified 08/30/24 13:00 bacitracin Allergy Unknown RASH Verified 08/30/24 13:00 AROUND FACE brimonidine Allergy Unknown CONTACT Verified 08/30/24 13:00 DERMATITIS cyclosporine Allergy Unknown CONTACT Verified 08/30/24 13:00 DERMATITIS spironolactone Allergy Unknown Hives Verified 08/30/24 13:00 terfenadine Allergy Unknown EYE Verified 08/30/24 13:00 SWELLING timolol Allergy Unknown contact Verified 08/30/24 13:00 dermatitis tobramycin Allergy Unknown EYE Verified 08/30/24 13:00 SWELLING cefaclor AdvReac Unknown MOUTH Verified 08/30/24 13:00 ULCERS- CAN TAKE KEFLEX W/O PROBLEM Consultations 10/03/24 10:48 Consult Orthopedic Spine Surgery Routine ED Decision to Admit Stat Ordered Studies 10/03/24 10:48 MR lumbar spine wo con Stat MR thoracic spine wo con Stat 10/04/24 08:59 MR pelvis wo con Routine Hospital Course (1) Bilateral buttock pain: Secondary to left sacral insufficiency fracture Conservative management with physical therapy and pain control Appreciate Ortho input and recommendation Started with oral oxycodone and intravenous morphine during Likely discharge tomorrow to [facility] on oral oxycodone She will need oxycodone 7.5 mg Q4 hourly as needed for pain control She will be discharged to [facility] to continue physical therapy this afternoon (2) Ambulatory dysfunction: (3) Status post left knee replacement: (4) Psoriatic arthropathy: (5) Chronic steroid use: (6) Lymphedema: Plan This is a 69-year-old female who has a significant past medical history of rheumatoid arthritis, psoriatic arthropathy on Humira and chronic prednisone therapy, sarcoidosis, history of TIA with statin intolerance, chronic bilateral lymphedema, HLD, chronic bronchitis, cirrhosis and history of migraine who presents to ED secondary to severe bilateral buttock pain for several weeks. Bilateral Buttock Pain Ambulatory dysfunction - has been getting intravenous morphine and oral oxycodone to control pain Was using Ultram as an outpatient and wanted to have that for better control of pain thoracic and lumbar MRI have been noted and was evaluated by orthopedic surgeon Pelvis MRI showed sacral insufficiency fracture on the left which may involve the first neuroforamen with associated edema Further recommendation from the orthopedic surgeon pending -pain control with Ultram, scheduled APAP, lidocaine patch, heat/ice, ga bapentin BID -PT/OT recommended rehab - Ultram is not controlling her pain- she used to take Ultram and oxycodone as an outpatient given by her PCP for exacerbation of pain. 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 Crespo Doing well from a post op standpoint regarding this surgery #Chronic b/l lymphedema Continue biweekly tubigrip dressings #HTN chronic, stable continue losartan an metoprolol Morbid obesity evidenced by a BMI of 47 DVT ppx: SQ Lovenox BID FULL CODE PCP: Jeniffer Ashraf Dispo: admit to med/surg, lives alone, may need rehab Total Time Total Time Spent Total Time Spent (In Minutes): 35 minutes Discharge Plan Discharge Items Patient Disposition: Transfer Inpatient Rehab Fac Reason For Visit: AMBULATORY DYSFUNCYTION, BACK PAIN Discharge Diagnosis: Bilateral buttock pain likely secondary to left sacral insufficiency fracture, controlled rheumatoid arthritis and psoriatic arthropathy, bilateral lymphedema Condition on Discharge: Fair Activity: As commented below Activity Comment: will need to continue physical therapy Non-emergency contact: Primary Care Provider Call non-emergency contact if: you have any medication questions and your symptoms worsen Follow-up/Referrals: Jeniffer Ashraf MD [Primary Care Provider] - (Please make an appointment with your PCP within 7 days following discharge from the facility) Diet: Heart Healthy Addtl Attending Provider Instructions: Please take precaution to avoid falls Do not take oxycodone and Ultram together Try to use less of oxycodone to avoid drowsiness, confusion and addiction Continue with physical therapy Please keep appointments with your healthcare provider Pending Studies at Discharge: No Stand-Alone Forms: My [facility] Skilled Items Patient informed of condition?: Yes DNR: No Discharge Level of Care: Acute rehab Communicable Disease: No Discharge Prognosis: Stable Lines: None Urinary Catheter: No Medications and DC Order Prescriptions: New lidocaine 5 % adhesive patch,medicated 1 patch TOP DAILY PRN (Reason: pain) Qty: 15 0RF Rx Instructions: leave on most painful area for 12 hrs prednisone 20 mg tablet See Rx Instructions .ROUTE .COMPLEX 5 Days Qty: 7 0RF Rx Instructions: Please take 2 tablets the first day, 2 tablets the second day, 1 tablet the third day, 1 tablet the 4th day, 1/2 tablet the 5th day. oxycodone 5 mg Tablet 7.5 mg PO Q4H PRN (Reason: pain) Qty: 20 0RF Continued Combivent Respimat 20-100 mcg/actuation mist 1 puff inhalation QID PRN (Reason: shortness of breath or wheezing) Qty: 4 5RF Rx Instructions: space evenly during waking hours ascorbic acid (vitamin C) 1,000 mg tablet 1,000 mg PO QAM Humira(CF) Pen 40 mg/0.4 mL pen injector kit 40 mg SQ Q14D Rx Instructions: 40 mg subcut every 2 weeks; metoprolol succinate 25 mg Tablet Extended Release 24 Hr 37.5 mg PO PM Systane Gel 0.3 % Gel 1 dose OPB HS calcium citrate-vitamin D3 [Citracal + D Maximum] 315-250 mg-unit Tablet 1 tab PO QAM doxycycline hyclate 50 mg Tablet 50 mg PO QDL prednisone 10 mg Tablet 10 mg PO QAM Blink Tears 0.25 % Drops 1 drp OPHTHALMIC (EYE) DAILY PRN (Reason: Dry Eyes) oxymetazoline [Afrin (oxymetazoline)] 0.05 % [place],Non-Aerosol 1 spray INTRANASAL UD PRN (Reason: Nasal Congestion) fluconazole 100 mg tablet 100 mg PO UD PRN (Reason: YEAST INFECTION) baclofen 10 mg Tablet 20 mg PO HS omeprazole 20 mg Capsule,Delayed Release(Dr/Ec) 20 mg PO QPM PRN (Reason: Acid Reflux) Patient Comments: take like 3 x per week. acetaminophen 500 mg Capsule 1,000 mg PO Q8H Patient Comments: usually take every eight hours. losartan 50 mg tablet 50 mg PO QAM Patient Comments: losartan potassium amiloride 5 mg tablet 5 mg PO QAM estradiol 1 mg tablet 0.5 mg PO [id number] Patient Comments: mon, wed, fri, sun. Rx Instructions: Take 0.5 tab on Thursday, Thursday, Thursday, and Thursday. meloxicam 15 mg Tablet 15 mg PO QAM cholecalciferol (vitamin D3) [Vitamin D3] 25 mcg (1,000 unit) Tablet 25 mcg PO DAILY aspirin 81 mg Tablet,Delayed Release (Dr/Ec) 81 mg PO BID 42 Days Qty: 0 0RF Patient Comments: not currently taking 05/30/24 Discontinued tramadol 50 mg Tablet 50 mg PO TID Discharge Orders: Discharge Order (Routine); Ordered 10/06/24 Ordered By: Lance Cai Admission Data Admit Date/Time: 10/03/24 10:58 Attending Provider: Lance Cai Admit Provider: Purnima Vazquez I. Primary Care Provider: Jeniffer Ashraf Other Providers: Purnima Vazquez I.; Jeb Chong; [facility] Other Interventions: Discharge Summary Assessment (RN) Last Done: 10/06/24 14:42
== END 2024-10-06 15:57 | DRG 543 ==
LOC: ED 05:52 → 3N 10:58 → SUATTDRO 10:58 → 3N 12:43